=== PATIENT | male | born 1990 | race American Indian/Alaskan Native ===

== ENCOUNTER 2016-09-28 10:47 | Inpatient (IN) | payer OTHER ==
[2016-09-28] MEDS ORDERED: VANCOMYCIN/NS 1 GM/250 ML 250 ML IV ONE (12:02)
[2016-09-28] MEDS ORDERED: ROCEPHIN/NS 2 GM/100 ML 100 ML IV ONE (12:02)
--- NOTE | 2016-09-28 12:10 | Cat Scan Report ---
CT scan of head without contrast: History: Headache. Findings: Ventricles are normal in size and midline in location. No evidence of acute ischemia, hemorrhage or mass. No extra-axial fluid collection. Normal brainstem and cerebellum. Mucosal thickening of the maxillary sinuses. Impression: No acute intracranial abnormality. Sinus disease.
--- NOTE | 2016-09-28 12:12 | Cat Scan Report ---
CT scan of cervical spine: History: Fall, neck pain. Findings: The odontoid process and the lateral mass and anterior and posterior arch of atlas appears unremarkable. Normal height of vertebral bodies and intervertebral disc. Normal articular surfaces. No fracture. Normal prevertebral soft tissue. Impression: Essentially negative cervical spine.
[2016-09-28] MEDS ORDERED: ROCEPHIN/NS 1 GM/50 ML 50 ML IV ONE ×2 (12:14→13:06)
[2016-09-28] MEDS ORDERED: NACL 0.9% 1000 ML 1,000 ML ONE (12:14)
[2016-09-28 12:32] LABS: Basophils % (Auto) 1.6 % (0.0-1.8); Eosinophils % (Auto) 0.3 % (0.0-4.3); Hematocrit 37.5 % (35.5-45.6); Hemoglobin 12.6 gm/dl (11.8-15.2); Mean Corpuscular HGB Conc 34 % (32-34); Mean Corpuscular Hemoglobin 28 pg (28-32); Mean Corpuscular Volume 82 fl (84-94); Platelet Count 105 K/mm3 (140-440); Red Blood Count 4.58 M/mm3 (3.65-5.03); Red Cell Distribution Width 15.2 % (13.2-15.2); White Blood Count 4.8 K/mm3 (4.5-11.0)
[2016-09-28 12:37] LABS: Urine Drugs of Abuse Note Disclamer
[2016-09-28] MEDS ORDERED: NACL 0.9% 1000 ML 1,000 ML IV ONE (12:39)
[2016-09-28 12:51] LABS: Bilirubin,Urine NEG (Negative); Blood,Urine MOD (Negative); Ketones,Urine NEG (Negative); Leukocyte Esterase,Urine NEG (Negative); Mucus,Urine FEW /HPF; Nitrite,Urine NEG (Negative); Urobilinogen,Urine < 2.0 mg/dL (<2.0); WBC,Urine < 1.0 /HPF (0.0-6.0)
[2016-09-28 12:54] LABS: Protein,Urine >500 mg/dL (Negative)
[2016-09-28] MEDS ORDERED: DECADRON IV ONE (12:54)
--- NOTE | 2016-09-28 13:13 | Emergency Department Report ---
HPI - General Chief Complaint: Altered Mental Status Time Seen by Provider: 09/28/16 11:29 - HPI HPI: Chief complaint: Altered mental status HPI: Patient is a 24-year-old -Citizen Of [place] male brought in by his family for altered mental status. Patient was seen at [facility] on the and diagnosed with a sinus infection. Patient was given a prescription for an antibiotic but never had it filled. Patient has been having altered mental status and fall and numerous times in the last 24 hours. Patient is unable to contribute much to the history but states he is not HIV positive that he knows of. Family states he is homosexual. Patient states he has lost weight recently. Patient complains of a headache. Family states he did throw up at least once. Mode of arrival: [private car] Source: [Patient] and and [family member] Began: Patient began generalized malaise and weight loss about a month ago but became altered and the last one to 2 days. Duration: See above Context: See above Quality: Unable to assess Severity: 8 out of 10 Improved with: Unable to assess Worsened with: Unable to assess Associated signs and symptoms: See above ED Review of Systems ROS: Stated complaint: HEADACHE Other details as noted in HPI Comment: Unobtainable due to pts medical conditions (altered mental status) Physical Exam - Physical Exam Vital Signs: Vital Signs 09/28/16 09/28/16 09/28/16 11:11 12:34 12:39 Temperature 99.0 F 99.4 F Temperature [ Pre-Procedure] Pulse Rate 63 84 84 Respiratory 18 18 Rate Respiratory Rate [Pre- Procedure] Blood Pressure 161/95 Blood Pressure [Pre-Procedure] Blood Pressure 97/52 97/52 [Right] O2 Sat by Pulse 100 99 100 Oximetry O2 Sat by Pulse Oximetry [Pre- Procedure] 09/28/16 09/28/16 09/28/16 12:45 12:49 12:50 Temperature 99.4 F Temperature [ 99.4 F Pre-Procedure] Pulse Rate 77 77 Respiratory 16 18 Rate Respiratory 16 Rate [Pre- Procedure] Blood Pressure Blood Pressure 133/84 [Pre-Procedure] Blood Pressure 114/80 114/75 [Right] O2 Sat by Pulse 100 99 Oximetry O2 Sat by Pulse 100 Oximetry [Pre- Procedure] Physical Exam: GENERAL: The patient is thin -Citizen Of [place] male who is somewhat lethargic but arousable. HEENT: Normocephalic. Atraumatic. Extraocular motions are intact. Patient has moist mucous membranes. NECK: Neck with significant meningeal rigidity. CHEST/LUNGS: Clear to auscultation. There is no respiratory distress noted. HEART/CARDIOVASCULAR: Regular. There is tachycardia. There is no gallop rub or murmur. ABDOMEN: Abdomen is soft, nontender. Patient has normal bowel sounds. There is no abdominal distention. SKIN: There is no rash. There is no edema. There is no diaphoresis. NEURO: The patient is lethargic and oriented to situation. The patient is cooperative. The patient moves all extremities area and the patient has slow but appropriate speech. MUSCULOSKELETAL: There is no tenderness or deformity. There is no evidence of acute injury. ED Course Vital Signs 09/28/16 09/28/16 09/28/16 11:11 12:34 12:39 Temperature 99.0 F 99.4 F Temperature [ Pre-Procedure] Pulse Rate 63 84 84 Respiratory 18 18 Rate Respiratory Rate [Pre- Procedure] Blood Pressure 161/95 Blood Pressure [Pre-Procedure] Blood Pressure 97/52 97/52 [Right] O2 Sat by Pulse 100 99 100 Oximetry O2 Sat by Pulse Oximetry [Pre- Procedure] 09/28/16 09/28/16 09/28/16 12:45 12:49 12:50 Temperature 99.4 F Temperature [ 99.4 F Pre-Procedure] Pulse Rate 77 77 Respiratory 16 18 Rate Respiratory 16 Rate [Pre- Procedure] Blood Pressure Blood Pressure 133/84 [Pre-Procedure] Blood Pressure 114/80 114/75 [Right] O2 Sat by Pulse 100 99 Oximetry O2 Sat by Pulse 100 Oximetry [Pre- Procedure] - Reevaluation(s) Reevaluation #1: 09/28/16 14:58 Dr. Donnelly here in the emergency department to see the patient. Reevaluation #2: 09/28/16 Prior to compare: Treatment with Decadron, Rocephin and vancomycin discussed with infectious disease. Patient spinal tap and blood cultures were drawn before antibiotics were given. - Lumbar Puncture Consent Obtained: verbal consent, written consent Time Out Performed: Yes Indication for Procedure: headache, change in mental status Patient Position: right lateral decubitus Skin Prep: Povidone-Iodine 1% Local Anesthetic Used: Lidocaine 1% Amount of anesthesia used (mls): 5 Spinal Needle Gauge: 22G Interspace Used: L3-L4 Fluid Initially Obtained: clear Complications: none Patient Tolerated Procedure: no complications ED Medical Decision Making - Lab Data Result diagrams: 09/28/16 12:06 09/28/16 12:06 Laboratory Tests 09/28/16 09/28/16 09/28/16 11:20 12:06 12:06 POC Glucose 98 Lactic Acid 1.9 Calcium 8.7 Troponin T Triglycerides Cholesterol LDL Cholesterol Direct HDL Cholesterol Cholesterol/HDL Ratio Urine pH Ur Specific Morganza Urine Protein Urine Blood Urine Urobilinogen Urine WBC (Auto) Urine RBC (Auto) U Epithel Cells (Auto) CSF Appearance CSF Color CSF WBC CSF RBC CSF Seg Neutrophils CSF Lymphocytes % CSF Reactive Lymphs CSF Monocytes % CSF Eosinophils % CSF Basophils CSF Pathologist Review CSF Glucose CSF Total Protein Salicylates Acetaminophen U Marijuana (THC) Screen Plasma/Serum Alcohol 09/28/16 09/28/16 09/28/16 12:06 12:06 12:06 POC Glucose Lactic Acid Calcium Troponin T 0.427 H* Triglycerides 102 Cholesterol 151 LDL Cholesterol Direct 86 HDL Cholesterol 45 Cholesterol/HDL Ratio 3.35 Urine pH Ur Specific Morganza Urine Protein Urine Blood Urine Urobilinogen Urine WBC (Auto) Urine RBC (Auto) U Epithel Cells (Auto) CSF Appearance CSF Color CSF WBC CSF RBC CSF Seg Neutrophils CSF Lymphocytes % CSF Reactive Lymphs CSF Monocytes % CSF Eosinophils % CSF Basophils CSF Pathologist Review CSF Glucose CSF Total Protein Salicylates < 0.3 L Acetaminophen < 15.0 U Marijuana (THC) Screen Plasma/Serum Alcohol 09/28/16 09/28/16 09/28/16 12:06 12:20 12:27 POC Glucose Lactic Acid Calcium Troponin T Triglycerides Cholesterol LDL Cholesterol Direct HDL Cholesterol Cholesterol/HDL Ratio Urine pH 5.0 Ur Specific Morgan[place] 1.017 Urine Protein >500 Urine Blood Mod Urine Urobilinogen < 2.0 Urine WBC (Auto) < 1.0 Urine RBC (Auto) 1.0 U Epithel Cells (Auto) < 1.0 CSF Appearance CSF Color CSF WBC CSF RBC CSF Seg Neutrophils CSF Lymphocytes % CSF Reactive Lymphs CSF Monocytes % CSF Eosinophils % CSF Basophils CSF Pathologist Review CSF Glucose CSF Total Protein Salicylates Acetaminophen U Marijuana (THC) Screen Presumptive positive Plasma/Serum Alcohol < 0.01 09/28/16 12:45 POC Glucose Lactic Acid Calcium Troponin T Triglycerides Cholesterol LDL Cholesterol Direct HDL Cholesterol Cholesterol/HDL Ratio Urine pH Ur Specific Morganza Urine Protein Urine Blood Urine Urobilinogen Urine WBC (Auto) Urine RBC (Auto) U Epithel Cells (Auto) CSF Appearance Clear CSF Color Colorless CSF WBC 600 CSF RBC 165 CSF Seg Neutrophils 55.5 CSF Lymphocytes % 38.0 CSF Reactive Lymphs 0.5 CSF Monocytes % 6.0 CSF Eosinophils % 0 CSF Basophils 0 CSF Pathologist Review C CSF Glucose 3 CSF Total Protein 117 Salicylates Acetaminophen U Marijuana (THC) Screen Plasma/Serum Alcohol - EKG Data -: EKG Interpreted by Me EKG shows normal: sinus rhythm Rate: normal (75) - EKG Data When compared to previous EKG there are: previous EKG unavailable Interpretation: normal EKG - Radiology Data Radiology results: report reviewed (questionable right lower lobe infiltrate. CT head showed no acute process.) Critical care attestation.: If time is entered above; I have spent that time in minutes in the direct care of this critically ill patient, excluding procedure time. ED Disposition Clinical Impression: Cryptococcal meningitis Disposition: OP ADMITTED IP TO THIS HOSP Is pt being admited?: Yes Does the pt Need Aspirin: Yes Condition: Serious Referrals: PRIMARY CARE, [Primary Care Provider] - 3-5 Days Time of Disposition: 13:20 (admit to the hospitalist)
[2016-09-28 13:19] LABS: Anion Gap 20 mmol/L; Blood Urea Nitrogen 21 mg/dL (9-20); Calcium 8.7 mg/dL (8.4-10.2); Carbon Dioxide 19 mmol/L (22-30); Chloride 87.5 mmol/L (98-107); Glucose 98 mg/dL (75-100); Potassium 4.4 mmol/L (3.6-5.0); Sodium 122 mmol/L (137-145)
[2016-09-28 13:32] LABS: Glucose,CSF 3 mg/dL
[2016-09-28 13:35] LABS: Appearance,CSF Clear
[2016-09-28 13:36] LABS: White Blood Cell,CSF 600 /mm3 (1-10)
--- NOTE | 2016-09-28 14:28 | XRay Report ---
Single view chest: History: Shortness of breath. Findings: Cardiomegaly. Trachea is midline. Faint interstitial infiltrates are noted right lower lobe with prominence of pulmonary vascularity. Normal CP angles. Impression: Probable right lower lobe pneumonia. Less likely early unilateral pulmonary edema.
[2016-09-28 14:34] LABS: Basophils CSF 0 %; CSF Diff Status Complete
--- NOTE | 2016-09-28 15:36 | Consultation ---
History of Present Illness - Reason for Consult Consult date: 09/28/16 meningitis - History of Present Illness Mr Rich is a 25y/o AA male presents through the ED with a one-month history of malaise, worsening generalized headache, decreased appetite, and weight loss. He was brought to the hospital by his sister who stated that had been falling. The patient had marked neck rigidity with non-contrast head CT showing no acute changes. Spinal fluid revealed 600 WBCs with 50% segs and 38% lymphs; 165 RBCs, glucose 3, protein 117 and cryptococcal antigen 1:512 The patient is found altered now making retrieval of his history somewhat difficult. He apparently was seen earlier this month at [facility] whereby he was thought to have a sinus infection. He was prescribed medication but never had that prescription filled. Currently, Mr. Rich describes cough with white sputum. He denies fever or chills. He denies photophobia, nausea or vomiting. He has had occasional diarrhea. The patient lives a diaz lifestyle but states that he has not been sexually active in over a year's time. He is unaware of exposure to HIV otherwise. He is unaware of previous HIV testing. He notes a history of syphilis in the past but denies other STD. He denies a history of hepatitis or TB. Other present lab findings include a CBC with 4800 white cells, hemoglobin of 12.6 and hematocrit of 37.5. Platelet count is 105,000. Electrolytes include a sodium 122 and chloride of 87.5. Lactate levels 1.9. Urinalysis is benign. Urine drug screen was positive for THC. Chest x-ray shows a questionable right lower lobe infiltrate. CT of the head showed some chronic maxillary sinus changes with mucosal thickening. The patient had been started empirically in the ED with Decadron 10 mg 1, ceftriaxone 2 g IV and vancomycin 1 g IV. He is now seen for further ID recommendations Medications and Allergies Allergies Allergy/AdvReac Type Severity Reaction Status Date / Time No Known Allergies Allergy Unverified 09/28/16 11:11 Active Meds: Active Medications Acetaminophen (Tylenol) 650 mg PO Q24H JAVIER Dextrose (D5w (50 Ml)) 5 ml IV Q24H JAVIER Diphenhydramine HCl (Benadryl) 25 mg IV Q24H JAVIER Flucytosine (Ancobon) 2,000 mg PO Q6HR JAVIER Amphotericin B 560 mg/ IV (Miscellaneous Supplies) 0 mls @ 0 mls/hr IV Q24H JAVIER PRN Reason: Protocol Ceftriaxone Sodium (Rocephin/Ns 2 Gm/100 Ml) 100 mls @ 200 mls/hr IV Q24HR JAVIER PRN Reason: Protocol Azithromycin 500 mg/ Sodium (Chloride) 250 mls @ 250 mls/hr IV Q24HR JAVIER Review of Systems Constitutional: weight loss, malaise, poor appetite (see discussion above) Physical Examination - Physical Exam Narrative exam: Chronically ill appearing. No acute distress. HEENT: Right facial puffiness. Pupils are equal reactive to light and accommodation. Funduscopy could not be performed. Conjunctiva clear. Thrush noted over tongue surface NECK: Supple. No enlargement of the thyroid gland. No significant cervical lymphadenopathy. No jugular venous distention at 30. LUNGS: Clear with no adventitious sounds. HEART: Tachycardic. No murmur or gallop. ABDOMEN: Soft and nontender. Liver and spleen are not palpably enlarged or tender. No palpable masses. Bowel sounds are normoactive. : Small perirectal ulcers noted. EXTREMITIES: Shotty cervical, axillary and inguinal lymph node enlargement. SKIN: No other rash, ulcers or wounds. NEUROLOGIC: Patient is well oriented. Verbal responses are slow. No gross motor or sensory deficits. Patient was not ambulated. - Constitutional Vitals: Vital Signs Temp Pulse Resp BP Pulse Ox 99.4 F 77 16 133/84 100 09/28/16 12:50 09/28/16 12:49 09/28/16 12:50 09/28/16 12:50 09/28/16 12:50 Temperature -Last 24 Hours Temperature [Pre-Procedure] 99.4 F Temperature 99.4 F Temperature 99.4 F Temperature 99.0 F Results - Labs CBC & Chem 7: 09/28/16 12:06 09/28/16 12:06 Labs: Abnormal lab results 09/28/16 09/28/16 09/28/16 Range/Units 12:06 12:06 12:06 MCV 82 L (84-94) fl Plt Count 105 L (140-440) K/mm3 Lymph % (Auto) 6.5 L (13.4-35.0) % Lymph # 0.3 L (1.2-5.4) K/mm3 Seg Neutrophils % 84.5 H (40.0-70.0) % Sodium 122 L (137-145) mmol/L Chloride 87.5 L (98-107) mmol/L Carbon Dioxide 19 L (22-30) mmol/L BUN 21 H (9-20) mg/dL Troponin T 0.427 H* (0.00-0.029) ng/mL Salicylates (2.8-20.0) mg/dL 09/28/16 Range/Units 12:06 MCV (84-94) fl Plt Count (140-440) K/mm3 Lymph % (Auto) (13.4-35.0) % Lymph # (1.2-5.4) K/mm3 Seg Neutrophils % (40.0-70.0) % Sodium (137-145) mmol/L Chloride (98-107) mmol/L Carbon Dioxide (22-30) mmol/L BUN (9-20) mg/dL Troponin T (0.00-0.029) ng/mL Salicylates < 0.3 L (2.8-20.0) mg/dL Assessment and Plan Assessment: Mr Rich is a 25y/o AA male presents through the ED with a one-month history of malaise, worsening generalized headache, decreased appetite, and weight loss. He was brought to the hospital by his sister who stated that had been falling. The patient had marked neck rigidity with non-contrast head CT showing no acute changes. 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 R/O HIV/AIDS - Weight loss - Thrush - Diffuse adenopathy 3. RLL infiltrate - R/O CAP vs OI 4. ? Diarrhea 5. Marked hyponatremia - R/O SIADH 6. Thrombocytopenia - probably secondary to HIV 7. Chronic sinusitis 8. Perirectal ulcers - R/O herpes Recommendations: - Patient to start on IV amphotericin B 0.7 mg/kg daily along with flucytosine 25 mg/kg by mouth every 6 hours - Routine blood cultures are pending - Blood culture for TB ordered as well - Repeat chest x-ray - Treatment now for CAP with ceftriaxone and azithromycin. We'll need to workup further for pneumonia pending above - HIV studies now to include formal HIV antibody, T cell count, HIV viral load, HIV genotype, RPR, serum cryptococcal antigen, , TB QuantiFERON assay, andhepatitis A, B, and C serology, and urine for chlamydia and GC screen - Check Liveer profile and LDH - Send herpes viral culture of perirectal ulcer - Start fluconazole 200 mg po daily - If diarrhea persists will send for routine C&S, O&P and C. difficile. - Supportive care and further fluid/electrolyte management as per hospitalist
[2016-09-28] MEDS: D5W (50 ML) IV SCH (16:00)
[2016-09-28] MEDS ORDERED: [UNRECOGNIZED DRUG - MIXTURE] IV SCH (16:00)
[2016-09-28] MEDS ORDERED: ZITHROMAX 500 MG in NACL 0.9% 250ML 250 ML IV SCH (16:00)
--- NOTE | 2016-09-28 16:02 | Admit Criteria Form ---
Admission Criteria Documentation: MENTAL STATUS CHANGE Clinical Indications for Inpatient Care (Place 'X' for any and all applicable criteria): Ongoing inpatient care may be needed for ANY ONE of the following(1)(2)(3)(5)(6) : [X ]I. Suspected serious etiology (eg, medical disorder, NICKER AND BREAKER event) of mental status change [ ]II. Danger to self or others not manageable at lower level of care [ ]III. Grave disability (eg, inability to perform self care necessary at lower level of care) [ ]IV. Agitation or inappropriate behavior interfering with care for primary condition (eg, attempting to discontinue lines or drains prematurely, unable to cooperate with respiratory care) [ ]V. Delirium [A] [D][E] as described by ANY ONE of the following(26): [ ]a) Delirium due to alcohol or sedative [F] withdrawal [ ]b) Delirium of uncertain etiology that has not responded to appropriate empiric treatment [ ]c) Delirium that prevents performance of a life-sustaining function (eg, feeding or hydrating oneself) [ ]. General contraindications and/or Inappropriate clinical situations for Observational Care in patients with Mental Status Change, when ANY ONE of the following is required: [ ]a) Prediction of prolongation of LOS based on ANY ONE of the following may be considered as a contraindication for observational care 2, 3, 4, 5, 6, 7, 8, 9, 10, 11 [ ]i) Age > 65 yrs. [ ]ii) Patient arriving by ambulance [ ]iii) Patient with high acuity [ ]iv) Patient requiring vital sign monitoring [ ]v) Patient on IV medication [ ]b) Systolic blood pressures 180mmHg 3,12 [ ]c) Patient with altered mental status including delirium and other alteration of consciousness, (3) [ ]d) Patient whose discharge disposition will be to a penitentiary home or rehabilitation home should not be managed in Emergency Department Observation Unit. CMS rule requires 3 days hospital stay before such placement.3,13 [ ]e) Patient with failure to thrive due to broad array of etiologies 3,16,17 [ ]f) Inability to ambulate 3,14 Extended stay beyond goal length of stay for the primary condition may be needed until ALL of the following are present(3)(5): [ ]a) Underlying medical etiology of mental status change is absent, or has been established and adequately treated [ ]b) Danger to self or others is absent or manageable at lower level of care. [ ]c) Behavior crisis management, including physical or chemical restraints, is not required or available at lower level of car [ ]d) Substance or alcohol withdrawal is absent or manageable at lower level of care. [ ]e) Behavioral symptoms (eg, agitation, somnolence, inappropriate behavior) are absent, or are manageable at lower level of care. The original [facility] content created by [facility] [employer] has been revised. The portions of the content which have been revised are identified through the use of italic text or in bold, and [facility] has neither reviewed nor approved the modified material. All other unmodified content is copyright [facility]. Please see references footnoted in the original [facility] edition 2016 Admission Criteria Met: Yes
[2016-09-28] MEDS: BENADRYL IV SCH (16:55)
[2016-09-28] MEDS: TYLENOL PO SCH (17:08)
[2016-09-28 17:33] LABS: Alanine Aminotransferase 17 units/L (7-56); Albumin 2.7 g/dL (3.9-5); Albumin/Globulin Ratio 0.4 %; Alkaline Phosphatase 43 units/L (35-129); Bilirubin,Total 0.5 mg/dL (0.1-1.2); Total Protein 9.7 g/dL (6.3-8.2)
[2016-09-28 17:54] LABS: Bilirubin,Direct < 0.2 mg/dL (0-0.2); Bilirubin,Indirect 0.3 mg/dL
[2016-09-28] MEDS: DIFLUCAN PO SCH (18:19)
[2016-09-28] MEDS: ZITHROMAX 500 MG in NACL 0.9% 250ML 250 ML IV SCH (18:20)
[2016-09-28] MEDS: [UNRECOGNIZED DRUG - OTHER] PO SCH (18:32)
[2016-09-28] MEDS: [UNRECOGNIZED DRUG - OTHER] IV SCH (18:33)
[2016-09-28] MEDS: D5W IV SCH (18:33)
[2016-09-28] MEDS ORDERED: MILK OF MAGNESIA PO PRN (18:59)
[2016-09-28] MEDS ORDERED: DULCOLAX PR PRN (18:59)
[2016-09-28] MEDS ORDERED: D5/0.45NS 1,000 ML IV SCH (19:00)
[2016-09-28] MEDS ORDERED: XYLOCAINE 1% MPF 5 mL INFILTRATI ONE (19:03)
[2016-09-28] MEDS ORDERED: ROCEPHIN 2,000 MG in NACL 0.9% 50 ML IV SCH (20:00)
[2016-09-29 05:41] LABS: Basophils % (Auto) 0.3 % (0.0-1.8); Hematocrit 32.1 % (35.5-45.6); Hemoglobin 10.6 gm/dl (11.8-15.2); Mean Corpuscular HGB Conc 33 % (32-34); Mean Corpuscular Hemoglobin 27 pg (28-32); Mean Corpuscular Volume 82 fl (84-94); Platelet Count 159 K/mm3 (140-440); Red Blood Count 3.93 M/mm3 (3.65-5.03); Red Cell Distribution Width 15.1 % (13.2-15.2); White Blood Count 4.1 K/mm3 (4.5-11.0)
[2016-09-29 06:02] LABS: Alanine Aminotransferase 13 units/L (7-56); Albumin 2.4 g/dL (3.9-5); Albumin/Globulin Ratio 0.4 %; Alkaline Phosphatase 34 units/L (35-129); Anion Gap 18 mmol/L; BUN/Creatinine Ratio 19.23; Bilirubin,Total 0.3 mg/dL (0.1-1.2); Blood Urea Nitrogen 25 mg/dL (9-20); Carbon Dioxide 19 mmol/L (22-30); Chloride 91.3 mmol/L (98-107); Glucose 95 mg/dL (75-100); Potassium 4.2 mmol/L (3.6-5.0); Sodium 124 mmol/L (137-145); Total Protein 7.9 g/dL (6.3-8.2)
[2016-09-29] MEDS: [UNRECOGNIZED DRUG - OTHER] PO SCH ×4 (06:08→18:00)
[2016-09-29 08:32] LABS: HIV-1 Antigen p24 Non React (Non React)
[2016-09-29 08:34] LABS: HIVR-1/2 Ab Reactive (Non React)
--- NOTE | 2016-09-29 08:39 | Progress Note ---
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 No nursing issues overnight. Patient was sleepy but abusable and answer questions. Complained headache. Hospitalist Physical - Physical exam Narrative exam: Not in cardiopulmonary distress. The patient appeared chronically sick looking and cachectic. Shotty cervical and axillary lymphadenopathy. Vital signs as documented. Head exam is unremarkable. No scleral icterus . Neck is without jugular venous distension, thyromegaly, or carotid bruits. Lungs are clear to auscultation. Cardiac exam reveals regular rate and Rhythm. First and second heart sounds normal. No murmurs, rubs or gallops. Abdominal exam reveals normal bowel sounds, no masses, no organomegaly and no aortic enlargement. Extremities are nonedematous and both femoral and pedal pulses are normal. 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 No focal weakness. - Constitutional Vitals: Temp Pulse Resp BP Pulse Ox 98.5 F 69 18 122/75 99 09/29/16 08:00 09/29/16 08:00 09/29/16 08:00 09/29/16 08:00 09/29/16 08:00 Results - Labs CBC & Chem 7: 09/29/16 05:16 09/29/16 05:16 Labs: Laboratory Last Values WBC 4.1 K/mm3 (4.5-11.0) L 09/29/16 05:16 RBC 3.93 M/mm3 (3.65-5.03) 09/29/16 05:16 Hgb 10.6 gm/dl (11.8-15.2) L 09/29/16 05:16 Hct 32.1 % (35.5-45.6) L 09/29/16 05:16 MCV 82 fl (84-94) L 09/29/16 05:16 MCH 27 pg (28-32) L 09/29/16 05:16 MCHC 33 % (32-34) 09/29/16 05:16 RDW 15.1 % (13.2-15.2) 09/29/16 05:16 Plt Count 159 K/mm3 (140-440) 09/29/16 05:16 Lymph % (Auto) 18.0 % (13.4-35.0) 09/29/16 05:16 [place] % (Auto) 10.0 % (0.0-7.3) H 09/29/16 05:16 Eos % (Auto) 0.0 % (0.0-4.3) 09/29/16 05:16 Baso % (Auto) 0.3 % (0.0-1.8) 09/29/16 05:16 Lymph # 0.7 K/mm3 (1.2-5.4) L 09/29/16 05:16 [place] # 0.4 K/mm3 (0.0-0.8) 09/29/16 05:16 Eos # 0.0 K/mm3 (0.0-0.4) 09/29/16 05:16 Baso # 0.0 K/mm3 (0.0-0.1) 09/29/16 05:16 Seg Neutrophils % 71.7 % (40.0-70.0) H 09/29/16 05:16 Seg Neutrophils # 3.0 K/mm3 (1.8-7.7) 09/29/16 05:16 Sodium 124 mmol/L (137-145) L 09/29/16 05:16 Potassium 4.2 mmol/L (3.6-5.0) 09/29/16 05:16 Chloride 91.3 mmol/L (98-107) L 09/29/16 05:16 Carbon Dioxide 19 mmol/L (22-30) L 09/29/16 05:16 Anion Gap 18 mmol/L 09/29/16 05:16 BUN 25 mg/dL (9-20) H 09/29/16 05:16 Creatinine 1.3 mg/dL (0.8-1.5) 09/29/16 05:16 Estimated GFR > 60 ml/min 09/29/16 05:16 BUN/Creatinine Ratio 19.23 % 09/29/16 05:16 Glucose 95 mg/dL (75-100) 09/29/16 05:16 POC Glucose 98 (70-105) 09/28/16 11:20 Lactic Acid 1.9 mmol/L (0.7-2.0) 09/28/16 12:06 Calcium 8.0 mg/dL (8.4-10.2) L 09/29/16 05:16 Total Bilirubin 0.3 mg/dL (0.1-1.2) 09/29/16 05:16 Direct Bilirubin < 0.2 mg/dL (0-0.2) 09/28/16 12:06 Indirect Bilirubin 0.3 mg/dL 09/28/16 12:06 AST 21 units/L (5-40) 09/29/16 05:16 ALT 13 units/L (7-56) 09/29/16 05:16 Alkaline Phosphatase 34 units/L (35-129) L 09/29/16 05:16 Lactate Dehydrogenase 467 units/L (91-180) H 09/28/16 12:06 Troponin T 0.427 ng/mL (0.00-0.029) H* 09/28/16 12:06 Total Protein 7.9 g/dL (6.3-8.2) 09/29/16 05:16 Albumin 2.4 g/dL (3.9-5) L 09/29/16 05:16 Albumin/Globulin Ratio 0.4 % 09/29/16 05:16 Triglycerides 102 mg/dL (2-149) 09/28/16 12:06 Cholesterol 151 mg/dL (50-199) 09/28/16 12:06 LDL Cholesterol Direct 86 mg/dL (50-130) 09/28/16 12:06 HDL Cholesterol 45 mg/dL (40-59) 09/28/16 12:06 Cholesterol/HDL Ratio 3.35 % 09/28/16 12:06 Urine Color Yellow (Yellow) 09/28/16 12:27 Urine Turbidity Clear (Clear) 09/28/16 12:27 Urine pH 5.0 (5.0-7.0) 09/28/16 12:27 Ur Specific [place] 1.017 (1.003-1.030) 09/28/16 12:27 Urine Protein >500 mg/dL (Negative) 09/28/16 12:27 Urine Glucose (UA) Neg mg/dL (Negative) 09/28/16 12:27 Urine Ketones Neg mg/dL (Negative) 09/28/16 12:27 Urine Blood Mod (Negative) 09/28/16 12:27 Urine Nitrite Neg (Negative) 09/28/16 12:27 Urine Bilirubin Neg (Negative) 09/28/16 12:27 Urine Urobilinogen < 2.0 mg/dL (<2.0) 09/28/16 12:27 Ur Leukocyte Esterase Neg (Negative) 09/28/16 12:27 Urine WBC (Auto) < 1.0 /HPF (0.0-6.0) 09/28/16 12:27 Urine RBC (Auto) 1.0 /HPF (0.0-6.0) 09/28/16 12:27 U Epithel Cells (Auto) < 1.0 /HPF (0-13.0) 09/28/16 12:27 Urine Mucus Few /HPF 09/28/16 12:27 CSF Appearance Clear 09/28/16 12:45 CSF Color Colorless 09/28/16 12:45 CSF WBC 600 /mm3 (1-10) 09/28/16 12:45 CSF RBC 165 /mm3 (0-0) 09/28/16 12:45 CSF Seg Neutrophils 55.5 % (0-6) 09/28/16 12:45 CSF Lymphocytes % 38.0 % (40-80) 09/28/16 12:45 CSF Reactive Lymphs 0.5 % 09/28/16 12:45 CSF Monocytes % 6.0 % (15-45) 09/28/16 12:45 CSF Eosinophils % 0 % 09/28/16 12:45 CSF Basophils 0 % 09/28/16 12:45 CSF Pathologist Review C 09/28/16 12:45 CSF Glucose 3 mg/dL 09/28/16 12:45 CSF Total Protein 117 mg/dL 09/28/16 12:45 Salicylates < 0.3 mg/dL (2.8-20.0) L 09/28/16 12:06 Urine Opiates Screen Presumptive negative 09/28/16 12:20 Urine Methadone Screen Presumptive negative 09/28/16 12:20 Acetaminophen < 15.0 ug/mL (10.0-30.0) 09/28/16 12:06 Ur Barbiturates Screen Presumptive negative 09/28/16 12:20 Ur Phencyclidine Scrn Presumptive negative 09/28/16 12:20 Ur Amphetamines Screen Presumptive negative 09/28/16 12:20 U Benzodiazepines Scrn Presumptive negative 09/28/16 12:20 Urine Cocaine Screen Presumptive negative 09/28/16 12:20 U Marijuana (THC) Screen Presumptive positive 09/28/16 12:20 Drugs of Abuse Note Disclamer 09/28/16 12:20 Plasma/Serum Alcohol < 0.01 gm% (0-0.07) 09/28/16 12:06 Hep Bs Antigen Non-reactive (Negative) 09/28/16 15:43 Hep B Core IgM Ab Non-reactive (NonReactive) 09/28/16 15:43 Hepatitis C Antibody Non-reactive (NonReactive) 09/28/16 15:43 Positive for cryptococcal antigen
--- NOTE | 2016-09-29 08:49 | Event Note ---
Date: 09/28/16 See H/p in reports Meningitis-Cryptococcal HIV status
--- NOTE | 2016-09-29 09:32 | Progress Note ---
Assessment and Plan Assessment: Mr Rich is a 25y/o AA male presents through the ED with a one-month history of malaise, worsening generalized headache, decreased appetite, and weight loss. He was brought to the hospital by his sister who stated that had been falling. The patient had marked neck rigidity with non-contrast head CT showing no acute changes. 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 R/O HIV/AIDS - Weight loss - Thrush - Diffuse adenopathy 3. RLL infiltrate - R/O CAP vs OI 4. ? Diarrhea 5. Marked hyponatremia - R/O SIADH 6. Thrombocytopenia - probably secondary to HIV 7. Chronic sinusitis 8. Perirectal ulcers - R/O herpes Recommendations: - Patient to continue on IV amphotericin B 0.7 mg/kg daily along with flucytosine 25 mg/kg by mouth every 6 hours - Routine blood cultures are pending - Blood culture for TB pending as well - Repeat chest x-ray - Treatment now for CAP with ceftriaxone and azithromycin. We'll need to workup further for pneumonia pending above - HIV studies now to include formal HIV antibody, T cell count, HIV viral load, HIV genotype, RPR, serum cryptococcal antigen, , TB QuantiFERON assay, and urine for chlamydia and GC screen - Check Liver profile and LDH - will check urine and serum osmolality, and spot urine Na+. - Send herpes viral culture of perirectal ulcer - Start fluconazole 200 mg po daily ( although patient on Ampho. B ) - Will send stool for routine C&S, O&P and C. difficile. - Supportive care and further fluid/electrolyte management as per hospitalist Subjective Date of service: 09/29/16 Interval history: Describes persistent headache. Diarrheal stools 2 last night. Discussed HIV issues with rapid HIV testing positive. Objective - Exam Narrative Exam: Chronically ill appearing. No acute distress. HEENT: Right facial puffiness. Pupils are equal reactive to light and accommodation. Funduscopy could not be performed. Conjunctiva clear. Thrush noted over tongue surface NECK: Marked stiffness. No enlargement of the thyroid gland. Shotty cervical lymphadenopathy. No jugular venous distention at 30. LUNGS: Clear with no adventitious sounds. HEART: Tachycardic. No murmur or gallop. ABDOMEN: Soft and nontender. Liver and spleen are not palpably enlarged or tender. No palpable masses. Bowel sounds are normoactive. : Small perirectal ulcers noted. EXTREMITIES: Shotty cervical, axillary and inguinal lymph node enlargement. SKIN: No other rash, ulcers or wounds. NEUROLOGIC: Patient is well oriented. Verbal responses are slow. Marked nuchal rigidity. No gross motor or sensory deficits. Patient was not ambulated. - Constitutional Vitals: Vital Signs Temp Pulse Resp BP Pulse Ox 98.5 F 69 18 122/75 99 09/29/16 08:00 09/29/16 08:00 09/29/16 08:00 09/29/16 08:00 09/29/16 08:00 Temperature -Last 24 Hours Temperature 98.5 F Temperature 97.3 F Temperature 97.9 F - Labs CBC & Chem 7: 09/29/16 05:16 09/29/16 05:16 Labs: Abnormal lab results 09/29/16 09/29/16 Range/Units 05:16 05:16 WBC 4.1 L (4.5-11.0) K/mm3 Hgb 10.6 L (11.8-15.2) gm/dl Hct 32.1 L (35.5-45.6) % MCV 82 L (84-94) fl MCH 27 L (28-32) pg [place] % (Auto) 10.0 H (0.0-7.3) % Lymph # 0.7 L (1.2-5.4) K/mm3 Seg Neutrophils % 71.7 H (40.0-70.0) % Sodium 124 L (137-145) mmol/L Chloride 91.3 L (98-107) mmol/L Carbon Dioxide 19 L (22-30) mmol/L BUN 25 H (9-20) mg/dL Calcium 8.0 L (8.4-10.2) mg/dL Alkaline Phosphatase 34 L (35-129) units/L Albumin 2.4 L (3.9-5) g/dL
[2016-09-29] MEDS: ROCEPHIN/NS 2 GM/100 ML 100 ML IV SCH (09:43)
[2016-09-29] MEDS: DIFLUCAN PO SCH (09:44)
[2016-09-29] MEDS: LOVENOX SUB-Q SCH (09:44)
--- NOTE | 2016-09-29 09:59 | History and Physical Report ---
CHIEF COMPLAINT: Altered mental status. HISTORY OF PRESENT ILLNESS: A 25-year-old male, brought in by family for altered mental status. The patient was seen at [facility] on 09/23/2016, diagnosis of sinus infection. The patient was given a prescription for antibiotics, but never had it filled. The patient has been having altered mental status and fall and in the last 24 hours, has been confused. No clear sensorium. The patient is unable to contribute much of the history, but states he is not HIV positive that he knows of. Family states he is homosexual and has lost weight recently. He complains of headache, also vomited x1. No fever, no chills. PAST MEDICAL HISTORY: Significant for no HIV, no known hypertension, diabetes, etc. PAST SURGICAL HISTORY: None. SOCIAL HISTORY: He smokes marijuana and alcohol occasionally. FAMILY HISTORY: Significant for hypertension. REVIEW OF SYSTEMS: Significant for altered sensorium and falls and vomiting x1, and headaches. Not on any antibiotics, and also weight loss. Also, cough with white sputum. no diarrhea, no old abdominal pain. Otherwise, review of systems is essentially negative. PHYSICAL EXAMINATION: GENERAL: Young male, lying in bed, slight affect with altered sensorium. VITAL SIGNS: Blood pressure is 133/84, respirations 16, pulse is 77, temperature is 99.4. HEENT: Dry mucous membranes. Right facial puffiness present. Thrush noted over the tongue surface. NECK: Supple, no lymphadenopathy, no thyromegaly, no guarding, no rigidity. Hernial orifice are normal. NECK: Supple. No enlargement of the thyroid gland. No cervical and lymphadenopathy. No jugular venous distention. LUNGS: Clear to auscultation and percussion. Good air entry. CARDIOVASCULAR: S1, S2 heard. No gallop, no murmur, no rub. Apical impulse in the left fifth intercostal space and midclavicular line. ABDOMEN: Soft and benign. No hepatosplenomegaly. No guarding, no rigidity. No palpable masses. Bowel sounds are normal. GENITOURINARY: Small perirectal ulcers noted. EXTREMITIES: Shotty cervical, axillary, and inguinal lymph node enlargement present. SKIN: No rashes, no ulcers. CENTRAL NERVOUS SYSTEM: The patient is slow to respond. Altered sensorium. No focal deficits. The patient able to walk. LABORATORY DATA: Significant for white count of 4800, H and H is 12.6 and 37.5, platelet count is 105,000. Sodium is 122 low, chloride is 87.5, bicarbonate is 19, BUN and creatinine is 21 and 1.4, glucose is 98, sodium is 122, chloride is 87.5, bicarbonate is 19, BUN is 21. Troponin is 0.427. Urine was negative. CSF shows total protein 117, RBCs 165, white blood cells 600 and lymphocytes 38%. Drug screen was positive for marijuana. Rapid HIV [address] of the head is normal. C-spine CT was normal. No acute changes. ASSESSMENT: Cryptococcal antigen positive. PLAN: 1. Cryptococcal meningitis. Infectious disease consulted. The patient was started on IV amphotericin. No isolation. 2. HIV, newly diagnosed. HIV workup to rule out AIDS. HIV genotyping and RNA quantification ordered. Also, chlamydia and gonorrhea ordered. QuantiFERON TB also order an RPR ordered. The patient also started on IV Zithromax and Rocephin because of the good brain barrier for penetration. 3. Deep venous thrombosis prophylaxis, Lovenox 40 mg subcutaneous daily. JOB# [id number] MARIA FERNANDA/AJIT
[2016-09-29] MEDS: PERCOCET 5/325 PO PRN (10:46)
[2016-09-29 13:15] LABS: Rapid Plasma Reagin Reactive (Nonreactive)
--- NOTE | 2016-09-29 13:41 | XRay Report ---
Chest 2 views: Compared to 09/28/16. History: Pneumonia/shortness of breath. Findings: Normal cardiomediastinal silhouette. Trachea is midline. No consolidation, pneumothorax or pleural effusion. Impression: No acute cardiopulmonary findings.
[2016-09-29] MEDS: TYLENOL PO SCH (16:35)
[2016-09-29] MEDS: ZITHROMAX 500 MG in NACL 0.9% 250ML 250 ML IV SCH (18:00)
[2016-09-29] MEDS: D5W IV SCH ×2 (18:58→21:56)
[2016-09-29] MEDS: [UNRECOGNIZED DRUG - OTHER] IV SCH ×2 (18:58→21:56)
[2016-09-29] MEDS: BENADRYL IV SCH (18:59)
[2016-09-29] MEDS: D5W (50 ML) IV SCH (19:00)
[2016-09-30] MEDS: [UNRECOGNIZED DRUG - OTHER] PO SCH ×4 (01:39→17:19)
[2016-09-30 06:12] LABS: Basophils % (Auto) 0.2 % (0.0-1.8); Eosinophils % (Auto) 0.2 % (0.0-4.3); Hematocrit 38.2 % (35.5-45.6); Hemoglobin 12.4 gm/dl (11.8-15.2); Mean Corpuscular HGB Conc 33 % (32-34); Mean Corpuscular Hemoglobin 27 pg (28-32); Mean Corpuscular Volume 83 fl (84-94); Platelet Count 159 K/mm3 (140-440); Red Blood Count 4.62 M/mm3 (3.65-5.03); Red Cell Distribution Width 15.6 % (13.2-15.2); White Blood Count 3.9 K/mm3 (4.5-11.0)
[2016-09-30 06:27] LABS: Blood Urea Nitrogen 21 mg/dL (9-20); Calcium 8.4 mg/dL (8.4-10.2); Carbon Dioxide 20 mmol/L (22-30); Chloride 89.2 mmol/L (98-107); Glucose 94 mg/dL (75-100); Potassium 3.9 mmol/L (3.6-5.0); Sodium 124 mmol/L (137-145)
[2016-09-30 06:29] LABS: Anion Gap 19 mmol/L
--- NOTE | 2016-09-30 08:22 | Progress Note ---
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 Patient was sleepy but abusable and answer questions. Complained severe headache. Hospitalist Physical - Physical exam Narrative exam: Not in cardiopulmonary distress. Shotty cervical and axillary lymphadenopathy. Vital signs as documented. Head exam is unremarkable. No scleral icterus . Neck is without jugular venous distension, thyromegaly, or carotid bruits. Has neck rigidity. Lungs are clear to auscultation. Cardiac exam reveals regular rate and Rhythm. First and second heart sounds normal. No murmurs, rubs or gallops. Abdominal exam reveals normal bowel sounds, no masses, no organomegaly and no aortic enlargement. Extremities are nonedematous and both femoral and pedal pulses are normal. 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 - Constitutional Vitals: Temp Pulse Resp BP Pulse Ox 98.2 F 77 18 140/89 99 09/29/16 23:00 09/29/16 23:00 09/29/16 23:00 09/29/16 23:00 09/29/16 23:00 Results - Labs CBC & Chem 7: 09/30/16 05:25 09/30/16 05:25 Labs: Laboratory Last Values WBC 3.9 K/mm3 (4.5-11.0) L 09/30/16 05:25 RBC 4.62 M/mm3 (3.65-5.03) 09/30/16 05:25 Hgb 12.4 gm/dl (11.8-15.2) 09/30/16 05:25 Hct 38.2 % (35.5-45.6) D 09/30/16 05:25 MCV 83 fl (84-94) L 09/30/16 05:25 MCH 27 pg (28-32) L 09/30/16 05:25 MCHC 33 % (32-34) 09/30/16 05:25 RDW 15.6 % (13.2-15.2) H 09/30/16 05:25 Plt Count 159 K/mm3 (140-440) 09/30/16 05:25 Lymph % (Auto) 17.4 % (13.4-35.0) 09/30/16 05:25 [place] % (Auto) 14.1 % (0.0-7.3) H 09/30/16 05:25 Eos % (Auto) 0.2 % (0.0-4.3) 09/30/16 05:25 Baso % (Auto) 0.2 % (0.0-1.8) 09/30/16 05:25 Lymph # 0.7 K/mm3 (1.2-5.4) L 09/30/16 05:25 [place] # 0.5 K/mm3 (0.0-0.8) 09/30/16 05:25 Eos # 0.0 K/mm3 (0.0-0.4) 09/30/16 05:25 Baso # 0.0 K/mm3 (0.0-0.1) 09/30/16 05:25 Seg Neutrophils % 68.1 % (40.0-70.0) 09/30/16 05:25 Seg Neutrophils # 2.6 K/mm3 (1.8-7.7) 09/30/16 05:25 Sodium 124 mmol/L (137-145) L 09/30/16 05:25 Potassium 3.9 mmol/L (3.6-5.0) 09/30/16 05:25 Chloride 89.2 mmol/L (98-107) L 09/30/16 05:25 Carbon Dioxide 20 mmol/L (22-30) L 09/30/16 05:25 Anion Gap 19 mmol/L 09/30/16 05:25 BUN 21 mg/dL (9-20) H 09/30/16 05:25 Creatinine 1.4 mg/dL (0.8-1.5) 09/30/16 05:25 Estimated GFR > 60 ml/min 09/30/16 05:25 BUN/Creatinine Ratio 15.00 % 09/30/16 05:25 Glucose 94 mg/dL (75-100) 09/30/16 05:25 POC Glucose 81 (70-105) 09/29/16 21:06 Osmolality 272 Mosm/kg 09/29/16 10:01 Lactic Acid 1.9 mmol/L (0.7-2.0) 09/28/16 12:06 Calcium 8.4 mg/dL (8.4-10.2) 09/30/16 05:25 Total Bilirubin 0.3 mg/dL (0.1-1.2) 09/29/16 05:16 Direct Bilirubin < 0.2 mg/dL (0-0.2) 09/28/16 12:06 Indirect Bilirubin 0.3 mg/dL 09/28/16 12:06 AST 21 units/L (5-40) 09/29/16 05:16 ALT 13 units/L (7-56) 09/29/16 05:16 Alkaline Phosphatase 34 units/L (35-129) L 09/29/16 05:16 Lactate Dehydrogenase 467 units/L (91-180) H 09/28/16 12:06 Troponin T 0.427 ng/mL (0.00-0.029) H* 09/28/16 12:06 Total Protein 7.9 g/dL (6.3-8.2) 09/29/16 05:16 Albumin 2.4 g/dL (3.9-5) L 09/29/16 05:16 Albumin/Globulin Ratio 0.4 % 09/29/16 05:16 Triglycerides 102 mg/dL (2-149) 09/28/16 12:06 Cholesterol 151 mg/dL (50-199) 09/28/16 12:06 LDL Cholesterol Direct 86 mg/dL (50-130) 09/28/16 12:06 HDL Cholesterol 45 mg/dL (40-59) 09/28/16 12:06 Cholesterol/HDL Ratio 3.35 % 09/28/16 12:06 Urine Color Yellow (Yellow) 09/28/16 12:27 Urine Turbidity Clear (Clear) 09/28/16 12:27 Urine pH 5.0 (5.0-7.0) 09/28/16 12:27 Ur Specific [place] 1.017 (1.003-1.030) 09/28/16 12:27 Urine Protein >500 mg/dL (Negative) 09/28/16 12:27 Urine Glucose (UA) Neg mg/dL (Negative) 09/28/16 12:27 Urine Ketones Neg mg/dL (Negative) 09/28/16 12:27 Urine Blood Mod (Negative) 09/28/16 12:27 Urine Nitrite Neg (Negative) 09/28/16 12:27 Urine Bilirubin Neg (Negative) 09/28/16 12:27 Urine Urobilinogen < 2.0 mg/dL (<2.0) 09/28/16 12:27 Ur Leukocyte Esterase Neg (Negative) 09/28/16 12:27 Urine WBC (Auto) < 1.0 /HPF (0.0-6.0) 09/28/16 12:27 Urine RBC (Auto) 1.0 /HPF (0.0-6.0) 09/28/16 12:27 U Epithel Cells (Auto) < 1.0 /HPF (0-13.0) 09/28/16 12:27 Urine Mucus Few /HPF 09/28/16 12:27 CSF Appearance Clear 09/28/16 12:45 CSF Color Colorless 09/28/16 12:45 CSF WBC 600 /mm3 (1-10) 09/28/16 12:45 CSF RBC 165 /mm3 (0-0) 09/28/16 12:45 CSF Seg Neutrophils 55.5 % (0-6) 09/28/16 12:45 CSF Lymphocytes % 38.0 % (40-80) 09/28/16 12:45 CSF Reactive Lymphs 0.5 % 09/28/16 12:45 CSF Monocytes % 6.0 % (15-45) 09/28/16 12:45 CSF Eosinophils % 0 % 09/28/16 12:45 CSF Basophils 0 % 09/28/16 12:45 CSF Pathologist Review C 09/28/16 12:45 CSF Glucose 3 mg/dL 09/28/16 12:45 CSF Total Protein 117 mg/dL 09/28/16 12:45 Salicylates < 0.3 mg/dL (2.8-20.0) L 09/28/16 12:06 Urine Opiates Screen Presumptive negative 09/28/16 12:20 Urine Methadone Screen Presumptive negative 09/28/16 12:20 Acetaminophen < 15.0 ug/mL (10.0-30.0) 09/28/16 12:06 Ur Barbiturates Screen Presumptive negative 09/28/16 12:20 Ur Phencyclidine Scrn Presumptive negative 09/28/16 12:20 Ur Amphetamines Screen Presumptive negative 09/28/16 12:20 U Benzodiazepines Scrn Presumptive negative 09/28/16 12:20 Urine Cocaine Screen Presumptive negative 09/28/16 12:20 U Marijuana (THC) Screen Presumptive positive 09/28/16 12:20 Drugs of Abuse Note Disclamer 09/28/16 12:20 Plasma/Serum Alcohol < 0.01 gm% (0-0.07) 09/28/16 12:06 RPR Titer 1:1024 09/28/16 15:43 RPR Reactive (Nonreactive) 09/28/16 15:43 Hep Bs Antigen Non-reactive (Negative) 09/28/16 15:43 Hep B Core IgM Ab Non-reactive (NonReactive) 09/28/16 15:43 Hepatitis C Antibody Non-reactive (NonReactive) 09/28/16 15:43 HIV 1&2 Antibody Rapid Reactive (Non React) 09/28/16 15:43 HIV P24 Antigen Non react (Non React) 09/28/16 15:43 - Imaging and Cardiology EKG: report reviewed, image reviewed (No acute cardiopulmonary process identified.) Imaging and Cardiology: HIV-1 and 2 reactive. RPR reactive.
[2016-09-30] MEDS: ROCEPHIN/NS 2 GM/100 ML 100 ML IV SCH (10:31)
[2016-09-30] MEDS: LOVENOX SUB-Q SCH (10:32)
[2016-09-30] MEDS: DIFLUCAN PO SCH (10:32)
--- NOTE | 2016-09-30 15:41 | Progress Note ---
Assessment and Plan Antibiotics: Rocephin 2 g IV daily ( 09/28 -> Azithromycin 500 mg IV daily ( 09/28 - > Amphotericin B 0.7 mg/kilogram IV daily ( 09/28 -> Flucytosine 25 mg/kilogram by mouth every 6 hours ( 09/28 - > Previous Antibiotics: s/p vancomycin IV 1 g ( 09/28 ) Mr Rich is a 25y/o AA male presents through the ED with a one-month history of malaise, worsening generalized headache, decreased appetite, and weight loss. He was brought to the hospital by his sister who stated that had been falling. The patient had marked neck rigidity with non-contrast head CT showing no acute changes. 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 He is severely ill with significant altered mental status, he answers minimal questions. 2. Suspect HIV/AIDS with rapid HIV test being positive. In addition patient has an AIDS defining illness - Weight loss - Thrush - Diffuse adenopathy 3. RLL infiltrate, Repeat chest xray without infiltrate, doubt pneumonia 4. Syphilis, RPR positive with titer of 1:1024, Patient without diffuse rash. With the presumption of HIV, I am concerned that patient might also have neurosyphilis in addition to cryptococcal meningitis 5. Marked hyponatremia - R/O SIADH 6. Thrombocytopenia - This has resolved, most likely was from acute illness 7. Perirectal ulcers - R/O herpes, will obtain scraping for tzanck prep and culture Recommendations: - Continue on IV amphotericin and flucytosine for cryptococcal meningitis - continue Ceftriaxone for Syphilis and possible neurosyphilis - obtain VDRL of on CSF - viral culture of salvatore-rectal ulcers - discontinue azithromycin - HIV studies now to include formal HIV antibody, T cell count, HIV viral load, HIV genotype, RPR, serum cryptococcal antigen, , TB QuantiFERON assay, and urine for chlamydia and GC screen -discontinue fluconazole -stool studies for cryptosporidium/giardia if diarrhea -follow up HIV work up including viral load, CD4 count Subjective Date of service: 09/30/16 Principal diagnosis: cryptococcal meningitis, HIV, neurosyphilis Interval history: Patient seen in bed, he does respond to his name, he responded appropriately with flat affect that he is at [facility] Objective - Constitutional Vitals: Selected Entries 09/29/16 09/30/16 09/30/16 23:00 06:55 08:21 Temperature 98.2 F 100.7 F H Pulse Rate [ 91 H Radial] Respiratory 18 Rate O2 Sat by Pulse 97 Oximetry Blood Pressure 160/91 [Left Arm] Blood Pressure 114 Mean [Left Arm] General appearance: Present: no acute distress, well-nourished - EENT Eyes: PERRL, no scleral icterus, no conjunctival injection ENT: hearing intact, other (oral thrush) Ears: bilateral: normal - Neck Neck: rigidity (pain on movement of neck), no enlarged thyroid, no masses or JVD - Respiratory Respiratory effort: normal Respiratory: bilateral: CTA - Breasts Breasts: deferred - Cardiovascular Rhythm: regular Heart Sounds: Present: S1 & S2 Extremities: no ischemia, pulses intact, No edema, normal temperature - Gastrointestinal General gastrointestinal: Present: soft, normal bowel sounds Rectal Exam: deferred - Genitourinary Male genitourinary: deferred - Labs CBC & Chem 7: 09/30/16 05:25 09/30/16 05:25 Labs: Microbiology 09/28/16 15:23 Serum Cryptococcal Antigen - Final 09/28/16 12:45 Cerebral Spinal Fluid Cryptococcal Antigen - Final 09/28/16 12:45 Cerebral Spinal Fluid CSF Culture - Preliminary 09/28/16 12:34 Peripheral/Venous Blood Culture - Preliminary NO GROWTH AFTER 48 HOURS 09/28/16 12:06 Peripheral/Venous Blood Culture - Preliminary NO GROWTH AFTER 48 HOURS Laboratory Tests 09/28/16 09/28/16 09/30/16 15:43 15:43 05:25 WBC 3.9 L Plt Count 159 Sodium Creatinine RPR Titer 1:1024 RPR Reactive HIV 1&2 Antibody Rapid Reactive HIV P24 Antigen Non react 09/30/16 05:25 WBC Plt Count Sodium 124 L Creatinine 1.4 RPR Titer RPR HIV 1&2 Antibody Rapid HIV P24 Antigen
[2016-09-30] MEDS: [UNRECOGNIZED DRUG - OTHER] IV SCH (17:18)
[2016-09-30] MEDS: D5W IV SCH (17:18)
[2016-09-30] MEDS: BENADRYL IV SCH (17:18)
[2016-09-30] MEDS: D5W (50 ML) IV SCH (17:19)
[2016-09-30] MEDS: TYLENOL PO SCH (17:19)
[2016-09-30] MEDS: PERCOCET 5/325 PO PRN (20:33)
[2016-10-01] MEDS: [UNRECOGNIZED DRUG - OTHER] PO SCH ×5 (01:00→23:12)
[2016-10-01] MEDS ORDERED: WATER FOR INJ (PF) 10 ML ONE ×2 (02:34→21:16)
[2016-10-01 10:35] LABS: Basophils % (Auto) 0.5 % (0.0-1.8); Eosinophils % (Auto) 0.6 % (0.0-4.3); Hemoglobin 11.3 gm/dl (11.8-15.2); Mean Corpuscular HGB Conc 33 % (32-34); Mean Corpuscular Hemoglobin 27 pg (28-32); Mean Corpuscular Volume 82 fl (84-94); Platelet Count 129 K/mm3 (140-440); Red Blood Count 4.17 M/mm3 (3.65-5.03); White Blood Count 3.2 K/mm3 (4.5-11.0)
[2016-10-01 10:50] LABS: Anion Gap 17 mmol/L; Blood Urea Nitrogen 24 mg/dL (9-20); Carbon Dioxide 21 mmol/L (22-30); Chloride 90.2 mmol/L (98-107); Glucose 98 mg/dL (75-100); Potassium 3.8 mmol/L (3.6-5.0); Sodium 124 mmol/L (137-145)
[2016-10-01] MEDS: LOVENOX SUB-Q SCH (12:10)
[2016-10-01] MEDS: ROCEPHIN/NS 2 GM/100 ML 100 ML IV SCH (12:10)
[2016-10-01] MEDS: PERCOCET 5/325 PO PRN (12:20)
[2016-10-01] MEDS ORDERED: NACL 0.9% 1000 ML IV SCH (13:00)
--- NOTE | 2016-10-01 13:01 | Progress Note ---
Subjective Date of service: 10/01/16 Principal diagnosis: cryptococcal meningitis, HIV, neurosyphilis Interval history: Assessment and plan: Cryptococcal meningitis - Patient is on IV amphotericin and flucytosine - Cryptococcal antigen positive 1:152 - CSF Positive for WBC Left lower lobe pneumonia - Status post IV vancomycin - On Rocephin 2 g IV every 24 hours - Azithromycin 500 mg IV every 24 hours HIV-AIDS - HIV test is positive - ID is on board - Oral thrush - Weight loss Perioral ulcer - Rule out herpes Thrombocytopenia - Likely from HIV/AIDS Hypernatremia: Possibly secondary to his medications Will change IV fluids to normal saline and monitor electrolytes Malnutrition: Severe Request a nutrition consult Possible depression: We will request a psych evaluation Prophylaxis - mechanical - No chemical prophylaxis because of thrombocytopenia Disposition - Continue inpatient care Discussed with patient's mother who is in the room Patient apparently is not eating at all Is lethargic Malnourished Needs a temporary Dobbhoff tube placement for feeding purposes History Interval history: Patient seen and examined this morning. Patient is lethargic but opens eyes to verbal stimulus. He is not answering any questions . Objective - Constitutional Vitals: Vital Signs - 12hr 10/01/16 07:45 Temperature 98.6 F Pulse Rate [ 82 Right] Respiratory 20 Rate Blood Pressure 150/94 [Right Arm] O2 Sat by Pulse 100 Oximetry General appearance: Present: no acute distress, other (very lethargic) - EENT Eyes: PERRL, EOM intact ENT: hearing intact - Neck Neck: supple, normal ROM, no masses or JVD - Respiratory Respiratory effort: normal Respiratory: bilateral: CTA, diminished - Cardiovascular Rhythm: regular Heart Sounds: Present: S1 & S2 Extremities: No edema - Gastrointestinal General gastrointestinal: Present: soft, non-tender. Absent: hepatomegaly, splenomegaly - Musculoskeletal Musculoskeletal: generalized weakness - Psychiatric Psychiatric: depressed - Labs CBC & Chem 7: 10/01/16 09:45 10/01/16 09:45 Labs: Abnormal lab results 10/01/16 10/01/16 Range/Units 09:45 09:45 WBC 3.2 L (4.5-11.0) K/mm3 Hgb 11.3 L (11.8-15.2) gm/dl Hct 34.0 L (35.5-45.6) % MCV 82 L (84-94) fl MCH 27 L (28-32) pg Plt Count 129 L (140-440) K/mm3 Parke % (Auto) 15.8 H (0.0-7.3) % Lymph # 0.7 L (1.2-5.4) K/mm3 Sodium 124 L (137-145) mmol/L Chloride 90.2 L (98-107) mmol/L Carbon Dioxide 21 L (22-30) mmol/L BUN 24 H (9-20) mg/dL Calcium 8.0 L (8.4-10.2) mg/dL
[2016-10-01] MEDS: NACL 0.9% 1000 ML 1,000 ML IV SCH (15:09)
[2016-10-01] MEDS: BENADRYL IV SCH ×3 (16:59→19:32)
[2016-10-01] MEDS: TYLENOL PO SCH (16:59)
[2016-10-01] MEDS: D5W (50 ML) IV SCH (16:59)
--- NOTE | 2016-10-01 18:53 | Progress Note ---
Assessment and Plan Antibiotics: Rocephin 2 g IV daily ( 09/28 -> Amphotericin B 0.7 mg/kilogram IV daily ( 09/28 -> Flucytosine 25 mg/kilogram by mouth every 6 hours ( 09/28 - > Previous Antibiotics: s/p vancomycin IV 1 g ( 09/28 ) Azithromycin 500 mg IV daily ( 09/28 - >09/30/16 Mr Rich is a 25y/o AA male presents through the ED with a one-month history of malaise, worsening generalized headache, decreased appetite, and weight loss. He was brought to the hospital by his sister who stated that had been falling. The patient had marked neck rigidity with non-contrast head CT showing no acute changes. 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 He is critically ill with significant altered mental status, he answers minimal questions. 2. Suspect HIV/AIDS with rapid HIV test being positive. In addition patient has an AIDS defining illness 3. RLL infiltrate, Repeat chest xray without infiltrate, doubt pneumonia 4. Syphilis, RPR positive with titer of 1:1024, Patient without diffuse rash. With the presumption of HIV, I am concerned that patient might also have neurosyphilis in addition to cryptococcal meningitis 5. Marked hyponatremia - R/O SIADH, this might be related to the meningitis, continue normal saline 6. Thrombocytopenia - currently at 120s 7. Perirectal ulcers -examined rectal area today, no ulceration in the rectal area or the penile area Recommendations: - Continue on IV amphotericin and flucytosine for cryptococcal meningitis - continue Ceftriaxone for Syphilis and possible neurosyphilis - VDRL of on CSF, pending - follow lymphocyte subset, HIV viral load, HIV genotype, , TB QuantiFERON assay , and urine for chlamydia and GC screen -stool studies for cryptosporidium/giardia if diarrhea -follow electrolytes while on amphotericin Subjective Date of service: 10/01/16 Principal diagnosis: cryptococcal meningitis, HIV, neurosyphilis Interval history: Patient remains confused, he does not to some questions Objective - Constitutional Vitals: Microbiology 09/28/16 15:23 Serum Cryptococcal Antigen - Final Selected Entries 10/01/16 14:10 Temperature 98.5 F Pulse Rate [ 87 Right] Respiratory 15 Rate O2 Sat by Pulse 98 Oximetry Blood Pressure 130/83 [Right Arm] Blood Pressure 98 Mean [Right Arm ] General appearance: Present: mild distress (headache), cachectic - EENT Eyes: no scleral icterus, no conjunctival injection ENT: hearing intact, thrush, no poor dentition Ears: bilateral: normal - Neck Neck: rigidity, no enlarged thyroid, no masses or JVD - Respiratory Respiratory effort: normal Respiratory: bilateral: CTA - Breasts Breasts: deferred - Cardiovascular Rhythm: regular Heart Sounds: Present: S1 & S2 Extremities: no ischemia, No edema - Gastrointestinal General gastrointestinal: Present: soft, non-tender, normal bowel sounds. Absent: distended Rectal Exam: other (no rectal ulcerations, he has 2 areas that appear to be fistula) - Genitourinary Male genitourinary: normal - Integumentary Integumentary: clear, warm, dry, no jaundice, no rash - Musculoskeletal Musculoskeletal: generalized weakness - Psychiatric Psychiatric: agitated - Labs CBC & Chem 7: 10/01/16 09:45 10/01/16 09:45 Labs: Microbiology 09/28/16 12:45 Cerebral Spinal Fluid CSF Culture - Final 09/28/16 12:45 Cerebral Spinal Fluid Cryptococcal Antigen - Final Laboratory Tests 09/28/16 09/28/16 09/28/16 12:06 12:45 15:43 WBC Hgb Plt Count Sodium Creatinine Estimated GFR Calcium Lactate Dehydrogenase 467 H CSF WBC 600 RPR Titer RPR Hep Bs Antigen Hep B Core IgM Ab Hepatitis C Antibody HIV 1&2 Antibody Rapid Reactive HIV P24 Antigen Non react 09/28/16 09/28/16 09/28/16 15:43 15:43 15:43 WBC Hgb Plt Count Sodium Creatinine Estimated GFR Calcium Lactate Dehydrogenase CSF WBC RPR Titer 1:1024 RPR Reactive Hep Bs Antigen Non-reactive Hep B Core IgM Ab Non-reactive Hepatitis C Antibody Non-reactive HIV 1&2 Antibody Rapid HIV P24 Antigen 10/01/16 10/01/16 09:45 09:45 WBC 3.2 L Hgb 11.3 L Plt Count 129 L Sodium 124 L Creatinine 1.5 Estimated GFR > 60 Calcium 8.0 L Lactate Dehydrogenase CSF WBC RPR Titer RPR Hep Bs Antigen Hep B Core IgM Ab Hepatitis C Antibody HIV 1&2 Antibody Rapid HIV P24 Antigen
[2016-10-01 20:57] LABS: HIV-1 RNA QN PCR 5.99 Log cps/mL (<1.30)
[2016-10-01 21:12] LABS: Alanine Aminotransferase 8 units/L (7-56); Albumin 2.2 g/dL (3.9-5); Albumin/Globulin Ratio 0.4 %; Alkaline Phosphatase 35 units/L (35-129); Anion Gap 21 mmol/L; BUN/Creatinine Ratio 16.66; Bilirubin,Total 0.3 mg/dL (0.1-1.2); Blood Urea Nitrogen 25 mg/dL (9-20); Carbon Dioxide 18 mmol/L (22-30); Chloride 90.1 mmol/L (98-107); Glucose 92 mg/dL (75-100); Potassium 3.9 mmol/L (3.6-5.0); Sodium 125 mmol/L (137-145); Total Protein 7.7 g/dL (6.3-8.2)
[2016-10-01] MEDS: D5W IV SCH (21:26)
[2016-10-01] MEDS: [UNRECOGNIZED DRUG - OTHER] IV SCH (21:26)
[2016-10-02 06:20] LABS: Hemoglobin 12.8 gm/dl (11.8-15.2); Mean Corpuscular HGB Conc 34 % (32-34); Mean Corpuscular Hemoglobin 27 pg (28-32); Mean Corpuscular Volume 81 fl (84-94); Platelet Count 139 K/mm3 (140-440)
[2016-10-02] MEDS ORDERED: WATER FOR INJ (PF) 10 ML ONE (06:38)
[2016-10-02] MEDS: [UNRECOGNIZED DRUG - OTHER] PO SCH ×3 (06:48→17:48)
[2016-10-02 07:11] LABS: BUN/Creatinine Ratio 16.66; Blood Urea Nitrogen 25 mg/dL (9-20); Calcium 8.4 mg/dL (8.4-10.2); Carbon Dioxide 21 mmol/L (22-30); Chloride 91.8 mmol/L (98-107); Glucose 98 mg/dL (75-100); Potassium 3.9 mmol/L (3.6-5.0); Sodium 125 mmol/L (137-145)
[2016-10-02 07:14] LABS: Anion Gap 16 mmol/L
[2016-10-02 08:04] LABS: Basophils % (Manual) 0 % (0.0-1.8); Blastocytes % (Manual) 0 %
[2016-10-02 08:07] LABS: Anisocytosis Few; Microcytosis Rare
[2016-10-02 08:08] LABS: Diff Status Complete; Platelet Estimate Consistent w Auto
--- NOTE | 2016-10-02 08:33 | Progress Note ---
Assessment and Plan Assessment and plan: Cryptococcal meningitis - Patient is on IV amphotericin and flucytosine - Cryptococcal antigen positive 1:152 - CSF WBC Syphilis/ Neurosyphilis - On Rocephin 2 g IV every 24 hours HIV-AIDS - Rapid HIV test is positive - ID is on board - Oral thrush - Weight loss Perioral ulcer - Rule out herpes Thrombocytopenia/ leukopenia - Likely from HIV/AIDS Prophylaxis - mechanical - No chemical prophylaxis because of thrombocytopenia Disposition - Continue inpatient care History Interval history: Patient seen and examined this morning. Complained severe headache. Hospitalist Physical - Physical exam Narrative exam: Not in cardiopulmonary distress. Shotty cervical and axillary lymphadenopathy. Vital signs as documented. Head exam is unremarkable. No scleral icterus . Neck is without jugular venous distension, thyromegaly, or carotid bruits. Has neck rigidity. Lungs are clear to auscultation. Cardiac exam reveals regular rate and Rhythm. First and second heart sounds normal. No murmurs, rubs or gallops. Abdominal exam reveals normal bowel sounds, no masses, no organomegaly and no aortic enlargement. Extremities are nonedematous and both femoral and pedal pulses are normal. CONTROL SYSTEMS ENGINEER: Alert and oriented 3. - Constitutional Vitals: Temp Pulse Resp BP Pulse Ox 98.4 F 74 20 135/94 100 10/02/16 00:10 10/02/16 00:10 10/02/16 00:10 10/02/16 00:10 10/02/16 00:10 General appearance: Present: mild distress (headache), cachectic Results - Labs CBC & Chem 7: 10/02/16 05:46 10/02/16 05:46 Labs: Laboratory Last Values WBC 3.0 K/mm3 (4.5-11.0) L 10/02/16 05:46 RBC 4.70 M/mm3 (3.65-5.03) 10/02/16 05:46 Hgb 12.8 gm/dl (11.8-15.2) 10/02/16 05:46 Hct 38.0 % (35.5-45.6) 10/02/16 05:46 MCV 81 fl (84-94) L 10/02/16 05:46 MCH 27 pg (28-32) L 10/02/16 05:46 MCHC 34 % (32-34) 10/02/16 05:46 RDW 15.0 % (13.2-15.2) 10/02/16 05:46 Plt Count 139 K/mm3 (140-440) L 10/02/16 05:46 Lymph % (Auto) 22.9 % (13.4-35.0) 10/01/16 09:45 Cecil % (Auto) Veterinary Anatomist 10/02/16 05:46 Eos % (Auto) 0.6 % (0.0-4.3) 10/01/16 09:45 Baso % (Auto) 0.5 % (0.0-1.8) 10/01/16 09:45 Lymph # 0.7 K/mm3 (1.2-5.4) L 10/01/16 09:45 Cecil # 0.5 K/mm3 (0.0-0.8) 10/01/16 09:45 Eos # 0.0 K/mm3 (0.0-0.4) 10/01/16 09:45 Baso # 0.0 K/mm3 (0.0-0.1) 10/01/16 09:45 Add Manual Diff Complete 10/02/16 05:46 Total Counted 100 10/02/16 05:46 Seg Neutrophils % 60.2 % (40.0-70.0) 10/01/16 09:45 Seg Neuts % (Manual) 68.0 % (40.0-70.0) 10/02/16 05:46 Band Neutrophils % 0 % 10/02/16 05:46 Lymphocytes % (Manual) 18.0 % (13.4-35.0) 10/02/16 05:46 Reactive Lymphs % (Man) 0 % 10/02/16 05:46 Monocytes % (Manual) 13.0 % (0.0-7.3) H 10/02/16 05:46 Eosinophils % (Manual) 1.0 % (0.0-4.3) 10/02/16 05:46 Basophils % (Manual) 0 % (0.0-1.8) 10/02/16 05:46 Metamyelocytes % 0 % 10/02/16 05:46 Myelocytes % 0 % 10/02/16 05:46 Promyelocytes % 0 % 10/02/16 05:46 Blast Cells % 0 % 10/02/16 05:46 Nucleated RBC % 1.0 % (0.0-0.9) H 10/02/16 05:46 Seg Neutrophils # 1.9 K/mm3 (1.8-7.7) 10/01/16 09:45 Seg Neutrophils # Man 2.0 K/mm3 (1.8-7.7) 10/02/16 05:46 Band Neutrophils # 0.0 K/mm3 10/02/16 05:46 Lymphocytes # (Manual) 0.5 K/mm3 (1.2-5.4) L 10/02/16 05:46 Abs React Lymphs (Man) 0.0 K/mm3 10/02/16 05:46 Monocytes # (Manual) 0.4 K/mm3 (0.0-0.8) 10/02/16 05:46 Eosinophils # (Manual) 0.0 K/mm3 (0.0-0.4) 10/02/16 05:46 Basophils # (Manual) 0.0 K/mm3 (0.0-0.1) 10/02/16 05:46 Metamyelocytes # 0.0 K/mm3 10/02/16 05:46 Myelocytes # 0.0 K/mm3 10/02/16 05:46 Promyelocytes # 0.0 K/mm3 10/02/16 05:46 Blast Cells # 0.0 K/mm3 10/02/16 05:46 WBC Morphology Not Reportable 10/02/16 05:46 Hypersegmented Neuts Not Reportable 10/02/16 05:46 Hyposegmented Neuts Not Reportable 10/02/16 05:46 Hypogranular Neuts Not Reportable 10/02/16 05:46 Smudge Cells Not Reportable 10/02/16 05:46 Toxic Granulation Not Reportable 10/02/16 05:46 Toxic Vacuolation Not Reportable 10/02/16 05:46 Dohle Bodies Not Reportable 10/02/16 05:46 Pelger-Huet Anomaly Not Reportable 10/02/16 05:46 Ada Rods Not Reportable 10/02/16 05:46 Platelet Estimate Consistent w auto 10/02/16 05:46 Clumped Platelets Not Reportable 10/02/16 05:46 Plt Clumps, EDTA Not Reportable 10/02/16 05:46 Large Platelets Not Reportable 10/02/16 05:46 Giant Platelets Not Reportable 10/02/16 05:46 Platelet Satelliting Not Reportable 10/02/16 05:46 Plt Morphology Comment Not Reportable 10/02/16 05:46 RBC Morphology Not Reportable 10/02/16 05:46 Dimorphic RBCs Not Reportable 10/02/16 05:46 Polychromasia Not Reportable 10/02/16 05:46 Hypochromasia Not Reportable 10/02/16 05:46 Poikilocytosis Not Reportable 10/02/16 05:46 Anisocytosis Few 10/02/16 05:46 Microcytosis Rare 10/02/16 05:46 Macrocytosis Not Reportable 10/02/16 05:46 Spherocytes Not Reportable 10/02/16 05:46 Pappenheimer Bodies Not Reportable 10/02/16 05:46 Sickle Cells Not Reportable 10/02/16 05:46 Target Cells Not Reportable 10/02/16 05:46 Tear Drop Cells Not Reportable 10/02/16 05:46 Ovalocytes Not Reportable 10/02/16 05:46 Helmet Cells Not Reportable 10/02/16 05:46 [place] Bodies Not Reportable 10/02/16 05:46 [place] Rings Not Reportable 10/02/16 05:46 Guthrie Cells Not Reportable 10/02/16 05:46 Bite Cells Not Reportable 10/02/16 05:46 Crenated Cell Not Reportable 10/02/16 05:46 Elliptocytes Not Reportable 10/02/16 05:46 Acanthocytes (Spur) Not Reportable 10/02/16 05:46 Rouleaux Not Reportable 10/02/16 05:46 Hemoglobin C Crystals Not Reportable 10/02/16 05:46 Schistocytes Not Reportable 10/02/16 05:46 Malaria parasites Not Reportable 10/02/16 05:46 Warner Bodies Not Reportable 10/02/16 05:46 Hem Pathologist Commnt No 10/02/16 05:46 Sodium 125 mmol/L (137-145) L 10/02/16 05:46 Potassium 3.9 mmol/L (3.6-5.0) 10/02/16 05:46 Chloride 91.8 mmol/L (98-107) L 10/02/16 05:46 Carbon Dioxide 21 mmol/L (22-30) L 10/02/16 05:46 Anion Gap 16 mmol/L 10/02/16 05:46 BUN 25 mg/dL (9-20) H 10/02/16 05:46 Creatinine 1.5 mg/dL (0.8-1.5) 10/02/16 05:46 Estimated GFR > 60 ml/min 10/02/16 05:46 BUN/Creatinine Ratio 16.66 % 10/02/16 05:46 Glucose 98 mg/dL (75-100) 10/02/16 05:46 POC Glucose 81 (70-105) 09/29/16 21:06 Osmolality 272 Mosm/kg 09/29/16 10:01 Lactic Acid 1.9 mmol/L (0.7-2.0) 09/28/16 12:06 Calcium 8.4 mg/dL (8.4-10.2) 10/02/16 05:46 Total Bilirubin 0.3 mg/dL (0.1-1.2) 10/01/16 09:45 Direct Bilirubin < 0.2 mg/dL (0-0.2) 09/28/16 12:06 Indirect Bilirubin 0.3 mg/dL 09/28/16 12:06 AST 13 units/L (5-40) 10/01/16 09:45 ALT 8 units/L (7-56) 10/01/16 09:45 Alkaline Phosphatase 35 units/L (35-129) 10/01/16 09:45 Lactate Dehydrogenase 467 units/L (91-180) H 09/28/16 12:06 Troponin T 0.427 ng/mL (0.00-0.029) H* 09/28/16 12:06 Total Protein 7.7 g/dL (6.3-8.2) 10/01/16 09:45 Albumin 2.2 g/dL (3.9-5) L 10/01/16 09:45 Albumin/Globulin Ratio 0.4 % 10/01/16 09:45 Triglycerides 102 mg/dL (2-149) 09/28/16 12:06 Cholesterol 151 mg/dL (50-199) 09/28/16 12:06 LDL Cholesterol Direct 86 mg/dL (50-130) 09/28/16 12:06 HDL Cholesterol 45 mg/dL (40-59) 09/28/16 12:06 Cholesterol/HDL Ratio 3.35 % 09/28/16 12:06 Urine Color Yellow (Yellow) 09/28/16 12:27 Urine Turbidity Clear (Clear) 09/28/16 12:27 Urine pH 5.0 (5.0-7.0) 09/28/16 12:27 Ur Specific [place] 1.017 (1.003-1.030) 09/28/16 12:27 Urine Protein >500 mg/dL (Negative) 09/28/16 12:27 Urine Glucose (UA) Neg mg/dL (Negative) 09/28/16 12:27 Urine Ketones Neg mg/dL (Negative) 09/28/16 12:27 Urine Blood Mod (Negative) 09/28/16 12:27 Urine Nitrite Neg (Negative) 09/28/16 12:27 Urine Bilirubin Neg (Negative) 09/28/16 12:27 Urine Urobilinogen < 2.0 mg/dL (<2.0) 09/28/16 12:27 Ur Leukocyte Esterase Neg (Negative) 09/28/16 12:27 Urine WBC (Auto) < 1.0 /HPF (0.0-6.0) 09/28/16 12:27 Urine RBC (Auto) 1.0 /HPF (0.0-6.0) 09/28/16 12:27 U Epithel Cells (Auto) < 1.0 /HPF (0-13.0) 09/28/16 12:27 Urine Mucus Few /HPF 09/28/16 12:27 CSF Appearance Clear 09/28/16 12:45 CSF Color Colorless 09/28/16 12:45 CSF WBC 600 /mm3 (1-10) 09/28/16 12:45 CSF RBC 165 /mm3 (0-0) 09/28/16 12:45 CSF Seg Neutrophils 55.5 % (0-6) 09/28/16 12:45 CSF Lymphocytes % 38.0 % (40-80) 09/28/16 12:45 CSF Reactive Lymphs 0.5 % 09/28/16 12:45 CSF Monocytes % 6.0 % (15-45) 09/28/16 12:45 CSF Eosinophils % 0 % 09/28/16 12:45 CSF Basophils 0 % 09/28/16 12:45 CSF Pathologist Review C 09/28/16 12:45 CSF Glucose 3 mg/dL 09/28/16 12:45 CSF Total Protein 117 mg/dL 09/28/16 12:45 Salicylates < 0.3 mg/dL (2.8-20.0) L 09/28/16 12:06 Urine Opiates Screen Presumptive negative 09/28/16 12:20 Urine Methadone Screen Presumptive negative 09/28/16 12:20 Acetaminophen < 15.0 ug/mL (10.0-30.0) 09/28/16 12:06 Ur Barbiturates Screen Presumptive negative 09/28/16 12:20 Ur Phencyclidine Scrn Presumptive negative 09/28/16 12:20 Ur Amphetamines Screen Presumptive negative 09/28/16 12:20 U Benzodiazepines Scrn Presumptive negative 09/28/16 12:20 Urine Cocaine Screen Presumptive negative 09/28/16 12:20 U Marijuana (THC) Screen Presumptive positive 09/28/16 12:20 Drugs of Abuse Note Disclamer 09/28/16 12:20 Plasma/Serum Alcohol < 0.01 gm% (0-0.07) 09/28/16 12:06 RPR Titer 1:1024 09/28/16 15:43 RPR Reactive (Nonreactive) 09/28/16 15:43 Hep Bs Antigen Non-reactive (Negative) 09/28/16 15:43 Hep B Core IgM Ab Non-reactive (NonReactive) 09/28/16 15:43 Hepatitis C Antibody Non-reactive (NonReactive) 09/28/16 15:43 HIV-1 RNA PCR copies/ml [id number] copies/mL (<20) H 09/28/16 15:43 HIV-1 RNA (PCR) log 5.99 Log cps/mL (<1.30) H 09/28/16 15:43 HIV 1&2 Antibody Rapid Reactive (Non React) 09/28/16 15:43 HIV P24 Antigen Non react (Non React) 09/28/16 15:43
[2016-10-02] MEDS: ROCEPHIN/NS 2 GM/100 ML 100 ML IV SCH (10:42)
[2016-10-02] MEDS: LOVENOX SUB-Q SCH (10:43)
--- NOTE | 2016-10-02 11:14 | Progress Note ---
Assessment and Plan Current antibiotics: Rocephin 2 g IV daily ( 09/28 -> Amphotericin B 0.7 mg/kilogram IV daily ( 09/28 -> Flucytosine 25 mg/kilogram by mouth every 6 hours ( 09/28 - > Previous Antibiotics: Vancomycin IV 1 g X 1 09/28 Azithromycin 500 mg IV daily 09/28-09/30/16 ASSESSMENT: Clair Rich is a 25y/o AA male presents through the ED with a one-month history of malaise, worsening generalized headache, decreased appetite, and weight loss. He was brought to the hospital by his sister who stated that had been falling. The patient had marked neck rigidity with non- contrast head CT showing no acute changes. 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 -No opening pressure done on initial LP 2. HIV/AIDS -VL [id number] -CD4 14, 7% 3. RLL infiltrate -Repeat chest xray without infiltrate, doubt pneumonia 4. Syphilis -RPR positive with titer of 1:1024 -Patient without diffuse rash. -Rule out neurosyphilis in addition to cryptococcal meningitis 5. Marked hyponatremia -R/O SIADH, this might be related to the meningitis 6. Thrombocytopenia -Improved Recommendations: 1. Continue on IV amphotericin and 5-flucytosine for Cryptococcal meningitis 2. continue Ceftriaxone for Syphilis and possible neurosyphilis 3. Await CSF VDRL 4. If mental status continues to be altered may need to repeat CT scan of the head and possible lumbar puncture for opening pressure 5. Continued close observation and supportive measures. Glynn Warren MD [facility] Office: [phone] Subjective Date of service: 10/02/16 Principal diagnosis: Cryptococcal meningitis, HIV, neurosyphilis Interval history: Johnny poorly responsive. Mother in room. Objective - Exam Narrative Exam: GENERAL: Well-developed, chronically ill appearing male who is extremely lethargic and difficult to arouse but in no acute distress. HEENT: Right facial puffiness. Pupils are equal reactive to light and accommodation. Funduscopy could not be performed. Conjunctiva clear. Thrush noted over tongue surface NECK: Marked stiffness to forward flexion. No enlargement of the thyroid gland. Shotty cervical lymphadenopathy. No jugular venous distention at 30. LUNGS: Clear with no adventitious sounds. HEART: Tachycardic. No murmur or gallop. ABDOMEN: Soft and nontender. Liver and spleen are not palpably enlarged or tender. No palpable masses. Bowel sounds are normoactive. : No external male RECTAL: Small perirectal ulcers noted. EXTREMITIES: Shotty cervical, axillary and inguinal lymph node enlargement. SKIN: No other rash, ulcers or wounds. NEUROLOGIC: Very lethargic today. No focal findings. - Constitutional Vitals: Vital Signs Temp Pulse Resp BP Pulse Ox 97.8 F 89 16 144/93 99 10/02/16 08:00 10/02/16 08:00 10/02/16 08:00 10/02/16 08:00 10/02/16 08:00 Temperature -Last 24 Hours Temperature 97.8 F Temperature 98.4 F Temperature 98.5 F - Labs CBC & Chem 7: 10/02/16 05:46 10/02/16 05:46 Labs: Abnormal lab results Microbiology 09/28/16 12:45 Cerebral Spinal Fluid CSF Culture - No growth 09/28/16 12:45 Cerebral Spinal Fluid Cryptococcal Antigen - 1:512 09/28/16 12:34 Peripheral/Venous Blood Culture - Preliminary NO GROWTH AFTER 72 HOURS 09/28/16 12:06 Peripheral/Venous Blood Culture - Preliminary NO GROWTH AFTER 72 HOURS 09/28/16 15:23 Serum Cryptococcal Antigen - 1:512 Laboratory Tests 09/28/16 09/28/16 09/28/16 12:45 15:43 15:43 CSF Appearance Clear CSF WBC 600 CSF RBC 165 CSF Seg Neutrophils 55.5 CSF Lymphocytes % 38.0 CSF Glucose 3 CSF Total Protein 117 RPR Titer 1:1024 Hep Bs Antigen Hep B Core IgM Ab Hepatitis C Antibody HIV-1 RNA PCR copies/ml 110591 H 09/28/16 09/28/16 15:43 15:43 CSF Appearance CSF WBC CSF RBC CSF Seg Neutrophils CSF Lymphocytes % CSF Glucose CSF Total Protein RPR Titer Hep Bs Antigen Non-reactive Hep B Core IgM Ab Non-reactive Hepatitis C Antibody Non-reactive HIV-1 RNA PCR copies/ml
--- NOTE | 2016-10-02 13:20 | XRay Report ---
Portable chest: A right PICC line is in place with the tip in the mid SVC. The lungs are clear the mediastinal contour is unremarkable.
[2016-10-02] MEDS: TYLENOL PO SCH (17:47)
[2016-10-02] MEDS: D5W (50 ML) IV SCH (17:53)
[2016-10-02] MEDS: NACL 0.9% 1000 ML 1,000 ML IV SCH (17:53)
[2016-10-02] MEDS ORDERED: D50W (25GM) IV ONE (18:00)
[2016-10-02] MEDS ORDERED: D5W (50 ML) IV SCH (18:00)
[2016-10-02] MEDS: BENADRYL IV SCH (18:02)
[2016-10-02] MEDS: D5W IV SCH (18:30)
[2016-10-02] MEDS: [UNRECOGNIZED DRUG - OTHER] IV SCH (18:30)
[2016-10-03] MEDS: [UNRECOGNIZED DRUG - OTHER] PO SCH ×4 (00:32→17:54)
[2016-10-03 07:25] LABS: Basophils % (Auto) 0.6 % (0.0-1.8); Eosinophils % (Auto) 2.2 % (0.0-4.3); Hematocrit 30.5 % (35.5-45.6); Hemoglobin 10.2 gm/dl (11.8-15.2); Mean Corpuscular HGB Conc 33 % (32-34); Mean Corpuscular Hemoglobin 27 pg (28-32); Mean Corpuscular Volume 81 fl (84-94); Platelet Count 153 K/mm3 (140-440); Red Blood Count 3.78 M/mm3 (3.65-5.03); Red Cell Distribution Width 14.6 % (13.2-15.2); White Blood Count 3.2 K/mm3 (4.5-11.0)
[2016-10-03 07:35] LABS: Blood Urea Nitrogen 24 mg/dL (9-20); Calcium 7.4 mg/dL (8.4-10.2); Carbon Dioxide 19 mmol/L (22-30); Glucose 80 mg/dL (75-100); Potassium 3.6 mmol/L (3.6-5.0); Sodium 132 mmol/L (137-145)
[2016-10-03 07:38] LABS: Anion Gap 15 mmol/L
--- NOTE | 2016-10-03 09:14 | Progress Note ---
Assessment and Plan Current antibiotics: Rocephin 2 g IV daily ( 09/28 -> Amphotericin B 0.7 mg/kilogram IV daily ( 09/28 -> Flucytosine 25 mg/kilogram by mouth every 6 hours ( 09/28 - > Previous Antibiotics: Vancomycin IV 1 g X 1 09/28 Azithromycin 500 mg IV daily 09/28-09/30/16 ASSESSMENT: Clair Rich is a 25y/o AA male presents through the ED with a one-month history of malaise, worsening generalized headache, decreased appetite, and weight loss. He was brought to the hospital by his sister who stated that had been falling. The patient had marked neck rigidity with non- contrast head CT showing no acute changes. 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 2. HIV/AIDS -VL [id number] -CD4 14, 7% 3. RLL infiltrate -Repeat chest xray without infiltrate, doubt pneumonia 4. Syphilis -RPR positive with titer of 1:1024 -Patient without diffuse rash. -Rule out neurosyphilis in addition to cryptococcal meningitis -CSF VDRL is pending, will be back on 10/04/16 --in view of HIV/AIDS and very high RPR titer, patient is on treatment with ceftriaxone. will switch to penicillin G 4 million units Q4H 5. Marked hyponatremia -R/O SIADH, this might be related to the meningitis 6. Thrombocytopenia -Improved Recommendations: 1. Continue on IV amphotericin and 5-flucytosine for Cryptococcal meningitis 2. discontinue Ceftriaxone and start penicillin G 4 million units iv [id number] x 14 days for Syphilis and possible neurosyphilis 3. Await CSF VDRL, result should be back 10/04/16 4. obtain toxoplasma antibodies 5. will add YESICA virus pcr to csf 6. Repeat CT scan and lumbar puncture if condition is not improving Subjective Date of service: 10/03/16 Principal diagnosis: Cryptococcal meningitis, HIV, neurosyphilis Interval history: Patient is much more alert this morning, we discussed his diagnoses. He demonstrated he understood and repeated his known diagnosis. He does not want his mother to be told his diagnosis, he said he will tell her Objective - Constitutional Vitals: Selected Entries 10/03/16 08:02 Temperature 97.5 F L Pulse Rate [ 78 Right] Respiratory 14 Rate O2 Sat by Pulse 98 Oximetry Blood Pressure 127/83 [Right Arm] Blood Pressure 97 Mean [Right Arm ] General appearance: Present: no acute distress, well-nourished - EENT Eyes: no scleral icterus, no conjunctival injection ENT: hearing intact, thrush Ears: bilateral: normal - Neck Neck: rigidity, no enlarged thyroid, no masses or JVD - Respiratory Respiratory effort: normal Respiratory: bilateral: CTA - Breasts Breasts: deferred - Cardiovascular Rhythm: regular Heart Sounds: Present: S1 & S2 Extremities: no ischemia, pulses intact - Gastrointestinal General gastrointestinal: Present: soft, non-tender, normal bowel sounds - Genitourinary Male genitourinary: normal - Integumentary Integumentary: clear, warm, dry, no jaundice, no rash - Musculoskeletal Musculoskeletal: generalized weakness - Psychiatric Psychiatric: depressed - Labs CBC & Chem 7: 10/03/16 07:00 10/03/16 07:00 Labs: Microbiology 09/28/16 15:23 Serum Cryptococcal Antigen - Final 09/28/16 12:45 Cerebral Spinal Fluid CSF Culture - Final 09/28/16 12:45 Cerebral Spinal Fluid Cryptococcal Antigen - Final Laboratory Tests 09/28/16 09/28/16 09/28/16 12:45 15:43 15:43 WBC Plt Count Creatinine CSF WBC 600 CSF RBC 165 CSF Seg Neutrophils 55.5 % CD4 Cells Absolute CD4 Count RPR Titer RPR HIV-1 RNA PCR copies/ml [id number] H HIV-1 RNA (PCR) log 5.99 H HIV 1&2 Antibody Rapid Reactive 09/28/16 09/28/16 10/03/16 15:43 15:43 07:00 WBC 3.2 L Plt Count 153 Creatinine CSF WBC CSF RBC CSF Seg Neutrophils % CD4 Cells 7 L Absolute CD4 Count 14 L RPR Titer 1:1024 RPR Reactive HIV-1 RNA PCR copies/ml HIV-1 RNA (PCR) log HIV 1&2 Antibody Rapid 10/03/16 07:00 WBC Plt Count Creatinine 1.2 CSF WBC CSF RBC CSF Seg Neutrophils % CD4 Cells Absolute CD4 Count RPR Titer RPR HIV-1 RNA PCR copies/ml HIV-1 RNA (PCR) log HIV 1&2 Antibody Rapid
[2016-10-03] MEDS: LOVENOX SUB-Q SCH (09:35)
[2016-10-03] MEDS: ROCEPHIN/NS 2 GM/100 ML 100 ML IV SCH (09:35)
[2016-10-03] MEDS ORDERED: PFIZERPEN IV SCH (10:00)
[2016-10-03] MEDS: TYLENOL PO SCH (10:55)
[2016-10-03] MEDS: BENADRYL IV SCH (10:56)
[2016-10-03] MEDS: D5W (50 ML) IV SCH (10:57)
[2016-10-03] MEDS: [UNRECOGNIZED DRUG - OTHER] IV SCH (11:39)
[2016-10-03] MEDS: D5W IV SCH (11:39)
[2016-10-03] MEDS: PFIZERPEN IV SCH ×3 (17:53→22:26)
[2016-10-03] MEDS: NACL IV SCH ×3 (17:53→22:26)
[2016-10-04] MEDS: [UNRECOGNIZED DRUG - OTHER] PO SCH ×6 (00:28→23:48)
[2016-10-04] MEDS: NACL 0.9% 1000 ML 1,000 ML IV SCH (00:30)
--- NOTE | 2016-10-04 01:44 | Progress Note ---
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 (2) AIDS Current Visit: Yes Status: Acute Plan to address problem: ID consulted, continue current therapy. (3) Syphilis Current Visit: Yes Status: Acute Plan to address problem: ID consulted, continue current abx, (4) Debility Current Visit: Yes Status: Acute Plan to address problem: PT consulted, (5) DVT prophylaxis Current Visit: Yes Status: Acute History Interval history: Pt lying in bed, Pt denies pain, Pt states that he does not want family informed of his medical condition. Pt mother at bedside. No reported nursing events. Hospitalist Physical - Constitutional Vitals: Temp Pulse Resp BP Pulse Ox 98 F 78 18 129/90 99 10/03/16 22:59 10/03/16 22:59 10/03/16 22:59 10/03/16 22:59 10/03/16 22:59 General appearance: Present: no acute distress, well-nourished - EENT Eyes: Present: PERRL, EOM intact ENT: hearing intact - Neck Neck: Present: supple - Respiratory Respiratory: bilateral: CTA - Cardiovascular Rhythm: regular Heart Sounds: Present: S1 & S2 - Extremities Extremities: no ischemia Peripheral Pulses: within normal limits - Abdominal General gastrointestinal: soft, non-tender, non-distended, no hepatomegaly, no splenomegaly - Integumentary Integumentary: Present: clear, dry - Psychiatric Psychiatric: appropriate mood/affect, intact judgment & insight, memory intact, cooperative, other (mild cognitive slowing. ) - Neurologic Neurologic: CNII-XII intact, no gait normal Results - Labs CBC & Chem 7: 10/03/16 07:00 10/03/16 07:00 Labs: Laboratory Last Values WBC 3.2 K/mm3 (4.5-11.0) L 10/03/16 07:00 RBC 3.78 M/mm3 (3.65-5.03) 10/03/16 07:00 Hgb 10.2 gm/dl (11.8-15.2) L 10/03/16 07:00 Hct 30.5 % (35.5-45.6) L D 10/03/16 07:00 MCV 81 fl (84-94) L 10/03/16 07:00 MCH 27 pg (28-32) L 10/03/16 07:00 MCHC 33 % (32-34) 10/03/16 07:00 RDW 14.6 % (13.2-15.2) 10/03/16 07:00 Plt Count 153 K/mm3 (140-440) 10/03/16 07:00 Lymph % (Auto) 23.8 % (13.4-35.0) 10/03/16 07:00 Blair % (Auto) 13.7 % (0.0-7.3) H 10/03/16 07:00 Eos % (Auto) 2.2 % (0.0-4.3) 10/03/16 07:00 Baso % (Auto) 0.6 % (0.0-1.8) 10/03/16 07:00 Lymph # 0.8 K/mm3 (1.2-5.4) L 10/03/16 07:00 Blair # 0.4 K/mm3 (0.0-0.8) 10/03/16 07:00 Eos # 0.1 K/mm3 (0.0-0.4) 10/03/16 07:00 Baso # 0.0 K/mm3 (0.0-0.1) 10/03/16 07:00 Add Manual Diff Complete 10/02/16 05:46 Total Counted 100 10/02/16 05:46 Seg Neutrophils % 59.7 % (40.0-70.0) 10/03/16 07:00 Seg Neuts % (Manual) 68.0 % (40.0-70.0) 10/02/16 05:46 Band Neutrophils % 0 % 10/02/16 05:46 Lymphocytes % (Manual) 18.0 % (13.4-35.0) 10/02/16 05:46 Reactive Lymphs % (Man) 0 % 10/02/16 05:46 Monocytes % (Manual) 13.0 % (0.0-7.3) H 10/02/16 05:46 Eosinophils % (Manual) 1.0 % (0.0-4.3) 10/02/16 05:46 Basophils % (Manual) 0 % (0.0-1.8) 10/02/16 05:46 Metamyelocytes % 0 % 10/02/16 05:46 Myelocytes % 0 % 10/02/16 05:46 Promyelocytes % 0 % 10/02/16 05:46 Blast Cells % 0 % 10/02/16 05:46 Nucleated RBC % 1.0 % (0.0-0.9) H 10/02/16 05:46 Seg Neutrophils # 1.9 K/mm3 (1.8-7.7) 10/03/16 07:00 Seg Neutrophils # Man 2.0 K/mm3 (1.8-7.7) 10/02/16 05:46 Band Neutrophils # 0.0 K/mm3 10/02/16 05:46 Abs Lymphs (Manual) 215 cells/uL (850-3900) L 09/28/16 15:43 Lymphocytes # (Manual) 0.5 K/mm3 (1.2-5.4) L 10/02/16 05:46 Abs React Lymphs (Man) 0.0 K/mm3 10/02/16 05:46 Monocytes # (Manual) 0.4 K/mm3 (0.0-0.8) 10/02/16 05:46 Eosinophils # (Manual) 0.0 K/mm3 (0.0-0.4) 10/02/16 05:46 Basophils # (Manual) 0.0 K/mm3 (0.0-0.1) 10/02/16 05:46 Metamyelocytes # 0.0 K/mm3 10/02/16 05:46 Myelocytes # 0.0 K/mm3 10/02/16 05:46 Promyelocytes # 0.0 K/mm3 10/02/16 05:46 Blast Cells # 0.0 K/mm3 10/02/16 05:46 WBC Morphology Not Reportable 10/02/16 05:46 Hypersegmented Neuts Not Reportable 10/02/16 05:46 Hyposegmented Neuts Not Reportable 10/02/16 05:46 Hypogranular Neuts Not Reportable 10/02/16 05:46 Smudge Cells Not Reportable 10/02/16 05:46 Toxic Granulation Not Reportable 10/02/16 05:46 Toxic Vacuolation Not Reportable 10/02/16 05:46 Dohle Bodies Not Reportable 10/02/16 05:46 Pelger-Huet Anomaly Not Reportable 10/02/16 05:46 Ada Rods Not Reportable 10/02/16 05:46 Platelet Estimate Consistent w auto 10/02/16 05:46 Clumped Platelets Not Reportable 10/02/16 05:46 Plt Clumps, EDTA Not Reportable 10/02/16 05:46 Large Platelets Not Reportable 10/02/16 05:46 Giant Platelets Not Reportable 10/02/16 05:46 Platelet Satelliting Not Reportable 10/02/16 05:46 Plt Morphology Comment Not Reportable 10/02/16 05:46 RBC Morphology Not Reportable 10/02/16 05:46 Dimorphic RBCs Not Reportable 10/02/16 05:46 Polychromasia Not Reportable 10/02/16 05:46 Hypochromasia Not Reportable 10/02/16 05:46 Poikilocytosis Not Reportable 10/02/16 05:46 Anisocytosis Few 10/02/16 05:46 Microcytosis Rare 10/02/16 05:46 Macrocytosis Not Reportable 10/02/16 05:46 Spherocytes Not Reportable 10/02/16 05:46 Pappenheimer Bodies Not Reportable 10/02/16 05:46 Sickle Cells Not Reportable 10/02/16 05:46 Target Cells Not Reportable 10/02/16 05:46 Tear Drop Cells Not Reportable 10/02/16 05:46 Ovalocytes Not Reportable 10/02/16 05:46 Helmet Cells Not Reportable 10/02/16 05:46 Varma-Foscoe Bodies Not Reportable 10/02/16 05:46 [place] Rings Not Reportable 10/02/16 05:46 Innis Cells Not Reportable 10/02/16 05:46 Bite Cells Not Reportable 10/02/16 05:46 Crenated Cell Not Reportable 10/02/16 05:46 Elliptocytes Not Reportable 10/02/16 05:46 Acanthocytes (Spur) Not Reportable 10/02/16 05:46 Rouleaux Not Reportable 10/02/16 05:46 Hemoglobin C Crystals Not Reportable 10/02/16 05:46 Schistocytes Not Reportable 10/02/16 05:46 Malaria parasites Not Reportable 10/02/16 05:46 Warner Bodies Not Reportable 10/02/16 05:46 Hem Pathologist Commnt No 10/02/16 05:46 Sodium 132 mmol/L (137-145) L D 10/03/16 07:00 Potassium 3.6 mmol/L (3.6-5.0) 10/03/16 07:00 Chloride 102.0 mmol/L (98-107) 10/03/16 07:00 Carbon Dioxide 19 mmol/L (22-30) L 10/03/16 07:00 Anion Gap 15 mmol/L 10/03/16 07:00 BUN 24 mg/dL (9-20) H 10/03/16 07:00 Creatinine 1.2 mg/dL (0.8-1.5) 10/03/16 07:00 Estimated GFR > 60 ml/min 10/03/16 07:00 BUN/Creatinine Ratio 20.00 % 10/03/16 07:00 Glucose 80 mg/dL (75-100) 10/03/16 07:00 POC Glucose 81 (70-105) 09/29/16 21:06 Osmolality 272 Mosm/kg 09/29/16 10:01 Lactic Acid 1.9 mmol/L (0.7-2.0) 09/28/16 12:06 Calcium 7.4 mg/dL (8.4-10.2) L 10/03/16 07:00 Total Bilirubin 0.3 mg/dL (0.1-1.2) 10/01/16 09:45 Direct Bilirubin < 0.2 mg/dL (0-0.2) 09/28/16 12:06 Indirect Bilirubin 0.3 mg/dL 09/28/16 12:06 AST 13 units/L (5-40) 10/01/16 09:45 ALT 8 units/L (7-56) 10/01/16 09:45 Alkaline Phosphatase 35 units/L (35-129) 10/01/16 09:45 Lactate Dehydrogenase 467 units/L (91-180) H 09/28/16 12:06 Troponin T 0.427 ng/mL (0.00-0.029) H* 09/28/16 12:06 Total Protein 7.7 g/dL (6.3-8.2) 10/01/16 09:45 Albumin 2.2 g/dL (3.9-5) L 10/01/16 09:45 Albumin/Globulin Ratio 0.4 % 10/01/16 09:45 Triglycerides 102 mg/dL (2-149) 09/28/16 12:06 Cholesterol 151 mg/dL (50-199) 09/28/16 12:06 LDL Cholesterol Direct 86 mg/dL (50-130) 09/28/16 12:06 HDL Cholesterol 45 mg/dL (40-59) 09/28/16 12:06 Cholesterol/HDL Ratio 3.35 % 09/28/16 12:06 Urine Color Yellow (Yellow) 09/28/16 12:27 Urine Turbidity Clear (Clear) 09/28/16 12:27 Urine pH 5.0 (5.0-7.0) 09/28/16 12:27 Ur Specific [place] 1.017 (1.003-1.030) 09/28/16 12:27 Urine Protein >500 mg/dL (Negative) 09/28/16 12:27 Urine Glucose (UA) Neg mg/dL (Negative) 09/28/16 12:27 Urine Ketones Neg mg/dL (Negative) 09/28/16 12:27 Urine Blood Mod (Negative) 09/28/16 12:27 Urine Nitrite Neg (Negative) 09/28/16 12:27 Urine Bilirubin Neg (Negative) 09/28/16 12:27 Urine Urobilinogen < 2.0 mg/dL (<2.0) 09/28/16 12:27 Ur Leukocyte Esterase Neg (Negative) 09/28/16 12:27 Urine WBC (Auto) < 1.0 /HPF (0.0-6.0) 09/28/16 12:27 Urine RBC (Auto) 1.0 /HPF (0.0-6.0) 09/28/16 12:27 U Epithel Cells (Auto) < 1.0 /HPF (0-13.0) 09/28/16 12:27 Urine Mucus Few /HPF 09/28/16 12:27 CSF Appearance Clear 09/28/16 12:45 CSF Color Colorless 09/28/16 12:45 CSF WBC 600 /mm3 (1-10) 09/28/16 12:45 CSF RBC 165 /mm3 (0-0) 09/28/16 12:45 CSF Seg Neutrophils 55.5 % (0-6) 09/28/16 12:45 CSF Lymphocytes % 38.0 % (40-80) 09/28/16 12:45 CSF Reactive Lymphs 0.5 % 09/28/16 12:45 CSF Monocytes % 6.0 % (15-45) 09/28/16 12:45 CSF Eosinophils % 0 % 09/28/16 12:45 CSF Basophils 0 % 09/28/16 12:45 CSF Pathologist Review C 09/28/16 12:45 CSF Glucose 3 mg/dL 09/28/16 12:45 CSF Total Protein 117 mg/dL 09/28/16 12:45 CSF VDRL Reactive 1:16 (Nonreactive) H 09/28/16 12:45 Salicylates < 0.3 mg/dL (2.8-20.0) L 09/28/16 12:06 Urine Opiates Screen Presumptive negative 09/28/16 12:20 Urine Methadone Screen Presumptive negative 09/28/16 12:20 Acetaminophen < 15.0 ug/mL (10.0-30.0) 09/28/16 12:06 Ur Barbiturates Screen Presumptive negative 09/28/16 12:20 Ur Phencyclidine Scrn Presumptive negative 09/28/16 12:20 Ur Amphetamines Screen Presumptive negative 09/28/16 12:20 U Benzodiazepines Scrn Presumptive negative 09/28/16 12:20 Urine Cocaine Screen Presumptive negative 09/28/16 12:20 U Marijuana (THC) Screen Presumptive positive 09/28/16 12:20 Drugs of Abuse Note Disclamer 09/28/16 12:20 Plasma/Serum Alcohol < 0.01 gm% (0-0.07) 09/28/16 12:06 Lymph Enumerat CD4/CD8 0.10 (0.86-5.00) L 09/28/16 15:43 % CD3 Cells 77 % (57-85) 09/28/16 15:43 Absolute CD3 Count 166 cells/uL (840-3060) L 09/28/16 15:43 % CD4 Cells 7 % (30-61) L 09/28/16 15:43 Absolute CD4 Count 14 cells/uL (490-1740) L 09/28/16 15:43 % CD8 Cells 69 % (12-42) H 09/28/16 15:43 Absolute CD8 Count 148 cells/uL (180-1170) L 09/28/16 15:43 % CD19 Cells 0 % (6-29) L 09/28/16 15:43 Absolute CD19 Count 1 cells/uL (110-660) L 09/28/16 15:43 RPR Titer 1:1024 09/28/16 15:43 RPR Reactive (Nonreactive) 09/28/16 15:43 Hep Bs Antigen Non-reactive (Negative) 09/28/16 15:43 Hep B Core IgM Ab Non-reactive (NonReactive) 09/28/16 15:43 Hepatitis C Antibody Non-reactive (NonReactive) 09/28/16 15:43 HIV-1 RNA PCR copies/ml 367491 copies/mL (<20) H 09/28/16 15:43 HIV-1 RNA (PCR) log 5.99 Log cps/mL (<1.30) H 09/28/16 15:43 HIV 1&2 Antibody Rapid Reactive (Non React) 09/28/16 15:43 HIV P24 Antigen Non react (Non React) 09/28/16 15:43
[2016-10-04] MEDS: PFIZERPEN IV SCH ×6 (02:31→22:45)
[2016-10-04] MEDS: NACL IV SCH ×6 (02:31→22:45)
[2016-10-04] MEDS: TYLENOL PO SCH (10:19)
[2016-10-04] MEDS: BENADRYL IV SCH (10:20)
--- NOTE | 2016-10-04 10:44 | Progress Note ---
Assessment and Plan Current antibiotics: Aqueous penicillin 4 million units IV q4h daily 10/03 --> Amphotericin B 0.7 mg/kilogram IV daily 09/28 --> Flucytosine 25 mg/kilogram po q6h 09/28 --> Previous Antibiotics: Ceftriaxone 2 g IV daily 09/28-10/03 Vancomycin IV 1 g X 1 09/28 Azithromycin 500 mg IV daily 09/28-09/30/16 ASSESSMENT: Clair Rich is a 25y/o AA male presents through the ED with a one-month history of malaise, worsening generalized headache, decreased appetite, and weight loss. He was brought to the hospital by his sister who stated that had been falling. The patient had marked neck rigidity with non- contrast head CT showing no acute changes. 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 -No opening pressure done on initial LP 2. HIV/AIDS -VL [id number] -CD4 14, 7% 3. RLL infiltrate -Repeat chest xray without infiltrate, doubt pneumonia 4. Syphilis -RPR positive with titer of 1:1024 -Patient without diffuse rash. -Rule out neurosyphilis in addition to cryptococcal meningitis 5. Marked hyponatremia -R/O SIADH, this might be related to the meningitis 6. Thrombocytopenia -Improved Recommendations: 1. Continue on IV amphotericin and 5-flucytosine for Cryptococcal meningitis 2. continue high dose IV penicillin syphilis and possible neurosyphilis 3. Await CSF VDRL 4. If mental status continues to be altered may need to repeat CT scan of the head and possible lumbar puncture for opening pressure 5. Continued close observation and supportive measures. Glynn Warren MD [facility] Office: [phone] Subjective Date of service: 10/04/16 Principal diagnosis: Cryptococcal meningitis, HIV, neurosyphilis Interval history: More alert and responsive. Complains of some neck pain but no significant headache. Occasional nausea without vomiting. No other complaints at present. Objective - Exam Narrative Exam: GENERAL: Well-developed, chronically ill appearing male who is alert and responsive albeit somewhat slow to respond. HEENT: Pupils are equal reactive to light and accommodation. Conjunctiva clear. Thrush is improved. NECK: Marked stiffness to forward flexion. No enlargement of the thyroid gland. Shotty cervical lymphadenopathy. No jugular venous distention at 30. LUNGS: Clear with no adventitious sounds. HEART: Tachycardic. No murmur or gallop. ABDOMEN: Soft and nontender. Liver and spleen are not palpably enlarged or tender. No palpable masses. Bowel sounds are normoactive. : Normal external male. No Peña catheter RECTAL: Not examined today. EXTREMITIES: Shotty cervical, axillary and inguinal lymph node enlargement. SKIN: No other rash, ulcers or wounds. NEUROLOGIC: More alert and responsive. No focal findings. - Constitutional Vitals: Vital Signs Temp Pulse Resp BP Pulse Ox 98.6 F 78 14 139/84 98 10/04/16 07:47 10/04/16 07:47 10/04/16 07:47 10/04/16 07:47 10/04/16 07:47 Temperature -Last 24 Hours Temperature 98.6 F Temperature 98 F Temperature 98.2 F - Labs CBC & Chem 7: 10/03/16 07:00 10/03/16 07:00 Labs: Micro: 09/28/16 12:45 Cerebral Spinal Fluid CSF Culture - No growth 09/28/16 12:45 Cerebral Spinal Fluid Cryptococcal Antigen - 1:512 09/28/16 12:34 Peripheral/Venous Blood Culture - Preliminary NO GROWTH AFTER 72 HOURS 09/28/16 12:06 Peripheral/Venous Blood Culture - Preliminary NO GROWTH AFTER 72 HOURS 09/28/16 15:23 Serum Cryptococcal Antigen - 1:512
[2016-10-04] MEDS: [UNRECOGNIZED DRUG - OTHER] IV SCH (11:02)
[2016-10-04] MEDS: D5W IV SCH (11:02)
[2016-10-04] MEDS: LOVENOX SUB-Q SCH (11:06)
[2016-10-04] MEDS: D5W (50 ML) IV SCH (11:07)
[2016-10-05] MEDS: NACL IV SCH ×6 (01:32→22:50)
[2016-10-05] MEDS: PFIZERPEN IV SCH ×6 (01:32→22:50)
[2016-10-05] MEDS: NACL 0.9% 1000 ML 1,000 ML IV SCH ×2 (01:35→22:50)
[2016-10-05] MEDS: [UNRECOGNIZED DRUG - OTHER] PO SCH ×3 (05:50→18:55)
--- NOTE | 2016-10-05 07:15 | Progress Note ---
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 (2) AIDS Current Visit: Yes Status: Acute Plan to address problem: ID consulted, continue current therapy. (3) Syphilis Current Visit: Yes Status: Acute Plan to address problem: ID consulted, continue current abx, (4) Debility Current Visit: Yes Status: Acute Plan to address problem: PT consulted, (5) DVT prophylaxis Current Visit: Yes Status: Acute History Interval history: Pt lying in bed, Pt denies pain, Pt states that he does not want family informed of his medical condition. Pt mother at bedside. No reported nursing events. Case management consulted for d/c planning Hospitalist Physical - Constitutional Vitals: Temp Pulse Resp BP Pulse Ox 97.4 F L 83 20 159/99 99 10/04/16 23:00 10/04/16 23:00 10/04/16 23:00 10/04/16 23:00 10/04/16 23:00 General appearance: Present: no acute distress, well-nourished - EENT Eyes: Present: PERRL, EOM intact ENT: hearing intact - Neck Neck: Present: supple - Respiratory Respiratory effort: normal Respiratory: bilateral: CTA - Cardiovascular Rhythm: regular Heart Sounds: Present: S1 & S2 - Extremities Extremities: no ischemia Peripheral Pulses: within normal limits - Abdominal General gastrointestinal: soft, non-tender, non-distended - Integumentary Integumentary: Present: clear, dry - Psychiatric Psychiatric: intact judgment & insight, memory intact, cooperative, other (mild cognitive slowing, ) - Neurologic Neurologic: CNII-XII intact Results - Labs CBC & Chem 7: 10/03/16 07:00 10/03/16 07:00 Labs: Laboratory Last Values WBC 3.2 K/mm3 (4.5-11.0) L 10/03/16 07:00 RBC 3.78 M/mm3 (3.65-5.03) 10/03/16 07:00 Hgb 10.2 gm/dl (11.8-15.2) L 10/03/16 07:00 Hct 30.5 % (35.5-45.6) L D 10/03/16 07:00 MCV 81 fl (84-94) L 10/03/16 07:00 MCH 27 pg (28-32) L 10/03/16 07:00 MCHC 33 % (32-34) 10/03/16 07:00 RDW 14.6 % (13.2-15.2) 10/03/16 07:00 Plt Count 153 K/mm3 (140-440) 10/03/16 07:00 Lymph % (Auto) 23.8 % (13.4-35.0) 10/03/16 07:00 [place] % (Auto) 13.7 % (0.0-7.3) H 10/03/16 07:00 Eos % (Auto) 2.2 % (0.0-4.3) 10/03/16 07:00 Baso % (Auto) 0.6 % (0.0-1.8) 10/03/16 07:00 Lymph # 0.8 K/mm3 (1.2-5.4) L 10/03/16 07:00 [place] # 0.4 K/mm3 (0.0-0.8) 10/03/16 07:00 Eos # 0.1 K/mm3 (0.0-0.4) 10/03/16 07:00 Baso # 0.0 K/mm3 (0.0-0.1) 10/03/16 07:00 Add Manual Diff Complete 10/02/16 05:46 Total Counted 100 10/02/16 05:46 Seg Neutrophils % 59.7 % (40.0-70.0) 10/03/16 07:00 Seg Neuts % (Manual) 68.0 % (40.0-70.0) 10/02/16 05:46 Band Neutrophils % 0 % 10/02/16 05:46 Lymphocytes % (Manual) 18.0 % (13.4-35.0) 10/02/16 05:46 Reactive Lymphs % (Man) 0 % 10/02/16 05:46 Monocytes % (Manual) 13.0 % (0.0-7.3) H 10/02/16 05:46 Eosinophils % (Manual) 1.0 % (0.0-4.3) 10/02/16 05:46 Basophils % (Manual) 0 % (0.0-1.8) 10/02/16 05:46 Metamyelocytes % 0 % 10/02/16 05:46 Myelocytes % 0 % 10/02/16 05:46 Promyelocytes % 0 % 10/02/16 05:46 Blast Cells % 0 % 10/02/16 05:46 Nucleated RBC % 1.0 % (0.0-0.9) H 10/02/16 05:46 Seg Neutrophils # 1.9 K/mm3 (1.8-7.7) 10/03/16 07:00 Seg Neutrophils # Man 2.0 K/mm3 (1.8-7.7) 10/02/16 05:46 Band Neutrophils # 0.0 K/mm3 10/02/16 05:46 Abs Lymphs (Manual) 215 cells/uL (850-3900) L 09/28/16 15:43 Lymphocytes # (Manual) 0.5 K/mm3 (1.2-5.4) L 10/02/16 05:46 Abs React Lymphs (Man) 0.0 K/mm3 10/02/16 05:46 Monocytes # (Manual) 0.4 K/mm3 (0.0-0.8) 10/02/16 05:46 Eosinophils # (Manual) 0.0 K/mm3 (0.0-0.4) 10/02/16 05:46 Basophils # (Manual) 0.0 K/mm3 (0.0-0.1) 10/02/16 05:46 Metamyelocytes # 0.0 K/mm3 10/02/16 05:46 Myelocytes # 0.0 K/mm3 10/02/16 05:46 Promyelocytes # 0.0 K/mm3 10/02/16 05:46 Blast Cells # 0.0 K/mm3 10/02/16 05:46 WBC Morphology Not Reportable 10/02/16 05:46 Hypersegmented Neuts Not Reportable 10/02/16 05:46 Hyposegmented Neuts Not Reportable 10/02/16 05:46 Hypogranular Neuts Not Reportable 10/02/16 05:46 Smudge Cells Not Reportable 10/02/16 05:46 Toxic Granulation Not Reportable 10/02/16 05:46 Toxic Vacuolation Not Reportable 10/02/16 05:46 Dohle Bodies Not Reportable 10/02/16 05:46 Pelger-Huet Anomaly Not Reportable 10/02/16 05:46 Ada Rods Not Reportable 10/02/16 05:46 Platelet Estimate Consistent w auto 10/02/16 05:46 Clumped Platelets Not Reportable 10/02/16 05:46 Plt Clumps, EDTA Not Reportable 10/02/16 05:46 Large Platelets Not Reportable 10/02/16 05:46 Giant Platelets Not Reportable 10/02/16 05:46 Platelet Satelliting Not Reportable 10/02/16 05:46 Plt Morphology Comment Not Reportable 10/02/16 05:46 RBC Morphology Not Reportable 10/02/16 05:46 Dimorphic RBCs Not Reportable 10/02/16 05:46 Polychromasia Not Reportable 10/02/16 05:46 Hypochromasia Not Reportable 10/02/16 05:46 Poikilocytosis Not Reportable 10/02/16 05:46 Anisocytosis Few 10/02/16 05:46 Microcytosis Rare 10/02/16 05:46 Macrocytosis Not Reportable 10/02/16 05:46 Spherocytes Not Reportable 10/02/16 05:46 Pappenheimer Bodies Not Reportable 10/02/16 05:46 Sickle Cells Not Reportable 10/02/16 05:46 Target Cells Not Reportable 10/02/16 05:46 Tear Drop Cells Not Reportable 10/02/16 05:46 Ovalocytes Not Reportable 10/02/16 05:46 Helmet Cells Not Reportable 10/02/16 05:46 Varma-Millstone Bodies Not Reportable 10/02/16 05:46 Avilla Rings Not Reportable 10/02/16 05:46 Alycia Cells Not Reportable 10/02/16 05:46 Bite Cells Not Reportable 10/02/16 05:46 Crenated Cell Not Reportable 10/02/16 05:46 Elliptocytes Not Reportable 10/02/16 05:46 Acanthocytes (Spur) Not Reportable 10/02/16 05:46 Rouleaux Not Reportable 10/02/16 05:46 Hemoglobin C Crystals Not Reportable 10/02/16 05:46 Schistocytes Not Reportable 10/02/16 05:46 Malaria parasites Not Reportable 10/02/16 05:46 Warner Bodies Not Reportable 10/02/16 05:46 Hem Pathologist Commnt No 10/02/16 05:46 Sodium 132 mmol/L (137-145) L D 10/03/16 07:00 Potassium 3.6 mmol/L (3.6-5.0) 10/03/16 07:00 Chloride 102.0 mmol/L (98-107) 10/03/16 07:00 Carbon Dioxide 19 mmol/L (22-30) L 10/03/16 07:00 Anion Gap 15 mmol/L 10/03/16 07:00 BUN 24 mg/dL (9-20) H 10/03/16 07:00 Creatinine 1.2 mg/dL (0.8-1.5) 10/03/16 07:00 Estimated GFR > 60 ml/min 10/03/16 07:00 BUN/Creatinine Ratio 20.00 % 10/03/16 07:00 Glucose 80 mg/dL (75-100) 10/03/16 07:00 POC Glucose 81 (70-105) 09/29/16 21:06 Osmolality 272 Mosm/kg 09/29/16 10:01 Lactic Acid 1.9 mmol/L (0.7-2.0) 09/28/16 12:06 Calcium 7.4 mg/dL (8.4-10.2) L 10/03/16 07:00 Total Bilirubin 0.3 mg/dL (0.1-1.2) 10/01/16 09:45 Direct Bilirubin < 0.2 mg/dL (0-0.2) 09/28/16 12:06 Indirect Bilirubin 0.3 mg/dL 09/28/16 12:06 AST 13 units/L (5-40) 10/01/16 09:45 ALT 8 units/L (7-56) 10/01/16 09:45 Alkaline Phosphatase 35 units/L (35-129) 10/01/16 09:45 Lactate Dehydrogenase 467 units/L (91-180) H 09/28/16 12:06 Troponin T 0.427 ng/mL (0.00-0.029) H* 09/28/16 12:06 Total Protein 7.7 g/dL (6.3-8.2) 10/01/16 09:45 Albumin 2.2 g/dL (3.9-5) L 10/01/16 09:45 Albumin/Globulin Ratio 0.4 % 10/01/16 09:45 Triglycerides 102 mg/dL (2-149) 09/28/16 12:06 Cholesterol 151 mg/dL (50-199) 09/28/16 12:06 LDL Cholesterol Direct 86 mg/dL (50-130) 09/28/16 12:06 HDL Cholesterol 45 mg/dL (40-59) 09/28/16 12:06 Cholesterol/HDL Ratio 3.35 % 09/28/16 12:06 Urine Color Yellow (Yellow) 09/28/16 12:27 Urine Turbidity Clear (Clear) 09/28/16 12:27 Urine pH 5.0 (5.0-7.0) 09/28/16 12:27 Ur Specific [place] 1.017 (1.003-1.030) 09/28/16 12:27 Urine Protein >500 mg/dL (Negative) 09/28/16 12:27 Urine Glucose (UA) Neg mg/dL (Negative) 09/28/16 12:27 Urine Ketones Neg mg/dL (Negative) 09/28/16 12:27 Urine Blood Mod (Negative) 09/28/16 12:27 Urine Nitrite Neg (Negative) 09/28/16 12:27 Urine Bilirubin Neg (Negative) 09/28/16 12:27 Urine Urobilinogen < 2.0 mg/dL (<2.0) 09/28/16 12:27 Ur Leukocyte Esterase Neg (Negative) 09/28/16 12:27 Urine WBC (Auto) < 1.0 /HPF (0.0-6.0) 09/28/16 12:27 Urine RBC (Auto) 1.0 /HPF (0.0-6.0) 09/28/16 12:27 U Epithel Cells (Auto) < 1.0 /HPF (0-13.0) 09/28/16 12:27 Urine Mucus Few /HPF 09/28/16 12:27 CSF Appearance Clear 09/28/16 12:45 CSF Color Colorless 09/28/16 12:45 CSF WBC 600 /mm3 (1-10) 09/28/16 12:45 CSF RBC 165 /mm3 (0-0) 09/28/16 12:45 CSF Seg Neutrophils 55.5 % (0-6) 09/28/16 12:45 CSF Lymphocytes % 38.0 % (40-80) 09/28/16 12:45 CSF Reactive Lymphs 0.5 % 09/28/16 12:45 CSF Monocytes % 6.0 % (15-45) 09/28/16 12:45 CSF Eosinophils % 0 % 09/28/16 12:45 CSF Basophils 0 % 09/28/16 12:45 CSF Pathologist Review C 09/28/16 12:45 CSF Glucose 3 mg/dL 09/28/16 12:45 CSF Total Protein 117 mg/dL 09/28/16 12:45 CSF VDRL Reactive 1:16 (Nonreactive) H 09/28/16 12:45 Salicylates < 0.3 mg/dL (2.8-20.0) L 09/28/16 12:06 Urine Opiates Screen Presumptive negative 09/28/16 12:20 Urine Methadone Screen Presumptive negative 09/28/16 12:20 Acetaminophen < 15.0 ug/mL (10.0-30.0) 09/28/16 12:06 Ur Barbiturates Screen Presumptive negative 09/28/16 12:20 Ur Phencyclidine Scrn Presumptive negative 09/28/16 12:20 Ur Amphetamines Screen Presumptive negative 09/28/16 12:20 U Benzodiazepines Scrn Presumptive negative 09/28/16 12:20 Urine Cocaine Screen Presumptive negative 09/28/16 12:20 U Marijuana (THC) Screen Presumptive positive 09/28/16 12:20 Drugs of Abuse Note Disclamer 09/28/16 12:20 Plasma/Serum Alcohol < 0.01 gm% (0-0.07) 09/28/16 12:06 Lymph Enumerat CD4/CD8 0.10 (0.86-5.00) L 09/28/16 15:43 % CD3 Cells 77 % (57-85) 09/28/16 15:43 Absolute CD3 Count 166 cells/uL (840-3060) L 09/28/16 15:43 % CD4 Cells 7 % (30-61) L 09/28/16 15:43 Absolute CD4 Count 14 cells/uL (490-1740) L 09/28/16 15:43 % CD8 Cells 69 % (12-42) H 09/28/16 15:43 Absolute CD8 Count 148 cells/uL (180-1170) L 09/28/16 15:43 % CD19 Cells 0 % (6-29) L 09/28/16 15:43 Absolute CD19 Count 1 cells/uL (110-660) L 09/28/16 15:43 RPR Titer 1:1024 09/28/16 15:43 RPR Reactive (Nonreactive) 09/28/16 15:43 Hep Bs Antigen Non-reactive (Negative) 09/28/16 15:43 Hep B Core IgM Ab Non-reactive (NonReactive) 09/28/16 15:43 Hepatitis C Antibody Non-reactive (NonReactive) 09/28/16 15:43 HIV-1 RNA PCR copies/ml 382754 copies/mL (<20) H 09/28/16 15:43 HIV-1 RNA (PCR) log 5.99 Log cps/mL (<1.30) H 09/28/16 15:43 HIV 1&2 Antibody Rapid Reactive (Non React) 09/28/16 15:43 HIV P24 Antigen Non react (Non React) 09/28/16 15:43 TB (QFT) Gold In Tube Negative (Negative) 09/29/16 07:30 TB Test (QFT) Nil 0.09 IU/mL (()) 09/29/16 07:30 TB Test Mitogen - Nil 7.24 IU/mL (()) 09/29/16 07:30 TB Test Antigen - Nil 0.05 IU/mL (()) 09/29/16 07:30
[2016-10-05] MEDS: TYLENOL PO SCH (09:56)
[2016-10-05] MEDS: BENADRYL IV SCH (09:57)
[2016-10-05] MEDS: LOVENOX SUB-Q SCH (09:57)
--- NOTE | 2016-10-05 10:38 | Progress Note ---
Assessment and Plan Current antibiotics: Aqueous penicillin 4 million units IV q4h daily 10/03 --> Amphotericin B 0.7 mg/kilogram IV daily 09/28 --> Flucytosine 25 mg/kilogram po q6h 09/28 --> Previous Antibiotics: Ceftriaxone 2 g IV daily 09/28-10/03 Vancomycin IV 1 g X 1 09/28 Azithromycin 500 mg IV daily 09/28-09/30/16 ASSESSMENT: Clair Rich is a 25y/o AA male presents through the ED with a one-month history of malaise, worsening generalized headache, decreased appetite, and weight loss. He was brought to the hospital by his sister who stated that had been falling. The patient had marked neck rigidity with non- contrast head CT showing no acute changes. 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 -No opening pressure done on initial LP -Associated cryptococcemia with AFB blood culture growing yeast 2. HIV/AIDS -VL [id number] -CD4 14, 7% 3. RLL infiltrate -Repeat chest xray without infiltrate, doubt pneumonia 4. Neurosyphilis -RPR positive with titer of 1:1024 -Patient without diffuse rash. -CSF VDRL 1:16 5. Marked hyponatremia -R/O SIADH, this might be related to the meningitis 6. Thrombocytopenia -Improved Recommendations: 1. Continue on IV amphotericin and 5-flucytosine for Cryptococcal meningitis 2. continue high dose IV penicillin versus neurosyphilis 4. If mental status continues to be altered may need to repeat CT scan of the head and possible lumbar puncture for opening pressure 5. Continued close observation and supportive measures. Discussed with patient's mother who asked "did he have a stroke." Glynn Warren MD [facility] Office: [phone] Subjective Date of service: 10/05/16 Principal diagnosis: Cryptococcal meningitis, HIV, neurosyphilis Interval history: Alert and responsive but remains somewhat lethargic. Still complains of some neck pain but no significant headache. Occasional nausea without vomiting. No other complaints at present. Objective - Exam Narrative Exam: GENERAL: Well-developed, chronically ill appearing male who is alert and responsive albeit somewhat slow to respond. HEENT: Pupils are equal reactive to light and accommodation. Conjunctiva clear. Thrush is improved. NECK: Marked stiffness to forward flexion. No enlargement of the thyroid gland. Shotty cervical lymphadenopathy. No jugular venous distention at 30. LUNGS: Clear with no adventitious sounds. HEART: Tachycardic. No murmur or gallop. ABDOMEN: Soft and nontender. Liver and spleen are not palpably enlarged or tender. No palpable masses. Bowel sounds are normoactive. : Normal external male. No Peña catheter RECTAL: Not examined today. EXTREMITIES: Shotty cervical, axillary and inguinal lymph node enlargement. SKIN: No other rash, ulcers or wounds. NEUROLOGIC: More alert and responsive. No focal findings. - Constitutional Vitals: Vital Signs Temp Pulse Resp BP Pulse Ox 97.6 F 91 H 18 139/96 100 10/05/16 07:15 10/05/16 07:15 10/05/16 07:15 10/05/16 07:15 10/05/16 07:15 Temperature -Last 24 Hours Temperature 97.6 F Temperature 97.4 F Temperature 97.8 F - Labs CBC & Chem 7: 10/03/16 07:00 10/03/16 07:00 Labs: Micro: 09/28/16 12:45 Cerebral Spinal Fluid CSF Culture - No growth 09/28/16 12:45 Cerebral Spinal Fluid Cryptococcal Antigen - 1:512 09/28/16 12:34 Peripheral/Venous Blood Culture - Preliminary NO GROWTH AFTER 72 HOURS 09/28/16 12:06 Peripheral/Venous Blood Culture - Preliminary NO GROWTH AFTER 72 HOURS 09/28/16 15:23 Serum Cryptococcal Antigen - 1:512 09/28 AFB blood culture is growing yeast Laboratory Tests 09/28/16 12:45 CSF VDRL Reactive 1:16 H
[2016-10-05] MEDS: D5W (50 ML) IV SCH (11:02)
[2016-10-05] MEDS: [UNRECOGNIZED DRUG - OTHER] IV SCH (11:03)
[2016-10-05] MEDS: D5W IV SCH (11:03)
[2016-10-06] MEDS: [UNRECOGNIZED DRUG - OTHER] PO SCH ×2 (01:14→12:11)
[2016-10-06] MEDS: PFIZERPEN IV SCH ×6 (03:20→22:02)
[2016-10-06] MEDS: NACL IV SCH ×6 (03:20→22:02)
[2016-10-06] MEDS: ZOFRAN IV PRN (04:52)
--- NOTE | 2016-10-06 07:46 | Progress Note ---
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 REpeat CT head in AM. possible repeat LP pending CT results. (2) AIDS Current Visit: Yes Status: Acute Plan to address problem: ID consulted, continue current therapy. (3) Syphilis Current Visit: Yes Status: Acute Plan to address problem: ID consulted, continue current abx, (4) Debility Current Visit: Yes Status: Acute Plan to address problem: PT consulted, (5) DVT prophylaxis Current Visit: Yes Status: Acute History Interval history: Pt lying in bed, Pt denies pain, Pt states that he does not want family informed of his medical condition. Pt mother at bedside. No reported nursing events. Case management consulted for d/c planning. Will repeat CT head in AM. Hospitalist Physical - Constitutional Vitals: Temp Pulse Resp BP Pulse Ox 97.7 F 98 H 18 143/93 100 10/06/16 00:00 10/06/16 00:00 10/06/16 00:00 10/06/16 00:00 10/06/16 00:00 General appearance: Present: no acute distress, well-nourished - EENT Eyes: Present: PERRL ENT: hearing intact - Neck Neck: Present: supple - Respiratory Respiratory: bilateral: CTA - Cardiovascular Rhythm: regular - Extremities Extremities: no ischemia Peripheral Pulses: within normal limits - Abdominal General gastrointestinal: soft, non-tender, non-distended - Integumentary Integumentary: Present: clear, dry - Psychiatric Psychiatric: cooperative, other (cognitive slowing, ) - Neurologic Neurologic: CNII-XII intact Results - Labs CBC & Chem 7: 10/03/16 07:00 10/03/16 07:00 Labs: Laboratory Last Values WBC 3.2 K/mm3 (4.5-11.0) L 10/03/16 07:00 RBC 3.78 M/mm3 (3.65-5.03) 10/03/16 07:00 Hgb 10.2 gm/dl (11.8-15.2) L 10/03/16 07:00 Hct 30.5 % (35.5-45.6) L D 10/03/16 07:00 MCV 81 fl (84-94) L 10/03/16 07:00 MCH 27 pg (28-32) L 10/03/16 07:00 MCHC 33 % (32-34) 10/03/16 07:00 RDW 14.6 % (13.2-15.2) 10/03/16 07:00 Plt Count 153 K/mm3 (140-440) 10/03/16 07:00 Lymph % (Auto) 23.8 % (13.4-35.0) 10/03/16 07:00 [place] % (Auto) 13.7 % (0.0-7.3) H 10/03/16 07:00 Eos % (Auto) 2.2 % (0.0-4.3) 10/03/16 07:00 Baso % (Auto) 0.6 % (0.0-1.8) 10/03/16 07:00 Lymph # 0.8 K/mm3 (1.2-5.4) L 10/03/16 07:00 [place] # 0.4 K/mm3 (0.0-0.8) 10/03/16 07:00 Eos # 0.1 K/mm3 (0.0-0.4) 10/03/16 07:00 Baso # 0.0 K/mm3 (0.0-0.1) 10/03/16 07:00 Add Manual Diff Complete 10/02/16 05:46 Total Counted 100 10/02/16 05:46 Seg Neutrophils % 59.7 % (40.0-70.0) 10/03/16 07:00 Seg Neuts % (Manual) 68.0 % (40.0-70.0) 10/02/16 05:46 Band Neutrophils % 0 % 10/02/16 05:46 Lymphocytes % (Manual) 18.0 % (13.4-35.0) 10/02/16 05:46 Reactive Lymphs % (Man) 0 % 10/02/16 05:46 Monocytes % (Manual) 13.0 % (0.0-7.3) H 10/02/16 05:46 Eosinophils % (Manual) 1.0 % (0.0-4.3) 10/02/16 05:46 Basophils % (Manual) 0 % (0.0-1.8) 10/02/16 05:46 Metamyelocytes % 0 % 10/02/16 05:46 Myelocytes % 0 % 10/02/16 05:46 Promyelocytes % 0 % 10/02/16 05:46 Blast Cells % 0 % 10/02/16 05:46 Nucleated RBC % 1.0 % (0.0-0.9) H 10/02/16 05:46 Seg Neutrophils # 1.9 K/mm3 (1.8-7.7) 10/03/16 07:00 Seg Neutrophils # Man 2.0 K/mm3 (1.8-7.7) 10/02/16 05:46 Band Neutrophils # 0.0 K/mm3 10/02/16 05:46 Abs Lymphs (Manual) 215 cells/uL (850-3900) L 09/28/16 15:43 Lymphocytes # (Manual) 0.5 K/mm3 (1.2-5.4) L 10/02/16 05:46 Abs React Lymphs (Man) 0.0 K/mm3 10/02/16 05:46 Monocytes # (Manual) 0.4 K/mm3 (0.0-0.8) 10/02/16 05:46 Eosinophils # (Manual) 0.0 K/mm3 (0.0-0.4) 10/02/16 05:46 Basophils # (Manual) 0.0 K/mm3 (0.0-0.1) 10/02/16 05:46 Metamyelocytes # 0.0 K/mm3 10/02/16 05:46 Myelocytes # 0.0 K/mm3 10/02/16 05:46 Promyelocytes # 0.0 K/mm3 10/02/16 05:46 Blast Cells # 0.0 K/mm3 10/02/16 05:46 WBC Morphology Not Reportable 10/02/16 05:46 Hypersegmented Neuts Not Reportable 10/02/16 05:46 Hyposegmented Neuts Not Reportable 10/02/16 05:46 Hypogranular Neuts Not Reportable 10/02/16 05:46 Smudge Cells Not Reportable 10/02/16 05:46 Toxic Granulation Not Reportable 10/02/16 05:46 Toxic Vacuolation Not Reportable 10/02/16 05:46 Dohle Bodies Not Reportable 10/02/16 05:46 Pelger-Huet Anomaly Not Reportable 10/02/16 05:46 Ada Rods Not Reportable 10/02/16 05:46 Platelet Estimate Consistent w auto 10/02/16 05:46 Clumped Platelets Not Reportable 10/02/16 05:46 Plt Clumps, EDTA Not Reportable 10/02/16 05:46 Large Platelets Not Reportable 10/02/16 05:46 Giant Platelets Not Reportable 10/02/16 05:46 Platelet Satelliting Not Reportable 10/02/16 05:46 Plt Morphology Comment Not Reportable 10/02/16 05:46 RBC Morphology Not Reportable 10/02/16 05:46 Dimorphic RBCs Not Reportable 10/02/16 05:46 Polychromasia Not Reportable 10/02/16 05:46 Hypochromasia Not Reportable 10/02/16 05:46 Poikilocytosis Not Reportable 10/02/16 05:46 Anisocytosis Few 10/02/16 05:46 Microcytosis Rare 10/02/16 05:46 Macrocytosis Not Reportable 10/02/16 05:46 Spherocytes Not Reportable 10/02/16 05:46 Pappenheimer Bodies Not Reportable 10/02/16 05:46 Sickle Cells Not Reportable 10/02/16 05:46 Target Cells Not Reportable 10/02/16 05:46 Tear Drop Cells Not Reportable 10/02/16 05:46 Ovalocytes Not Reportable 10/02/16 05:46 Helmet Cells Not Reportable 10/02/16 05:46 Varma-[place] Bodies Not Reportable 10/02/16 05:46 [place] Rings Not Reportable 10/02/16 05:46 [place] Cells Not Reportable 10/02/16 05:46 Bite Cells Not Reportable 10/02/16 05:46 Crenated Cell Not Reportable 10/02/16 05:46 Elliptocytes Not Reportable 10/02/16 05:46 Acanthocytes (Spur) Not Reportable 10/02/16 05:46 Rouleaux Not Reportable 10/02/16 05:46 Hemoglobin C Crystals Not Reportable 10/02/16 05:46 Schistocytes Not Reportable 10/02/16 05:46 Malaria parasites Not Reportable 10/02/16 05:46 Warner Bodies Not Reportable 10/02/16 05:46 Hem Pathologist Commnt No 10/02/16 05:46 Sodium 132 mmol/L (137-145) L D 10/03/16 07:00 Potassium 3.6 mmol/L (3.6-5.0) 10/03/16 07:00 Chloride 102.0 mmol/L (98-107) 10/03/16 07:00 Carbon Dioxide 19 mmol/L (22-30) L 10/03/16 07:00 Anion Gap 15 mmol/L 10/03/16 07:00 BUN 24 mg/dL (9-20) H 10/03/16 07:00 Creatinine 1.2 mg/dL (0.8-1.5) 10/03/16 07:00 Estimated GFR > 60 ml/min 10/03/16 07:00 BUN/Creatinine Ratio 20.00 % 10/03/16 07:00 Glucose 80 mg/dL (75-100) 10/03/16 07:00 POC Glucose 81 (70-105) 09/29/16 21:06 Osmolality 272 Mosm/kg 09/29/16 10:01 Lactic Acid 1.9 mmol/L (0.7-2.0) 09/28/16 12:06 Calcium 7.4 mg/dL (8.4-10.2) L 10/03/16 07:00 Total Bilirubin 0.3 mg/dL (0.1-1.2) 10/01/16 09:45 Direct Bilirubin < 0.2 mg/dL (0-0.2) 09/28/16 12:06 Indirect Bilirubin 0.3 mg/dL 09/28/16 12:06 AST 13 units/L (5-40) 10/01/16 09:45 ALT 8 units/L (7-56) 10/01/16 09:45 Alkaline Phosphatase 35 units/L (35-129) 10/01/16 09:45 Lactate Dehydrogenase 467 units/L (91-180) H 09/28/16 12:06 Troponin T 0.427 ng/mL (0.00-0.029) H* 09/28/16 12:06 Total Protein 7.7 g/dL (6.3-8.2) 10/01/16 09:45 Albumin 2.2 g/dL (3.9-5) L 10/01/16 09:45 Albumin/Globulin Ratio 0.4 % 10/01/16 09:45 Triglycerides 102 mg/dL (2-149) 09/28/16 12:06 Cholesterol 151 mg/dL (50-199) 09/28/16 12:06 LDL Cholesterol Direct 86 mg/dL (50-130) 09/28/16 12:06 HDL Cholesterol 45 mg/dL (40-59) 09/28/16 12:06 Cholesterol/HDL Ratio 3.35 % 09/28/16 12:06 Urine Color Yellow (Yellow) 09/28/16 12:27 Urine Turbidity Clear (Clear) 09/28/16 12:27 Urine pH 5.0 (5.0-7.0) 09/28/16 12:27 Ur Specific Capac 1.017 (1.003-1.030) 09/28/16 12:27 Urine Protein >500 mg/dL (Negative) 09/28/16 12:27 Urine Glucose (UA) Neg mg/dL (Negative) 09/28/16 12:27 Urine Ketones Neg mg/dL (Negative) 09/28/16 12:27 Urine Blood Mod (Negative) 09/28/16 12:27 Urine Nitrite Neg (Negative) 09/28/16 12:27 Urine Bilirubin Neg (Negative) 09/28/16 12:27 Urine Urobilinogen < 2.0 mg/dL (<2.0) 09/28/16 12:27 Ur Leukocyte Esterase Neg (Negative) 09/28/16 12:27 Urine WBC (Auto) < 1.0 /HPF (0.0-6.0) 09/28/16 12:27 Urine RBC (Auto) 1.0 /HPF (0.0-6.0) 09/28/16 12:27 U Epithel Cells (Auto) < 1.0 /HPF (0-13.0) 09/28/16 12:27 Urine Mucus Few /HPF 09/28/16 12:27 CSF Appearance Clear 09/28/16 12:45 CSF Color Colorless 09/28/16 12:45 CSF WBC 600 /mm3 (1-10) 09/28/16 12:45 CSF RBC 165 /mm3 (0-0) 09/28/16 12:45 CSF Seg Neutrophils 55.5 % (0-6) 09/28/16 12:45 CSF Lymphocytes % 38.0 % (40-80) 09/28/16 12:45 CSF Reactive Lymphs 0.5 % 09/28/16 12:45 CSF Monocytes % 6.0 % (15-45) 09/28/16 12:45 CSF Eosinophils % 0 % 09/28/16 12:45 CSF Basophils 0 % 09/28/16 12:45 CSF Pathologist Review C 09/28/16 12:45 CSF Glucose 3 mg/dL 09/28/16 12:45 CSF Total Protein 117 mg/dL 09/28/16 12:45 CSF VDRL Reactive 1:16 (Nonreactive) H 09/28/16 12:45 Salicylates < 0.3 mg/dL (2.8-20.0) L 09/28/16 12:06 Urine Opiates Screen Presumptive negative 09/28/16 12:20 Urine Methadone Screen Presumptive negative 09/28/16 12:20 Acetaminophen < 15.0 ug/mL (10.0-30.0) 09/28/16 12:06 Ur Barbiturates Screen Presumptive negative 09/28/16 12:20 Ur Phencyclidine Scrn Presumptive negative 09/28/16 12:20 Ur Amphetamines Screen Presumptive negative 09/28/16 12:20 U Benzodiazepines Scrn Presumptive negative 09/28/16 12:20 Urine Cocaine Screen Presumptive negative 09/28/16 12:20 U Marijuana (THC) Screen Presumptive positive 09/28/16 12:20 Drugs of Abuse Note Disclamer 09/28/16 12:20 Plasma/Serum Alcohol < 0.01 gm% (0-0.07) 09/28/16 12:06 Lymph Enumerat CD4/CD8 0.10 (0.86-5.00) L 09/28/16 15:43 % CD3 Cells 77 % (57-85) 09/28/16 15:43 Absolute CD3 Count 166 cells/uL (840-3060) L 09/28/16 15:43 % CD4 Cells 7 % (30-61) L 09/28/16 15:43 Absolute CD4 Count 14 cells/uL (490-1740) L 09/28/16 15:43 % CD8 Cells 69 % (12-42) H 09/28/16 15:43 Absolute CD8 Count 148 cells/uL (180-1170) L 09/28/16 15:43 % CD19 Cells 0 % (6-29) L 09/28/16 15:43 Absolute CD19 Count 1 cells/uL (110-660) L 09/28/16 15:43 RPR Titer 1:1024 09/28/16 15:43 RPR Reactive (Nonreactive) 09/28/16 15:43 Hepatitis A Ab Total See scanned report 09/28/16 15:43 Hep Bs Antigen Non-reactive (Negative) 09/28/16 15:43 Hep B Core IgM Ab Non-reactive (NonReactive) 09/28/16 15:43 Hepatitis C Antibody Non-reactive (NonReactive) 09/28/16 15:43 HIV-1 RNA PCR copies/ml 389446 copies/mL (<20) H 09/28/16 15:43 HIV-1 RNA (PCR) log 5.99 Log cps/mL (<1.30) H 09/28/16 15:43 HIV 1&2 Antibody Rapid Reactive (Non React) 09/28/16 15:43 HIV P24 Antigen Non react (Non React) 09/28/16 15:43 TB (QFT) Gold In Tube Negative (Negative) 09/29/16 07:30 TB Test (QFT) Nil 0.09 IU/mL (()) 09/29/16 07:30 TB Test Mitogen - Nil 7.24 IU/mL (()) 09/29/16 07:30 TB Test Antigen - Nil 0.05 IU/mL (()) 09/29/16 07:30
--- NOTE | 2016-10-06 09:47 | Progress Note ---
Assessment and Plan Current antibiotics: Aqueous penicillin 4 million units IV q4h daily 10/03 --> Amphotericin B 0.7 mg/kilogram IV daily 09/28 --> Flucytosine 25 mg/kilogram po q6h 09/28 --> Previous Antibiotics: Ceftriaxone 2 g IV daily 09/28-10/03 Vancomycin IV 1 g X 1 09/28 Azithromycin 500 mg IV daily 09/28-09/30/16 ASSESSMENT: Clair Rich is a 25y/o AA male presents through the ED with a one-month history of malaise, worsening generalized headache, decreased appetite, and weight loss. He was brought to the hospital by his sister who stated that had been falling. The patient had marked neck rigidity with non- contrast head CT showing no acute changes. 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 -No opening pressure done on initial LP -Associated cryptococcemia with AFB blood culture growing yeast 2. HIV/AIDS -VL 130576 -CD4 14, 7%3. 3. Nausea/vomiting/diarrhea - ? Drug related ?? 5-FC; R/O secondary to ongoing meningitis 4. RLL infiltrate -Repeat chest xray without infiltrate, doubt pneumonia 5. Neurosyphilis -RPR positive with titer of 1:1024 -Patient without diffuse rash. -CSF VDRL 1:16 6. Marked hyponatremia -R/O SIADH, this might be related to the meningitis 7. Thrombocytopenia -Improved Recommendations: 1. Continue on IV amphotericin . Will hold 5-FC for now. 2. continue high dose IV penicillin versus neurosyphilis 3, brain MRI ordered 4. Routine stool studies ordered as well. 5. Recheck chemistries including magnesium Subjective Date of service: 10/06/16 Principal diagnosis: Cryptococcal meningitis, HIV, neurosyphilis Interval history: Patient describes continued headache. Worse when he is standing. Also now describes multiple loose bowel movements. Has had nausea and vomiting this morning as well. Objective - Exam Narrative Exam: Chronically ill appearing. No acute distress. HEENT: Right facial puffiness. Pupils are equal reactive to light and accommodation. Funduscopy could not be performed. Conjunctiva clear. Thrush noted over tongue surface NECK: Marked stiffness. No enlargement of the thyroid gland. Shotty cervical lymphadenopathy. No jugular venous distention at 30. LUNGS: Clear with no adventitious sounds. HEART: Tachycardic. No murmur or gallop. ABDOMEN: Soft and nontender. Liver and spleen are not palpably enlarged or tender. No palpable masses. Bowel sounds are normoactive. : Small perirectal ulcers noted. EXTREMITIES: Shotty cervical, axillary and inguinal lymph node enlargement. SKIN: No other rash, ulcers or wounds. NEUROLOGIC: Alert and oriented. Neck stiffness as described. No other gross focal findings. - Constitutional Vitals: Vital Signs Temp Pulse Resp BP Pulse Ox 97.7 F 98 H 18 143/93 100 10/06/16 00:00 10/06/16 00:00 10/06/16 00:00 10/06/16 00:00 10/06/16 00:00 Temperature -Last 24 Hours Temperature 97.7 F Temperature 97.5 F - Labs CBC & Chem 7: 10/03/16 07:00 10/03/16 07:00
--- NOTE | 2016-10-06 12:31 | Cat Scan Report ---
CT HEAD WITHOUT CONTRAST: INDICATION: Confusion. COMPARISON: 09/28/2016. FINDINGS: Noncontrast head CT demonstrates normal ventricles and sulci. No acute infarct, hemorrhage, mass effect or midline shift. No abnormal extra-axial fluid collections. Normal posterior fossa with preserved basilar cisterns. New moderate right sphenoid sinus mucosal thickening. Mild left sphenoid sinusitis also appears to have progressed some. Mild ethmoid sinusitis, right more than left. Mild bilateral frontal sinusitis also noted. Moderate bilateral maxillary sinusitis also partially imaged, though worse in the interval. Clear bilateral temporal bone and mastoid air cells. Some fluid/debris in the nasopharynx may be correlated for clinically under direct visualization. Normal scalp. However, asymmetric calvarial widening with approximately 3.5 x 1.1 cm lucent lesion not excluded for an aggressive/destructive process with thinning of the outer table as on axial image 51, series 3, possibly situated within the right parietal bone anteriorly. CONCLUSION: 1. CT appearance worrisome for a pathologic right calvarial lesion, as described above. Though exact etiology uncertain at this time, no definite bony breakthrough or a soft tissue component identified at this time. 2. Worsening pansinusitis. Please also correlate clinically and with more remote relevant imaging, if available from an outside institution. Otherwise, MRI and/or nuclear medicine bone scan may be considered for further evaluation, amongst others, as appropriate. Thank you for the opportunity to participate in this patient's care.
[2016-10-06] MEDS: TYLENOL PO SCH (13:56)
[2016-10-06] MEDS: LOVENOX SUB-Q SCH (13:57)
[2016-10-06] MEDS: BENADRYL IV SCH (13:57)
[2016-10-06] MEDS: [UNRECOGNIZED DRUG - OTHER] IV SCH (14:33)
[2016-10-06] MEDS: D5W (50 ML) IV SCH (14:33)
[2016-10-06] MEDS: D5W IV SCH (14:33)
[2016-10-06 16:15] LABS: TOXOPLASMA IGM AB Negative (Negative)
[2016-10-06] MEDS: NACL 0.9% 1000 ML 1,000 ML IV SCH (20:42)
--- NOTE | 2016-10-06 21:37 | Magnetic Resonance Report ---
FINAL REPORT PROCEDURE: MR BRAIN WO/W CON TECHNIQUE: Magnetic resonance imaging of the brain was performed before and after the IV injection of paramagnetic contrast. HISTORY: meningitis/persistent headache COMPARISON: No prior studies are available for comparison. FINDINGS: Cerebellar tonsils are normally positioned. Cerebral ventricles are normal in size. Tiny foci of restricted diffusion are seen in the head of the left caudate nucleus, right thalamus, posterior aspect of the corpus callosum, and in the right supratentorial white matter superiorly. A few questionable cortical foci of increased T2 signal and restricted diffusion are seen in the right parietal region. There is mild diffuse increased T2 signal without restricted diffusion in both putamen. There is an area of increased T2 signal in the right parietal skull. This may be from prior craniotomy but skull lesion is not excluded. This area measures approximately 4.1 cm in greatest dimension. It does not appear to enhance. No areas of abnormal enhancement are seen in the brain parenchyma or meninges. In the right upper neck posteriorly there is a 1 cm enhancing structure that could be a lymph node. Changes of acute and chronic sinusitis are seen. Normal flow voids are seen in the visualized portions of the vessels of the [place] of [place]. 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 No significant mass effect or hemorrhagic transformation is seen. Cause of these infarcts is uncertain but could be from clotting disorder, sickle cell disease, or vasculitis. Symmetric bilateral increased T2 signal in the putamen is seen, also. No suggestion of meningitis is seen. Changes of sinusitis are seen. There is abnormal signal in the right parietal skull without enhancement. Enhancing nodule is suggested in the posterior right upper neck near the skullbase. CTA of the brain may be useful to evaluate for the possibility of vasculitis as well as evaluate the skull abnormality and the possible enhancing nodule in the right side of the neck at the skullbase.
[2016-10-07] MEDS: ZOFRAN IV PRN ×2 (01:42→16:51)
[2016-10-07] MEDS: PFIZERPEN IV SCH ×6 (02:33→22:00)
[2016-10-07] MEDS: NACL IV SCH ×6 (02:33→22:00)
--- NOTE | 2016-10-07 08:01 | Progress Note ---
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 REpeat CT head in AM. possible repeat LP pending CT results. (2) AIDS Current Visit: Yes Status: Acute Plan to address problem: ID consulted, continue current therapy. (3) Syphilis Current Visit: Yes Status: Acute Plan to address problem: ID consulted, continue current abx, (4) Debility Current Visit: Yes Status: Acute Plan to address problem: PT consulted, (5) DVT prophylaxis Current Visit: Yes Status: Acute History Interval history: Pt lying in bed, Pt denies pain. Pt mother at bedside. Pt more alert today.No reported nursing events. Case management consulted for d/c planning. Hospitalist Physical - Constitutional Vitals: Temp Pulse Resp BP Pulse Ox 97.8 F 86 16 134/93 100 10/06/16 23:40 10/06/16 23:40 10/06/16 23:40 10/06/16 23:40 10/06/16 23:40 General appearance: Present: no acute distress, well-nourished - EENT Eyes: Present: PERRL ENT: hearing intact - Neck Neck: Present: supple - Respiratory Respiratory: bilateral: CTA - Cardiovascular Rhythm: regular Heart Sounds: Present: S1 & S2 - Extremities Extremities: no ischemia Peripheral Pulses: within normal limits - Abdominal General gastrointestinal: soft, non-tender, non-distended - Integumentary Integumentary: Present: clear, dry - Psychiatric Psychiatric: cooperative - Neurologic Neurologic: CNII-XII intact, no gait normal Results - Labs CBC & Chem 7: 10/03/16 07:00 10/03/16 07:00 Labs: Laboratory Last Values WBC 3.2 K/mm3 (4.5-11.0) L 10/03/16 07:00 RBC 3.78 M/mm3 (3.65-5.03) 10/03/16 07:00 Hgb 10.2 gm/dl (11.8-15.2) L 10/03/16 07:00 Hct 30.5 % (35.5-45.6) L D 10/03/16 07:00 MCV 81 fl (84-94) L 10/03/16 07:00 MCH 27 pg (28-32) L 10/03/16 07:00 MCHC 33 % (32-34) 10/03/16 07:00 RDW 14.6 % (13.2-15.2) 10/03/16 07:00 Plt Count 153 K/mm3 (140-440) 10/03/16 07:00 Lymph % (Auto) 23.8 % (13.4-35.0) 10/03/16 07:00 [place] % (Auto) 13.7 % (0.0-7.3) H 10/03/16 07:00 Eos % (Auto) 2.2 % (0.0-4.3) 10/03/16 07:00 Baso % (Auto) 0.6 % (0.0-1.8) 10/03/16 07:00 Lymph # 0.8 K/mm3 (1.2-5.4) L 10/03/16 07:00 [place] # 0.4 K/mm3 (0.0-0.8) 10/03/16 07:00 Eos # 0.1 K/mm3 (0.0-0.4) 10/03/16 07:00 Baso # 0.0 K/mm3 (0.0-0.1) 10/03/16 07:00 Add Manual Diff Complete 10/02/16 05:46 Total Counted 100 10/02/16 05:46 Seg Neutrophils % 59.7 % (40.0-70.0) 10/03/16 07:00 Seg Neuts % (Manual) 68.0 % (40.0-70.0) 10/02/16 05:46 Band Neutrophils % 0 % 10/02/16 05:46 Lymphocytes % (Manual) 18.0 % (13.4-35.0) 10/02/16 05:46 Reactive Lymphs % (Man) 0 % 10/02/16 05:46 Monocytes % (Manual) 13.0 % (0.0-7.3) H 10/02/16 05:46 Eosinophils % (Manual) 1.0 % (0.0-4.3) 10/02/16 05:46 Basophils % (Manual) 0 % (0.0-1.8) 10/02/16 05:46 Metamyelocytes % 0 % 10/02/16 05:46 Myelocytes % 0 % 10/02/16 05:46 Promyelocytes % 0 % 10/02/16 05:46 Blast Cells % 0 % 10/02/16 05:46 Nucleated RBC % 1.0 % (0.0-0.9) H 10/02/16 05:46 Seg Neutrophils # 1.9 K/mm3 (1.8-7.7) 10/03/16 07:00 Seg Neutrophils # Man 2.0 K/mm3 (1.8-7.7) 10/02/16 05:46 Band Neutrophils # 0.0 K/mm3 10/02/16 05:46 Abs Lymphs (Manual) 215 cells/uL (850-3900) L 09/28/16 15:43 Lymphocytes # (Manual) 0.5 K/mm3 (1.2-5.4) L 10/02/16 05:46 Abs React Lymphs (Man) 0.0 K/mm3 10/02/16 05:46 Monocytes # (Manual) 0.4 K/mm3 (0.0-0.8) 10/02/16 05:46 Eosinophils # (Manual) 0.0 K/mm3 (0.0-0.4) 10/02/16 05:46 Basophils # (Manual) 0.0 K/mm3 (0.0-0.1) 10/02/16 05:46 Metamyelocytes # 0.0 K/mm3 10/02/16 05:46 Myelocytes # 0.0 K/mm3 10/02/16 05:46 Promyelocytes # 0.0 K/mm3 10/02/16 05:46 Blast Cells # 0.0 K/mm3 10/02/16 05:46 WBC Morphology Not Reportable 10/02/16 05:46 Hypersegmented Neuts Not Reportable 10/02/16 05:46 Hyposegmented Neuts Not Reportable 10/02/16 05:46 Hypogranular Neuts Not Reportable 10/02/16 05:46 Smudge Cells Not Reportable 10/02/16 05:46 Toxic Granulation Not Reportable 10/02/16 05:46 Toxic Vacuolation Not Reportable 10/02/16 05:46 Dohle Bodies Not Reportable 10/02/16 05:46 Pelger-Huet Anomaly Not Reportable 10/02/16 05:46 Ada Rods Not Reportable 10/02/16 05:46 Platelet Estimate Consistent w auto 10/02/16 05:46 Clumped Platelets Not Reportable 10/02/16 05:46 Plt Clumps, EDTA Not Reportable 10/02/16 05:46 Large Platelets Not Reportable 10/02/16 05:46 Giant Platelets Not Reportable 10/02/16 05:46 Platelet Satelliting Not Reportable 10/02/16 05:46 Plt Morphology Comment Not Reportable 10/02/16 05:46 RBC Morphology Not Reportable 10/02/16 05:46 Dimorphic RBCs Not Reportable 10/02/16 05:46 Polychromasia Not Reportable 10/02/16 05:46 Hypochromasia Not Reportable 10/02/16 05:46 Poikilocytosis Not Reportable 10/02/16 05:46 Anisocytosis Few 10/02/16 05:46 Microcytosis Rare 10/02/16 05:46 Macrocytosis Not Reportable 10/02/16 05:46 Spherocytes Not Reportable 10/02/16 05:46 Pappenheimer Bodies Not Reportable 10/02/16 05:46 Sickle Cells Not Reportable 10/02/16 05:46 Target Cells Not Reportable 10/02/16 05:46 Tear Drop Cells Not Reportable 10/02/16 05:46 Ovalocytes Not Reportable 10/02/16 05:46 Helmet Cells Not Reportable 10/02/16 05:46 [place] Bodies Not Reportable 10/02/16 05:46 [place] Rings Not Reportable 10/02/16 05:46 [place] Cells Not Reportable 10/02/16 05:46 Bite Cells Not Reportable 10/02/16 05:46 Crenated Cell Not Reportable 10/02/16 05:46 Elliptocytes Not Reportable 10/02/16 05:46 Acanthocytes (Spur) Not Reportable 10/02/16 05:46 Rouleaux Not Reportable 10/02/16 05:46 Hemoglobin C Crystals Not Reportable 10/02/16 05:46 Schistocytes Not Reportable 10/02/16 05:46 Malaria parasites Not Reportable 10/02/16 05:46 [place] Bodies Not Reportable 10/02/16 05:46 Hem Pathologist Commnt No 10/02/16 05:46 Sodium 132 mmol/L (137-145) L D 10/03/16 07:00 Potassium 3.6 mmol/L (3.6-5.0) 10/03/16 07:00 Chloride 102.0 mmol/L (98-107) 10/03/16 07:00 Carbon Dioxide 19 mmol/L (22-30) L 10/03/16 07:00 Anion Gap 15 mmol/L 10/03/16 07:00 BUN 24 mg/dL (9-20) H 10/03/16 07:00 Creatinine 1.2 mg/dL (0.8-1.5) 10/03/16 07:00 Estimated GFR > 60 ml/min 10/03/16 07:00 BUN/Creatinine Ratio 20.00 % 10/03/16 07:00 Glucose 80 mg/dL (75-100) 10/03/16 07:00 POC Glucose 81 (70-105) 09/29/16 21:06 Osmolality 272 Mosm/kg 09/29/16 10:01 Lactic Acid 1.9 mmol/L (0.7-2.0) 09/28/16 12:06 Calcium 7.4 mg/dL (8.4-10.2) L 10/03/16 07:00 Total Bilirubin 0.3 mg/dL (0.1-1.2) 10/01/16 09:45 Direct Bilirubin < 0.2 mg/dL (0-0.2) 09/28/16 12:06 Indirect Bilirubin 0.3 mg/dL 09/28/16 12:06 AST 13 units/L (5-40) 10/01/16 09:45 ALT 8 units/L (7-56) 10/01/16 09:45 Alkaline Phosphatase 35 units/L (35-129) 10/01/16 09:45 Lactate Dehydrogenase 467 units/L (91-180) H 09/28/16 12:06 Troponin T 0.427 ng/mL (0.00-0.029) H* 09/28/16 12:06 Total Protein 7.7 g/dL (6.3-8.2) 10/01/16 09:45 Albumin 2.2 g/dL (3.9-5) L 10/01/16 09:45 Albumin/Globulin Ratio 0.4 % 10/01/16 09:45 Triglycerides 102 mg/dL (2-149) 09/28/16 12:06 Cholesterol 151 mg/dL (50-199) 09/28/16 12:06 LDL Cholesterol Direct 86 mg/dL (50-130) 09/28/16 12:06 HDL Cholesterol 45 mg/dL (40-59) 09/28/16 12:06 Cholesterol/HDL Ratio 3.35 % 09/28/16 12:06 Urine Color Yellow (Yellow) 09/28/16 12:27 Urine Turbidity Clear (Clear) 09/28/16 12:27 Urine pH 5.0 (5.0-7.0) 09/28/16 12:27 Ur Specific [place] 1.017 (1.003-1.030) 09/28/16 12:27 Urine Protein >500 mg/dL (Negative) 09/28/16 12:27 Urine Glucose (UA) Neg mg/dL (Negative) 09/28/16 12:27 Urine Ketones Neg mg/dL (Negative) 09/28/16 12:27 Urine Blood Mod (Negative) 09/28/16 12:27 Urine Nitrite Neg (Negative) 09/28/16 12:27 Urine Bilirubin Neg (Negative) 09/28/16 12:27 Urine Urobilinogen < 2.0 mg/dL (<2.0) 09/28/16 12:27 Ur Leukocyte Esterase Neg (Negative) 09/28/16 12:27 Urine WBC (Auto) < 1.0 /HPF (0.0-6.0) 09/28/16 12:27 Urine RBC (Auto) 1.0 /HPF (0.0-6.0) 09/28/16 12:27 U Epithel Cells (Auto) < 1.0 /HPF (0-13.0) 09/28/16 12:27 Urine Mucus Few /HPF 09/28/16 12:27 CSF Appearance Clear 09/28/16 12:45 CSF Color Colorless 09/28/16 12:45 CSF WBC 600 /mm3 (1-10) 09/28/16 12:45 CSF RBC 165 /mm3 (0-0) 09/28/16 12:45 CSF Seg Neutrophils 55.5 % (0-6) 09/28/16 12:45 CSF Lymphocytes % 38.0 % (40-80) 09/28/16 12:45 CSF Reactive Lymphs 0.5 % 09/28/16 12:45 CSF Monocytes % 6.0 % (15-45) 09/28/16 12:45 CSF Eosinophils % 0 % 09/28/16 12:45 CSF Basophils 0 % 09/28/16 12:45 CSF Pathologist Review C 09/28/16 12:45 CSF Glucose 3 mg/dL 09/28/16 12:45 CSF Total Protein 117 mg/dL 09/28/16 12:45 CSF VDRL Reactive 1:16 (Nonreactive) H 09/28/16 12:45 Salicylates < 0.3 mg/dL (2.8-20.0) L 09/28/16 12:06 Urine Opiates Screen Presumptive negative 09/28/16 12:20 Urine Methadone Screen Presumptive negative 09/28/16 12:20 Acetaminophen < 15.0 ug/mL (10.0-30.0) 09/28/16 12:06 Ur Barbiturates Screen Presumptive negative 09/28/16 12:20 Ur Phencyclidine Scrn Presumptive negative 09/28/16 12:20 Ur Amphetamines Screen Presumptive negative 09/28/16 12:20 U Benzodiazepines Scrn Presumptive negative 09/28/16 12:20 Urine Cocaine Screen Presumptive negative 09/28/16 12:20 U Marijuana (THC) Screen Presumptive positive 09/28/16 12:20 Drugs of Abuse Note Disclamer 09/28/16 12:20 Plasma/Serum Alcohol < 0.01 gm% (0-0.07) 09/28/16 12:06 Lymph Enumerat CD4/CD8 0.10 (0.86-5.00) L 09/28/16 15:43 % CD3 Cells 77 % (57-85) 09/28/16 15:43 Absolute CD3 Count 166 cells/uL (840-3060) L 09/28/16 15:43 % CD4 Cells 7 % (30-61) L 09/28/16 15:43 Absolute CD4 Count 14 cells/uL (490-1740) L 09/28/16 15:43 % CD8 Cells 69 % (12-42) H 09/28/16 15:43 Absolute CD8 Count 148 cells/uL (180-1170) L 09/28/16 15:43 % CD19 Cells 0 % (6-29) L 09/28/16 15:43 Absolute CD19 Count 1 cells/uL (110-660) L 09/28/16 15:43 RPR Titer 1:1024 09/28/16 15:43 RPR Reactive (Nonreactive) 09/28/16 15:43 Hepatitis A Ab Total See scanned report 09/28/16 15:43 Hep Bs Antigen Non-reactive (Negative) 09/28/16 15:43 Hep B Core IgM Ab Non-reactive (NonReactive) 09/28/16 15:43 Hepatitis C Antibody Non-reactive (NonReactive) 09/28/16 15:43 HIV-1 RNA PCR copies/ml 254458 copies/mL (<20) H 09/28/16 15:43 HIV-1 RNA (PCR) log 5.99 Log cps/mL (<1.30) H 09/28/16 15:43 HIV 1&2 Antibody Rapid Reactive (Non React) 09/28/16 15:43 HIV P24 Antigen Non react (Non React) 09/28/16 15:43 Toxoplasma IgG Ab <=0.90 (<=0.90) 10/03/16 11:00 Toxoplasma IgM Ab Negative (Negative) 10/03/16 11:00 TB (QFT) Gold In Tube Negative (Negative) 09/29/16 07:30 TB Test (QFT) Nil 0.09 IU/mL (()) 09/29/16 07:30 TB Test Mitogen - Nil 7.24 IU/mL (()) 09/29/16 07:30 TB Test Antigen - Nil 0.05 IU/mL (()) 09/29/16 07:30
[2016-10-07] MEDS: NACL 0.9% 1000 ML 1,000 ML IV SCH (11:15)
[2016-10-07] MEDS: LOVENOX SUB-Q SCH (11:19)
[2016-10-07] MEDS: BENADRYL IV SCH (11:51)
[2016-10-07] MEDS: TYLENOL PO SCH (11:51)
--- NOTE | 2016-10-07 12:13 | Progress Note ---
Assessment and Plan Current antibiotics: Aqueous penicillin 4 million units IV q4h daily 10/03 --> Amphotericin B 0.7 mg/kilogram IV daily 09/28 --> Flucytosine 25 mg/kilogram po q6h 09/28 --> Previous Antibiotics: Ceftriaxone 2 g IV daily 09/28-10/03 Vancomycin IV 1 g X 1 09/28 Azithromycin 500 mg IV daily 09/28-09/30/16 ASSESSMENT: Clair Rich is a 25y/o AA male presents through the ED with a one-month history of malaise, worsening generalized headache, decreased appetite, and weight loss. He was brought to the hospital by his sister who stated that had been falling. The patient had marked neck rigidity with non- contrast head CT showing no acute changes. 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 -No opening pressure done on initial LP -Associated cryptococcemia with AFB blood culture growing yeast 2. HIV/AIDS -VL [id number] -CD4 14, 7% 3. RLL infiltrate -Repeat chest xray without infiltrate, doubt pneumonia 4. Neurosyphilis -RPR positive with titer of 1:1024 -Patient without diffuse rash. -CSF VDRL 1:16 5. Marked hyponatremia -R/O SIADH, this might be related to the meningitis 6. Thrombocytopenia -Improved 7. Nausea/vomiting/diarrhea - ? Drug related ?? 5-FC; R/O secondary to ongoing meningitis Recommendations: 1. Continue on IV amphotericin and 5-flucytosine for Cryptococcal meningitis 2. Continue high dose IV penicillin versus neurosyphilis 3. If mental status continues to be altered may need to repeat CT scan of the head and possible lumbar puncture for opening pressure 4. Continued close observation and supportive measures. 5. Follow labs Glynn Warren MD [facility] Office: [phone] Subjective Date of service: 10/07/16 Principal diagnosis: Cryptococcal meningitis, HIV, neurosyphilis Interval history: Alert and responsive . Still complains of some neck pain and headache. Occasional nausea without vomiting. No other complaints at present. Patient is asking " when can he go home?" Objective - Exam Narrative Exam: GENERAL: Well-developed, well nourished male who is alert and responsive albeit somewhat slow to respond. HEENT: Pupils are equal reactive to light and accommodation. Conjunctiva clear. Thrush is improved. NECK: Marked stiffness to forward flexion. No enlargement of the thyroid gland. [place] cervical lymphadenopathy. No jugular venous distention at 30. LUNGS: Clear with no adventitious sounds. HEART: Tachycardic. No murmur or gallop. ABDOMEN: Soft and nontender. Liver and spleen are not palpably enlarged or tender. No palpable masses. Bowel sounds are normoactive. EXTREMITIES: [place] cervical, axillary and inguinal lymph node enlargement. SKIN: No other rash, ulcers or wounds. NEUROLOGIC: More alert and responsive. No focal findings. - Constitutional Vitals: Vital Signs Temp Pulse Resp BP Pulse Ox 98 F 90 16 136/88 97 10/07/16 08:00 10/07/16 08:00 10/07/16 08:00 10/07/16 08:00 10/07/16 08:00 Temperature -Last 24 Hours Temperature 98 F Temperature 97.8 F Temperature 97.6 F - Labs CBC & Chem 7: 10/03/16 07:00 10/03/16 07:00 Labs: Micro: 09/28/16 12:45 Cerebral Spinal Fluid CSF Culture - No growth 09/28/16 12:45 Cerebral Spinal Fluid Cryptococcal Antigen - 1:512 09/28/16 12:34 Peripheral/Venous Blood Culture - Preliminary NO GROWTH AFTER 72 HOURS 09/28/16 12:06 Peripheral/Venous Blood Culture - Preliminary NO GROWTH AFTER 72 HOURS 09/28/16 15:23 Serum Cryptococcal Antigen - 1:512 09/28 AFB blood culture is growing yeast Imagin/23: MRI of the brain: Likely small recent infarcts with no significant mass effect or hemorrhagic transformation no signs of hydrocephalus. Changes of acute and chronic sinusitis.
[2016-10-07] MEDS: [UNRECOGNIZED DRUG - OTHER] IV SCH (12:28)
[2016-10-07] MEDS: D5W (50 ML) IV SCH (12:28)
[2016-10-07] MEDS: D5W IV SCH (12:28)
[2016-10-07] MEDS: PERCOCET 5/325 PO PRN (21:06)
--- NOTE | 2016-10-07 21:38 | Progress Note ---
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 REpeat CT head in AM. possible repeat LP pending CT results. (2) AIDS Current Visit: Yes Status: Acute Plan to address problem: ID consulted, continue current therapy. (3) Syphilis Current Visit: Yes Status: Acute Plan to address problem: ID consulted, continue current abx, (4) Debility Current Visit: Yes Status: Acute Plan to address problem: PT consulted, (5) DVT prophylaxis Current Visit: Yes Status: Acute History Interval history: Pt lying in bed, Pt denies pain. Pt mother at bedside. Pt more alert today.No reported nursing events. Case management consulted for d/c planning. Hospitalist Physical - Constitutional Vitals: Temp Pulse Resp BP Pulse Ox 97.6 F 88 16 130/84 97 10/07/16 16:36 10/07/16 16:36 10/07/16 16:36 10/07/16 16:36 10/07/16 08:00 General appearance: Present: no acute distress, well-nourished - EENT Eyes: Present: PERRL, EOM intact ENT: hearing intact - Neck Neck: Present: supple - Respiratory Respiratory: bilateral: CTA - Cardiovascular Rhythm: regular Heart Sounds: Present: S1 & S2 - Extremities Extremities: no ischemia - Abdominal General gastrointestinal: soft, non-tender, non-distended - Integumentary Integumentary: Present: clear, dry - Psychiatric Psychiatric: cooperative - Neurologic Neurologic: CNII-XII intact, moves all extremities, no gait normal Results - Labs CBC & Chem 7: 10/03/16 07:00 10/03/16 07:00 Labs: Laboratory Last Values WBC 3.2 K/mm3 (4.5-11.0) L 10/03/16 07:00 RBC 3.78 M/mm3 (3.65-5.03) 10/03/16 07:00 Hgb 10.2 gm/dl (11.8-15.2) L 10/03/16 07:00 Hct 30.5 % (35.5-45.6) L D 10/03/16 07:00 MCV 81 fl (84-94) L 10/03/16 07:00 MCH 27 pg (28-32) L 10/03/16 07:00 MCHC 33 % (32-34) 10/03/16 07:00 RDW 14.6 % (13.2-15.2) 10/03/16 07:00 Plt Count 153 K/mm3 (140-440) 10/03/16 07:00 Lymph % (Auto) 23.8 % (13.4-35.0) 10/03/16 07:00 [place] % (Auto) 13.7 % (0.0-7.3) H 10/03/16 07:00 Eos % (Auto) 2.2 % (0.0-4.3) 10/03/16 07:00 Baso % (Auto) 0.6 % (0.0-1.8) 10/03/16 07:00 Lymph # 0.8 K/mm3 (1.2-5.4) L 10/03/16 07:00 [place] # 0.4 K/mm3 (0.0-0.8) 10/03/16 07:00 Eos # 0.1 K/mm3 (0.0-0.4) 10/03/16 07:00 Baso # 0.0 K/mm3 (0.0-0.1) 10/03/16 07:00 Add Manual Diff Complete 10/02/16 05:46 Total Counted 100 10/02/16 05:46 Seg Neutrophils % 59.7 % (40.0-70.0) 10/03/16 07:00 Seg Neuts % (Manual) 68.0 % (40.0-70.0) 10/02/16 05:46 Band Neutrophils % 0 % 10/02/16 05:46 Lymphocytes % (Manual) 18.0 % (13.4-35.0) 10/02/16 05:46 Reactive Lymphs % (Man) 0 % 10/02/16 05:46 Monocytes % (Manual) 13.0 % (0.0-7.3) H 10/02/16 05:46 Eosinophils % (Manual) 1.0 % (0.0-4.3) 10/02/16 05:46 Basophils % (Manual) 0 % (0.0-1.8) 10/02/16 05:46 Metamyelocytes % 0 % 10/02/16 05:46 Myelocytes % 0 % 10/02/16 05:46 Promyelocytes % 0 % 10/02/16 05:46 Blast Cells % 0 % 10/02/16 05:46 Nucleated RBC % 1.0 % (0.0-0.9) H 10/02/16 05:46 Seg Neutrophils # 1.9 K/mm3 (1.8-7.7) 10/03/16 07:00 Seg Neutrophils # Man 2.0 K/mm3 (1.8-7.7) 10/02/16 05:46 Band Neutrophils # 0.0 K/mm3 10/02/16 05:46 Abs Lymphs (Manual) 215 cells/uL (850-3900) L 09/28/16 15:43 Lymphocytes # (Manual) 0.5 K/mm3 (1.2-5.4) L 10/02/16 05:46 Abs React Lymphs (Man) 0.0 K/mm3 10/02/16 05:46 Monocytes # (Manual) 0.4 K/mm3 (0.0-0.8) 10/02/16 05:46 Eosinophils # (Manual) 0.0 K/mm3 (0.0-0.4) 10/02/16 05:46 Basophils # (Manual) 0.0 K/mm3 (0.0-0.1) 10/02/16 05:46 Metamyelocytes # 0.0 K/mm3 10/02/16 05:46 Myelocytes # 0.0 K/mm3 10/02/16 05:46 Promyelocytes # 0.0 K/mm3 10/02/16 05:46 Blast Cells # 0.0 K/mm3 10/02/16 05:46 WBC Morphology Not Reportable 10/02/16 05:46 Hypersegmented Neuts Not Reportable 10/02/16 05:46 Hyposegmented Neuts Not Reportable 10/02/16 05:46 Hypogranular Neuts Not Reportable 10/02/16 05:46 Smudge Cells Not Reportable 10/02/16 05:46 Toxic Granulation Not Reportable 10/02/16 05:46 Toxic Vacuolation Not Reportable 10/02/16 05:46 Dohle Bodies Not Reportable 10/02/16 05:46 Pelger-Huet Anomaly Not Reportable 10/02/16 05:46 Ada Rods Not Reportable 10/02/16 05:46 Platelet Estimate Consistent w auto 10/02/16 05:46 Clumped Platelets Not Reportable 10/02/16 05:46 Plt Clumps, EDTA Not Reportable 10/02/16 05:46 Large Platelets Not Reportable 10/02/16 05:46 Giant Platelets Not Reportable 10/02/16 05:46 Platelet Satelliting Not Reportable 10/02/16 05:46 Plt Morphology Comment Not Reportable 10/02/16 05:46 RBC Morphology Not Reportable 10/02/16 05:46 Dimorphic RBCs Not Reportable 10/02/16 05:46 Polychromasia Not Reportable 10/02/16 05:46 Hypochromasia Not Reportable 10/02/16 05:46 Poikilocytosis Not Reportable 10/02/16 05:46 Anisocytosis Few 10/02/16 05:46 Microcytosis Rare 10/02/16 05:46 Macrocytosis Not Reportable 10/02/16 05:46 Spherocytes Not Reportable 10/02/16 05:46 Pappenheimer Bodies Not Reportable 10/02/16 05:46 Sickle Cells Not Reportable 10/02/16 05:46 Target Cells Not Reportable 10/02/16 05:46 Tear Drop Cells Not Reportable 10/02/16 05:46 Ovalocytes Not Reportable 10/02/16 05:46 Helmet Cells Not Reportable 10/02/16 05:46 Varma-[place] Bodies Not Reportable 10/02/16 05:46 [place] Rings Not Reportable 10/02/16 05:46 [place] Cells Not Reportable 10/02/16 05:46 Bite Cells Not Reportable 10/02/16 05:46 Crenated Cell Not Reportable 10/02/16 05:46 Elliptocytes Not Reportable 10/02/16 05:46 Acanthocytes (Spur) Not Reportable 10/02/16 05:46 Rouleaux Not Reportable 10/02/16 05:46 Hemoglobin C Crystals Not Reportable 10/02/16 05:46 Schistocytes Not Reportable 10/02/16 05:46 Malaria parasites Not Reportable 10/02/16 05:46 [place] Bodies Not Reportable 10/02/16 05:46 Hem Pathologist Commnt No 10/02/16 05:46 Sodium 132 mmol/L (137-145) L D 10/03/16 07:00 Potassium 3.6 mmol/L (3.6-5.0) 10/03/16 07:00 Chloride 102.0 mmol/L (98-107) 10/03/16 07:00 Carbon Dioxide 19 mmol/L (22-30) L 10/03/16 07:00 Anion Gap 15 mmol/L 10/03/16 07:00 BUN 24 mg/dL (9-20) H 10/03/16 07:00 Creatinine 1.2 mg/dL (0.8-1.5) 10/03/16 07:00 Estimated GFR > 60 ml/min 10/03/16 07:00 BUN/Creatinine Ratio 20.00 % 10/03/16 07:00 Glucose 80 mg/dL (75-100) 10/03/16 07:00 POC Glucose 81 (70-105) 09/29/16 21:06 Osmolality 272 Mosm/kg 09/29/16 10:01 Lactic Acid 1.9 mmol/L (0.7-2.0) 09/28/16 12:06 Calcium 7.4 mg/dL (8.4-10.2) L 10/03/16 07:00 Total Bilirubin 0.3 mg/dL (0.1-1.2) 10/01/16 09:45 Direct Bilirubin < 0.2 mg/dL (0-0.2) 09/28/16 12:06 Indirect Bilirubin 0.3 mg/dL 09/28/16 12:06 AST 13 units/L (5-40) 10/01/16 09:45 ALT 8 units/L (7-56) 10/01/16 09:45 Alkaline Phosphatase 35 units/L (35-129) 10/01/16 09:45 Lactate Dehydrogenase 467 units/L (91-180) H 09/28/16 12:06 Troponin T 0.427 ng/mL (0.00-0.029) H* 09/28/16 12:06 Total Protein 7.7 g/dL (6.3-8.2) 10/01/16 09:45 Albumin 2.2 g/dL (3.9-5) L 10/01/16 09:45 Albumin/Globulin Ratio 0.4 % 10/01/16 09:45 Triglycerides 102 mg/dL (2-149) 09/28/16 12:06 Cholesterol 151 mg/dL (50-199) 09/28/16 12:06 LDL Cholesterol Direct 86 mg/dL (50-130) 09/28/16 12:06 HDL Cholesterol 45 mg/dL (40-59) 09/28/16 12:06 Cholesterol/HDL Ratio 3.35 % 09/28/16 12:06 Urine Color Yellow (Yellow) 09/28/16 12:27 Urine Turbidity Clear (Clear) 09/28/16 12:27 Urine pH 5.0 (5.0-7.0) 09/28/16 12:27 Ur Specific [place] 1.017 (1.003-1.030) 09/28/16 12:27 Urine Protein >500 mg/dL (Negative) 09/28/16 12:27 Urine Glucose (UA) Neg mg/dL (Negative) 09/28/16 12:27 Urine Ketones Neg mg/dL (Negative) 09/28/16 12:27 Urine Blood Mod (Negative) 09/28/16 12:27 Urine Nitrite Neg (Negative) 09/28/16 12:27 Urine Bilirubin Neg (Negative) 09/28/16 12:27 Urine Urobilinogen < 2.0 mg/dL (<2.0) 09/28/16 12:27 Ur Leukocyte Esterase Neg (Negative) 09/28/16 12:27 Urine WBC (Auto) < 1.0 /HPF (0.0-6.0) 09/28/16 12:27 Urine RBC (Auto) 1.0 /HPF (0.0-6.0) 09/28/16 12:27 U Epithel Cells (Auto) < 1.0 /HPF (0-13.0) 09/28/16 12:27 Urine Mucus Few /HPF 09/28/16 12:27 CSF Appearance Clear 09/28/16 12:45 CSF Color Colorless 09/28/16 12:45 CSF WBC 600 /mm3 (1-10) 09/28/16 12:45 CSF RBC 165 /mm3 (0-0) 09/28/16 12:45 CSF Seg Neutrophils 55.5 % (0-6) 09/28/16 12:45 CSF Lymphocytes % 38.0 % (40-80) 09/28/16 12:45 CSF Reactive Lymphs 0.5 % 09/28/16 12:45 CSF Monocytes % 6.0 % (15-45) 09/28/16 12:45 CSF Eosinophils % 0 % 09/28/16 12:45 CSF Basophils 0 % 09/28/16 12:45 CSF Pathologist Review C 09/28/16 12:45 CSF Glucose 3 mg/dL 09/28/16 12:45 CSF Total Protein 117 mg/dL 09/28/16 12:45 CSF VDRL Reactive 1:16 (Nonreactive) H 09/28/16 12:45 Salicylates < 0.3 mg/dL (2.8-20.0) L 09/28/16 12:06 Urine Opiates Screen Presumptive negative 09/28/16 12:20 Urine Methadone Screen Presumptive negative 09/28/16 12:20 Acetaminophen < 15.0 ug/mL (10.0-30.0) 09/28/16 12:06 Ur Barbiturates Screen Presumptive negative 09/28/16 12:20 Ur Phencyclidine Scrn Presumptive negative 09/28/16 12:20 Ur Amphetamines Screen Presumptive negative 09/28/16 12:20 U Benzodiazepines Scrn Presumptive negative 09/28/16 12:20 Urine Cocaine Screen Presumptive negative 09/28/16 12:20 U Marijuana (THC) Screen Presumptive positive 09/28/16 12:20 Drugs of Abuse Note Disclamer 09/28/16 12:20 Plasma/Serum Alcohol < 0.01 gm% (0-0.07) 09/28/16 12:06 Lymph Enumerat CD4/CD8 0.10 (0.86-5.00) L 09/28/16 15:43 % CD3 Cells 77 % (57-85) 09/28/16 15:43 Absolute CD3 Count 166 cells/uL (840-3060) L 09/28/16 15:43 % CD4 Cells 7 % (30-61) L 09/28/16 15:43 Absolute CD4 Count 14 cells/uL (490-1740) L 09/28/16 15:43 % CD8 Cells 69 % (12-42) H 09/28/16 15:43 Absolute CD8 Count 148 cells/uL (180-1170) L 09/28/16 15:43 % CD19 Cells 0 % (6-29) L 09/28/16 15:43 Absolute CD19 Count 1 cells/uL (110-660) L 09/28/16 15:43 RPR Titer 1:1024 09/28/16 15:43 RPR Reactive (Nonreactive) 09/28/16 15:43 Hepatitis A Ab Total See scanned report 09/28/16 15:43 Hep Bs Antigen Non-reactive (Negative) 09/28/16 15:43 Hep B Core IgM Ab Non-reactive (NonReactive) 09/28/16 15:43 Hepatitis C Antibody Non-reactive (NonReactive) 09/28/16 15:43 HIV-1 RNA PCR copies/ml 577055 copies/mL (<20) H 09/28/16 15:43 HIV-1 RNA (PCR) log 5.99 Log cps/mL (<1.30) H 09/28/16 15:43 HIV-1 Genotyping see below (()) 09/28/16 15:43 HIV 1&2 Antibody Rapid Reactive (Non React) 09/28/16 15:43 HIV P24 Antigen Non react (Non React) 09/28/16 15:43 Toxoplasma IgG Ab <=0.90 (<=0.90) 10/03/16 11:00 Toxoplasma IgM Ab Negative (Negative) 10/03/16 11:00 TB (QFT) Gold In Tube Negative (Negative) 09/29/16 07:30 TB Test (QFT) Nil 0.09 IU/mL (()) 09/29/16 07:30 TB Test Mitogen - Nil 7.24 IU/mL (()) 09/29/16 07:30 TB Test Antigen - Nil 0.05 IU/mL (()) 09/29/16 07:30
[2016-10-08] MEDS: PFIZERPEN IV SCH ×6 (02:00→22:29)
[2016-10-08] MEDS: NACL IV SCH ×6 (02:00→22:29)
[2016-10-08] MEDS: NACL 0.9% 1000 ML 1,000 ML IV SCH (07:35)
[2016-10-08] MEDS: BENADRYL IV SCH (09:45)
[2016-10-08] MEDS: LOVENOX SUB-Q SCH (09:45)
[2016-10-08] MEDS: D5W (50 ML) IV SCH (09:45)
[2016-10-08] MEDS: TYLENOL PO SCH (09:45)
[2016-10-08] MEDS: [UNRECOGNIZED DRUG - OTHER] IV SCH (10:30)
[2016-10-08] MEDS: D5W IV SCH (10:30)
--- NOTE | 2016-10-08 11:40 | Progress Note ---
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 (3) Syphilis Current Visit: Yes Status: Acute Plan to address problem: ID consulted, continue current abx, (4) Debility Current Visit: Yes Status: Acute Plan to address problem: PT consulted, (5) DVT prophylaxis Current Visit: Yes Status: Acute History Interval history: Pt lying in bed, Pt denies pain. Pt family at bedside. Pt more alert today. No reported nursing events. Case management consulted for d/c planning. Hospitalist Physical - Constitutional Vitals: Temp Pulse Resp BP Pulse Ox 97.6 F 92 H 16 124/78 98 10/08/16 08:00 10/08/16 08:00 10/08/16 08:00 10/08/16 08:00 10/08/16 08:00 General appearance: Present: no acute distress, well-nourished - EENT Eyes: Present: PERRL, EOM intact ENT: hearing intact - Neck Neck: Present: supple - Respiratory Respiratory: bilateral: CTA - Cardiovascular Rhythm: regular Heart Sounds: Present: S1 & S2 - Extremities Extremities: no ischemia Peripheral Pulses: within normal limits - Abdominal General gastrointestinal: soft, non-tender, non-distended - Integumentary Integumentary: Present: clear, dry - Psychiatric Psychiatric: no intact judgment & insight, no memory intact - Neurologic Neurologic: no gait normal Results - Labs CBC & Chem 7: 10/03/16 07:00 10/03/16 07:00 Labs: Laboratory Last Values WBC 3.2 K/mm3 (4.5-11.0) L 10/03/16 07:00 RBC 3.78 M/mm3 (3.65-5.03) 10/03/16 07:00 Hgb 10.2 gm/dl (11.8-15.2) L 10/03/16 07:00 Hct 30.5 % (35.5-45.6) L D 10/03/16 07:00 MCV 81 fl (84-94) L 10/03/16 07:00 MCH 27 pg (28-32) L 10/03/16 07:00 MCHC 33 % (32-34) 10/03/16 07:00 RDW 14.6 % (13.2-15.2) 10/03/16 07:00 Plt Count 153 K/mm3 (140-440) 10/03/16 07:00 Lymph % (Auto) 23.8 % (13.4-35.0) 10/03/16 07:00 [place] % (Auto) 13.7 % (0.0-7.3) H 10/03/16 07:00 Eos % (Auto) 2.2 % (0.0-4.3) 10/03/16 07:00 Baso % (Auto) 0.6 % (0.0-1.8) 10/03/16 07:00 Lymph # 0.8 K/mm3 (1.2-5.4) L 10/03/16 07:00 [place] # 0.4 K/mm3 (0.0-0.8) 10/03/16 07:00 Eos # 0.1 K/mm3 (0.0-0.4) 10/03/16 07:00 Baso # 0.0 K/mm3 (0.0-0.1) 10/03/16 07:00 Add Manual Diff Complete 10/02/16 05:46 Total Counted 100 10/02/16 05:46 Seg Neutrophils % 59.7 % (40.0-70.0) 10/03/16 07:00 Seg Neuts % (Manual) 68.0 % (40.0-70.0) 10/02/16 05:46 Band Neutrophils % 0 % 10/02/16 05:46 Lymphocytes % (Manual) 18.0 % (13.4-35.0) 10/02/16 05:46 Reactive Lymphs % (Man) 0 % 10/02/16 05:46 Monocytes % (Manual) 13.0 % (0.0-7.3) H 10/02/16 05:46 Eosinophils % (Manual) 1.0 % (0.0-4.3) 10/02/16 05:46 Basophils % (Manual) 0 % (0.0-1.8) 10/02/16 05:46 Metamyelocytes % 0 % 10/02/16 05:46 Myelocytes % 0 % 10/02/16 05:46 Promyelocytes % 0 % 10/02/16 05:46 Blast Cells % 0 % 10/02/16 05:46 Nucleated RBC % 1.0 % (0.0-0.9) H 10/02/16 05:46 Seg Neutrophils # 1.9 K/mm3 (1.8-7.7) 10/03/16 07:00 Seg Neutrophils # Man 2.0 K/mm3 (1.8-7.7) 10/02/16 05:46 Band Neutrophils # 0.0 K/mm3 10/02/16 05:46 Abs Lymphs (Manual) 215 cells/uL (850-3900) L 09/28/16 15:43 Lymphocytes # (Manual) 0.5 K/mm3 (1.2-5.4) L 10/02/16 05:46 Abs React Lymphs (Man) 0.0 K/mm3 10/02/16 05:46 Monocytes # (Manual) 0.4 K/mm3 (0.0-0.8) 10/02/16 05:46 Eosinophils # (Manual) 0.0 K/mm3 (0.0-0.4) 10/02/16 05:46 Basophils # (Manual) 0.0 K/mm3 (0.0-0.1) 10/02/16 05:46 Metamyelocytes # 0.0 K/mm3 10/02/16 05:46 Myelocytes # 0.0 K/mm3 10/02/16 05:46 Promyelocytes # 0.0 K/mm3 10/02/16 05:46 Blast Cells # 0.0 K/mm3 10/02/16 05:46 WBC Morphology Not Reportable 10/02/16 05:46 Hypersegmented Neuts Not Reportable 10/02/16 05:46 Hyposegmented Neuts Not Reportable 10/02/16 05:46 Hypogranular Neuts Not Reportable 10/02/16 05:46 Smudge Cells Not Reportable 10/02/16 05:46 Toxic Granulation Not Reportable 10/02/16 05:46 Toxic Vacuolation Not Reportable 10/02/16 05:46 Dohle Bodies Not Reportable 10/02/16 05:46 Pelger-Huet Anomaly Not Reportable 10/02/16 05:46 Ada Rods Not Reportable 10/02/16 05:46 Platelet Estimate Consistent w auto 10/02/16 05:46 Clumped Platelets Not Reportable 10/02/16 05:46 Plt Clumps, EDTA Not Reportable 10/02/16 05:46 Large Platelets Not Reportable 10/02/16 05:46 Giant Platelets Not Reportable 10/02/16 05:46 Platelet Satelliting Not Reportable 10/02/16 05:46 Plt Morphology Comment Not Reportable 10/02/16 05:46 RBC Morphology Not Reportable 10/02/16 05:46 Dimorphic RBCs Not Reportable 10/02/16 05:46 Polychromasia Not Reportable 10/02/16 05:46 Hypochromasia Not Reportable 10/02/16 05:46 Poikilocytosis Not Reportable 10/02/16 05:46 Anisocytosis Few 10/02/16 05:46 Microcytosis Rare 10/02/16 05:46 Macrocytosis Not Reportable 10/02/16 05:46 Spherocytes Not Reportable 10/02/16 05:46 Pappenheimer Bodies Not Reportable 10/02/16 05:46 Sickle Cells Not Reportable 10/02/16 05:46 Target Cells Not Reportable 10/02/16 05:46 Tear Drop Cells Not Reportable 10/02/16 05:46 Ovalocytes Not Reportable 10/02/16 05:46 Helmet Cells Not Reportable 10/02/16 05:46 Varma-[place] Bodies Not Reportable 10/02/16 05:46 [place] Rings Not Reportable 10/02/16 05:46 [place] Cells Not Reportable 10/02/16 05:46 Bite Cells Not Reportable 10/02/16 05:46 Crenated Cell Not Reportable 10/02/16 05:46 Elliptocytes Not Reportable 10/02/16 05:46 Acanthocytes (Spur) Not Reportable 10/02/16 05:46 Rouleaux Not Reportable 10/02/16 05:46 Hemoglobin C Crystals Not Reportable 10/02/16 05:46 Schistocytes Not Reportable 10/02/16 05:46 Malaria parasites Not Reportable 10/02/16 05:46 [place] Bodies Not Reportable 10/02/16 05:46 Hem Pathologist Commnt No 10/02/16 05:46 Sodium 132 mmol/L (137-145) L D 10/03/16 07:00 Potassium 3.6 mmol/L (3.6-5.0) 10/03/16 07:00 Chloride 102.0 mmol/L (98-107) 10/03/16 07:00 Carbon Dioxide 19 mmol/L (22-30) L 10/03/16 07:00 Anion Gap 15 mmol/L 10/03/16 07:00 BUN 24 mg/dL (9-20) H 10/03/16 07:00 Creatinine 1.2 mg/dL (0.8-1.5) 10/03/16 07:00 Estimated GFR > 60 ml/min 10/03/16 07:00 BUN/Creatinine Ratio 20.00 % 10/03/16 07:00 Glucose 80 mg/dL (75-100) 10/03/16 07:00 POC Glucose 81 (70-105) 09/29/16 21:06 Osmolality 272 Mosm/kg 09/29/16 10:01 Lactic Acid 1.9 mmol/L (0.7-2.0) 09/28/16 12:06 Calcium 7.4 mg/dL (8.4-10.2) L 10/03/16 07:00 Total Bilirubin 0.3 mg/dL (0.1-1.2) 10/01/16 09:45 Direct Bilirubin < 0.2 mg/dL (0-0.2) 09/28/16 12:06 Indirect Bilirubin 0.3 mg/dL 09/28/16 12:06 AST 13 units/L (5-40) 10/01/16 09:45 ALT 8 units/L (7-56) 10/01/16 09:45 Alkaline Phosphatase 35 units/L (35-129) 10/01/16 09:45 Lactate Dehydrogenase 467 units/L (91-180) H 09/28/16 12:06 Troponin T 0.427 ng/mL (0.00-0.029) H* 09/28/16 12:06 Total Protein 7.7 g/dL (6.3-8.2) 10/01/16 09:45 Albumin 2.2 g/dL (3.9-5) L 10/01/16 09:45 Albumin/Globulin Ratio 0.4 % 10/01/16 09:45 Triglycerides 102 mg/dL (2-149) 09/28/16 12:06 Cholesterol 151 mg/dL (50-199) 09/28/16 12:06 LDL Cholesterol Direct 86 mg/dL (50-130) 09/28/16 12:06 HDL Cholesterol 45 mg/dL (40-59) 09/28/16 12:06 Cholesterol/HDL Ratio 3.35 % 09/28/16 12:06 Urine Color Yellow (Yellow) 09/28/16 12:27 Urine Turbidity Clear (Clear) 09/28/16 12:27 Urine pH 5.0 (5.0-7.0) 09/28/16 12:27 Ur Specific [place] 1.017 (1.003-1.030) 09/28/16 12:27 Urine Protein >500 mg/dL (Negative) 09/28/16 12:27 Urine Glucose (UA) Neg mg/dL (Negative) 09/28/16 12:27 Urine Ketones Neg mg/dL (Negative) 09/28/16 12:27 Urine Blood Mod (Negative) 09/28/16 12:27 Urine Nitrite Neg (Negative) 09/28/16 12:27 Urine Bilirubin Neg (Negative) 09/28/16 12:27 Urine Urobilinogen < 2.0 mg/dL (<2.0) 09/28/16 12:27 Ur Leukocyte Esterase Neg (Negative) 09/28/16 12:27 Urine WBC (Auto) < 1.0 /HPF (0.0-6.0) 09/28/16 12:27 Urine RBC (Auto) 1.0 /HPF (0.0-6.0) 09/28/16 12:27 U Epithel Cells (Auto) < 1.0 /HPF (0-13.0) 09/28/16 12:27 Urine Mucus Few /HPF 09/28/16 12:27 CSF Appearance Clear 09/28/16 12:45 CSF Color Colorless 09/28/16 12:45 CSF WBC 600 /mm3 (1-10) 09/28/16 12:45 CSF RBC 165 /mm3 (0-0) 09/28/16 12:45 CSF Seg Neutrophils 55.5 % (0-6) 09/28/16 12:45 CSF Lymphocytes % 38.0 % (40-80) 09/28/16 12:45 CSF Reactive Lymphs 0.5 % 09/28/16 12:45 CSF Monocytes % 6.0 % (15-45) 09/28/16 12:45 CSF Eosinophils % 0 % 09/28/16 12:45 CSF Basophils 0 % 09/28/16 12:45 CSF Pathologist Review C 09/28/16 12:45 CSF Glucose 3 mg/dL 09/28/16 12:45 CSF Total Protein 117 mg/dL 09/28/16 12:45 CSF VDRL Reactive 1:16 (Nonreactive) H 09/28/16 12:45 Salicylates < 0.3 mg/dL (2.8-20.0) L 09/28/16 12:06 Urine Opiates Screen Presumptive negative 09/28/16 12:20 Urine Methadone Screen Presumptive negative 09/28/16 12:20 Acetaminophen < 15.0 ug/mL (10.0-30.0) 09/28/16 12:06 Ur Barbiturates Screen Presumptive negative 09/28/16 12:20 Ur Phencyclidine Scrn Presumptive negative 09/28/16 12:20 Ur Amphetamines Screen Presumptive negative 09/28/16 12:20 U Benzodiazepines Scrn Presumptive negative 09/28/16 12:20 Urine Cocaine Screen Presumptive negative 09/28/16 12:20 U Marijuana (THC) Screen Presumptive positive 09/28/16 12:20 Drugs of Abuse Note Disclamer 09/28/16 12:20 Plasma/Serum Alcohol < 0.01 gm% (0-0.07) 09/28/16 12:06 Lymph Enumerat CD4/CD8 0.10 (0.86-5.00) L 09/28/16 15:43 % CD3 Cells 77 % (57-85) 09/28/16 15:43 Absolute CD3 Count 166 cells/uL (840-3060) L 09/28/16 15:43 % CD4 Cells 7 % (30-61) L 09/28/16 15:43 Absolute CD4 Count 14 cells/uL (490-1740) L 09/28/16 15:43 % CD8 Cells 69 % (12-42) H 09/28/16 15:43 Absolute CD8 Count 148 cells/uL (180-1170) L 09/28/16 15:43 % CD19 Cells 0 % (6-29) L 09/28/16 15:43 Absolute CD19 Count 1 cells/uL (110-660) L 09/28/16 15:43 RPR Titer 1:1024 09/28/16 15:43 RPR Reactive (Nonreactive) 09/28/16 15:43 Hepatitis A Ab Total See scanned report 09/28/16 15:43 Hep Bs Antigen Non-reactive (Negative) 09/28/16 15:43 Hep B Core IgM Ab Non-reactive (NonReactive) 09/28/16 15:43 Hepatitis C Antibody Non-reactive (NonReactive) 09/28/16 15:43 HIV-1 RNA PCR copies/ml 729376 copies/mL (<20) H 09/28/16 15:43 HIV-1 RNA (PCR) log 5.99 Log cps/mL (<1.30) H 09/28/16 15:43 HIV-1 Genotyping see below (()) 09/28/16 15:43 HIV 1&2 Antibody Rapid Reactive (Non React) 09/28/16 15:43 HIV P24 Antigen Non react (Non React) 09/28/16 15:43 Toxoplasma IgG Ab <=0.90 (<=0.90) 10/03/16 11:00 Toxoplasma IgM Ab Negative (Negative) 10/03/16 11:00 TB (QFT) Gold In Tube Negative (Negative) 09/29/16 07:30 TB Test (QFT) Nil 0.09 IU/mL (()) 09/29/16 07:30 TB Test Mitogen - Nil 7.24 IU/mL (()) 09/29/16 07:30 TB Test Antigen - Nil 0.05 IU/mL (()) 09/29/16 07:30
--- NOTE | 2016-10-08 15:34 | Progress Note ---
Assessment and Plan Current antibiotics: Aqueous penicillin 4 million units IV q4h daily 10/03 --> Amphotericin B 0.7 mg/kilogram IV daily 09/28 --> Previous Antibiotics: Flucytosine 25 mg/kilogram po q6h 09/28-10/06 Ceftriaxone 2 g IV daily 09/28-10/03 Vancomycin IV 1 g X 1 09/28 Azithromycin 500 mg IV daily 09/28-09/30/16 ASSESSMENT: Clair Rich is a 25y/o AA male presents through the ED with a one-month history of malaise, worsening generalized headache, decreased appetite, and weight loss. He was brought to the hospital by his sister who stated that had been falling. The patient had marked neck rigidity with non- contrast head CT showing no acute changes. 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 -No opening pressure done on initial LP -Associated cryptococcemia with AFB blood culture growing yeast 2. HIV/AIDS -VL [id number] -CD4 14, 7% 3. RLL infiltrate -Repeat chest xray without infiltrate, doubt pneumonia 4. Neurosyphilis -RPR positive with titer of 1:1024 -Patient without diffuse rash. -CSF VDRL 1:16 5. Marked hyponatremia -R/O SIADH, this might be related to the meningitis 6. Thrombocytopenia -Improved 7. Nausea/vomiting/diarrhea -Seems to have resolved with 5-FC being discontinued Recommendations: 1. Continue IV amphotericin induction therapy 2. Continue high dose IV penicillin versus neurosyphilis 3. Continued close observation and supportive measures. 4. Follow labs. Will recheck 10/09 Glynn Warren MD [facility] Office: [phone] Subjective Date of service: 10/08/16 Principal diagnosis: Cryptococcal meningitis, HIV, neurosyphilis Interval history: Much more alert and responsive. Asking to "go to his grandmother's and get a plate of food and then come back." Still with some neck pain but otherwise feels better. Objective - Exam Narrative Exam: GENERAL: Well-developed, well nourished male who is alert and very responsive and in NAD. HEENT: Pupils are equal reactive to light and accommodation. Conjunctiva clear. Thrush is improved. NECK: Less stiffness to forward flexion. No enlargement of the thyroid gland. Shotty cervical lymphadenopathy. No jugular venous distention at 30. LUNGS: Clear with no adventitious sounds. HEART: Tachycardic. No murmur or gallop. ABDOMEN: Soft and nontender. Liver and spleen are not palpably enlarged or tender. No palpable masses. Bowel sounds are normoactive. EXTREMITIES: Shotty cervical, axillary and inguinal lymph node enlargement. SKIN: No other rash, ulcers or wounds. NEUROLOGIC: More alert and responsive. No focal findings. - Constitutional Vitals: Vital Signs Temp Pulse Resp BP Pulse Ox 97.6 F 92 H 16 124/78 98 10/08/16 08:00 10/08/16 08:00 10/08/16 08:00 10/08/16 08:00 10/08/16 08:00 Temperature -Last 24 Hours Temperature 97.6 F Temperature 98.1 F Temperature 97.6 F - Labs CBC & Chem 7: 10/03/16 07:00 10/03/16 07:00 Labs: Micro: 09/28/16 12:45 Cerebral Spinal Fluid CSF Culture - No growth 09/28/16 12:45 Cerebral Spinal Fluid Cryptococcal Antigen - 1:512 09/28/16 12:34 Peripheral/Venous Blood Culture - Preliminary NO GROWTH AFTER 72 HOURS 09/28/16 12:06 Peripheral/Venous Blood Culture - Preliminary NO GROWTH AFTER 72 HOURS 09/28/16 15:23 Serum Cryptococcal Antigen - 1:512 09/28 AFB blood culture is growing yeast Imagin/23: MRI of the brain: Likely small recent infarcts with no significant mass effect or hemorrhagic transformation no signs of hydrocephalus. Changes of acute and chronic sinusitis.
[2016-10-08] MEDS: ZOFRAN IV PRN (17:45)
[2016-10-09] MEDS: PFIZERPEN IV SCH ×6 (02:17→22:01)
[2016-10-09] MEDS: NACL IV SCH ×6 (02:17→22:01)
[2016-10-09] MEDS: NACL 0.9% 1000 ML 1,000 ML IV SCH ×2 (02:18→18:00)
[2016-10-09 06:03] LABS: Hematocrit 26.9 % (35.5-45.6); Hemoglobin 9.3 gm/dl (11.8-15.2); Mean Corpuscular HGB Conc 34 % (32-34); Mean Corpuscular Hemoglobin 28 pg (28-32); Mean Corpuscular Volume 83 fl (84-94); Platelet Count 253 K/mm3 (140-440); Red Blood Count 3.26 M/mm3 (3.65-5.03); Red Cell Distribution Width 19.7 % (13.2-15.2); White Blood Count 3.8 K/mm3 (4.5-11.0)
[2016-10-09 06:22] LABS: Albumin 2.1 g/dL (3.9-5); Albumin/Globulin Ratio 0.5 %; BUN/Creatinine Ratio 14.73; Bilirubin,Total 0.4 mg/dL (0.1-1.2); Calcium 8.3 mg/dL (8.4-10.2); Chloride 103.4 mmol/L (98-107); Total Protein 6.5 g/dL (6.3-8.2)
[2016-10-09 07:09] LABS: Anisocytosis 3+; Basophils % (Manual) 0 % (0.0-1.8); Blastocytes % (Manual) 0 %; Diff Status Complete; Hypochromasia 1+; Smudge Cells 1+
[2016-10-09] MEDS: D5W (50 ML) IV SCH (09:36)
[2016-10-09] MEDS: LOVENOX SUB-Q SCH (09:36)
[2016-10-09] MEDS: BENADRYL IV SCH (09:37)
[2016-10-09] MEDS: TYLENOL PO SCH (09:37)
--- NOTE | 2016-10-09 10:27 | Progress Note ---
Assessment and Plan Current antibiotics: Aqueous penicillin 4 million units IV q4h daily 10/03 --> Amphotericin B 0.7 mg/kilogram IV daily 09/28 --> Previous Antibiotics: Flucytosine 25 mg/kilogram po q6h 09/28-10/06 Ceftriaxone 2 g IV daily 09/28-10/03 Vancomycin IV 1 g X 1 09/28 Azithromycin 500 mg IV daily 09/28-09/30/16 ASSESSMENT: Clair Rich is a 25y/o AA male presents through the ED with a one-month history of malaise, worsening generalized headache, decreased appetite, and weight loss. He was brought to the hospital by his sister who stated that had been falling. The patient had marked neck rigidity with non- contrast head CT showing no acute changes. Spinal fluid revealed 600 WBCs with 50% segs and 38% lymphs; 165 RBCs, glucose 3, protein 117 and cryptococcal antigen 1:512 Conclusions: 1. 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 Patient was started on amphotericin with flucytocine. Flucytocine was stopped secondary to nausea, vomiting and diarrhea. Induction therapy for cryptococcal meningitis requires treatment with both amphotericin and flucytocine. Alternative would be amphotericin for 4 weeks induction followed by fluconazole, or can add fluconazole to amphotericin to complete an induction of 2 weeks then fluconazole 800mg po Daily for continuation therapy. -CSF cryptococcal antigen titer 1:512 -No opening pressure done on initial LP -mental status markedly better 2. HIV/AIDS, patient will need to be initiated on HIV therapy once he has established care at the [facility] or the [facility] -VL [id number] -CD4 14, 7% 3. RLL infiltrate -Repeat chest xray without infiltrate, doubt pneumonia 4. Neurosyphilis, mental status is better. Patient will need to receive penicillin G for 2 weeks. -RPR positive with titer of 1:1024 -Patient without diffuse rash. -CSF VDRL 1:16 5. Marked hyponatremia -R/O SIADH, this might be related to the meningitis 6. Thrombocytopenia -Improved 7. Nausea/vomiting/diarrhea -resolved with 5-FC being discontinued 8. renal insufficiency, most likely related to the amphotericin. Recommendations: 1. Continue IV amphotericin induction therapy, end date 10/13/16 2. will add fluconazole 800mg po daily, this will make the induction therapy 2 weeks rather than 4 weeks if amphotericin is used alone 3. Continue high dose IV penicillin for neurosyphilis, end date October 17, 2016 4. Continued close observation and supportive measures. 5. obtain magnesium and phosphorus 6. monitor creatinine, if it goes above 2.5 will have to discontinue amphotericin, will increase iv fluids Subjective Date of service: 10/09/16 Principal diagnosis: Cryptococcal meningitis, HIV, neurosyphilis Interval history: Patient's mental status is much better, he understands the severity of his illness. I discussed the importance of continued HIV care once he leaves the hospital Objective - Constitutional Vitals: Selected Entries 10/09/16 10/09/16 00:00 07:59 Temperature 97.8 F Pulse Rate [ 75 Apical] Pulse Rate [ 81 Left] Respiratory 20 Rate O2 Sat by Pulse 100 Oximetry Blood Pressure 129/84 [Right Arm] Blood Pressure 99 Mean [Right Arm ] General appearance: Present: no acute distress, well-nourished - EENT Eyes: PERRL, EOM intact, no scleral icterus, no conjunctival injection ENT: hearing intact, clear oral mucosa, no oropharyngeal erythema, no poor dentition Ears: bilateral: normal - Neck Neck: rigidity - Respiratory Respiratory effort: normal Respiratory: bilateral: CTA - Breasts Breasts: deferred - Cardiovascular Rhythm: regular Heart Sounds: Present: S1 & S2 Extremities: no ischemia, No edema, normal temperature - Gastrointestinal General gastrointestinal: Present: soft, non-tender, normal bowel sounds Rectal Exam: deferred - Genitourinary Male genitourinary: deferred - Integumentary Integumentary: clear, warm, dry, no jaundice, no rash - Musculoskeletal Musculoskeletal: generalized weakness - Labs CBC & Chem 7: 10/09/16 05:45 10/09/16 05:45 Labs: Microbiology 10/06/16 Unknown Stool Stool for WBCs - Final NEGATIVE 10/06/16 Unknown Stool Cryptosporidium Exam - Final 10/06/16 Unknown Stool Giardia Antigen (ARIE) - Final NEGATIVE NEGATIVE Laboratory Tests 09/28/16 09/28/16 10/09/16 12:45 15:43 05:45 WBC 3.8 L Plt Count 253 Creatinine CSF VDRL Reactive 1:16 H Absolute CD4 Count 14 L 10/09/16 05:45 WBC Plt Count Creatinine 1.9 H CSF VDRL Absolute CD4 Count
[2016-10-09] MEDS: D5W IV SCH (11:00)
[2016-10-09] MEDS: [UNRECOGNIZED DRUG - OTHER] IV SCH (11:00)
[2016-10-09] MEDS: DIFLUCAN PO SCH (12:30)
[2016-10-10] MEDS: NACL IV SCH ×6 (01:56→22:24)
[2016-10-10] MEDS: NACL 0.9% 1000 ML 1,000 ML IV SCH ×2 (01:56→22:24)
[2016-10-10] MEDS: PFIZERPEN IV SCH ×6 (01:56→22:24)
--- NOTE | 2016-10-10 04:18 | Progress Note ---
Assessment and Plan - Patient Problems (1) Cryptococcal meningitis Current Visit: Yes Status: Acute Plan to address problem: continue current therapy, ID consulted, continue IV ampho B until 10/13 as per ID. (2) AIDS Current Visit: Yes Status: Acute Plan to address problem: ID consulted, continue current therapy. (3) Syphilis Current Visit: Yes Status: Acute Plan to address problem: ID consulted, continue current abx, (4) Debility Current Visit: Yes Status: Acute Plan to address problem: PT consulted, (5) DVT prophylaxis Current Visit: Yes Status: Acute History Interval history: Pt lying in bed, Pt denies pain. Pt family at bedside. Pt more alert today. No reported nursing events. Case management consulted for d/c planning. Hospitalist Physical - Constitutional Vitals: Temp Pulse Resp BP Pulse Ox 97.4 F L 75 20 145/97 100 10/10/16 00:00 10/10/16 00:00 10/10/16 00:00 10/10/16 00:00 10/10/16 00:00 General appearance: Present: no acute distress, well-nourished - EENT Eyes: Present: PERRL ENT: hearing intact - Neck Neck: Present: supple - Respiratory Respiratory: bilateral: CTA - Cardiovascular Rhythm: regular Heart Sounds: Present: S1 & S2 - Extremities Extremities: no ischemia Peripheral Pulses: within normal limits - Abdominal General gastrointestinal: soft, non-tender, non-distended - Integumentary Integumentary: Present: clear, dry - Psychiatric Psychiatric: no intact judgment & insight, no memory intact, cooperative, other (mild cognitive slowing) - Neurologic Neurologic: CNII-XII intact, no gait normal Results - Labs CBC & Chem 7: 10/09/16 05:45 10/09/16 05:45 Labs: Laboratory Last Values WBC 3.8 K/mm3 (4.5-11.0) L 10/09/16 05:45 RBC 3.26 M/mm3 (3.65-5.03) L 10/09/16 05:45 Hgb 9.3 gm/dl (11.8-15.2) L 10/09/16 05:45 Hct 26.9 % (35.5-45.6) L 10/09/16 05:45 MCV 83 fl (84-94) L 10/09/16 05:45 MCH 28 pg (28-32) 10/09/16 05:45 MCHC 34 % (32-34) 10/09/16 05:45 RDW 19.7 % (13.2-15.2) H 10/09/16 05:45 Plt Count 253 K/mm3 (140-440) 10/09/16 05:45 Lymph % (Auto) 23.8 % (13.4-35.0) 10/03/16 07:00 [place] % (Auto) 13.7 % (0.0-7.3) H 10/03/16 07:00 Eos % (Auto) 2.2 % (0.0-4.3) 10/03/16 07:00 Baso % (Auto) 0.6 % (0.0-1.8) 10/03/16 07:00 Lymph # 0.8 K/mm3 (1.2-5.4) L 10/03/16 07:00 [place] # 0.4 K/mm3 (0.0-0.8) 10/03/16 07:00 Eos # 0.1 K/mm3 (0.0-0.4) 10/03/16 07:00 Baso # 0.0 K/mm3 (0.0-0.1) 10/03/16 07:00 Add Manual Diff Complete 10/09/16 05:45 Total Counted 100 10/09/16 05:45 Seg Neutrophils % 59.7 % (40.0-70.0) 10/03/16 07:00 Seg Neuts % (Manual) 68.0 % (40.0-70.0) 10/09/16 05:45 Band Neutrophils % 0 % 10/09/16 05:45 Lymphocytes % (Manual) 19.0 % (13.4-35.0) 10/09/16 05:45 Reactive Lymphs % (Man) 0 % 10/09/16 05:45 Monocytes % (Manual) 10.0 % (0.0-7.3) H 10/09/16 05:45 Eosinophils % (Manual) 3.0 % (0.0-4.3) 10/09/16 05:45 Basophils % (Manual) 0 % (0.0-1.8) 10/09/16 05:45 Metamyelocytes % 0 % 10/09/16 05:45 Myelocytes % 0 % 10/09/16 05:45 Promyelocytes % 0 % 10/09/16 05:45 Blast Cells % 0 % 10/09/16 05:45 Nucleated RBC % Not Reportable 10/09/16 05:45 Seg Neutrophils # 1.9 K/mm3 (1.8-7.7) 10/03/16 07:00 Seg Neutrophils # Man 2.6 K/mm3 (1.8-7.7) 10/09/16 05:45 Band Neutrophils # 0.0 K/mm3 10/09/16 05:45 Abs Lymphs (Manual) 215 cells/uL (850-3900) L 09/28/16 15:43 Lymphocytes # (Manual) 0.7 K/mm3 (1.2-5.4) L 10/09/16 05:45 Abs React Lymphs (Man) 0.0 K/mm3 10/09/16 05:45 Monocytes # (Manual) 0.4 K/mm3 (0.0-0.8) 10/09/16 05:45 Eosinophils # (Manual) 0.1 K/mm3 (0.0-0.4) 10/09/16 05:45 Basophils # (Manual) 0.0 K/mm3 (0.0-0.1) 10/09/16 05:45 Metamyelocytes # 0.0 K/mm3 10/09/16 05:45 Myelocytes # 0.0 K/mm3 10/09/16 05:45 Promyelocytes # 0.0 K/mm3 10/09/16 05:45 Blast Cells # 0.0 K/mm3 10/09/16 05:45 WBC Morphology Not Reportable 10/09/16 05:45 Hypersegmented Neuts Not Reportable 10/09/16 05:45 Hyposegmented Neuts Not Reportable 10/09/16 05:45 Hypogranular Neuts Not Reportable 10/09/16 05:45 Smudge Cells 1+ 10/09/16 05:45 Toxic Granulation Not Reportable 10/09/16 05:45 Toxic Vacuolation Not Reportable 10/09/16 05:45 Dohle Bodies Not Reportable 10/09/16 05:45 Pelger-Huet Anomaly Not Reportable 10/09/16 05:45 Ada Rods Not Reportable 10/09/16 05:45 Platelet Estimate Appears normal 10/09/16 05:45 Clumped Platelets Not Reportable 10/09/16 05:45 Plt Clumps, EDTA Not Reportable 10/09/16 05:45 Large Platelets Not Reportable 10/09/16 05:45 Giant Platelets Not Reportable 10/09/16 05:45 Platelet Satelliting Not Reportable 10/09/16 05:45 Plt Morphology Comment Not Reportable 10/09/16 05:45 RBC Morphology Not Reportable 10/09/16 05:45 Dimorphic RBCs Not Reportable 10/09/16 05:45 Polychromasia Not Reportable 10/09/16 05:45 Hypochromasia 1+ 10/09/16 05:45 Poikilocytosis Not Reportable 10/09/16 05:45 Anisocytosis 3+ 10/09/16 05:45 Microcytosis Not Reportable 10/09/16 05:45 Macrocytosis Not Reportable 10/09/16 05:45 Spherocytes Not Reportable 10/09/16 05:45 Pappenheimer Bodies Not Reportable 10/09/16 05:45 Sickle Cells Not Reportable 10/09/16 05:45 Target Cells Not Reportable 10/09/16 05:45 Tear Drop Cells Not Reportable 10/09/16 05:45 Ovalocytes Not Reportable 10/09/16 05:45 Helmet Cells Not Reportable 10/09/16 05:45 Varma-Toppers Bodies Not Reportable 10/09/16 05:45 [place] Rings Not Reportable 10/09/16 05:45 [place] Cells Not Reportable 10/09/16 05:45 Bite Cells Not Reportable 10/09/16 05:45 Crenated Cell Not Reportable 10/09/16 05:45 Elliptocytes Not Reportable 10/09/16 05:45 Acanthocytes (Spur) Not Reportable 10/09/16 05:45 Rouleaux Not Reportable 10/09/16 05:45 Hemoglobin C Crystals Not Reportable 10/09/16 05:45 Schistocytes Not Reportable 10/09/16 05:45 Malaria parasites Not Reportable 10/09/16 05:45 Warner Bodies Not Reportable 10/09/16 05:45 Hem Pathologist Commnt No 10/09/16 05:45 Sodium 136 mmol/L (137-145) L 10/09/16 05:45 Potassium 4.0 mmol/L (3.6-5.0) 10/09/16 05:45 Chloride 103.4 mmol/L (98-107) 10/09/16 05:45 Carbon Dioxide 19 mmol/L (22-30) L 10/09/16 05:45 Anion Gap 18 mmol/L 10/09/16 05:45 BUN 28 mg/dL (9-20) H 10/09/16 05:45 Creatinine 1.9 mg/dL (0.8-1.5) H 10/09/16 05:45 Estimated GFR 53 ml/min 10/09/16 05:45 BUN/Creatinine Ratio 14.73 % 10/09/16 05:45 Glucose 84 mg/dL (75-100) 10/09/16 05:45 POC Glucose 81 (70-105) 09/29/16 21:06 Osmolality 272 Mosm/kg 09/29/16 10:01 Lactic Acid 1.9 mmol/L (0.7-2.0) 09/28/16 12:06 Calcium 8.3 mg/dL (8.4-10.2) L 10/09/16 05:45 Total Bilirubin 0.4 mg/dL (0.1-1.2) 10/09/16 05:45 Direct Bilirubin < 0.2 mg/dL (0-0.2) 09/28/16 12:06 Indirect Bilirubin 0.3 mg/dL 09/28/16 12:06 AST 24 units/L (5-40) 10/09/16 05:45 ALT 17 units/L (7-56) 10/09/16 05:45 Alkaline Phosphatase 58 units/L (35-129) 10/09/16 05:45 Lactate Dehydrogenase 467 units/L (91-180) H 09/28/16 12:06 Troponin T 0.427 ng/mL (0.00-0.029) H* 09/28/16 12:06 Total Protein 6.5 g/dL (6.3-8.2) 10/09/16 05:45 Albumin 2.1 g/dL (3.9-5) L 10/09/16 05:45 Albumin/Globulin Ratio 0.5 % 10/09/16 05:45 Triglycerides 102 mg/dL (2-149) 09/28/16 12:06 Cholesterol 151 mg/dL (50-199) 09/28/16 12:06 LDL Cholesterol Direct 86 mg/dL (50-130) 09/28/16 12:06 HDL Cholesterol 45 mg/dL (40-59) 09/28/16 12:06 Cholesterol/HDL Ratio 3.35 % 09/28/16 12:06 Urine Color Yellow (Yellow) 09/28/16 12:27 Urine Turbidity Clear (Clear) 09/28/16 12:27 Urine pH 5.0 (5.0-7.0) 09/28/16 12:27 Ur Specific [place] 1.017 (1.003-1.030) 09/28/16 12:27 Urine Protein >500 mg/dL (Negative) 09/28/16 12:27 Urine Glucose (UA) Neg mg/dL (Negative) 09/28/16 12:27 Urine Ketones Neg mg/dL (Negative) 09/28/16 12:27 Urine Blood Mod (Negative) 09/28/16 12:27 Urine Nitrite Neg (Negative) 09/28/16 12:27 Urine Bilirubin Neg (Negative) 09/28/16 12:27 Urine Urobilinogen < 2.0 mg/dL (<2.0) 09/28/16 12:27 Ur Leukocyte Esterase Neg (Negative) 09/28/16 12:27 Urine WBC (Auto) < 1.0 /HPF (0.0-6.0) 09/28/16 12:27 Urine RBC (Auto) 1.0 /HPF (0.0-6.0) 09/28/16 12:27 U Epithel Cells (Auto) < 1.0 /HPF (0-13.0) 09/28/16 12:27 Urine Mucus Few /HPF 09/28/16 12:27 CSF Appearance Clear 09/28/16 12:45 CSF Color Colorless 09/28/16 12:45 CSF WBC 600 /mm3 (1-10) 09/28/16 12:45 CSF RBC 165 /mm3 (0-0) 09/28/16 12:45 CSF Seg Neutrophils 55.5 % (0-6) 09/28/16 12:45 CSF Lymphocytes % 38.0 % (40-80) 09/28/16 12:45 CSF Reactive Lymphs 0.5 % 09/28/16 12:45 CSF Monocytes % 6.0 % (15-45) 09/28/16 12:45 CSF Eosinophils % 0 % 09/28/16 12:45 CSF Basophils 0 % 09/28/16 12:45 CSF Pathologist Review C 09/28/16 12:45 CSF Glucose 3 mg/dL 09/28/16 12:45 CSF Total Protein 117 mg/dL 09/28/16 12:45 CSF VDRL Reactive 1:16 (Nonreactive) H 09/28/16 12:45 Salicylates < 0.3 mg/dL (2.8-20.0) L 09/28/16 12:06 Urine Opiates Screen Presumptive negative 09/28/16 12:20 Urine Methadone Screen Presumptive negative 09/28/16 12:20 Acetaminophen < 15.0 ug/mL (10.0-30.0) 09/28/16 12:06 Ur Barbiturates Screen Presumptive negative 09/28/16 12:20 Ur Phencyclidine Scrn Presumptive negative 09/28/16 12:20 Ur Amphetamines Screen Presumptive negative 09/28/16 12:20 U Benzodiazepines Scrn Presumptive negative 09/28/16 12:20 Urine Cocaine Screen Presumptive negative 09/28/16 12:20 U Marijuana (THC) Screen Presumptive positive 09/28/16 12:20 Drugs of Abuse Note Disclamer 09/28/16 12:20 Plasma/Serum Alcohol < 0.01 gm% (0-0.07) 09/28/16 12:06 Lymph Enumerat CD4/CD8 0.10 (0.86-5.00) L 09/28/16 15:43 % CD3 Cells 77 % (57-85) 09/28/16 15:43 Absolute CD3 Count 166 cells/uL (840-3060) L 09/28/16 15:43 % CD4 Cells 7 % (30-61) L 09/28/16 15:43 Absolute CD4 Count 14 cells/uL (490-1740) L 09/28/16 15:43 % CD8 Cells 69 % (12-42) H 09/28/16 15:43 Absolute CD8 Count 148 cells/uL (180-1170) L 09/28/16 15:43 % CD19 Cells 0 % (6-29) L 09/28/16 15:43 Absolute CD19 Count 1 cells/uL (110-660) L 09/28/16 15:43 RPR Titer 1:1024 09/28/16 15:43 RPR Reactive (Nonreactive) 09/28/16 15:43 Hepatitis A Ab Total See scanned report 09/28/16 15:43 Hep Bs Antigen Non-reactive (Negative) 09/28/16 15:43 Hep B Core IgM Ab Non-reactive (NonReactive) 09/28/16 15:43 Hepatitis C Antibody Non-reactive (NonReactive) 09/28/16 15:43 HIV-1 RNA PCR copies/ml [id number] copies/mL (<20) H 09/28/16 15:43 HIV-1 RNA (PCR) log 5.99 Log cps/mL (<1.30) H 09/28/16 15:43 HIV-1 Genotyping see below (()) 09/28/16 15:43 HIV 1&2 Antibody Rapid Reactive (Non React) 09/28/16 15:43 HIV P24 Antigen Non react (Non React) 09/28/16 15:43 Toxoplasma IgG Ab <=0.90 (<=0.90) 10/03/16 11:00 Toxoplasma IgM Ab Negative (Negative) 10/03/16 11:00 TB (QFT) Gold In Tube Negative (Negative) 09/29/16 07:30 TB Test (QFT) Nil 0.09 IU/mL (()) 09/29/16 07:30 TB Test Mitogen - Nil 7.24 IU/mL (()) 09/29/16 07:30 TB Test Antigen - Nil 0.05 IU/mL (()) 09/29/16 07:30
--- NOTE | 2016-10-10 09:39 | Progress Note ---
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 Syphilis/ Neurosyphilis HIV-AIDS, CD4 17, viral load [id number] Acute kidney injury likely due to amphotericin Nausea/vomiting/diarrhea, medication induced Thrombocytopenia likely due to HIV Marked hyponatremia, could be due to meningitis Right lower lobe infiltrate, possible pneumonia Plan: Continue IV amphotericin induction therapy till 10/13/2016 Added fluconazole 800 mg by mouth for induction therapy total of 2 weeks His RPR is positive with titer of 1:1024 Continue high dose IV penicillin for neurosyphilis till 10/17/2016 Continue to monitor BMP for renal function Continue IV fluid Continue supportive care and nutritional supplements History Interval history: Patient seen and examined. Medical records and medication list reviewed. No acute event overnight noted by the RN. Patient denies any chest pain or difficulty breathing. Patient is tolerating diet. Still c/o headache, but no photophobia Discussed plan of care at bedside with patient. Hospitalist Physical - Physical exam Narrative exam: GENERAL: well-developed and well-nourished AAM lying on bed appeared to be in no discomfort. HEENT: Normocephalic. Atraumatic. No conjunctival congestion or icterus. Patient has moist mucous membranes. NECK: Supple. Trachea midline. CHEST/LUNGS: Clear to auscultated bilaterally, breathing nonlabored. No wheezes crackles or rhonchi. HEART/CARDIOVASCULAR: Regular in rate and rhythm. S1 and S2 positive. ABDOMEN: Abdomen is soft, nontender. Patient has normal bowel sounds. SKIN: There is no rash. Warm and dry. NEURO: No focal motor deficit. Follows command. MUSCULOSKELETAL: No joint effusion or tenderness. EXTRIMITY: No edema, no cyanosis or clubbing. PSYCH: Cooperative. - Constitutional Vitals: Temp Pulse Resp BP Pulse Ox 97.8 F 80 18 128/81 100 10/10/16 08:15 10/10/16 08:15 10/10/16 08:15 10/10/16 08:15 10/10/16 08:15 General appearance: Present: no acute distress, well-nourished Results - Labs CBC & Chem 7: 10/09/16 05:45 10/09/16 05:45 Labs: Laboratory Last Values WBC 3.8 K/mm3 (4.5-11.0) L 10/09/16 05:45 RBC 3.26 M/mm3 (3.65-5.03) L 10/09/16 05:45 Hgb 9.3 gm/dl (11.8-15.2) L 10/09/16 05:45 Hct 26.9 % (35.5-45.6) L 10/09/16 05:45 MCV 83 fl (84-94) L 10/09/16 05:45 MCH 28 pg (28-32) 10/09/16 05:45 MCHC 34 % (32-34) 10/09/16 05:45 RDW 19.7 % (13.2-15.2) H 10/09/16 05:45 Plt Count 253 K/mm3 (140-440) 10/09/16 05:45 Lymph % (Auto) 23.8 % (13.4-35.0) 10/03/16 07:00 Dewitt % (Auto) 13.7 % (0.0-7.3) H 10/03/16 07:00 Eos % (Auto) 2.2 % (0.0-4.3) 10/03/16 07:00 Baso % (Auto) 0.6 % (0.0-1.8) 10/03/16 07:00 Lymph # 0.8 K/mm3 (1.2-5.4) L 10/03/16 07:00 Dewitt # 0.4 K/mm3 (0.0-0.8) 10/03/16 07:00 Eos # 0.1 K/mm3 (0.0-0.4) 10/03/16 07:00 Baso # 0.0 K/mm3 (0.0-0.1) 10/03/16 07:00 Add Manual Diff Complete 10/09/16 05:45 Total Counted 100 10/09/16 05:45 Seg Neutrophils % 59.7 % (40.0-70.0) 10/03/16 07:00 Seg Neuts % (Manual) 68.0 % (40.0-70.0) 10/09/16 05:45 Band Neutrophils % 0 % 10/09/16 05:45 Lymphocytes % (Manual) 19.0 % (13.4-35.0) 10/09/16 05:45 Reactive Lymphs % (Man) 0 % 10/09/16 05:45 Monocytes % (Manual) 10.0 % (0.0-7.3) H 10/09/16 05:45 Eosinophils % (Manual) 3.0 % (0.0-4.3) 10/09/16 05:45 Basophils % (Manual) 0 % (0.0-1.8) 10/09/16 05:45 Metamyelocytes % 0 % 10/09/16 05:45 Myelocytes % 0 % 10/09/16 05:45 Promyelocytes % 0 % 10/09/16 05:45 Blast Cells % 0 % 10/09/16 05:45 Nucleated RBC % Not Reportable 10/09/16 05:45 Seg Neutrophils # 1.9 K/mm3 (1.8-7.7) 10/03/16 07:00 Seg Neutrophils # Man 2.6 K/mm3 (1.8-7.7) 10/09/16 05:45 Band Neutrophils # 0.0 K/mm3 10/09/16 05:45 Abs Lymphs (Manual) 215 cells/uL (850-3900) L 09/28/16 15:43 Lymphocytes # (Manual) 0.7 K/mm3 (1.2-5.4) L 10/09/16 05:45 Abs React Lymphs (Man) 0.0 K/mm3 10/09/16 05:45 Monocytes # (Manual) 0.4 K/mm3 (0.0-0.8) 10/09/16 05:45 Eosinophils # (Manual) 0.1 K/mm3 (0.0-0.4) 10/09/16 05:45 Basophils # (Manual) 0.0 K/mm3 (0.0-0.1) 10/09/16 05:45 Metamyelocytes # 0.0 K/mm3 10/09/16 05:45 Myelocytes # 0.0 K/mm3 10/09/16 05:45 Promyelocytes # 0.0 K/mm3 10/09/16 05:45 Blast Cells # 0.0 K/mm3 10/09/16 05:45 WBC Morphology Not Reportable 10/09/16 05:45 Hypersegmented Neuts Not Reportable 10/09/16 05:45 Hyposegmented Neuts Not Reportable 10/09/16 05:45 Hypogranular Neuts Not Reportable 10/09/16 05:45 Smudge Cells 1+ 10/09/16 05:45 Toxic Granulation Not Reportable 10/09/16 05:45 Toxic Vacuolation Not Reportable 10/09/16 05:45 Dohle Bodies Not Reportable 10/09/16 05:45 Pelger-Huet Anomaly Not Reportable 10/09/16 05:45 Ada Rods Not Reportable 10/09/16 05:45 Platelet Estimate Appears normal 10/09/16 05:45 Clumped Platelets Not Reportable 10/09/16 05:45 Plt Clumps, EDTA Not Reportable 10/09/16 05:45 Large Platelets Not Reportable 10/09/16 05:45 Giant Platelets Not Reportable 10/09/16 05:45 Platelet Satelliting Not Reportable 10/09/16 05:45 Plt Morphology Comment Not Reportable 10/09/16 05:45 RBC Morphology Not Reportable 10/09/16 05:45 Dimorphic RBCs Not Reportable 10/09/16 05:45 Polychromasia Not Reportable 10/09/16 05:45 Hypochromasia 1+ 10/09/16 05:45 Poikilocytosis Not Reportable 10/09/16 05:45 Anisocytosis 3+ 10/09/16 05:45 Microcytosis Not Reportable 10/09/16 05:45 Macrocytosis Not Reportable 10/09/16 05:45 Spherocytes Not Reportable 10/09/16 05:45 Pappenheimer Bodies Not Reportable 10/09/16 05:45 Sickle Cells Not Reportable 10/09/16 05:45 Target Cells Not Reportable 10/09/16 05:45 Tear Drop Cells Not Reportable 10/09/16 05:45 Ovalocytes Not Reportable 10/09/16 05:45 Helmet Cells Not Reportable 10/09/16 05:45 Varma-Bejou Bodies Not Reportable 10/09/16 05:45 [place] Rings Not Reportable 10/09/16 05:45 Alycia Cells Not Reportable 10/09/16 05:45 Bite Cells Not Reportable 10/09/16 05:45 Crenated Cell Not Reportable 10/09/16 05:45 Elliptocytes Not Reportable 10/09/16 05:45 Acanthocytes (Spur) Not Reportable 10/09/16 05:45 Rouleaux Not Reportable 10/09/16 05:45 Hemoglobin C Crystals Not Reportable 10/09/16 05:45 Schistocytes Not Reportable 10/09/16 05:45 Malaria parasites Not Reportable 10/09/16 05:45 Warner Bodies Not Reportable 10/09/16 05:45 Hem Pathologist Commnt No 10/09/16 05:45 Sodium 136 mmol/L (137-145) L 10/09/16 05:45 Potassium 4.0 mmol/L (3.6-5.0) 10/09/16 05:45 Chloride 103.4 mmol/L (98-107) 10/09/16 05:45 Carbon Dioxide 19 mmol/L (22-30) L 10/09/16 05:45 Anion Gap 18 mmol/L 10/09/16 05:45 BUN 28 mg/dL (9-20) H 10/09/16 05:45 Creatinine 1.9 mg/dL (0.8-1.5) H 10/09/16 05:45 Estimated GFR 53 ml/min 10/09/16 05:45 BUN/Creatinine Ratio 14.73 % 10/09/16 05:45 Glucose 84 mg/dL (75-100) 10/09/16 05:45 POC Glucose 81 (70-105) 09/29/16 21:06 Osmolality 272 Mosm/kg 09/29/16 10:01 Lactic Acid 1.9 mmol/L (0.7-2.0) 09/28/16 12:06 Calcium 8.3 mg/dL (8.4-10.2) L 10/09/16 05:45 Total Bilirubin 0.4 mg/dL (0.1-1.2) 10/09/16 05:45 Direct Bilirubin < 0.2 mg/dL (0-0.2) 09/28/16 12:06 Indirect Bilirubin 0.3 mg/dL 09/28/16 12:06 AST 24 units/L (5-40) 10/09/16 05:45 ALT 17 units/L (7-56) 10/09/16 05:45 Alkaline Phosphatase 58 units/L (35-129) 10/09/16 05:45 Lactate Dehydrogenase 467 units/L (91-180) H 09/28/16 12:06 Troponin T 0.427 ng/mL (0.00-0.029) H* 09/28/16 12:06 Total Protein 6.5 g/dL (6.3-8.2) 10/09/16 05:45 Albumin 2.1 g/dL (3.9-5) L 10/09/16 05:45 Albumin/Globulin Ratio 0.5 % 10/09/16 05:45 Triglycerides 102 mg/dL (2-149) 09/28/16 12:06 Cholesterol 151 mg/dL (50-199) 09/28/16 12:06 LDL Cholesterol Direct 86 mg/dL (50-130) 09/28/16 12:06 HDL Cholesterol 45 mg/dL (40-59) 09/28/16 12:06 Cholesterol/HDL Ratio 3.35 % 09/28/16 12:06 Urine Color Yellow (Yellow) 09/28/16 12:27 Urine Turbidity Clear (Clear) 09/28/16 12:27 Urine pH 5.0 (5.0-7.0) 09/28/16 12:27 Ur Specific [place] 1.017 (1.003-1.030) 09/28/16 12:27 Urine Protein >500 mg/dL (Negative) 09/28/16 12:27 Urine Glucose (UA) Neg mg/dL (Negative) 09/28/16 12:27 Urine Ketones Neg mg/dL (Negative) 09/28/16 12:27 Urine Blood Mod (Negative) 09/28/16 12:27 Urine Nitrite Neg (Negative) 09/28/16 12:27 Urine Bilirubin Neg (Negative) 09/28/16 12:27 Urine Urobilinogen < 2.0 mg/dL (<2.0) 09/28/16 12:27 Ur Leukocyte Esterase Neg (Negative) 09/28/16 12:27 Urine WBC (Auto) < 1.0 /HPF (0.0-6.0) 09/28/16 12:27 Urine RBC (Auto) 1.0 /HPF (0.0-6.0) 09/28/16 12:27 U Epithel Cells (Auto) < 1.0 /HPF (0-13.0) 09/28/16 12:27 Urine Mucus Few /HPF 09/28/16 12:27 CSF Appearance Clear 09/28/16 12:45 CSF Color Colorless 09/28/16 12:45 CSF WBC 600 /mm3 (1-10) 09/28/16 12:45 CSF RBC 165 /mm3 (0-0) 09/28/16 12:45 CSF Seg Neutrophils 55.5 % (0-6) 09/28/16 12:45 CSF Lymphocytes % 38.0 % (40-80) 09/28/16 12:45 CSF Reactive Lymphs 0.5 % 09/28/16 12:45 CSF Monocytes % 6.0 % (15-45) 09/28/16 12:45 CSF Eosinophils % 0 % 09/28/16 12:45 CSF Basophils 0 % 09/28/16 12:45 CSF Pathologist Review C 09/28/16 12:45 CSF Glucose 3 mg/dL 09/28/16 12:45 CSF Total Protein 117 mg/dL 09/28/16 12:45 CSF VDRL Reactive 1:16 (Nonreactive) H 09/28/16 12:45 Salicylates < 0.3 mg/dL (2.8-20.0) L 09/28/16 12:06 Urine Opiates Screen Presumptive negative 09/28/16 12:20 Urine Methadone Screen Presumptive negative 09/28/16 12:20 Acetaminophen < 15.0 ug/mL (10.0-30.0) 09/28/16 12:06 Ur Barbiturates Screen Presumptive negative 09/28/16 12:20 Ur Phencyclidine Scrn Presumptive negative 09/28/16 12:20 Ur Amphetamines Screen Presumptive negative 09/28/16 12:20 U Benzodiazepines Scrn Presumptive negative 09/28/16 12:20 Urine Cocaine Screen Presumptive negative 09/28/16 12:20 U Marijuana (THC) Screen Presumptive positive 09/28/16 12:20 Drugs of Abuse Note Disclamer 09/28/16 12:20 Plasma/Serum Alcohol < 0.01 gm% (0-0.07) 09/28/16 12:06 Lymph Enumerat CD4/CD8 0.10 (0.86-5.00) L 09/28/16 15:43 % CD3 Cells 77 % (57-85) 09/28/16 15:43 Absolute CD3 Count 166 cells/uL (840-3060) L 09/28/16 15:43 % CD4 Cells 7 % (30-61) L 09/28/16 15:43 Absolute CD4 Count 14 cells/uL (490-1740) L 09/28/16 15:43 % CD8 Cells 69 % (12-42) H 09/28/16 15:43 Absolute CD8 Count 148 cells/uL (180-1170) L 09/28/16 15:43 % CD19 Cells 0 % (6-29) L 09/28/16 15:43 Absolute CD19 Count 1 cells/uL (110-660) L 09/28/16 15:43 RPR Titer 1:1024 09/28/16 15:43 RPR Reactive (Nonreactive) 09/28/16 15:43 Hepatitis A Ab Total See scanned report 09/28/16 15:43 Hep Bs Antigen Non-reactive (Negative) 09/28/16 15:43 Hep B Core IgM Ab Non-reactive (NonReactive) 09/28/16 15:43 Hepatitis C Antibody Non-reactive (NonReactive) 09/28/16 15:43 HIV-1 RNA PCR copies/ml 486614 copies/mL (<20) H 09/28/16 15:43 HIV-1 RNA (PCR) log 5.99 Log cps/mL (<1.30) H 09/28/16 15:43 HIV-1 Genotyping see below (()) 09/28/16 15:43 HIV 1&2 Antibody Rapid Reactive (Non React) 09/28/16 15:43 HIV P24 Antigen Non react (Non React) 09/28/16 15:43 Toxoplasma IgG Ab <=0.90 (<=0.90) 10/03/16 11:00 Toxoplasma IgM Ab Negative (Negative) 10/03/16 11:00 TB (QFT) Gold In Tube Negative (Negative) 09/29/16 07:30 TB Test (QFT) Nil 0.09 IU/mL (()) 09/29/16 07:30 TB Test Mitogen - Nil 7.24 IU/mL (()) 09/29/16 07:30 TB Test Antigen - Nil 0.05 IU/mL (()) 09/29/16 07:30
[2016-10-10] MEDS: LOVENOX SUB-Q SCH (10:25)
[2016-10-10] MEDS: DIFLUCAN PO SCH (10:26)
[2016-10-10] MEDS: BENADRYL IV SCH (10:44)
[2016-10-10] MEDS: TYLENOL PO SCH (10:45)
[2016-10-10] MEDS: D5W (50 ML) IV SCH (10:46)
--- NOTE | 2016-10-10 11:07 | Progress Note ---
Assessment and Plan Current antibiotics: penicillin G 4 million units IV q4h daily 10/03 --> Amphotericin B 0.7 mg/kilogram IV daily 09/28 --> Fluconazole 800mg po Q24H (10/09 Previous Antibiotics: Flucytosine 25 mg/kilogram po q6h 09/28-10/06 Ceftriaxone 2 g IV daily 09/28-10/03 Vancomycin IV 1 g X 1 09/28 Azithromycin 500 mg IV daily 09/28-09/30/16 ASSESSMENT: Clair Rich is a 25y/o AA male presents through the ED with a one-month history of malaise, worsening generalized headache, decreased appetite, and weight loss. He was brought to the hospital by his sister who stated that had been falling. The patient had marked neck rigidity with non- contrast head CT showing no acute changes. Spinal fluid revealed 600 WBCs with 50% segs and 38% lymphs; 165 RBCs, glucose 3, protein 117 and cryptococcal antigen 1:512 Conclusions: 1. 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 Patient was started on amphotericin with flucytocine. Flucytocine was stopped secondary to nausea, vomiting and diarrhea. Induction therapy for cryptococcal meningitis requires treatment with both amphotericin and flucytocine. Alternative would be amphotericin for 4 weeks induction followed by fluconazole, or can add fluconazole to amphotericin to complete an induction of 2 weeks then fluconazole 800mg po Daily for continuation therapy. -CSF cryptococcal antigen titer 1:512 -No opening pressure done on initial LP -mental status markedly better, patient has better range of motion of his neck. no photophobia 2. HIV/AIDS, patient will need to be initiated on HIV therapy once he has established care at the [facility] or the [facility] -[place] [id number] -CD4 14, 7% -will provide 3. RLL infiltrate -Repeat chest xray without infiltrate, doubt pneumonia 4. Neurosyphilis, mental status is better. Patient will need to receive penicillin G for 2 weeks. -RPR positive with titer of 1:1024 -Patient without diffuse rash. -CSF VDRL 1:16 5. Marked hyponatremia -R/O SIADH, this might be related to the meningitis 6. Thrombocytopenia -Improved 7. Nausea/vomiting/diarrhea -Flucytocine stopped however patient reports that he had two episodes of nausea and vomiting 8. renal insufficiency, most likely related to the amphotericin. will monitor this closely, if creatinine goes above 2.5 will stop amphotericin and continue with Fluconazole alone -nausea and vomiting could be adding to this Recommendations: 1. Continue IV amphotericin induction therapy, end date 10/13/16 2. will add fluconazole 800mg po daily, this will make the induction therapy 2 weeks rather than 4 weeks if amphotericin is used alone 3. Continue high dose IV penicillin for neurosyphilis, end date October 17, 2016 4. Continued close observation and supportive measures. 5. obtain magnesium and phosphorus, CMP today 6. monitor creatinine, if it goes above 2.5 will have to discontinue amphotericin, will increase iv fluids Subjective Date of service: 10/10/16 Principal diagnosis: Cryptococcal meningitis, HIV, neurosyphilis Interval history: Patient is doing much better, mental status is markedly improved. Objective - Constitutional Vitals: Selected Entries 10/10/16 10/10/16 00:00 08:15 Temperature 97.8 F Pulse Rate [ 75 Apical] Pulse Rate [ 80 Left Radial] Respiratory 18 Rate O2 Sat by Pulse 100 Oximetry Blood Pressure 128/81 [Left Arm] Blood Pressure 96 Mean [Left Arm] General appearance: Present: no acute distress, well-nourished - EENT Eyes: PERRL, EOM intact, no scleral icterus, no conjunctival injection ENT: hearing intact, clear oral mucosa, no oropharyngeal erythema Ears: bilateral: normal - Neck Neck: supple, normal ROM, no enlarged thyroid, no masses or JVD - Respiratory Respiratory effort: normal Respiratory: bilateral: CTA - Breasts Breasts: deferred - Cardiovascular Rhythm: regular Heart Sounds: Present: S1 & S2 Extremities: no ischemia, No edema - Gastrointestinal General gastrointestinal: Present: soft, non-tender, normal bowel sounds Rectal Exam: deferred - Genitourinary Male genitourinary: deferred - Integumentary Integumentary: clear, warm, dry, no jaundice, no rash - Musculoskeletal Musculoskeletal: strength equal bilaterally, generalized weakness - Psychiatric Psychiatric: appropriate mood/affect, cooperative - Labs CBC & Chem 7: 10/09/16 05:45 10/09/16 05:45 Labs: Microbiology 10/06/16 Unknown Stool Stool for WBCs - Final NEGATIVE 10/06/16 Unknown Stool Cryptosporidium Exam - Final 10/06/16 Unknown Stool Giardia Antigen (ARIE) - Final NEGATIVE NEGATIVE 10/06/16 Unknown Stool Stool Culture - Preliminary Laboratory Tests 10/09/16 10/09/16 05:45 05:45 WBC 3.8 L Plt Count 253 Creatinine 1.9 H
[2016-10-10] MEDS: [UNRECOGNIZED DRUG - OTHER] IV SCH (11:28)
[2016-10-10] MEDS: D5W IV SCH (11:28)
[2016-10-11] MEDS: NACL IV SCH ×6 (02:06→22:06)
[2016-10-11] MEDS: PFIZERPEN IV SCH ×6 (02:06→22:06)
[2016-10-11] MEDS: D5W (50 ML) IV SCH (09:40)
[2016-10-11] MEDS: DIFLUCAN PO SCH (09:41)
[2016-10-11] MEDS: TYLENOL PO SCH (09:42)
[2016-10-11] MEDS: BENADRYL IV SCH (09:43)
[2016-10-11] MEDS: LOVENOX SUB-Q SCH (09:43)
[2016-10-11] MEDS: D5W IV SCH (10:40)
[2016-10-11] MEDS: [UNRECOGNIZED DRUG - OTHER] IV SCH (10:40)
--- NOTE | 2016-10-11 11:11 | Progress Note ---
Assessment and Plan Current antibiotics: penicillin G 4 million units IV q4h daily 10/03 --> Amphotericin B 0.7 mg/kilogram IV daily 09/28 --> Fluconazole 800mg po Q24H (10/09 Previous Antibiotics: Flucytosine 25 mg/kilogram po q6h 09/28-10/06 Ceftriaxone 2 g IV daily 09/28-10/03 Vancomycin IV 1 g X 1 09/28 Azithromycin 500 mg IV daily 09/28-09/30/16 ASSESSMENT: Clair Rich is a 25y/o AA male presents through the ED with a one-month history of malaise, worsening generalized headache, decreased appetite, and weight loss. He was brought to the hospital by his sister who stated that had been falling. The patient had marked neck rigidity with non- contrast head CT showing no acute changes. Spinal fluid revealed 600 WBCs with 50% segs and 38% lymphs; 165 RBCs, glucose 3, protein 117 and cryptococcal antigen 1:512 Conclusions: 1. 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 Patient was started on amphotericin with flucytocine. Flucytocine was stopped secondary to nausea, vomiting and diarrhea. Induction therapy for cryptococcal meningitis requires treatment with both amphotericin and flucytocine. Alternative would be amphotericin for 4 weeks induction followed by fluconazole, or can add fluconazole to amphotericin to complete an induction of 2 weeks then fluconazole 800mg po Daily for continuation therapy. -CSF cryptococcal antigen titer 1:512 -No opening pressure done on initial LP -mental status markedly better, patient has better range of motion of his neck. no photophobia, neck rigidity has resolved. 2. HIV/AIDS, patient will need to be initiated on HIV therapy once he has established care at the [facility] or the [facility] -VL [id number] -CD4 14, 7% -information regarding follow up care given to patient and mother. Phone number and address of [facility] given. I faxed patient's lab results to the [facility]. The discharge summary will need to be faxed as well: [phone] 3. RLL infiltrate -Repeat chest xray without infiltrate, doubt pneumonia 4. Neurosyphilis, mental status is better. Patient will need to receive penicillin G for 2 weeks. -RPR positive with titer of 1:1024 -Patient without diffuse rash. -CSF VDRL 1:16 5. Marked hyponatremia -R/O SIADH, this might be related to the meningitis 6. Thrombocytopenia -Improved 7. Nausea/vomiting/diarrhea -Flucytocine stopped however patient reports that he had two episodes of nausea and vomiting 8. renal insufficiency, most likely related to the amphotericin. will monitor this closely, if creatinine goes above 2.5 will stop amphotericin and continue with Fluconazole alone -nausea and vomiting could be adding to this, this has improved -blood work ordered to evaluate this and has not been done, will follow up with staff to make sure this is done Recommendations: 1. Continue IV amphotericin induction therapy, end date 10/13/16 2. fluconazole 800mg po daily, this will make the induction therapy 2 weeks rather than 4 weeks if amphotericin is used alone 3. Continue high dose IV penicillin for neurosyphilis, end date October 17, 2016 4. Continued close observation and supportive measures. 5. obtain magnesium and phosphorus, CMP today 6. monitor creatinine, if it goes above 2.5 will have to discontinue amphotericin, will increase iv fluids 7. physical therapy consult Subjective Date of service: 10/11/16 Principal diagnosis: Cryptococcal meningitis, HIV, neurosyphilis Interval history: Patient is doing much better, he is more stable on his feet. He said he does not have headaches and he is able to ambulate to the bathroom Objective - Constitutional Vitals: Selected Entries 10/11/16 08:28 Temperature 97.6 F Pulse Rate [ 78 Left Radial] Respiratory 16 Rate O2 Sat by Pulse 99 Oximetry Blood Pressure 146/92 [Right Arm] Blood Pressure 110 Mean [Right Arm ] General appearance: Present: no acute distress, well-nourished - EENT Eyes: PERRL, EOM intact, no scleral icterus, no conjunctival injection ENT: hearing intact, clear oral mucosa, no oropharyngeal erythema Ears: bilateral: normal - Neck Neck: supple, normal ROM, no enlarged thyroid, no masses or JVD - Respiratory Respiratory effort: normal Respiratory: bilateral: CTA - Breasts Breasts: normal - Cardiovascular Rhythm: regular Heart Sounds: Present: S1 & S2 Extremities: no ischemia, pulses intact, No edema - Gastrointestinal General gastrointestinal: Present: soft, non-tender, normal bowel sounds - Genitourinary Male genitourinary: deferred - Integumentary Integumentary: clear, warm, dry - Musculoskeletal Musculoskeletal: strength equal bilaterally, generalized weakness - Psychiatric Psychiatric: appropriate mood/affect, cooperative - Labs CBC & Chem 7: 10/09/16 05:45 10/09/16 05:45 Labs: Microbiology 10/06/16 Unknown Stool Stool Culture - Final 10/06/16 Unknown Stool Stool for WBCs - Final NEGATIVE 10/06/16 Unknown Stool Cryptosporidium Exam - Final 10/06/16 Unknown Stool Giardia Antigen (ARIE) - Final NEGATIVE NEGATIVE Laboratory Tests 09/28/16 10/09/16 10/09/16 12:45 05:45 05:45 WBC 3.8 L Plt Count 253 Creatinine 1.9 H CSF VDRL Reactive 1:16 H
[2016-10-11] MEDS: NACL 0.9% 1000 ML 1,000 ML IV SCH (13:35)
[2016-10-11 14:46] LABS: BUN/Creatinine Ratio 10.9; Calcium 8.4 mg/dL (8.4-10.2); Chloride 104.2 mmol/L (98-107); Potassium 3.9 mmol/L (3.6-5.0)
[2016-10-11 14:58] LABS: Magnesium 1.4 mg/dL (1.7-2.3); Phosphorous 3.5 mg/dL (2.5-4.5)
[2016-10-11] MEDS ORDERED: MAGNESIUM SULFATE IV ONE (18:04)
--- NOTE | 2016-10-11 18:11 | Progress Note ---
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 Syphilis/ Neurosyphilis new diagnosis of HIV-AIDS, CD4 17, viral load [id number] Acute kidney injury likely due to amphotericin Nausea/vomiting/diarrhea, medication induced, resolved Thrombocytopenia likely due to HIV Marked hyponatremia, could be due to meningitis Right lower lobe infiltrate, possible pneumonia, resolved hypomagnesemia Plan: Continue IV amphotericin induction therapy till 10/13/2016 Added fluconazole 800 mg by mouth for induction therapy total of 2 weeks His RPR is positive with titer of 1:1024 Continue high dose IV penicillin for neurosyphilis till 10/17/2016 Continue to monitor BMP for renal function increase the rate of IV fluid, creatinine 2.2 today consult nephrology, replace electrolytes as needed Continue supportive care and nutritional supplements History Interval history: Patient seen and examined. Medical records and medication list reviewed. No acute event overnight noted by the RN. Patient denies any chest pain or difficulty breathing. Patient is tolerating diet. Still c/o headache, but no photophobia Discussed plan of care at bedside with patient. Hospitalist Physical - Physical exam Narrative exam: GENERAL: well-developed and well-nourished AAM lying on bed appeared to be in no discomfort. HEENT: Normocephalic. Atraumatic. No conjunctival congestion or icterus. Patient has moist mucous membranes. NECK: Supple. Trachea midline. CHEST/LUNGS: Clear to auscultated bilaterally, breathing nonlabored. No wheezes crackles or rhonchi. HEART/CARDIOVASCULAR: Regular in rate and rhythm. S1 and S2 positive. ABDOMEN: Abdomen is soft, nontender. Patient has normal bowel sounds. SKIN: There is no rash. Warm and dry. NEURO: No focal motor deficit. Follows command. MUSCULOSKELETAL: No joint effusion or tenderness. EXTRIMITY: No edema, no cyanosis or clubbing. PSYCH: Cooperative. - Constitutional Vitals: Temp Pulse Resp BP Pulse Ox 98.0 F 72 16 153/95 100 10/11/16 16:15 10/11/16 16:15 10/11/16 16:15 10/11/16 16:15 10/11/16 16:15 General appearance: Present: no acute distress, well-nourished Results - Labs CBC & Chem 7: 10/09/16 05:45 10/11/16 14:00 Labs: Laboratory Last Values WBC 3.8 K/mm3 (4.5-11.0) L 10/09/16 05:45 RBC 3.26 M/mm3 (3.65-5.03) L 10/09/16 05:45 Hgb 9.3 gm/dl (11.8-15.2) L 10/09/16 05:45 Hct 26.9 % (35.5-45.6) L 10/09/16 05:45 MCV 83 fl (84-94) L 10/09/16 05:45 MCH 28 pg (28-32) 10/09/16 05:45 MCHC 34 % (32-34) 10/09/16 05:45 RDW 19.7 % (13.2-15.2) H 10/09/16 05:45 Plt Count 253 K/mm3 (140-440) 10/09/16 05:45 Lymph % (Auto) 23.8 % (13.4-35.0) 10/03/16 07:00 [place] % (Auto) 13.7 % (0.0-7.3) H 10/03/16 07:00 Eos % (Auto) 2.2 % (0.0-4.3) 10/03/16 07:00 Baso % (Auto) 0.6 % (0.0-1.8) 10/03/16 07:00 Lymph # 0.8 K/mm3 (1.2-5.4) L 10/03/16 07:00 [place] # 0.4 K/mm3 (0.0-0.8) 10/03/16 07:00 Eos # 0.1 K/mm3 (0.0-0.4) 10/03/16 07:00 Baso # 0.0 K/mm3 (0.0-0.1) 10/03/16 07:00 Add Manual Diff Complete 10/09/16 05:45 Total Counted 100 10/09/16 05:45 Seg Neutrophils % 59.7 % (40.0-70.0) 10/03/16 07:00 Seg Neuts % (Manual) 68.0 % (40.0-70.0) 10/09/16 05:45 Band Neutrophils % 0 % 10/09/16 05:45 Lymphocytes % (Manual) 19.0 % (13.4-35.0) 10/09/16 05:45 Reactive Lymphs % (Man) 0 % 10/09/16 05:45 Monocytes % (Manual) 10.0 % (0.0-7.3) H 10/09/16 05:45 Eosinophils % (Manual) 3.0 % (0.0-4.3) 10/09/16 05:45 Basophils % (Manual) 0 % (0.0-1.8) 10/09/16 05:45 Metamyelocytes % 0 % 10/09/16 05:45 Myelocytes % 0 % 10/09/16 05:45 Promyelocytes % 0 % 10/09/16 05:45 Blast Cells % 0 % 10/09/16 05:45 Nucleated RBC % Not Reportable 10/09/16 05:45 Seg Neutrophils # 1.9 K/mm3 (1.8-7.7) 10/03/16 07:00 Seg Neutrophils # Man 2.6 K/mm3 (1.8-7.7) 10/09/16 05:45 Band Neutrophils # 0.0 K/mm3 10/09/16 05:45 Abs Lymphs (Manual) 215 cells/uL (850-3900) L 09/28/16 15:43 Lymphocytes # (Manual) 0.7 K/mm3 (1.2-5.4) L 10/09/16 05:45 Abs React Lymphs (Man) 0.0 K/mm3 10/09/16 05:45 Monocytes # (Manual) 0.4 K/mm3 (0.0-0.8) 10/09/16 05:45 Eosinophils # (Manual) 0.1 K/mm3 (0.0-0.4) 10/09/16 05:45 Basophils # (Manual) 0.0 K/mm3 (0.0-0.1) 10/09/16 05:45 Metamyelocytes # 0.0 K/mm3 10/09/16 05:45 Myelocytes # 0.0 K/mm3 10/09/16 05:45 Promyelocytes # 0.0 K/mm3 10/09/16 05:45 Blast Cells # 0.0 K/mm3 10/09/16 05:45 WBC Morphology Not Reportable 10/09/16 05:45 Hypersegmented Neuts Not Reportable 10/09/16 05:45 Hyposegmented Neuts Not Reportable 10/09/16 05:45 Hypogranular Neuts Not Reportable 10/09/16 05:45 Smudge Cells 1+ 10/09/16 05:45 Toxic Granulation Not Reportable 10/09/16 05:45 Toxic Vacuolation Not Reportable 10/09/16 05:45 Dohle Bodies Not Reportable 10/09/16 05:45 Pelger-Huet Anomaly Not Reportable 10/09/16 05:45 Ada Rods Not Reportable 10/09/16 05:45 Platelet Estimate Appears normal 10/09/16 05:45 Clumped Platelets Not Reportable 10/09/16 05:45 Plt Clumps, EDTA Not Reportable 10/09/16 05:45 Large Platelets Not Reportable 10/09/16 05:45 Giant Platelets Not Reportable 10/09/16 05:45 Platelet Satelliting Not Reportable 10/09/16 05:45 Plt Morphology Comment Not Reportable 10/09/16 05:45 RBC Morphology Not Reportable 10/09/16 05:45 Dimorphic RBCs Not Reportable 10/09/16 05:45 Polychromasia Not Reportable 10/09/16 05:45 Hypochromasia 1+ 10/09/16 05:45 Poikilocytosis Not Reportable 10/09/16 05:45 Anisocytosis 3+ 10/09/16 05:45 Microcytosis Not Reportable 10/09/16 05:45 Macrocytosis Not Reportable 10/09/16 05:45 Spherocytes Not Reportable 10/09/16 05:45 Pappenheimer Bodies Not Reportable 10/09/16 05:45 Sickle Cells Not Reportable 10/09/16 05:45 Target Cells Not Reportable 10/09/16 05:45 Tear Drop Cells Not Reportable 10/09/16 05:45 Ovalocytes Not Reportable 10/09/16 05:45 Helmet Cells Not Reportable 10/09/16 05:45 Varma-Haysi Bodies Not Reportable 10/09/16 05:45 [place] Rings Not Reportable 10/09/16 05:45 [place] Cells Not Reportable 10/09/16 05:45 Bite Cells Not Reportable 10/09/16 05:45 Crenated Cell Not Reportable 10/09/16 05:45 Elliptocytes Not Reportable 10/09/16 05:45 Acanthocytes (Spur) Not Reportable 10/09/16 05:45 Rouleaux Not Reportable 10/09/16 05:45 Hemoglobin C Crystals Not Reportable 10/09/16 05:45 Schistocytes Not Reportable 10/09/16 05:45 Malaria parasites Not Reportable 10/09/16 05:45 [place] Bodies Not Reportable 10/09/16 05:45 Hem Pathologist Commnt No 10/09/16 05:45 Sodium 139 mmol/L (137-145) 10/11/16 14:00 Potassium 3.9 mmol/L (3.6-5.0) 10/11/16 14:00 Chloride 104.2 mmol/L (98-107) 10/11/16 14:00 Carbon Dioxide 20 mmol/L (22-30) L 10/11/16 14:00 Anion Gap 19 mmol/L 10/11/16 14:00 BUN 24 mg/dL (9-20) H 10/11/16 14:00 Creatinine 2.2 mg/dL (0.8-1.5) H 10/11/16 14:00 Estimated GFR 45 ml/min 10/11/16 14:00 BUN/Creatinine Ratio 10.90 % 10/11/16 14:00 Glucose 75 mg/dL (75-100) 10/11/16 14:00 POC Glucose 81 (70-105) 09/29/16 21:06 Osmolality 272 Mosm/kg 09/29/16 10:01 Lactic Acid 1.9 mmol/L (0.7-2.0) 09/28/16 12:06 Calcium 8.4 mg/dL (8.4-10.2) 10/11/16 14:00 Phosphorus 3.5 mg/dL (2.5-4.5) 10/11/16 14:00 Magnesium 1.4 mg/dL (1.7-2.3) L 10/11/16 14:00 Total Bilirubin 0.4 mg/dL (0.1-1.2) 10/09/16 05:45 Direct Bilirubin < 0.2 mg/dL (0-0.2) 09/28/16 12:06 Indirect Bilirubin 0.3 mg/dL 09/28/16 12:06 AST 24 units/L (5-40) 10/09/16 05:45 ALT 17 units/L (7-56) 10/09/16 05:45 Alkaline Phosphatase 58 units/L (35-129) 10/09/16 05:45 Lactate Dehydrogenase 467 units/L (91-180) H 09/28/16 12:06 Troponin T 0.427 ng/mL (0.00-0.029) H* 09/28/16 12:06 Total Protein 6.5 g/dL (6.3-8.2) 10/09/16 05:45 Albumin 2.1 g/dL (3.9-5) L 10/09/16 05:45 Albumin/Globulin Ratio 0.5 % 10/09/16 05:45 Triglycerides 102 mg/dL (2-149) 09/28/16 12:06 Cholesterol 151 mg/dL (50-199) 09/28/16 12:06 LDL Cholesterol Direct 86 mg/dL (50-130) 09/28/16 12:06 HDL Cholesterol 45 mg/dL (40-59) 09/28/16 12:06 Cholesterol/HDL Ratio 3.35 % 09/28/16 12:06 Urine Color Yellow (Yellow) 09/28/16 12:27 Urine Turbidity Clear (Clear) 09/28/16 12:27 Urine pH 5.0 (5.0-7.0) 09/28/16 12:27 Ur Specific [place] 1.017 (1.003-1.030) 09/28/16 12:27 Urine Protein >500 mg/dL (Negative) 09/28/16 12:27 Urine Glucose (UA) Neg mg/dL (Negative) 09/28/16 12:27 Urine Ketones Neg mg/dL (Negative) 09/28/16 12:27 Urine Blood Mod (Negative) 09/28/16 12:27 Urine Nitrite Neg (Negative) 09/28/16 12:27 Urine Bilirubin Neg (Negative) 09/28/16 12:27 Urine Urobilinogen < 2.0 mg/dL (<2.0) 09/28/16 12:27 Ur Leukocyte Esterase Neg (Negative) 09/28/16 12:27 Urine WBC (Auto) < 1.0 /HPF (0.0-6.0) 09/28/16 12:27 Urine RBC (Auto) 1.0 /HPF (0.0-6.0) 09/28/16 12:27 U Epithel Cells (Auto) < 1.0 /HPF (0-13.0) 09/28/16 12:27 Urine Mucus Few /HPF 09/28/16 12:27 CSF Appearance Clear 09/28/16 12:45 CSF Color Colorless 09/28/16 12:45 CSF WBC 600 /mm3 (1-10) 09/28/16 12:45 CSF RBC 165 /mm3 (0-0) 09/28/16 12:45 CSF Seg Neutrophils 55.5 % (0-6) 09/28/16 12:45 CSF Lymphocytes % 38.0 % (40-80) 09/28/16 12:45 CSF Reactive Lymphs 0.5 % 09/28/16 12:45 CSF Monocytes % 6.0 % (15-45) 09/28/16 12:45 CSF Eosinophils % 0 % 09/28/16 12:45 CSF Basophils 0 % 09/28/16 12:45 CSF Pathologist Review C 09/28/16 12:45 CSF Glucose 3 mg/dL 09/28/16 12:45 CSF Total Protein 117 mg/dL 09/28/16 12:45 CSF VDRL Reactive 1:16 (Nonreactive) H 09/28/16 12:45 Salicylates < 0.3 mg/dL (2.8-20.0) L 09/28/16 12:06 Urine Opiates Screen Presumptive negative 09/28/16 12:20 Urine Methadone Screen Presumptive negative 09/28/16 12:20 Acetaminophen < 15.0 ug/mL (10.0-30.0) 09/28/16 12:06 Ur Barbiturates Screen Presumptive negative 09/28/16 12:20 Ur Phencyclidine Scrn Presumptive negative 09/28/16 12:20 Ur Amphetamines Screen Presumptive negative 09/28/16 12:20 U Benzodiazepines Scrn Presumptive negative 09/28/16 12:20 Urine Cocaine Screen Presumptive negative 09/28/16 12:20 U Marijuana (THC) Screen Presumptive positive 09/28/16 12:20 Drugs of Abuse Note Disclamer 09/28/16 12:20 Plasma/Serum Alcohol < 0.01 gm% (0-0.07) 09/28/16 12:06 Lymph Enumerat CD4/CD8 0.10 (0.86-5.00) L 09/28/16 15:43 % CD3 Cells 77 % (57-85) 09/28/16 15:43 Absolute CD3 Count 166 cells/uL (840-3060) L 09/28/16 15:43 % CD4 Cells 7 % (30-61) L 09/28/16 15:43 Absolute CD4 Count 14 cells/uL (490-1740) L 09/28/16 15:43 % CD8 Cells 69 % (12-42) H 09/28/16 15:43 Absolute CD8 Count 148 cells/uL (180-1170) L 09/28/16 15:43 % CD19 Cells 0 % (6-29) L 09/28/16 15:43 Absolute CD19 Count 1 cells/uL (110-660) L 09/28/16 15:43 RPR Titer 1:1024 09/28/16 15:43 RPR Reactive (Nonreactive) 09/28/16 15:43 Hepatitis A Ab Total See scanned report 09/28/16 15:43 Hep Bs Antigen Non-reactive (Negative) 09/28/16 15:43 Hep B Core IgM Ab Non-reactive (NonReactive) 09/28/16 15:43 Hepatitis C Antibody Non-reactive (NonReactive) 09/28/16 15:43 HIV-1 RNA PCR copies/ml 600851 copies/mL (<20) H 09/28/16 15:43 HIV-1 RNA (PCR) log 5.99 Log cps/mL (<1.30) H 09/28/16 15:43 HIV-1 Genotyping see below (()) 09/28/16 15:43 HIV 1&2 Antibody Rapid Reactive (Non React) 09/28/16 15:43 HIV P24 Antigen Non react (Non React) 09/28/16 15:43 Toxoplasma IgG Ab <=0.90 (<=0.90) 10/03/16 11:00 Toxoplasma IgM Ab Negative (Negative) 10/03/16 11:00 TB (QFT) Gold In Tube Negative (Negative) 09/29/16 07:30 TB Test (QFT) Nil 0.09 IU/mL (()) 09/29/16 07:30 TB Test Mitogen - Nil 7.24 IU/mL (()) 09/29/16 07:30 TB Test Antigen - Nil 0.05 IU/mL (()) 09/29/16 07:30
[2016-10-11] MEDS ORDERED: MAGNESIUM SULFATE 1 GM in NACL 0.9% 50 ML IV ONE (19:00)
[2016-10-12] MEDS: NACL IV SCH ×6 (02:10→22:27)
[2016-10-12] MEDS: PFIZERPEN IV SCH ×6 (02:10→22:27)
[2016-10-12] MEDS: ZOFRAN IV PRN (02:31)
[2016-10-12] MEDS: NACL 0.9% 1000 ML 1,000 ML IV SCH (06:18)
[2016-10-12] MEDS: DIFLUCAN PO SCH (09:54)
[2016-10-12] MEDS: LOVENOX SUB-Q SCH (09:55)
[2016-10-12] MEDS: PERCOCET 5/325 PO PRN (10:02)
[2016-10-12] MEDS: TYLENOL PO SCH (11:54)
[2016-10-12] MEDS: BENADRYL IV SCH (11:55)
--- NOTE | 2016-10-12 12:26 | Progress Note ---
Assessment and Plan Current antibiotics: penicillin G 4 million units IV q4h daily 10/03 --> Amphotericin B 0.7 mg/kilogram IV daily 09/28 --> Fluconazole 800mg po Q24H (10/09 Previous Antibiotics: Flucytosine 25 mg/kilogram po q6h 09/28-10/06 Ceftriaxone 2 g IV daily 09/28-10/03 Vancomycin IV 1 g X 1 09/28 Azithromycin 500 mg IV daily 09/28-09/30/16 ASSESSMENT: Clair Rich is a 25y/o AA male presents through the ED with a one-month history of malaise, worsening generalized headache, decreased appetite, and weight loss. He was brought to the hospital by his sister who stated that had been falling. The patient had marked neck rigidity with non- contrast head CT showing no acute changes. Spinal fluid revealed 600 WBCs with 50% segs and 38% lymphs; 165 RBCs, glucose 3, protein 117 and cryptococcal antigen 1:512 Conclusions: 1. 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 Patient was started on amphotericin with flucytocine. Flucytocine was stopped secondary to nausea, vomiting and diarrhea. Induction therapy for cryptococcal meningitis requires treatment with both amphotericin and flucytocine. Alternative would be amphotericin for 4 weeks induction followed by fluconazole, or can add fluconazole to amphotericin to complete an induction of 2 weeks then fluconazole 800mg po Daily for continuation therapy. -CSF cryptococcal antigen titer 1:512 -No opening pressure done on initial LP -mental status markedly better, patient has better range of motion of his neck. no photophobia, neck rigidity has resolved. --2 weeks induction of amphotericin ends on 10/13, however, in view of worsening creatinine will discontinue amphotericin and continue with fluonazole alone 2. HIV/AIDS, patient will need to be initiated on HIV therapy once he has established care at the [facility] or the [facility] [place] -[place] [id number] -CD4 14, 7% -information regarding follow up care given to patient and mother. Phone number and address of [facility] given. I faxed patient's lab results to the [facility]. The discharge summary will need to be faxed as well: [phone] 3. RLL infiltrate -Repeat chest xray without infiltrate, doubt pneumonia 4. Neurosyphilis, mental status is better. Patient will need to receive penicillin G for 2 weeks. -RPR positive with titer of 1:1024 -Patient without diffuse rash. -CSF VDRL 1:16 5. Marked hyponatremia -R/O SIADH, this might be related to the meningitis 6. Thrombocytopenia -Improved 7. Nausea/vomiting/diarrhea -Flucytocine stopped however patient reports that he had two episodes of nausea and vomiting 8. renal insufficiency, most likely related to the amphotericin. will monitor this closely, if creatinine goes above 2.5 will stop amphotericin and continue with Fluconazole alone -nausea and vomiting could be adding to this, this has improved --creatinine is now 2.2, will discontinue amphotericin Recommendations: 1. discontinue IV amphotericin induction therapy 2. continue fluconazole 800mg po daily, continuation phase 3. Continue IV penicillin for neurosyphilis, end date October 17, 2016 4. Continued close observation and supportive measures. 5. follow up magnesium and phosphorus, CMP today 6. monitor creatinine, continue iv fluids 7. physical therapy Subjective Date of service: 10/12/16 Principal diagnosis: Cryptococcal meningitis, HIV, neurosyphilis Interval history: Patient seen in bed comfortable, no new complaints Objective - Constitutional Vitals: Selected Entries 10/12/16 08:01 Temperature 97.8 F Pulse Rate [ 88 Left Radial] Respiratory 20 Rate O2 Sat by Pulse 100 Oximetry Blood Pressure 141/87 [Left Arm] Blood Pressure 105 Mean [Left Arm] General appearance: Present: no acute distress, mild distress, well-nourished - EENT Eyes: PERRL, EOM intact, no scleral icterus, no conjunctival injection ENT: hearing intact, clear oral mucosa, no oropharyngeal erythema, no poor dentition - Neck Neck: supple, normal ROM, no enlarged thyroid, no masses or JVD - Respiratory Respiratory effort: normal, labored Respiratory: bilateral: CTA - Breasts Breasts: deferred - Cardiovascular Rhythm: regular Heart Sounds: Present: S1 & S2 Extremities: no ischemia, pulses intact, No edema - Labs CBC & Chem 7: 10/09/16 05:45 10/11/16 14:00 Labs: Microbiology 10/06/16 Unknown Stool Stool Culture - Final 10/06/16 Unknown Stool Stool for WBCs - Final NEGATIVE 10/06/16 Unknown Stool Cryptosporidium Exam - Final 10/06/16 Unknown Stool Giardia Antigen (ARIE) - Final NEGATIVE NEGATIVE 09/28/16 15:23 Serum Cryptococcal Antigen - Final 09/28/16 12:45 Cerebral Spinal Fluid CSF Culture - Final 09/28/16 12:45 Cerebral Spinal Fluid Cryptococcal Antigen - Final Laboratory Tests 09/28/16 09/28/16 09/28/16 12:06 12:45 15:43 WBC Plt Count Creatinine CSF VDRL Reactive 1:16 H Salicylates < 0.3 L % CD4 Cells 7 L Absolute CD4 Count 14 L 10/09/16 10/11/16 05:45 14:00 WBC 3.8 L Plt Count 253 Creatinine 2.2 H CSF VDRL Salicylates % CD4 Cells Absolute CD4 Count
--- NOTE | 2016-10-12 13:25 | Consultation ---
History of Present Illness - Reason for Consult acute renal failure - History of Present Illness Mr. Rich is a 25y/o AA gentleman who presented to the ED with hx of falls at home and a one-month history of malaise, worsening generalized headache, decreased appetite, and weight loss. Per records, in the ED, patient had marked neck rigidity. Lumbar puncture was performed and CSF revealed 600 WBCs with 50% segs and 38% lymphs; 165 RBCs, glucose 3, protein 117 and cryptococcal antigen 1:512. He has received amphotericin B for treatment of cryptococcal menigitis. At admission, his SCr was 1.4mg/dL which peaked at 2.2mg/dL . Mr. Rich denies a prior history of kidney disease. At present, he has no complaints. Past History Past Medical History: No medical history Past Surgical History: No surgical history Social history: no significant social history Family history: no significant family history Medications and Allergies Allergies Allergy/AdvReac Type Severity Reaction Status Date / Time No Known Allergies Allergy Unverified 09/28/16 11:11 Home Medications Medication Instructions Recorded Confirmed Last Taken Type No Known Home Medications [No 10/02/16 10/02/16 Unknown History Reported Home Medications] Active Meds: Active Medications Acetaminophen (Tylenol) 650 mg PO Q4H PRN PRN Reason: Pain MILD(1-3)/Fever >100.5/DUVAL Acetaminophen (Tylenol) 650 mg PO Q24H [facility] Last Admin: 10/12/16 11:54 Dose: 650 mg Bisacodyl (Dulcolax) 10 mg OR QDAY PRN PRN Reason: Constipation unrelieved by MOM Enoxaparin Sodium (Lovenox) 40 mg SUB-Q QDAY [facility] Last Admin: 10/12/16 09:55 Dose: 40 mg Fluconazole (Diflucan) 800 mg PO QDAY [facility] Last Admin: 10/12/16 09:54 Dose: 800 mg Sodium Chloride (Nacl 0.9% 1000 Ml) 1,000 mls @ 125 mls/hr IV DIRECT [facility] Last Admin: 10/12/16 06:18 Dose: 125 mls/hr Penicillin G Potassium 4 mil. (units/ Sodium Chloride) 100 mls @ 100 mls/hr IV Q4HR [facility] Last Admin: 10/12/16 12:04 Dose: 100 mls/hr Magnesium Hydroxide (Milk Of Magnesia) 30 ml PO Q4H PRN PRN Reason: Constipation Ondansetron HCl (Zofran) 4 mg IV Q8H PRN PRN Reason: N/V unrelieved by Reglan Last Admin: 10/12/16 02:31 Dose: 4 mg Oxycodone/Acetaminophen (Percocet 5/325) 1 tab PO Q6H PRN PRN Reason: Pain, Moderate (4-6) Last Admin: 10/12/16 10:02 Dose: 1 tab Review of Systems Constitutional: weight loss Cardiovascular: no chest pain, no orthopnea, no shortness of breath Respiratory: cough Gastrointestinal: no abdominal pain, no nausea, no vomiting, no diarrhea Genitourinary Male: no dysuria, no hematuria Musculoskeletal: muscle weakness Neurological: no headaches Exam - Vital Signs Vital signs: Vital Signs Temp Pulse BP Pulse Ox 99.0 F 63 161/95 100 09/28/16 11:11 09/28/16 11:11 09/28/16 11:11 09/28/16 11:11 - General Appearance General appearance: well-developed, well-nourished EENT: ATNC Respiratory: Clear to Ascultation Heart: regular, S1S2 Gastrointestinal: Present: normal Integumentary: no rash Neurologic: no focal deficit Musculoskeletal: Present: other (no edema) Psychiatric: mood/affect appropriate, cooperative Results - Lab Results 10/09/16 05:45 10/12/16 04:00 Most recent lab results Calcium 8.4 mg/dL (8.4-10.2) 10/11/16 14:00 Phosphorus 3.5 mg/dL (2.5-4.5) 10/11/16 14:00 Magnesium 1.4 mg/dL (1.7-2.3) L 10/11/16 14:00 Assessment and Plan Impression: * Nonoliguric acute kidney injury most likely secondary to Amphotericin B * Cryptococcal meningitis * HIV/AIDS * Neurosyphilis * Hyponatremia - resolved * Anemia Plan: * Ampho B has been discontinued by ID team * Will obtain urine studies and renal u/s * IVF for hydration * ID recommendations noted * Dose medications for renal function * Avoid potential nephrotoxins
--- NOTE | 2016-10-12 13:48 | Progress Note ---
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 Syphilis/ Neurosyphilis new diagnosis of HIV-AIDS, CD4 17, viral load [id number] Acute kidney injury likely due to amphotericin Nausea/vomiting/diarrhea, medication induced, resolved Thrombocytopenia likely due to HIV Marked hyponatremia, could be due to meningitis Right lower lobe infiltrate, possible pneumonia, resolved hypomagnesemia Plan: IV amphotericin induction therapy on hold for elevated creatinine cont fluconazole 800 mg by mouth His RPR is positive with titer of 1:1024 Continue high dose IV penicillin for neurosyphilis till 10/17/2016 Continue to monitor BMP for renal function continue IV fluid, creatinine 2.1 today consult nephrology, replace electrolytes as needed Continue supportive care and nutritional supplements History Interval history: Patient seen and examined. Medical records and medication list reviewed. No acute event overnight noted by the RN. Patient denies any chest pain or difficulty breathing. Patient is tolerating diet. Still c/o headache, but no photophobia Discussed plan of care at bedside with patient. Hospitalist Physical - Physical exam Narrative exam: GENERAL: well-developed and well-nourished AAM lying on bed appeared to be in no discomfort. HEENT: Normocephalic. Atraumatic. No conjunctival congestion or icterus. Patient has moist mucous membranes. NECK: Supple. Trachea midline. CHEST/LUNGS: Clear to auscultated bilaterally, breathing nonlabored. No wheezes crackles or rhonchi. HEART/CARDIOVASCULAR: Regular in rate and rhythm. S1 and S2 positive. ABDOMEN: Abdomen is soft, nontender. Patient has normal bowel sounds. SKIN: There is no rash. Warm and dry. NEURO: No focal motor deficit. Follows command. MUSCULOSKELETAL: No joint effusion or tenderness. EXTRIMITY: No edema, no cyanosis or clubbing. PSYCH: Cooperative. - Constitutional Vitals: Temp Pulse Resp BP Pulse Ox 97.8 F 88 20 141/87 100 10/12/16 08:01 10/12/16 08:01 10/12/16 08:01 10/12/16 08:01 10/12/16 08:01 General appearance: Present: no acute distress, mild distress, well-nourished Results - Labs CBC & Chem 7: 10/09/16 05:45 10/12/16 04:00 Labs: Laboratory Last Values WBC 3.8 K/mm3 (4.5-11.0) L 10/09/16 05:45 RBC 3.26 M/mm3 (3.65-5.03) L 10/09/16 05:45 Hgb 9.3 gm/dl (11.8-15.2) L 10/09/16 05:45 Hct 26.9 % (35.5-45.6) L 10/09/16 05:45 MCV 83 fl (84-94) L 10/09/16 05:45 MCH 28 pg (28-32) 10/09/16 05:45 MCHC 34 % (32-34) 10/09/16 05:45 RDW 19.7 % (13.2-15.2) H 10/09/16 05:45 Plt Count 253 K/mm3 (140-440) 10/09/16 05:45 Lymph % (Auto) 23.8 % (13.4-35.0) 10/03/16 07:00 Campbell % (Auto) 13.7 % (0.0-7.3) H 10/03/16 07:00 Eos % (Auto) 2.2 % (0.0-4.3) 10/03/16 07:00 Baso % (Auto) 0.6 % (0.0-1.8) 10/03/16 07:00 Lymph # 0.8 K/mm3 (1.2-5.4) L 10/03/16 07:00 Campbell # 0.4 K/mm3 (0.0-0.8) 10/03/16 07:00 Eos # 0.1 K/mm3 (0.0-0.4) 10/03/16 07:00 Baso # 0.0 K/mm3 (0.0-0.1) 10/03/16 07:00 Add Manual Diff Complete 10/09/16 05:45 Total Counted 100 10/09/16 05:45 Seg Neutrophils % 59.7 % (40.0-70.0) 10/03/16 07:00 Seg Neuts % (Manual) 68.0 % (40.0-70.0) 10/09/16 05:45 Band Neutrophils % 0 % 10/09/16 05:45 Lymphocytes % (Manual) 19.0 % (13.4-35.0) 10/09/16 05:45 Reactive Lymphs % (Man) 0 % 10/09/16 05:45 Monocytes % (Manual) 10.0 % (0.0-7.3) H 10/09/16 05:45 Eosinophils % (Manual) 3.0 % (0.0-4.3) 10/09/16 05:45 Basophils % (Manual) 0 % (0.0-1.8) 10/09/16 05:45 Metamyelocytes % 0 % 10/09/16 05:45 Myelocytes % 0 % 10/09/16 05:45 Promyelocytes % 0 % 10/09/16 05:45 Blast Cells % 0 % 10/09/16 05:45 Nucleated RBC % Not Reportable 10/09/16 05:45 Seg Neutrophils # 1.9 K/mm3 (1.8-7.7) 10/03/16 07:00 Seg Neutrophils # Man 2.6 K/mm3 (1.8-7.7) 10/09/16 05:45 Band Neutrophils # 0.0 K/mm3 10/09/16 05:45 Abs Lymphs (Manual) 215 cells/uL (850-3900) L 09/28/16 15:43 Lymphocytes # (Manual) 0.7 K/mm3 (1.2-5.4) L 10/09/16 05:45 Abs React Lymphs (Man) 0.0 K/mm3 10/09/16 05:45 Monocytes # (Manual) 0.4 K/mm3 (0.0-0.8) 10/09/16 05:45 Eosinophils # (Manual) 0.1 K/mm3 (0.0-0.4) 10/09/16 05:45 Basophils # (Manual) 0.0 K/mm3 (0.0-0.1) 10/09/16 05:45 Metamyelocytes # 0.0 K/mm3 10/09/16 05:45 Myelocytes # 0.0 K/mm3 10/09/16 05:45 Promyelocytes # 0.0 K/mm3 10/09/16 05:45 Blast Cells # 0.0 K/mm3 10/09/16 05:45 WBC Morphology Not Reportable 10/09/16 05:45 Hypersegmented Neuts Not Reportable 10/09/16 05:45 Hyposegmented Neuts Not Reportable 10/09/16 05:45 Hypogranular Neuts Not Reportable 10/09/16 05:45 Smudge Cells 1+ 10/09/16 05:45 Toxic Granulation Not Reportable 10/09/16 05:45 Toxic Vacuolation Not Reportable 10/09/16 05:45 Dohle Bodies Not Reportable 10/09/16 05:45 Pelger-Huet Anomaly Not Reportable 10/09/16 05:45 Ada Rods Not Reportable 10/09/16 05:45 Platelet Estimate Appears normal 10/09/16 05:45 Clumped Platelets Not Reportable 10/09/16 05:45 Plt Clumps, EDTA Not Reportable 10/09/16 05:45 Large Platelets Not Reportable 10/09/16 05:45 Giant Platelets Not Reportable 10/09/16 05:45 Platelet Satelliting Not Reportable 10/09/16 05:45 Plt Morphology Comment Not Reportable 10/09/16 05:45 RBC Morphology Not Reportable 10/09/16 05:45 Dimorphic RBCs Not Reportable 10/09/16 05:45 Polychromasia Not Reportable 10/09/16 05:45 Hypochromasia 1+ 10/09/16 05:45 Poikilocytosis Not Reportable 10/09/16 05:45 Anisocytosis 3+ 10/09/16 05:45 Microcytosis Not Reportable 10/09/16 05:45 Macrocytosis Not Reportable 10/09/16 05:45 Spherocytes Not Reportable 10/09/16 05:45 Pappenheimer Bodies Not Reportable 10/09/16 05:45 Sickle Cells Not Reportable 10/09/16 05:45 Target Cells Not Reportable 10/09/16 05:45 Tear Drop Cells Not Reportable 10/09/16 05:45 Ovalocytes Not Reportable 10/09/16 05:45 Helmet Cells Not Reportable 10/09/16 05:45 Varma-Gratis Bodies Not Reportable 10/09/16 05:45 Pratt Rings Not Reportable 10/09/16 05:45 [place] Cells Not Reportable 10/09/16 05:45 Bite Cells Not Reportable 10/09/16 05:45 Crenated Cell Not Reportable 10/09/16 05:45 Elliptocytes Not Reportable 10/09/16 05:45 Acanthocytes (Spur) Not Reportable 10/09/16 05:45 Rouleaux Not Reportable 10/09/16 05:45 Hemoglobin C Crystals Not Reportable 10/09/16 05:45 Schistocytes Not Reportable 10/09/16 05:45 Malaria parasites Not Reportable 10/09/16 05:45 Warner Bodies Not Reportable 10/09/16 05:45 Hem Pathologist Commnt No 10/09/16 05:45 Sodium 139 mmol/L (137-145) 10/11/16 14:00 Potassium 3.9 mmol/L (3.6-5.0) 10/11/16 14:00 Chloride 104.2 mmol/L (98-107) 10/11/16 14:00 Carbon Dioxide 20 mmol/L (22-30) L 10/11/16 14:00 Anion Gap 19 mmol/L 10/11/16 14:00 BUN 24 mg/dL (9-20) H 10/11/16 14:00 Creatinine 2.2 mg/dL (0.8-1.5) H 10/11/16 14:00 Estimated GFR 45 ml/min 10/11/16 14:00 BUN/Creatinine Ratio 10.90 % 10/11/16 14:00 Glucose 75 mg/dL (75-100) 10/11/16 14:00 POC Glucose 81 (70-105) 09/29/16 21:06 Osmolality 272 Mosm/kg 09/29/16 10:01 Lactic Acid 1.9 mmol/L (0.7-2.0) 09/28/16 12:06 Calcium 8.4 mg/dL (8.4-10.2) 10/11/16 14:00 Phosphorus 3.5 mg/dL (2.5-4.5) 10/11/16 14:00 Magnesium 1.4 mg/dL (1.7-2.3) L 10/11/16 14:00 Total Bilirubin 0.4 mg/dL (0.1-1.2) 10/09/16 05:45 Direct Bilirubin < 0.2 mg/dL (0-0.2) 09/28/16 12:06 Indirect Bilirubin 0.3 mg/dL 09/28/16 12:06 AST 24 units/L (5-40) 10/09/16 05:45 ALT 17 units/L (7-56) 10/09/16 05:45 Alkaline Phosphatase 58 units/L (35-129) 10/09/16 05:45 Lactate Dehydrogenase 467 units/L (91-180) H 09/28/16 12:06 Troponin T 0.427 ng/mL (0.00-0.029) H* 09/28/16 12:06 Total Protein 6.5 g/dL (6.3-8.2) 10/09/16 05:45 Albumin 2.1 g/dL (3.9-5) L 10/09/16 05:45 Albumin/Globulin Ratio 0.5 % 10/09/16 05:45 Triglycerides 102 mg/dL (2-149) 09/28/16 12:06 Cholesterol 151 mg/dL (50-199) 09/28/16 12:06 LDL Cholesterol Direct 86 mg/dL (50-130) 09/28/16 12:06 HDL Cholesterol 45 mg/dL (40-59) 09/28/16 12:06 Cholesterol/HDL Ratio 3.35 % 09/28/16 12:06 Urine Color Yellow (Yellow) 09/28/16 12:27 Urine Turbidity Clear (Clear) 09/28/16 12:27 Urine pH 5.0 (5.0-7.0) 09/28/16 12:27 Ur Specific Parsons 1.017 (1.003-1.030) 09/28/16 12:27 Urine Protein >500 mg/dL (Negative) 09/28/16 12:27 Urine Glucose (UA) Neg mg/dL (Negative) 09/28/16 12:27 Urine Ketones Neg mg/dL (Negative) 09/28/16 12:27 Urine Blood Mod (Negative) 09/28/16 12:27 Urine Nitrite Neg (Negative) 09/28/16 12:27 Urine Bilirubin Neg (Negative) 09/28/16 12:27 Urine Urobilinogen < 2.0 mg/dL (<2.0) 09/28/16 12:27 Ur Leukocyte Esterase Neg (Negative) 09/28/16 12:27 Urine WBC (Auto) < 1.0 /HPF (0.0-6.0) 09/28/16 12:27 Urine RBC (Auto) 1.0 /HPF (0.0-6.0) 09/28/16 12:27 U Epithel Cells (Auto) < 1.0 /HPF (0-13.0) 09/28/16 12:27 Urine Mucus Few /HPF 09/28/16 12:27 CSF Appearance Clear 09/28/16 12:45 CSF Color Colorless 09/28/16 12:45 CSF WBC 600 /mm3 (1-10) 09/28/16 12:45 CSF RBC 165 /mm3 (0-0) 09/28/16 12:45 CSF Seg Neutrophils 55.5 % (0-6) 09/28/16 12:45 CSF Lymphocytes % 38.0 % (40-80) 09/28/16 12:45 CSF Reactive Lymphs 0.5 % 09/28/16 12:45 CSF Monocytes % 6.0 % (15-45) 09/28/16 12:45 CSF Eosinophils % 0 % 09/28/16 12:45 CSF Basophils 0 % 09/28/16 12:45 CSF Pathologist Review C 09/28/16 12:45 CSF Glucose 3 mg/dL 09/28/16 12:45 CSF Total Protein 117 mg/dL 09/28/16 12:45 CSF VDRL Reactive 1:16 (Nonreactive) H 09/28/16 12:45 Salicylates < 0.3 mg/dL (2.8-20.0) L 09/28/16 12:06 Urine Opiates Screen Presumptive negative 09/28/16 12:20 Urine Methadone Screen Presumptive negative 09/28/16 12:20 Acetaminophen < 15.0 ug/mL (10.0-30.0) 09/28/16 12:06 Ur Barbiturates Screen Presumptive negative 09/28/16 12:20 Ur Phencyclidine Scrn Presumptive negative 09/28/16 12:20 Ur Amphetamines Screen Presumptive negative 09/28/16 12:20 U Benzodiazepines Scrn Presumptive negative 09/28/16 12:20 Urine Cocaine Screen Presumptive negative 09/28/16 12:20 U Marijuana (THC) Screen Presumptive positive 09/28/16 12:20 Drugs of Abuse Note Disclamer 09/28/16 12:20 Plasma/Serum Alcohol < 0.01 gm% (0-0.07) 09/28/16 12:06 Lymph Enumerat CD4/CD8 0.10 (0.86-5.00) L 09/28/16 15:43 % CD3 Cells 77 % (57-85) 09/28/16 15:43 Absolute CD3 Count 166 cells/uL (840-3060) L 09/28/16 15:43 % CD4 Cells 7 % (30-61) L 09/28/16 15:43 Absolute CD4 Count 14 cells/uL (490-1740) L 09/28/16 15:43 % CD8 Cells 69 % (12-42) H 09/28/16 15:43 Absolute CD8 Count 148 cells/uL (180-1170) L 09/28/16 15:43 % CD19 Cells 0 % (6-29) L 09/28/16 15:43 Absolute CD19 Count 1 cells/uL (110-660) L 09/28/16 15:43 RPR Titer 1:1024 09/28/16 15:43 RPR Reactive (Nonreactive) 09/28/16 15:43 Hepatitis A Ab Total See scanned report 09/28/16 15:43 Hep Bs Antigen Non-reactive (Negative) 09/28/16 15:43 Hep B Core IgM Ab Non-reactive (NonReactive) 09/28/16 15:43 Hepatitis C Antibody Non-reactive (NonReactive) 09/28/16 15:43 HIV-1 RNA PCR copies/ml 059563 copies/mL (<20) H 09/28/16 15:43 HIV-1 RNA (PCR) log 5.99 Log cps/mL (<1.30) H 09/28/16 15:43 HIV-1 Genotyping see below (()) 09/28/16 15:43 HIV 1&2 Antibody Rapid Reactive (Non React) 09/28/16 15:43 HIV P24 Antigen Non react (Non React) 09/28/16 15:43 Toxoplasma IgG Ab <=0.90 (<=0.90) 10/03/16 11:00 Toxoplasma IgM Ab Negative (Negative) 10/03/16 11:00 TB (QFT) Gold In Tube Negative (Negative) 09/29/16 07:30 TB Test (QFT) Nil 0.09 IU/mL (()) 09/29/16 07:30 TB Test Mitogen - Nil 7.24 IU/mL (()) 09/29/16 07:30 TB Test Antigen - Nil 0.05 IU/mL (()) 09/29/16 07:30
[2016-10-12] MEDS: [UNRECOGNIZED DRUG - OTHER] IV SCH (14:22)
[2016-10-12] MEDS: D5W (50 ML) IV SCH (14:22)
[2016-10-12] MEDS: D5W IV SCH (14:22)
[2016-10-12 14:27] LABS: Calcium 8.3 mg/dL (8.4-10.2); Chloride 103.6 mmol/L (98-107); Potassium 3.6 mmol/L (3.6-5.0)
[2016-10-13] MEDS: PFIZERPEN IV SCH ×6 (02:18→21:37)
[2016-10-13] MEDS: NACL IV SCH ×6 (02:18→21:37)
[2016-10-13 06:42] LABS: Basophils % (Auto) 0.7 % (0.0-1.8); Hematocrit 22.9 % (35.5-45.6); Hemoglobin 7.7 gm/dl (11.8-15.2); Mean Corpuscular HGB Conc 34 % (32-34); Mean Corpuscular Hemoglobin 28 pg (28-32); Mean Corpuscular Volume 83 fl (84-94); Platelet Count 212 K/mm3 (140-440); Red Blood Count 2.75 M/mm3 (3.65-5.03); White Blood Count 3.7 K/mm3 (4.5-11.0)
[2016-10-13 06:49] LABS: Bacteria,Urine 1+ /HPF (Negative); Bilirubin,Urine NEG (Negative); Blood,Urine SM (Negative); Ketones,Urine NEG (Negative); Leukocyte Esterase,Urine NEG (Negative); Mucus,Urine FEW /HPF; Nitrite,Urine NEG (Negative); Urobilinogen,Urine < 2.0 mg/dL (<2.0)
[2016-10-13 06:57] LABS: BUN/Creatinine Ratio 11.11; Calcium 8.1 mg/dL (8.4-10.2)
[2016-10-13] MEDS: NACL 0.9% 1000 ML 1,000 ML IV SCH (07:48)
--- NOTE | 2016-10-13 08:13 | Progress Note ---
Assessment and Plan Impression: * Nonoliguric acute kidney injury most likely secondary to Amphotericin B * Cryptococcal meningitis * HIV/AIDS * Neurosyphilis * Hyponatremia - resolved * Anemia Plan: * cr improved today, was 1.4 initially * Ampho B has been discontinued by ID team * Will obtain urine studies and renal u/s * IVF for hydration * ID recommendations noted * Dose medications for renal function * Avoid potential nephrotoxins Subjective Date of service: 10/13/16 Principal diagnosis: Cryptococcal meningitis, HIV, neurosyphilis Interval history: resting well bed today Objective - Exam Narrative Exam: General appearance: well-developed, well-nourished EENT: ATNC Respiratory: Clear to Ascultation Heart: regular, S1S2 Gastrointestinal: Present: normal Integumentary: no rash Neurologic: no focal deficit Musculoskeletal: Present: other (no edema) Psychiatric: mood/affect appropriate, cooperative - Vital Signs Vital signs: Vital Signs - 12hr 10/12/16 10/13/16 22:49 08:00 Temperature 97.6 F 98.5 F Pulse Rate [ 75 120 H Left Radial] Respiratory 20 20 Rate Blood Pressure 127/85 116/56 [Left Arm] O2 Sat by Pulse 100 100 Oximetry - Lab 10/13/16 04:00 10/13/16 04:00 Most recent lab results Calcium 8.1 mg/dL (8.4-10.2) L 10/13/16 04:00 Phosphorus 3.5 mg/dL (2.5-4.5) 10/11/16 14:00 Magnesium 1.6 mg/dL (1.7-2.3) L 10/13/16 00:11 Urine Creatinine 44.7 mg/dL (0.1-20.0) H 10/13/16 06:15 Urine Sodium 135 mEq/L 10/13/16 06:15
[2016-10-13] MEDS: DIFLUCAN PO SCH (09:25)
[2016-10-13] MEDS: LOVENOX SUB-Q SCH (09:26)
[2016-10-13] MEDS ORDERED: MAGNESIUM SULFATE 2GM/50ML 50 ML IV ONE (10:00)
--- NOTE | 2016-10-13 11:35 | Progress Note ---
Assessment and Plan Current antibiotics: Aqueous penicillin 4 million units IV q4h daily 10/03 --> Fluconazole 800 mg po q day 10/09 --> Previous Antibiotics: Amphotericin B 0.7 mg/kilogram IV daily 09/28-10/12 Flucytosine 25 mg/kilogram po q6h 09/28-10/06 Ceftriaxone 2 g IV daily 09/28-10/03 Vancomycin IV 1 g X 1 09/28 Azithromycin 500 mg IV daily 09/28-09/30/16 ASSESSMENT: Clair Rich is a 25y/o AA male presents through the ED with a one-month history of malaise, worsening generalized headache, decreased appetite, and weight loss. He was brought to the hospital by his sister who stated that had been falling. The patient had marked neck rigidity with non- contrast head CT showing no acute changes. 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 -No opening pressure done on initial LP -Associated cryptococcemia with AFB blood culture growing yeast -Completed amphotericin induction therapy and is now on high-dose fluconazole 2. HIV/AIDS -VL [id number] -CD4 14, 7% 3. RLL infiltrate -Repeat chest xray without infiltrate, doubt pneumonia 4. Neurosyphilis -RPR positive with titer of 1:1024 -Patient without diffuse rash. -CSF VDRL 1:16 5. Marked hyponatremia -R/O SIADH, this might be related to the meningitis -Resolved 6. Thrombocytopenia -Resolved 7. Nausea/vomiting/diarrhea -Seems to have resolved with 5-FC being discontinued 8. RANJIT -Likely secondary to previous amphotericin therapy -Trending down with amphotericin stopped 9. Hypomagnesemia -Secondary to amphotericin PLAN: 1. Continue fluconazole 800mg po daily 2. Continue IV penicillin for neurosyphilis, end date October 17, 2016 3. Continued close observation and supportive measures. 5. Replete magnesium and phosphorus as per renal 6. Follow creatinine, continue iv fluids 7. physical therapy Glynn Warren MD [facility] Office: [phone] Subjective Date of service: 10/13/16 Principal diagnosis: Cryptococcal meningitis, HIV, neurosyphilis Interval history: No complaints except states that "nurse was rude to him." So continues to have intermittent nausea and vomiting. No significant headaches or blurred vision. Objective - Exam Narrative Exam: GENERAL: Well-developed, well nourished male who is alert and very responsive and in NAD. Much better than when I last saw him. HEENT: Pupils are equal reactive to light and accommodation. Conjunctiva clear. Thrush is improved. NECK: Less stiffness to forward flexion. No enlargement of the thyroid gland. Shotty cervical lymphadenopathy. No jugular venous distention at 30. LUNGS: Clear with no adventitious sounds. HEART: Tachycardic. No murmur or gallop. ABDOMEN: Soft and nontender. Liver and spleen are not palpably enlarged or tender. No palpable masses. Bowel sounds are normoactive. EXTREMITIES: Shotty cervical, axillary and inguinal lymph node enlargement. SKIN: No other rash, ulcers or wounds. NEUROLOGIC: No focal findings. Walking in the room. - Constitutional Vitals: Vital Signs Temp Pulse Resp BP Pulse Ox 98.5 F 120 H 20 116/56 100 10/13/16 08:00 10/13/16 08:00 10/13/16 08:00 10/13/16 08:00 10/13/16 08:00 Temperature -Last 24 Hours Temperature 98.5 F Temperature 97.6 F Temperature 97.5 F - Labs CBC & Chem 7: 10/13/16 04:00 10/13/16 04:00 Labs: Abnormal lab results Laboratory Tests 10/13/16 00:11 Magnesium 1.6 L Micro: 09/28/16 12:45 Cerebral Spinal Fluid CSF Culture - No growth 09/28/16 12:45 Cerebral Spinal Fluid Cryptococcal Antigen - 1:512 09/28/16 12:34 Peripheral/Venous Blood Culture - Preliminary NO GROWTH AFTER 72 HOURS 09/28/16 12:06 Peripheral/Venous Blood Culture - Preliminary NO GROWTH AFTER 72 HOURS 09/28/16 15:23 Serum Cryptococcal Antigen - 1:512 09/28 AFB blood culture is growing yeast Imagin/23: MRI of the brain: Likely small recent infarcts with no significant mass effect or hemorrhagic transformation no signs of hydrocephalus. Changes of acute and chronic sinusitis.
--- NOTE | 2016-10-13 12:33 | Ultrasound Report ---
ULTRASOUND RENAL BILATERAL: HISTORY: Acute renal insufficiency. TECHNIQUE: Transabdominal ultrasound imaging. FINDINGS: The right kidney measures 11.4 cm. The left kidney measures 13.2 cm. Both kidneys are normal size and position but there is marked increased cortical echotexture bilaterally. There is poor differentiation of the corticomedullary junction. No evidence for shadowing renal stone, cystic disease, mass, hydronephrosis or perinephric fluid. Images through the bladder are unremarkable. IMPRESSION: Normal size but echogenic kidneys consistent with medical renal disease or acute renal failure. No focal renal lesion or obstructive uropathy.
[2016-10-13] MEDS: TYLENOL PO PRN (16:10)
[2016-10-13] MEDS: ZOFRAN IV PRN (19:37)
[2016-10-14] MEDS: NACL 0.9% 1000 ML 1,000 ML IV SCH (00:55)
[2016-10-14] MEDS: NACL IV SCH ×6 (02:30→22:59)
[2016-10-14] MEDS: PFIZERPEN IV SCH ×6 (02:30→22:59)
[2016-10-14 06:53] LABS: Basophils % (Auto) 1.5 % (0.0-1.8); Eosinophils % (Auto) 3.5 % (0.0-4.3); Hematocrit 23.9 % (35.5-45.6); Hemoglobin 8.3 gm/dl (11.8-15.2); Mean Corpuscular HGB Conc 35 % (32-34); Mean Corpuscular Hemoglobin 29 pg (28-32); Mean Corpuscular Volume 83 fl (84-94); Platelet Count 209 K/mm3 (140-440); Red Blood Count 2.89 M/mm3 (3.65-5.03); White Blood Count 3.6 K/mm3 (4.5-11.0)
[2016-10-14 07:01] LABS: BUN/Creatinine Ratio 8.94; Calcium 8.7 mg/dL (8.4-10.2); Chloride 107.6 mmol/L (98-107); Magnesium 1.7 mg/dL (1.7-2.3); Potassium 3.7 mmol/L (3.6-5.0)
[2016-10-14 07:24] LABS: Red Cell Distribution Width 23.8 % (13.2-15.2)
--- NOTE | 2016-10-14 07:42 | Progress Note ---
Assessment and Plan Impression: * Nonoliguric acute kidney injury most likely secondary to Amphotericin B * Cryptococcal meningitis * HIV/AIDS * Neurosyphilis * Hyponatremia - resolved * Anemia Plan: * cr stable today * add po sodium bicarb * Ampho B has been discontinued by ID team, no diflucan * IVF for hydration * ID recommendations noted * Dose medications for renal function * Avoid potential nephrotoxins Subjective Date of service: 10/14/16 Principal diagnosis: Cryptococcal meningitis, HIV, neurosyphilis Interval history: resting well bed today Objective - Exam Narrative Exam: General appearance: well-developed, well-nourished EENT: ATNC Respiratory: Clear to Ascultation Heart: regular, S1S2 Gastrointestinal: Present: normal Integumentary: no rash Neurologic: no focal deficit Musculoskeletal: Present: other (no edema) Psychiatric: mood/affect appropriate, cooperative - Vital Signs Vital signs: Vital Signs - 12hr 10/13/16 22:28 Temperature 97.8 F Pulse Rate [ 82 Left Radial] Respiratory 18 Rate Blood Pressure 134/80 [Right Arm] O2 Sat by Pulse 100 Oximetry - Lab 10/14/16 06:10 10/14/16 06:10 Most recent lab results Calcium 8.7 mg/dL (8.4-10.2) 10/14/16 06:10 Phosphorus 3.5 mg/dL (2.5-4.5) 10/11/16 14:00 Magnesium 1.7 mg/dL (1.7-2.3) 10/14/16 06:10 Urine Creatinine 44.7 mg/dL (0.1-20.0) H 10/13/16 06:15 Urine Sodium 135 mEq/L 10/13/16 06:15
[2016-10-14] MEDS: NACL 0.45% 1000 ML 1,000 ML IV SCH ×2 (09:29→22:58)
[2016-10-14] MEDS: DIFLUCAN PO SCH (09:30)
[2016-10-14] MEDS: SODIUM BICARBONATE PO SCH ×3 (09:30→20:13)
[2016-10-14] MEDS: LOVENOX SUB-Q SCH (09:31)
[2016-10-14] MEDS: TYLENOL PO PRN (09:31)
--- NOTE | 2016-10-14 09:52 | Progress Note ---
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 Syphilis/ Neurosyphilis new diagnosis of HIV-AIDS, CD4 17, viral load [id number] Acute kidney injury likely due to amphotericin Nausea/vomiting/diarrhea, medication induced, resolved Thrombocytopenia likely due to HIV Marked hyponatremia, could be due to meningitis Right lower lobe infiltrate, possible pneumonia, resolved hypomagnesemia Plan: IV amphotericin induction therapy on hold for elevated creatinine cont fluconazole 800 mg by mouth His RPR is positive with titer of 1:1024 Continue high dose IV penicillin for neurosyphilis till 10/17/2016 Continue to monitor BMP for renal function continue IV fluid, creatinine 1.8 today consult nephrology, replace electrolytes as needed Continue supportive care and nutritional supplements History Interval history: Patient seen and examined. Medical records and medication list reviewed. No acute event overnight noted by the RN. Patient still appeared to be more sleepy today Still c/o headache, but no photophobia Discussed plan of care at bedside with patient. Hospitalist Physical - Physical exam Narrative exam: GENERAL: well-developed and well-nourished AAM lying on bed appeared to be in no discomfort. HEENT: Normocephalic. Atraumatic. No conjunctival congestion or icterus. Patient has moist mucous membranes. NECK: Supple. Trachea midline. CHEST/LUNGS: Clear to auscultated bilaterally, breathing nonlabored. No wheezes crackles or rhonchi. HEART/CARDIOVASCULAR: Regular in rate and rhythm. S1 and S2 positive. ABDOMEN: Abdomen is soft, nontender. Patient has normal bowel sounds. SKIN: There is no rash. Warm and dry. NEURO: No focal motor deficit. Appears sleepy. MUSCULOSKELETAL: No joint effusion or tenderness. EXTRIMITY: No edema, no cyanosis or clubbing. PSYCH: Cooperative. - Constitutional Vitals: Temp Pulse Resp BP Pulse Ox 97.8 F 82 18 134/80 100 10/13/16 22:28 10/13/16 22:28 10/13/16 22:28 10/13/16 22:28 10/13/16 22:28 General appearance: Present: no acute distress, mild distress, well-nourished Results - Labs CBC & Chem 7: 10/14/16 06:10 10/14/16 06:10 Labs: Laboratory Last Values WBC 3.6 K/mm3 (4.5-11.0) L 10/14/16 06:10 RBC 2.89 M/mm3 (3.65-5.03) L 10/14/16 06:10 Hgb 8.3 gm/dl (11.8-15.2) L 10/14/16 06:10 Hct 23.9 % (35.5-45.6) L 10/14/16 06:10 MCV 83 fl (84-94) L 10/14/16 06:10 MCH 29 pg (28-32) 10/14/16 06:10 MCHC 35 % (32-34) H 10/14/16 06:10 RDW 23.8 % (13.2-15.2) H 10/14/16 06:10 Plt Count 209 K/mm3 (140-440) 10/14/16 06:10 Lymph % (Auto) 30.5 % (13.4-35.0) 10/14/16 06:10 Humphreys % (Auto) 9.1 % (0.0-7.3) H 10/14/16 06:10 Eos % (Auto) 3.5 % (0.0-4.3) 10/14/16 06:10 Baso % (Auto) 1.5 % (0.0-1.8) 10/14/16 06:10 Lymph # 1.1 K/mm3 (1.2-5.4) L 10/14/16 06:10 Humphreys # 0.3 K/mm3 (0.0-0.8) 10/14/16 06:10 Eos # 0.1 K/mm3 (0.0-0.4) 10/14/16 06:10 Baso # 0.1 K/mm3 (0.0-0.1) 10/14/16 06:10 Add Manual Diff Complete 10/09/16 05:45 Total Counted 100 10/09/16 05:45 Seg Neutrophils % 55.4 % (40.0-70.0) 10/14/16 06:10 Seg Neuts % (Manual) 68.0 % (40.0-70.0) 10/09/16 05:45 Band Neutrophils % 0 % 10/09/16 05:45 Lymphocytes % (Manual) 19.0 % (13.4-35.0) 10/09/16 05:45 Reactive Lymphs % (Man) 0 % 10/09/16 05:45 Monocytes % (Manual) 10.0 % (0.0-7.3) H 10/09/16 05:45 Eosinophils % (Manual) 3.0 % (0.0-4.3) 10/09/16 05:45 Basophils % (Manual) 0 % (0.0-1.8) 10/09/16 05:45 Metamyelocytes % 0 % 10/09/16 05:45 Myelocytes % 0 % 10/09/16 05:45 Promyelocytes % 0 % 10/09/16 05:45 Blast Cells % 0 % 10/09/16 05:45 Nucleated RBC % Not Reportable 10/09/16 05:45 Seg Neutrophils # 2.0 K/mm3 (1.8-7.7) 10/14/16 06:10 Seg Neutrophils # Man 2.6 K/mm3 (1.8-7.7) 10/09/16 05:45 Band Neutrophils # 0.0 K/mm3 10/09/16 05:45 Abs Lymphs (Manual) 215 cells/uL (850-3900) L 09/28/16 15:43 Lymphocytes # (Manual) 0.7 K/mm3 (1.2-5.4) L 10/09/16 05:45 Abs React Lymphs (Man) 0.0 K/mm3 10/09/16 05:45 Monocytes # (Manual) 0.4 K/mm3 (0.0-0.8) 10/09/16 05:45 Eosinophils # (Manual) 0.1 K/mm3 (0.0-0.4) 10/09/16 05:45 Basophils # (Manual) 0.0 K/mm3 (0.0-0.1) 10/09/16 05:45 Metamyelocytes # 0.0 K/mm3 10/09/16 05:45 Myelocytes # 0.0 K/mm3 10/09/16 05:45 Promyelocytes # 0.0 K/mm3 10/09/16 05:45 Blast Cells # 0.0 K/mm3 10/09/16 05:45 WBC Morphology Not Reportable 10/09/16 05:45 Hypersegmented Neuts Not Reportable 10/09/16 05:45 Hyposegmented Neuts Not Reportable 10/09/16 05:45 Hypogranular Neuts Not Reportable 10/09/16 05:45 Smudge Cells 1+ 10/09/16 05:45 Toxic Granulation Not Reportable 10/09/16 05:45 Toxic Vacuolation Not Reportable 10/09/16 05:45 Dohle Bodies Not Reportable 10/09/16 05:45 Pelger-Huet Anomaly Not Reportable 10/09/16 05:45 Ada Rods Not Reportable 10/09/16 05:45 Platelet Estimate Appears normal 10/09/16 05:45 Clumped Platelets Not Reportable 10/09/16 05:45 Plt Clumps, EDTA Not Reportable 10/09/16 05:45 Large Platelets Not Reportable 10/09/16 05:45 Giant Platelets Not Reportable 10/09/16 05:45 Platelet Satelliting Not Reportable 10/09/16 05:45 Plt Morphology Comment Not Reportable 10/09/16 05:45 RBC Morphology Not Reportable 10/09/16 05:45 Dimorphic RBCs Not Reportable 10/09/16 05:45 Polychromasia Not Reportable 10/09/16 05:45 Hypochromasia 1+ 10/09/16 05:45 Poikilocytosis Not Reportable 10/09/16 05:45 Anisocytosis 3+ 10/09/16 05:45 Microcytosis Not Reportable 10/09/16 05:45 Macrocytosis Not Reportable 10/09/16 05:45 Spherocytes Not Reportable 10/09/16 05:45 Pappenheimer Bodies Not Reportable 10/09/16 05:45 Sickle Cells Not Reportable 10/09/16 05:45 Target Cells Not Reportable 10/09/16 05:45 Tear Drop Cells Not Reportable 10/09/16 05:45 Ovalocytes Not Reportable 10/09/16 05:45 Helmet Cells Not Reportable 10/09/16 05:45 Varma-Brawley Bodies Not Reportable 10/09/16 05:45 Mission Rings Not Reportable 10/09/16 05:45 Alycia Cells Not Reportable 10/09/16 05:45 Bite Cells Not Reportable 10/09/16 05:45 Crenated Cell Not Reportable 10/09/16 05:45 Elliptocytes Not Reportable 10/09/16 05:45 Acanthocytes (Spur) Not Reportable 10/09/16 05:45 Rouleaux Not Reportable 10/09/16 05:45 Hemoglobin C Crystals Not Reportable 10/09/16 05:45 Schistocytes Not Reportable 10/09/16 05:45 Malaria parasites Not Reportable 10/09/16 05:45 Warner Bodies Not Reportable 10/09/16 05:45 Hem Pathologist Commnt No 10/09/16 05:45 Sodium 141 mmol/L (137-145) 10/14/16 06:10 Potassium 3.7 mmol/L (3.6-5.0) 10/14/16 06:10 Chloride 107.6 mmol/L (98-107) H 10/14/16 06:10 Carbon Dioxide 19 mmol/L (22-30) L 10/14/16 06:10 Anion Gap 18 mmol/L 10/14/16 06:10 BUN 17 mg/dL (9-20) 10/14/16 06:10 Creatinine 1.9 mg/dL (0.8-1.5) H 10/14/16 06:10 Estimated GFR 53 ml/min 10/14/16 06:10 BUN/Creatinine Ratio 8.94 % 10/14/16 06:10 Glucose 77 mg/dL (75-100) 10/14/16 06:10 POC Glucose 81 (70-105) 09/29/16 21:06 Osmolality 272 Mosm/kg 09/29/16 10:01 Lactic Acid 1.9 mmol/L (0.7-2.0) 09/28/16 12:06 Calcium 8.7 mg/dL (8.4-10.2) 10/14/16 06:10 Phosphorus 3.5 mg/dL (2.5-4.5) 10/11/16 14:00 Magnesium 1.7 mg/dL (1.7-2.3) 10/14/16 06:10 Total Bilirubin 0.4 mg/dL (0.1-1.2) 10/09/16 05:45 Direct Bilirubin < 0.2 mg/dL (0-0.2) 09/28/16 12:06 Indirect Bilirubin 0.3 mg/dL 09/28/16 12:06 AST 24 units/L (5-40) 10/09/16 05:45 ALT 17 units/L (7-56) 10/09/16 05:45 Alkaline Phosphatase 58 units/L (35-129) 10/09/16 05:45 Lactate Dehydrogenase 467 units/L (91-180) H 09/28/16 12:06 Troponin T 0.427 ng/mL (0.00-0.029) H* 09/28/16 12:06 Total Protein 6.5 g/dL (6.3-8.2) 10/09/16 05:45 Albumin 2.1 g/dL (3.9-5) L 10/09/16 05:45 Albumin/Globulin Ratio 0.5 % 10/09/16 05:45 Triglycerides 102 mg/dL (2-149) 09/28/16 12:06 Cholesterol 151 mg/dL (50-199) 09/28/16 12:06 LDL Cholesterol Direct 86 mg/dL (50-130) 09/28/16 12:06 HDL Cholesterol 45 mg/dL (40-59) 09/28/16 12:06 Cholesterol/HDL Ratio 3.35 % 09/28/16 12:06 Urine Color Straw (Yellow) 10/13/16 06:15 Urine Turbidity Clear (Clear) 10/13/16 06:15 Urine pH 5.0 (5.0-7.0) 10/13/16 06:15 Ur Specific [place] 1.011 (1.003-1.030) 10/13/16 06:15 Urine Protein 30 mg/dl mg/dL (Negative) 10/13/16 06:15 Urine Glucose (UA) Neg mg/dL (Negative) 10/13/16 06:15 Urine Ketones Neg mg/dL (Negative) 10/13/16 06:15 Urine Blood Sm (Negative) 10/13/16 06:15 Urine Nitrite Neg (Negative) 10/13/16 06:15 Urine Bilirubin Neg (Negative) 10/13/16 06:15 Urine Urobilinogen < 2.0 mg/dL (<2.0) 10/13/16 06:15 Ur Leukocyte Esterase Neg (Negative) 10/13/16 06:15 Urine WBC (Auto) 1.0 /HPF (0.0-6.0) 10/13/16 06:15 Urine RBC (Auto) 1.0 /HPF (0.0-6.0) 10/13/16 06:15 U Epithel Cells (Auto) < 1.0 /HPF (0-13.0) 10/13/16 06:15 Urine Bacteria (Auto) 1+ /HPF (Negative) 10/13/16 06:15 Urine Mucus Few /HPF 10/13/16 06:15 Urine Eosinophils None seen (None Seen) 10/13/16 06:15 Urine Creatinine 44.7 mg/dL (0.1-20.0) H 10/13/16 06:15 Urine Sodium 135 mEq/L 10/13/16 06:15 CSF Appearance Clear 09/28/16 12:45 CSF Color Colorless 09/28/16 12:45 CSF WBC 600 /mm3 (1-10) 09/28/16 12:45 CSF RBC 165 /mm3 (0-0) 09/28/16 12:45 CSF Seg Neutrophils 55.5 % (0-6) 09/28/16 12:45 CSF Lymphocytes % 38.0 % (40-80) 09/28/16 12:45 CSF Reactive Lymphs 0.5 % 09/28/16 12:45 CSF Monocytes % 6.0 % (15-45) 09/28/16 12:45 CSF Eosinophils % 0 % 09/28/16 12:45 CSF Basophils 0 % 09/28/16 12:45 CSF Pathologist Review C 09/28/16 12:45 CSF Glucose 3 mg/dL 09/28/16 12:45 CSF Total Protein 117 mg/dL 09/28/16 12:45 CSF VDRL Reactive 1:16 (Nonreactive) H 09/28/16 12:45 Salicylates < 0.3 mg/dL (2.8-20.0) L 09/28/16 12:06 Urine Opiates Screen Presumptive negative 09/28/16 12:20 Urine Methadone Screen Presumptive negative 09/28/16 12:20 Acetaminophen < 15.0 ug/mL (10.0-30.0) 09/28/16 12:06 Ur Barbiturates Screen Presumptive negative 09/28/16 12:20 Ur Phencyclidine Scrn Presumptive negative 09/28/16 12:20 Ur Amphetamines Screen Presumptive negative 09/28/16 12:20 U Benzodiazepines Scrn Presumptive negative 09/28/16 12:20 Urine Cocaine Screen Presumptive negative 09/28/16 12:20 U Marijuana (THC) Screen Presumptive positive 09/28/16 12:20 Drugs of Abuse Note Disclamer 09/28/16 12:20 Plasma/Serum Alcohol < 0.01 gm% (0-0.07) 09/28/16 12:06 Lymph Enumerat CD4/CD8 0.10 (0.86-5.00) L 09/28/16 15:43 % CD3 Cells 77 % (57-85) 09/28/16 15:43 Absolute CD3 Count 166 cells/uL (840-3060) L 09/28/16 15:43 % CD4 Cells 7 % (30-61) L 09/28/16 15:43 Absolute CD4 Count 14 cells/uL (490-1740) L 09/28/16 15:43 % CD8 Cells 69 % (12-42) H 09/28/16 15:43 Absolute CD8 Count 148 cells/uL (180-1170) L 09/28/16 15:43 % CD19 Cells 0 % (6-29) L 09/28/16 15:43 Absolute CD19 Count 1 cells/uL (110-660) L 09/28/16 15:43 RPR Titer 1:1024 09/28/16 15:43 RPR Reactive (Nonreactive) 09/28/16 15:43 Hepatitis A Ab Total See scanned report 09/28/16 15:43 Hep Bs Antigen Non-reactive (Negative) 09/28/16 15:43 Hep B Core IgM Ab Non-reactive (NonReactive) 09/28/16 15:43 Hepatitis C Antibody Non-reactive (NonReactive) 09/28/16 15:43 HIV-1 RNA PCR copies/ml 663331 copies/mL (<20) H 09/28/16 15:43 HIV-1 RNA (PCR) log 5.99 Log cps/mL (<1.30) H 09/28/16 15:43 HIV-1 Genotyping see below (()) 09/28/16 15:43 HIV 1&2 Antibody Rapid Reactive (Non React) 09/28/16 15:43 HIV P24 Antigen Non react (Non React) 09/28/16 15:43 Toxoplasma IgG Ab <=0.90 (<=0.90) 10/03/16 11:00 Toxoplasma IgM Ab Negative (Negative) 10/03/16 11:00 TB (QFT) Gold In Tube Negative (Negative) 09/29/16 07:30 TB Test (QFT) Nil 0.09 IU/mL (()) 09/29/16 07:30 TB Test Mitogen - Nil 7.24 IU/mL (()) 09/29/16 07:30 TB Test Antigen - Nil 0.05 IU/mL (()) 09/29/16 07:30
--- NOTE | 2016-10-14 13:20 | Progress Note ---
Assessment and Plan Current antibiotics: Aqueous penicillin 4 million units IV q4h daily 10/03 --> Fluconazole 800 mg po q day 10/09 --> Previous Antibiotics: Amphotericin B 0.7 mg/kilogram IV daily 09/28-10/12 Flucytosine 25 mg/kilogram po q6h 09/28-10/06 Ceftriaxone 2 g IV daily 09/28-10/03 Vancomycin IV 1 g X 1 09/28 Azithromycin 500 mg IV daily 09/28-09/30/16 ASSESSMENT: Clair Rich is a 25y/o AA male presents through the ED with a one-month history of malaise, worsening generalized headache, decreased appetite, and weight loss. He was brought to the hospital by his sister who stated that had been falling. The patient had marked neck rigidity with non- contrast head CT showing no acute changes. 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 -No opening pressure done on initial LP -Associated cryptococcemia with AFB blood culture growing yeast -Completed amphotericin induction therapy and is now on high-dose fluconazole 2. HIV/[place] -[place] [id number] -CD4 14, 7% 3. RLL infiltrate -Repeat chest xray without infiltrate, doubt pneumonia 4. Neurosyphilis -RPR positive with titer of 1:1024 -Patient without diffuse rash. -CSF VDRL 1:16 5. Marked hyponatremia -R/O SIADH, this might be related to the meningitis -Resolved 6. Thrombocytopenia -Resolved 7. Nausea/vomiting/diarrhea -Seems to have resolved with 5-FC being discontinued 8. RANJIT -Likely secondary to previous amphotericin therapy -Trending down with amphotericin stopped 9. Hypomagnesemia -Secondary to amphotericin PLAN: 1. Continue fluconazole 800mg po daily 2. Continue IV penicillin for neurosyphilis, end date October 17, 2016 3. Continued close observation and supportive measures. 5. Replete magnesium and phosphorus as per renal 6. Follow creatinine, continue iv fluids 7. physical therapy Subjective Date of service: 10/14/16 Principal diagnosis: Cryptococcal meningitis, HIV, neurosyphilis Interval history: Patient is awake and complains of mild headache. Patient also states he has mild diarrhea.. Patient overall states she's feeling better. Patient is eating lunch with family and is in no distress. Review of systems: Patient denies chest pain or chest pressure. Patient denies cough shortness of breath or sputum production. Again patient has a positive complaint of headache and diarrhea Objective - Exam Narrative Exam: GENERAL: Well-developed, well nourished male who is alert and very responsive and in NAD. Continuing to improve HEENT: Pupils are equal reactive to light and accommodation. Conjunctiva clear. Thrush is improved. NECK: Less stiffness to forward flexion. No enlargement of the thyroid gland. Shotty cervical lymphadenopathy. No jugular venous distention at 60. LUNGS: Clear with no adventitious sounds. HEART: Tachycardic. No murmur or gallop. ABDOMEN: Soft and nontender. Liver and spleen are not palpably enlarged or tender. No palpable masses. Bowel sounds are normoactive. EXTREMITIES: Shotty cervical, axillary and inguinal lymph node enlargement. SKIN: No other rash, ulcers or wounds. NEUROLOGIC: No focal findings. Eating lunch with family. - Constitutional Vitals: Vital Signs Temp Pulse Resp BP Pulse Ox 98.3 F 85 15 151/88 100 10/14/16 08:55 10/14/16 08:55 10/14/16 08:55 10/14/16 08:55 10/14/16 08:55 Temperature -Last 24 Hours Temperature 98.3 F Temperature 97.8 F Temperature 97.6 F - Labs CBC & Chem 7: 10/14/16 06:10 10/14/16 06:10 Labs: Abnormal lab results 10/14/16 10/14/16 Range/Units 06:10 06:10 WBC 3.6 L (4.5-11.0) K/mm3 RBC 2.89 L (3.65-5.03) M/mm3 Hgb 8.3 L (11.8-15.2) gm/dl Hct 23.9 L (35.5-45.6) % MCV 83 L (84-94) fl MCHC 35 H (32-34) % RDW 23.8 H (13.2-15.2) % Desha % (Auto) 9.1 H (0.0-7.3) % Lymph # 1.1 L (1.2-5.4) K/mm3 Chloride 107.6 H (98-107) mmol/L Carbon Dioxide 19 L (22-30) mmol/L Creatinine 1.9 H (0.8-1.5) mg/dL
--- NOTE | 2016-10-14 14:47 | Progress Note ---
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 Syphilis/ Neurosyphilis new diagnosis of HIV-AIDS, CD4 17, viral load 444958 Acute kidney injury likely due to amphotericin Nausea/vomiting/diarrhea, medication induced, resolved Thrombocytopenia likely due to HIV Marked hyponatremia, could be due to meningitis Right lower lobe infiltrate, possible pneumonia, resolved hypomagnesemia Plan: IV amphotericin induction therapy on hold for elevated creatinine cont fluconazole 800 mg by mouth His RPR is positive with titer of 1:1024 Continue high dose IV penicillin for neurosyphilis till 10/17/2016 Continue to monitor BMP for renal function continue IV fluid, creatinine 1.9 today nephrology following, replace electrolytes as needed Continue supportive care and nutritional supplements History Interval history: Patient seen and examined. Medical records and medication list reviewed. No acute event overnight noted by the RN. Patient appeared more alert and awake today Still c/o headache, but no photophobia Discussed plan of care at bedside with patient. Hospitalist Physical - Physical exam Narrative exam: GENERAL: well-developed and well-nourished AAM lying on bed appeared to be in no discomfort. HEENT: Normocephalic. Atraumatic. No conjunctival congestion or icterus. Patient has moist mucous membranes. NECK: Supple. Trachea midline. CHEST/LUNGS: Clear to auscultated bilaterally, breathing nonlabored. No wheezes crackles or rhonchi. HEART/CARDIOVASCULAR: Regular in rate and rhythm. S1 and S2 positive. ABDOMEN: Abdomen is soft, nontender. Patient has normal bowel sounds. SKIN: There is no rash. Warm and dry. NEURO: No focal motor deficit. MUSCULOSKELETAL: No joint effusion or tenderness. EXTRIMITY: No edema, no cyanosis or clubbing. PSYCH: Cooperative. - Constitutional Vitals: Temp Pulse Resp BP Pulse Ox 98.3 F 85 15 151/88 100 10/14/16 08:55 10/14/16 08:55 10/14/16 08:55 10/14/16 08:55 10/14/16 08:55 General appearance: Present: no acute distress, mild distress, well-nourished Results - Labs CBC & Chem 7: 10/14/16 06:10 10/14/16 06:10 Labs: Laboratory Last Values WBC 3.6 K/mm3 (4.5-11.0) L 10/14/16 06:10 RBC 2.89 M/mm3 (3.65-5.03) L 10/14/16 06:10 Hgb 8.3 gm/dl (11.8-15.2) L 10/14/16 06:10 Hct 23.9 % (35.5-45.6) L 10/14/16 06:10 MCV 83 fl (84-94) L 10/14/16 06:10 MCH 29 pg (28-32) 10/14/16 06:10 MCHC 35 % (32-34) H 10/14/16 06:10 RDW 23.8 % (13.2-15.2) H 10/14/16 06:10 Plt Count 209 K/mm3 (140-440) 10/14/16 06:10 Lymph % (Auto) 30.5 % (13.4-35.0) 10/14/16 06:10 [place] % (Auto) 9.1 % (0.0-7.3) H 10/14/16 06:10 Eos % (Auto) 3.5 % (0.0-4.3) 10/14/16 06:10 Baso % (Auto) 1.5 % (0.0-1.8) 10/14/16 06:10 Lymph # 1.1 K/mm3 (1.2-5.4) L 10/14/16 06:10 [place] # 0.3 K/mm3 (0.0-0.8) 10/14/16 06:10 Eos # 0.1 K/mm3 (0.0-0.4) 10/14/16 06:10 Baso # 0.1 K/mm3 (0.0-0.1) 10/14/16 06:10 Add Manual Diff Complete 10/09/16 05:45 Total Counted 100 10/09/16 05:45 Seg Neutrophils % 55.4 % (40.0-70.0) 10/14/16 06:10 Seg Neuts % (Manual) 68.0 % (40.0-70.0) 10/09/16 05:45 Band Neutrophils % 0 % 10/09/16 05:45 Lymphocytes % (Manual) 19.0 % (13.4-35.0) 10/09/16 05:45 Reactive Lymphs % (Man) 0 % 10/09/16 05:45 Monocytes % (Manual) 10.0 % (0.0-7.3) H 10/09/16 05:45 Eosinophils % (Manual) 3.0 % (0.0-4.3) 10/09/16 05:45 Basophils % (Manual) 0 % (0.0-1.8) 10/09/16 05:45 Metamyelocytes % 0 % 10/09/16 05:45 Myelocytes % 0 % 10/09/16 05:45 Promyelocytes % 0 % 10/09/16 05:45 Blast Cells % 0 % 10/09/16 05:45 Nucleated RBC % Not Reportable 10/09/16 05:45 Seg Neutrophils # 2.0 K/mm3 (1.8-7.7) 10/14/16 06:10 Seg Neutrophils # Man 2.6 K/mm3 (1.8-7.7) 10/09/16 05:45 Band Neutrophils # 0.0 K/mm3 10/09/16 05:45 Abs Lymphs (Manual) 215 cells/uL (850-3900) L 09/28/16 15:43 Lymphocytes # (Manual) 0.7 K/mm3 (1.2-5.4) L 10/09/16 05:45 Abs React Lymphs (Man) 0.0 K/mm3 10/09/16 05:45 Monocytes # (Manual) 0.4 K/mm3 (0.0-0.8) 10/09/16 05:45 Eosinophils # (Manual) 0.1 K/mm3 (0.0-0.4) 10/09/16 05:45 Basophils # (Manual) 0.0 K/mm3 (0.0-0.1) 10/09/16 05:45 Metamyelocytes # 0.0 K/mm3 10/09/16 05:45 Myelocytes # 0.0 K/mm3 10/09/16 05:45 Promyelocytes # 0.0 K/mm3 10/09/16 05:45 Blast Cells # 0.0 K/mm3 10/09/16 05:45 WBC Morphology Not Reportable 10/09/16 05:45 Hypersegmented Neuts Not Reportable 10/09/16 05:45 Hyposegmented Neuts Not Reportable 10/09/16 05:45 Hypogranular Neuts Not Reportable 10/09/16 05:45 Smudge Cells 1+ 10/09/16 05:45 Toxic Granulation Not Reportable 10/09/16 05:45 Toxic Vacuolation Not Reportable 10/09/16 05:45 Dohle Bodies Not Reportable 10/09/16 05:45 Pelger-Huet Anomaly Not Reportable 10/09/16 05:45 Ada Rods Not Reportable 10/09/16 05:45 Platelet Estimate Appears normal 10/09/16 05:45 Clumped Platelets Not Reportable 10/09/16 05:45 Plt Clumps, EDTA Not Reportable 10/09/16 05:45 Large Platelets Not Reportable 10/09/16 05:45 Giant Platelets Not Reportable 10/09/16 05:45 Platelet Satelliting Not Reportable 10/09/16 05:45 Plt Morphology Comment Not Reportable 10/09/16 05:45 RBC Morphology Not Reportable 10/09/16 05:45 Dimorphic RBCs Not Reportable 10/09/16 05:45 Polychromasia Not Reportable 10/09/16 05:45 Hypochromasia 1+ 10/09/16 05:45 Poikilocytosis Not Reportable 10/09/16 05:45 Anisocytosis 3+ 10/09/16 05:45 Microcytosis Not Reportable 10/09/16 05:45 Macrocytosis Not Reportable 10/09/16 05:45 Spherocytes Not Reportable 10/09/16 05:45 Pappenheimer Bodies Not Reportable 10/09/16 05:45 Sickle Cells Not Reportable 10/09/16 05:45 Target Cells Not Reportable 10/09/16 05:45 Tear Drop Cells Not Reportable 10/09/16 05:45 Ovalocytes Not Reportable 10/09/16 05:45 Helmet Cells Not Reportable 10/09/16 05:45 [place] Bodies Not Reportable 10/09/16 05:45 [place] Rings Not Reportable 10/09/16 05:45 [place] Cells Not Reportable 10/09/16 05:45 Bite Cells Not Reportable 10/09/16 05:45 Crenated Cell Not Reportable 10/09/16 05:45 Elliptocytes Not Reportable 10/09/16 05:45 Acanthocytes (Spur) Not Reportable 10/09/16 05:45 Rouleaux Not Reportable 10/09/16 05:45 Hemoglobin C Crystals Not Reportable 10/09/16 05:45 Schistocytes Not Reportable 10/09/16 05:45 Malaria parasites Not Reportable 10/09/16 05:45 [place] Bodies Not Reportable 10/09/16 05:45 Hem Pathologist Commnt No 10/09/16 05:45 Sodium 141 mmol/L (137-145) 10/14/16 06:10 Potassium 3.7 mmol/L (3.6-5.0) 10/14/16 06:10 Chloride 107.6 mmol/L (98-107) H 10/14/16 06:10 Carbon Dioxide 19 mmol/L (22-30) L 10/14/16 06:10 Anion Gap 18 mmol/L 10/14/16 06:10 BUN 17 mg/dL (9-20) 10/14/16 06:10 Creatinine 1.9 mg/dL (0.8-1.5) H 10/14/16 06:10 Estimated GFR 53 ml/min 10/14/16 06:10 BUN/Creatinine Ratio 8.94 % 10/14/16 06:10 Glucose 77 mg/dL (75-100) 10/14/16 06:10 POC Glucose 81 (70-105) 09/29/16 21:06 Osmolality 272 Mosm/kg 09/29/16 10:01 Lactic Acid 1.9 mmol/L (0.7-2.0) 09/28/16 12:06 Calcium 8.7 mg/dL (8.4-10.2) 10/14/16 06:10 Phosphorus 3.5 mg/dL (2.5-4.5) 10/11/16 14:00 Magnesium 1.7 mg/dL (1.7-2.3) 10/14/16 06:10 Total Bilirubin 0.4 mg/dL (0.1-1.2) 10/09/16 05:45 Direct Bilirubin < 0.2 mg/dL (0-0.2) 09/28/16 12:06 Indirect Bilirubin 0.3 mg/dL 09/28/16 12:06 AST 24 units/L (5-40) 10/09/16 05:45 ALT 17 units/L (7-56) 10/09/16 05:45 Alkaline Phosphatase 58 units/L (35-129) 10/09/16 05:45 Lactate Dehydrogenase 467 units/L (91-180) H 09/28/16 12:06 Troponin T 0.427 ng/mL (0.00-0.029) H* 09/28/16 12:06 Total Protein 6.5 g/dL (6.3-8.2) 10/09/16 05:45 Albumin 2.1 g/dL (3.9-5) L 10/09/16 05:45 Albumin/Globulin Ratio 0.5 % 10/09/16 05:45 Triglycerides 102 mg/dL (2-149) 09/28/16 12:06 Cholesterol 151 mg/dL (50-199) 09/28/16 12:06 LDL Cholesterol Direct 86 mg/dL (50-130) 09/28/16 12:06 HDL Cholesterol 45 mg/dL (40-59) 09/28/16 12:06 Cholesterol/HDL Ratio 3.35 % 09/28/16 12:06 Urine Color Straw (Yellow) 10/13/16 06:15 Urine Turbidity Clear (Clear) 10/13/16 06:15 Urine pH 5.0 (5.0-7.0) 10/13/16 06:15 Ur Specific [place] 1.011 (1.003-1.030) 10/13/16 06:15 Urine Protein 30 mg/dl mg/dL (Negative) 10/13/16 06:15 Urine Glucose (UA) Neg mg/dL (Negative) 10/13/16 06:15 Urine Ketones Neg mg/dL (Negative) 10/13/16 06:15 Urine Blood Sm (Negative) 10/13/16 06:15 Urine Nitrite Neg (Negative) 10/13/16 06:15 Urine Bilirubin Neg (Negative) 10/13/16 06:15 Urine Urobilinogen < 2.0 mg/dL (<2.0) 10/13/16 06:15 Ur Leukocyte Esterase Neg (Negative) 10/13/16 06:15 Urine WBC (Auto) 1.0 /HPF (0.0-6.0) 10/13/16 06:15 Urine RBC (Auto) 1.0 /HPF (0.0-6.0) 12/30/16 06:15 U Epithel Cells (Auto) < 1.0 /HPF (0-13.0) 10/13/16 06:15 Urine Bacteria (Auto) 1+ /HPF (Negative) 10/13/16 06:15 Urine Mucus Few /HPF 10/13/16 06:15 Urine Eosinophils None seen (None Seen) 10/13/16 06:15 Urine Creatinine 44.7 mg/dL (0.1-20.0) H 10/13/16 06:15 Urine Sodium 135 mEq/L 10/13/16 06:15 CSF Appearance Clear 09/28/16 12:45 CSF Color Colorless 09/28/16 12:45 CSF WBC 600 /mm3 (1-10) 09/28/16 12:45 CSF RBC 165 /mm3 (0-0) 09/28/16 12:45 CSF Seg Neutrophils 55.5 % (0-6) 09/28/16 12:45 CSF Lymphocytes % 38.0 % (40-80) 09/28/16 12:45 CSF Reactive Lymphs 0.5 % 09/28/16 12:45 CSF Monocytes % 6.0 % (15-45) 09/28/16 12:45 CSF Eosinophils % 0 % 09/28/16 12:45 CSF Basophils 0 % 09/28/16 12:45 CSF Pathologist Review C 09/28/16 12:45 CSF Glucose 3 mg/dL 09/28/16 12:45 CSF Total Protein 117 mg/dL 09/28/16 12:45 CSF VDRL Reactive 1:16 (Nonreactive) H 09/28/16 12:45 Salicylates < 0.3 mg/dL (2.8-20.0) L 09/28/16 12:06 Urine Opiates Screen Presumptive negative 09/28/16 12:20 Urine Methadone Screen Presumptive negative 09/28/16 12:20 Acetaminophen < 15.0 ug/mL (10.0-30.0) 09/28/16 12:06 Ur Barbiturates Screen Presumptive negative 09/28/16 12:20 Ur Phencyclidine Scrn Presumptive negative 09/28/16 12:20 Ur Amphetamines Screen Presumptive negative 09/28/16 12:20 U Benzodiazepines Scrn Presumptive negative 09/28/16 12:20 Urine Cocaine Screen Presumptive negative 09/28/16 12:20 U Marijuana (THC) Screen Presumptive positive 09/28/16 12:20 Drugs of Abuse Note Disclamer 09/28/16 12:20 Plasma/Serum Alcohol < 0.01 gm% (0-0.07) 09/28/16 12:06 Lymph Enumerat CD4/CD8 0.10 (0.86-5.00) L 09/28/16 15:43 % CD3 Cells 77 % (57-85) 09/28/16 15:43 Absolute CD3 Count 166 cells/uL (840-3060) L 09/28/16 15:43 % CD4 Cells 7 % (30-61) L 09/28/16 15:43 Absolute CD4 Count 14 cells/uL (490-1740) L 09/28/16 15:43 % CD8 Cells 69 % (12-42) H 09/28/16 15:43 Absolute CD8 Count 148 cells/uL (180-1170) L 09/28/16 15:43 % CD19 Cells 0 % (6-29) L 09/28/16 15:43 Absolute CD19 Count 1 cells/uL (110-660) L 09/28/16 15:43 RPR Titer 1:1024 09/28/16 15:43 RPR Reactive (Nonreactive) 09/28/16 15:43 Hepatitis A Ab Total See scanned report 09/28/16 15:43 Hep Bs Antigen Non-reactive (Negative) 09/28/16 15:43 Hep B Core IgM Ab Non-reactive (NonReactive) 09/28/16 15:43 Hepatitis C Antibody Non-reactive (NonReactive) 09/28/16 15:43 HIV-1 RNA PCR copies/ml 960060 copies/mL (<20) H 09/28/16 15:43 HIV-1 RNA (PCR) log 5.99 Log cps/mL (<1.30) H 09/28/16 15:43 HIV-1 Genotyping see below (()) 09/28/16 15:43 HIV 1&2 Antibody Rapid Reactive (Non React) 09/28/16 15:43 HIV P24 Antigen Non react (Non React) 09/28/16 15:43 Toxoplasma IgG Ab <=0.90 (<=0.90) 10/03/16 11:00 Toxoplasma IgM Ab Negative (Negative) 10/03/16 11:00 TB (QFT) Gold In Tube Negative (Negative) 09/29/16 07:30 TB Test (QFT) Nil 0.09 IU/mL (()) 09/29/16 07:30 TB Test Mitogen - Nil 7.24 IU/mL (()) 09/29/16 07:30 TB Test Antigen - Nil 0.05 IU/mL (()) 09/29/16 07:30
[2016-10-14] MEDS: ZOFRAN IV PRN (17:35)
[2016-10-15] MEDS: NACL IV SCH ×6 (02:19→23:33)
[2016-10-15] MEDS: PFIZERPEN IV SCH ×6 (02:19→23:33)
[2016-10-15 06:03] LABS: Basophils % (Auto) 0.5 % (0.0-1.8); Eosinophils % (Auto) 4.6 % (0.0-4.3); Hematocrit 21.2 % (35.5-45.6); Hemoglobin 7.3 gm/dl (11.8-15.2); Mean Corpuscular HGB Conc 34 % (32-34); Mean Corpuscular Hemoglobin 28 pg (28-32); Platelet Count 190 K/mm3 (140-440); Red Blood Count 2.64 M/mm3 (3.65-5.03); White Blood Count 2.8 K/mm3 (4.5-11.0)
[2016-10-15 06:14] LABS: Red Cell Distribution Width 21.6 % (13.2-15.2)
[2016-10-15 06:15] LABS: Mean Corpuscular Volume 81 fl (84-94)
[2016-10-15 06:20] LABS: BUN/Creatinine Ratio 7.5; Chloride 102.2 mmol/L (98-107); Potassium 3.8 mmol/L (3.6-5.0)
[2016-10-15] MEDS: DIFLUCAN PO SCH (10:53)
[2016-10-15] MEDS: SODIUM BICARBONATE PO SCH ×3 (10:53→20:37)
[2016-10-15] MEDS: LOVENOX SUB-Q SCH (10:53)
--- NOTE | 2016-10-15 13:27 | Progress Note ---
Assessment and Plan Impression: * Nonoliguric acute kidney injury most likely secondary to Amphotericin B * Cryptococcal meningitis * HIV/AIDS * Neurosyphilis * Hyponatremia - resolved * Anemia Plan: * cr stable today * added po sodium bicarb * Ampho B has been discontinued by ID team, on diflucan * IVF for hydration * ID recommendations noted * Dose medications for renal function * Avoid potential nephrotoxins Subjective Date of service: 10/15/16 Principal diagnosis: Cryptococcal meningitis, HIV, neurosyphilis Interval history: resting well bed today Objective - Exam Narrative Exam: General appearance: well-developed, well-nourished EENT: ATNC Respiratory: Clear to Ascultation Heart: regular, S1S2 Gastrointestinal: Present: normal Integumentary: no rash Neurologic: no focal deficit Musculoskeletal: Present: other (no edema) Psychiatric: mood/affect appropriate, cooperative - Lab 10/15/16 05:45 10/15/16 05:45 Most recent lab results Calcium 8.0 mg/dL (8.4-10.2) L 10/15/16 05:45 Phosphorus 3.5 mg/dL (2.5-4.5) 10/11/16 14:00 Magnesium 1.7 mg/dL (1.7-2.3) 10/14/16 06:10 Urine Creatinine 44.7 mg/dL (0.1-20.0) H 10/13/16 06:15 Urine Sodium 135 mEq/L 10/13/16 06:15
--- NOTE | 2016-10-15 14:06 | Progress Note ---
Assessment and Plan Current antibiotics: Aqueous penicillin 4 million units IV q4h daily 10/03 --> Fluconazole 800 mg po q day 10/09 --> Previous Antibiotics: Amphotericin B 0.7 mg/kilogram IV daily 09/28-10/12 Flucytosine 25 mg/kilogram po q6h 09/28-10/06 Ceftriaxone 2 g IV daily 09/28-10/03 Vancomycin IV 1 g X 1 09/28 Azithromycin 500 mg IV daily 09/28-09/30/16 ASSESSMENT: Clair Rich is a 25y/o AA male presents through the ED with a one-month history of malaise, worsening generalized headache, decreased appetite, and weight loss. He was brought to the hospital by his sister who stated that had been falling. The patient had marked neck rigidity with non- contrast head CT showing no acute changes. 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 -No opening pressure done on initial LP -Associated cryptococcemia with AFB blood culture growing yeast -Completed amphotericin induction therapy and is now on high-dose fluconazole 2. HIV/AIDS -VL [id number] -CD4 14, 7% 3. RLL infiltrate -Repeat chest xray without infiltrate, doubt pneumonia 4. Neurosyphilis -RPR positive with titer of 1:1024 -Patient without diffuse rash. -CSF VDRL 1:16 5. Marked hyponatremia -R/O SIADH, this might be related to the meningitis -Resolved 6. Thrombocytopenia -Resolved 7. Nausea/vomiting/diarrhea -Seems to have resolved with 5-FC being discontinued 8. RANJIT -Likely secondary to previous amphotericin therapy -Trending down with amphotericin stopped 9. Hypomagnesemia -Secondary to amphotericin PLAN: 1. Continue fluconazole 800mg po daily 2. Continue IV penicillin for neurosyphilis, end date October 17, 2016 3. Continued close observation and supportive measures. 5. Replete magnesium and phosphorus as per renal 6. Follow creatinine, continue iv fluids 7. physical therapy Subjective Date of service: 10/15/16 Principal diagnosis: Cryptococcal meningitis, HIV, neurosyphilis Interval history: No complaints. Still describes some "unsteadiness" with ambulation. Objective - Exam Narrative Exam: GENERAL: Well-developed, well nourished male who is alert and very responsive and in NAD. Continuing to improve HEENT: Pupils are equal reactive to light and accommodation. Conjunctiva clear. Thrush is improved. NECK: Less stiffness to forward flexion. No enlargement of the thyroid gland. [place] cervical lymphadenopathy. No jugular venous distention at 60. LUNGS: Clear with no adventitious sounds. HEART: Tachycardic. No murmur or gallop. ABDOMEN: Soft and nontender. Liver and spleen are not palpably enlarged or tender. No palpable masses. Bowel sounds are normoactive. EXTREMITIES: [place] cervical, axillary and inguinal lymph node enlargement. SKIN: No other rash, ulcers or wounds. NEUROLOGIC: No focal findings. - Constitutional Vitals: Vital Signs Temp Pulse Resp BP Pulse Ox 98.0 F 83 18 124/77 98 10/15/16 00:05 10/15/16 00:05 10/15/16 00:05 10/15/16 00:05 10/15/16 00:05 Temperature -Last 24 Hours Temperature 98.0 F Temperature 98.3 F - Labs CBC & Chem 7: 10/15/16 05:45 10/15/16 05:45 Labs: Abnormal lab results 10/15/16 10/15/16 Range/Units 05:45 05:45 WBC 2.8 L (4.5-11.0) K/mm3 RBC 2.64 L (3.65-5.03) M/mm3 Hgb 7.3 L (11.8-15.2) gm/dl Hct 21.2 L (35.5-45.6) % MCV 81 L (84-94) fl RDW 21.6 H (13.2-15.2) % [place] % (Auto) 10.8 H (0.0-7.3) % Eos % (Auto) 4.6 H (0.0-4.3) % Lymph # 0.8 L (1.2-5.4) K/mm3 Seg Neutrophils # 1.6 L (1.8-7.7) K/mm3 Sodium 135 L (137-145) mmol/L Carbon Dioxide 20 L (22-30) mmol/L Creatinine 2.0 H (0.8-1.5) mg/dL Glucose 68 L (75-100) mg/dL Calcium 8.0 L (8.4-10.2) mg/dL
--- NOTE | 2016-10-15 14:55 | Progress Note ---
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 * IV amphotericin induction therapy on hold for elevated creatinine * cont fluconazole 800 mg by mouth Syphilis/ Neurosyphilis * His RPR is positive with titer of 1:1024 * Continue high dose IV penicillin for neurosyphilis till 10/17/2016 new diagnosis of HIV-AIDS, * CD4 17, viral load [id number] * Would need outpatient follow-up to start on HIV medications Acute kidney injury/ATN * likely due to amphotericin * Continue IV fluids and monitor renal function * Nephrology following * The acne 2.0 today Nausea/vomiting/diarrhea, * medication(flucytosine) induced, resolved after stopping medications Pancytopenia * likely due to HIV * Continue to monitor CBC * Transfuse if hemoglobin drops below 7 Marked hyponatremia, * could be due to meningitis * Continue IV fluid, improving Right lower lobe infiltrate, * possible pneumonia, resolved hypomagnesemia * Replace and monitor Current antibiotics: Aqueous penicillin 4 million units IV q4h daily 10/03 --> Fluconazole 800 mg po q day 10/09 --> Previous Antibiotics: Amphotericin B 0.7 mg/kilogram IV daily 09/28-10/12 Flucytosine 25 mg/kilogram po q6h 09/28-10/06 Ceftriaxone 2 g IV daily 09/28-10/03 Vancomycin IV 1 g X 1 09/28 Azithromycin 500 mg IV daily 09/28-09/30/16 History Interval history: Patient seen and examined. Medical records and medication list reviewed. No acute event overnight noted by the RN. Patient appeared more alert and awake today Still c/o headache, but no photophobia Discussed plan of care at bedside with patient. Hospitalist Physical - Physical exam Narrative exam: GENERAL: well-developed and well-nourished AAM lying on bed appeared to be in no discomfort. HEENT: Normocephalic. Atraumatic. No conjunctival congestion or icterus. Patient has moist mucous membranes. NECK: Supple. Trachea midline. CHEST/LUNGS: Clear to auscultated bilaterally, breathing nonlabored. No wheezes crackles or rhonchi. HEART/CARDIOVASCULAR: Regular in rate and rhythm. S1 and S2 positive. ABDOMEN: Abdomen is soft, nontender. Patient has normal bowel sounds. SKIN: There is no rash. Warm and dry. NEURO: No focal motor deficit. MUSCULOSKELETAL: No joint effusion or tenderness. EXTRIMITY: No edema, no cyanosis or clubbing. PSYCH: Cooperative. - Constitutional Vitals: Temp Pulse Resp BP Pulse Ox 98.0 F 83 18 124/77 98 10/15/16 00:05 10/15/16 00:05 10/15/16 00:05 10/15/16 00:05 10/15/16 00:05 General appearance: Present: no acute distress, mild distress, well-nourished Results - Labs CBC & Chem 7: 10/15/16 05:45 10/15/16 05:45 Labs: Laboratory Last Values WBC 2.8 K/mm3 (4.5-11.0) L 10/15/16 05:45 RBC 2.64 M/mm3 (3.65-5.03) L 10/15/16 05:45 Hgb 7.3 gm/dl (11.8-15.2) L 10/15/16 05:45 Hct 21.2 % (35.5-45.6) L 10/15/16 05:45 MCV 81 fl (84-94) L 10/15/16 05:45 MCH 28 pg (28-32) 10/15/16 05:45 MCHC 34 % (32-34) 10/15/16 05:45 RDW 21.6 % (13.2-15.2) H 10/15/16 05:45 Plt Count 190 K/mm3 (140-440) 10/15/16 05:45 Lymph % (Auto) 28.0 % (13.4-35.0) 10/15/16 05:45 [place] % (Auto) 10.8 % (0.0-7.3) H 10/15/16 05:45 Eos % (Auto) 4.6 % (0.0-4.3) H 10/15/16 05:45 Baso % (Auto) 0.5 % (0.0-1.8) 10/15/16 05:45 Lymph # 0.8 K/mm3 (1.2-5.4) L 10/15/16 05:45 [place] # 0.3 K/mm3 (0.0-0.8) 10/15/16 05:45 Eos # 0.1 K/mm3 (0.0-0.4) 10/15/16 05:45 Baso # 0.0 K/mm3 (0.0-0.1) 10/15/16 05:45 Add Manual Diff Complete 10/09/16 05:45 Total Counted 100 10/09/16 05:45 Seg Neutrophils % 56.1 % (40.0-70.0) 10/15/16 05:45 Seg Neuts % (Manual) 68.0 % (40.0-70.0) 10/09/16 05:45 Band Neutrophils % 0 % 10/09/16 05:45 Lymphocytes % (Manual) 19.0 % (13.4-35.0) 10/09/16 05:45 Reactive Lymphs % (Man) 0 % 10/09/16 05:45 Monocytes % (Manual) 10.0 % (0.0-7.3) H 10/09/16 05:45 Eosinophils % (Manual) 3.0 % (0.0-4.3) 10/09/16 05:45 Basophils % (Manual) 0 % (0.0-1.8) 10/09/16 05:45 Metamyelocytes % 0 % 10/09/16 05:45 Myelocytes % 0 % 10/09/16 05:45 Promyelocytes % 0 % 10/09/16 05:45 Blast Cells % 0 % 10/09/16 05:45 Nucleated RBC % Not Reportable 10/09/16 05:45 Seg Neutrophils # 1.6 K/mm3 (1.8-7.7) L 10/15/16 05:45 Seg Neutrophils # Man 2.6 K/mm3 (1.8-7.7) 10/09/16 05:45 Band Neutrophils # 0.0 K/mm3 10/09/16 05:45 Abs Lymphs (Manual) 215 cells/uL (850-3900) L 09/28/16 15:43 Lymphocytes # (Manual) 0.7 K/mm3 (1.2-5.4) L 10/09/16 05:45 Abs React Lymphs (Man) 0.0 K/mm3 10/09/16 05:45 Monocytes # (Manual) 0.4 K/mm3 (0.0-0.8) 10/09/16 05:45 Eosinophils # (Manual) 0.1 K/mm3 (0.0-0.4) 10/09/16 05:45 Basophils # (Manual) 0.0 K/mm3 (0.0-0.1) 10/09/16 05:45 Metamyelocytes # 0.0 K/mm3 10/09/16 05:45 Myelocytes # 0.0 K/mm3 10/09/16 05:45 Promyelocytes # 0.0 K/mm3 10/09/16 05:45 Blast Cells # 0.0 K/mm3 10/09/16 05:45 WBC Morphology Not Reportable 10/09/16 05:45 Hypersegmented Neuts Not Reportable 10/09/16 05:45 Hyposegmented Neuts Not Reportable 10/09/16 05:45 Hypogranular Neuts Not Reportable 10/09/16 05:45 Smudge Cells 1+ 10/09/16 05:45 Toxic Granulation Not Reportable 10/09/16 05:45 Toxic Vacuolation Not Reportable 10/09/16 05:45 Dohle Bodies Not Reportable 10/09/16 05:45 Pelger-Huet Anomaly Not Reportable 10/09/16 05:45 Ada Rods Not Reportable 10/09/16 05:45 Platelet Estimate Appears normal 10/09/16 05:45 Clumped Platelets Not Reportable 10/09/16 05:45 Plt Clumps, EDTA Not Reportable 10/09/16 05:45 Large Platelets Not Reportable 10/09/16 05:45 Giant Platelets Not Reportable 10/09/16 05:45 Platelet Satelliting Not Reportable 10/09/16 05:45 Plt Morphology Comment Not Reportable 10/09/16 05:45 RBC Morphology Not Reportable 10/09/16 05:45 Dimorphic RBCs Not Reportable 10/09/16 05:45 Polychromasia Not Reportable 10/09/16 05:45 Hypochromasia 1+ 10/09/16 05:45 Poikilocytosis Not Reportable 10/09/16 05:45 Anisocytosis 3+ 10/09/16 05:45 Microcytosis Not Reportable 10/09/16 05:45 Macrocytosis Not Reportable 10/09/16 05:45 Spherocytes Not Reportable 10/09/16 05:45 Pappenheimer Bodies Not Reportable 10/09/16 05:45 Sickle Cells Not Reportable 10/09/16 05:45 Target Cells Not Reportable 10/09/16 05:45 Tear Drop Cells Not Reportable 10/09/16 05:45 Ovalocytes Not Reportable 10/09/16 05:45 Helmet Cells Not Reportable 10/09/16 05:45 Varma-Hammond Bodies Not Reportable 10/09/16 05:45 Winston Rings Not Reportable 10/09/16 05:45 Alycia Cells Not Reportable 10/09/16 05:45 Bite Cells Not Reportable 10/09/16 05:45 Crenated Cell Not Reportable 10/09/16 05:45 Elliptocytes Not Reportable 10/09/16 05:45 Acanthocytes (Spur) Not Reportable 10/09/16 05:45 Rouleaux Not Reportable 10/09/16 05:45 Hemoglobin C Crystals Not Reportable 10/09/16 05:45 Schistocytes Not Reportable 10/09/16 05:45 Malaria parasites Not Reportable 10/09/16 05:45 Warner Bodies Not Reportable 10/09/16 05:45 Hem Pathologist Commnt No 10/09/16 05:45 Sodium 135 mmol/L (137-145) L 10/15/16 05:45 Potassium 3.8 mmol/L (3.6-5.0) 10/15/16 05:45 Chloride 102.2 mmol/L (98-107) 10/15/16 05:45 Carbon Dioxide 20 mmol/L (22-30) L 10/15/16 05:45 Anion Gap 17 mmol/L 10/15/16 05:45 BUN 15 mg/dL (9-20) 10/15/16 05:45 Creatinine 2.0 mg/dL (0.8-1.5) H 10/15/16 05:45 Estimated GFR 50 ml/min 10/15/16 05:45 BUN/Creatinine Ratio 7.50 % 10/15/16 05:45 Glucose 68 mg/dL (75-100) L 10/15/16 05:45 POC Glucose 81 (70-105) 09/29/16 21:06 Osmolality 272 Mosm/kg 09/29/16 10:01 Lactic Acid 1.9 mmol/L (0.7-2.0) 09/28/16 12:06 Calcium 8.0 mg/dL (8.4-10.2) L 10/15/16 05:45 Phosphorus 3.5 mg/dL (2.5-4.5) 10/11/16 14:00 Magnesium 1.7 mg/dL (1.7-2.3) 10/14/16 06:10 Total Bilirubin 0.4 mg/dL (0.1-1.2) 10/09/16 05:45 Direct Bilirubin < 0.2 mg/dL (0-0.2) 09/28/16 12:06 Indirect Bilirubin 0.3 mg/dL 09/28/16 12:06 AST 24 units/L (5-40) 10/09/16 05:45 ALT 17 units/L (7-56) 10/09/16 05:45 Alkaline Phosphatase 58 units/L (35-129) 10/09/16 05:45 Lactate Dehydrogenase 467 units/L (91-180) H 09/28/16 12:06 Troponin T 0.427 ng/mL (0.00-0.029) H* 09/28/16 12:06 Total Protein 6.5 g/dL (6.3-8.2) 10/09/16 05:45 Albumin 2.1 g/dL (3.9-5) L 10/09/16 05:45 Albumin/Globulin Ratio 0.5 % 10/09/16 05:45 Triglycerides 102 mg/dL (2-149) 09/28/16 12:06 Cholesterol 151 mg/dL (50-199) 09/28/16 12:06 LDL Cholesterol Direct 86 mg/dL (50-130) 09/28/16 12:06 HDL Cholesterol 45 mg/dL (40-59) 09/28/16 12:06 Cholesterol/HDL Ratio 3.35 % 09/28/16 12:06 Urine Color Straw (Yellow) 10/13/16 06:15 Urine Turbidity Clear (Clear) 10/13/16 06:15 Urine pH 5.0 (5.0-7.0) 10/13/16 06:15 Ur Specific [place] 1.011 (1.003-1.030) 10/13/16 06:15 Urine Protein 30 mg/dl mg/dL (Negative) 10/13/16 06:15 Urine Glucose (UA) Neg mg/dL (Negative) 10/13/16 06:15 Urine Ketones Neg mg/dL (Negative) 10/13/16 06:15 Urine Blood Sm (Negative) 10/13/16 06:15 Urine Nitrite Neg (Negative) 10/13/16 06:15 Urine Bilirubin Neg (Negative) 10/13/16 06:15 Urine Urobilinogen < 2.0 mg/dL (<2.0) 10/13/16 06:15 Ur Leukocyte Esterase Neg (Negative) 10/13/16 06:15 Urine WBC (Auto) 1.0 /HPF (0.0-6.0) 10/13/16 06:15 Urine RBC (Auto) 1.0 /HPF (0.0-6.0) 10/13/16 06:15 U Epithel Cells (Auto) < 1.0 /HPF (0-13.0) 10/13/16 06:15 Urine Bacteria (Auto) 1+ /HPF (Negative) 10/13/16 06:15 Urine Mucus Few /HPF 10/13/16 06:15 Urine Eosinophils None seen (None Seen) 10/13/16 06:15 Urine Creatinine 44.7 mg/dL (0.1-20.0) H 10/13/16 06:15 Urine Sodium 135 mEq/L 10/13/16 06:15 CSF Appearance Clear 09/28/16 12:45 CSF Color Colorless 09/28/16 12:45 CSF WBC 600 /mm3 (1-10) 09/28/16 12:45 CSF RBC 165 /mm3 (0-0) 09/28/16 12:45 CSF Seg Neutrophils 55.5 % (0-6) 09/28/16 12:45 CSF Lymphocytes % 38.0 % (40-80) 09/28/16 12:45 CSF Reactive Lymphs 0.5 % 09/28/16 12:45 CSF Monocytes % 6.0 % (15-45) 09/28/16 12:45 CSF Eosinophils % 0 % 09/28/16 12:45 CSF Basophils 0 % 09/28/16 12:45 CSF Pathologist Review C 09/28/16 12:45 CSF Glucose 3 mg/dL 09/28/16 12:45 CSF Total Protein 117 mg/dL 09/28/16 12:45 CSF VDRL Reactive 1:16 (Nonreactive) H 09/28/16 12:45 Salicylates < 0.3 mg/dL (2.8-20.0) L 09/28/16 12:06 Urine Opiates Screen Presumptive negative 09/28/16 12:20 Urine Methadone Screen Presumptive negative 09/28/16 12:20 Acetaminophen < 15.0 ug/mL (10.0-30.0) 09/28/16 12:06 Ur Barbiturates Screen Presumptive negative 09/28/16 12:20 Ur Phencyclidine Scrn Presumptive negative 09/28/16 12:20 Ur Amphetamines Screen Presumptive negative 09/28/16 12:20 U Benzodiazepines Scrn Presumptive negative 09/28/16 12:20 Urine Cocaine Screen Presumptive negative 09/28/16 12:20 U Marijuana (THC) Screen Presumptive positive 09/28/16 12:20 Drugs of Abuse Note Disclamer 09/28/16 12:20 Plasma/Serum Alcohol < 0.01 gm% (0-0.07) 09/28/16 12:06 Lymph Enumerat CD4/CD8 0.10 (0.86-5.00) L 09/28/16 15:43 % CD3 Cells 77 % (57-85) 09/28/16 15:43 Absolute CD3 Count 166 cells/uL (840-3060) L 09/28/16 15:43 % CD4 Cells 7 % (30-61) L 09/28/16 15:43 Absolute CD4 Count 14 cells/uL (490-1740) L 09/28/16 15:43 % CD8 Cells 69 % (12-42) H 09/28/16 15:43 Absolute CD8 Count 148 cells/uL (180-1170) L 09/28/16 15:43 % CD19 Cells 0 % (6-29) L 09/28/16 15:43 Absolute CD19 Count 1 cells/uL (110-660) L 09/28/16 15:43 RPR Titer 1:1024 09/28/16 15:43 RPR Reactive (Nonreactive) 09/28/16 15:43 Hepatitis A Ab Total See scanned report 09/28/16 15:43 Hep Bs Antigen Non-reactive (Negative) 09/28/16 15:43 Hep B Core IgM Ab Non-reactive (NonReactive) 09/28/16 15:43 Hepatitis C Antibody Non-reactive (NonReactive) 09/28/16 15:43 HIV-1 RNA PCR copies/ml 258724 copies/mL (<20) H 09/28/16 15:43 HIV-1 RNA (PCR) log 5.99 Log cps/mL (<1.30) H 09/28/16 15:43 HIV-1 Genotyping see below (()) 09/28/16 15:43 HIV 1&2 Antibody Rapid Reactive (Non React) 09/28/16 15:43 HIV P24 Antigen Non react (Non React) 09/28/16 15:43 Toxoplasma IgG Ab <=0.90 (<=0.90) 10/03/16 11:00 Toxoplasma IgM Ab Negative (Negative) 10/03/16 11:00 TB (QFT) Gold In Tube Negative (Negative) 09/29/16 07:30 TB Test (QFT) Nil 0.09 IU/mL (()) 09/29/16 07:30 TB Test Mitogen - Nil 7.24 IU/mL (()) 09/29/16 07:30 TB Test Antigen - Nil 0.05 IU/mL (()) 09/29/16 07:30
[2016-10-15] MEDS: NACL 0.9% 1000 ML 1,000 ML IV SCH (15:26)
[2016-10-15] MEDS: PERCOCET 5/325 PO PRN (22:00)
[2016-10-16] MEDS: NACL IV SCH ×6 (04:11→22:09)
[2016-10-16] MEDS: PFIZERPEN IV SCH ×6 (04:11→22:09)
[2016-10-16] MEDS: PERCOCET 5/325 PO PRN (06:30)
[2016-10-16 06:53] LABS: Basophils % (Auto) 0.5 % (0.0-1.8); Eosinophils % (Auto) 4.6 % (0.0-4.3); Hemoglobin 7.4 gm/dl (11.8-15.2); Mean Corpuscular HGB Conc 35 % (32-34); Mean Corpuscular Hemoglobin 29 pg (28-32); Mean Corpuscular Volume 82 fl (84-94); Platelet Count 161 K/mm3 (140-440); Red Blood Count 2.57 M/mm3 (3.65-5.03); White Blood Count 2.8 K/mm3 (4.5-11.0)
[2016-10-16 06:57] LABS: Red Cell Distribution Width 21.9 % (13.2-15.2)
[2016-10-16 07:04] LABS: BUN/Creatinine Ratio 9.44; Calcium 8.1 mg/dL (8.4-10.2); Chloride 104.7 mmol/L (98-107); Potassium 3.8 mmol/L (3.6-5.0)
--- NOTE | 2016-10-16 08:54 | Progress Note ---
Assessment and Plan Impression: * Nonoliguric acute kidney injury most likely secondary to Amphotericin B * Cryptococcal meningitis * HIV/AIDS * Neurosyphilis * Hyponatremia - resolved * Anemia Plan: * cr stable today * added po sodium bicarb * Ampho B has been discontinued by ID team, on diflucan * IVF for hydration * ID recommendations noted * Dose medications for renal function * Avoid potential nephrotoxins Subjective Date of service: 10/16/16 Principal diagnosis: Cryptococcal meningitis, HIV, neurosyphilis Interval history: resting well bed today Objective - Exam Narrative Exam: General appearance: well-developed, well-nourished EENT: ATNC Respiratory: Clear to Ascultation Heart: regular, S1S2 Gastrointestinal: Present: normal Integumentary: no rash Neurologic: no focal deficit Musculoskeletal: Present: other (no edema) Psychiatric: mood/affect appropriate, cooperative - Vital Signs Vital signs: Vital Signs - 12hr 10/15/16 10/16/16 10/16/16 23:00 01:00 06:30 Temperature 98.2 F Pulse Rate [ Left Radial] Pulse Rate [ 84 Left] Respiratory 20 18 18 Rate Blood Pressure 128/82 [Left Arm] Blood Pressure [Right Arm] O2 Sat by Pulse 100 Oximetry 10/16/16 08:34 Temperature 98.6 F Pulse Rate [ 90 Left Radial] Pulse Rate [ Left] Respiratory 18 Rate Blood Pressure [Left Arm] Blood Pressure 137/89 [Right Arm] O2 Sat by Pulse 98 Oximetry - Lab 10/16/16 06:00 10/16/16 06:00 Most recent lab results Calcium 8.1 mg/dL (8.4-10.2) L 10/16/16 06:00 Phosphorus 3.5 mg/dL (2.5-4.5) 10/11/16 14:00 Magnesium 1.7 mg/dL (1.7-2.3) 10/14/16 06:10 Urine Creatinine 44.7 mg/dL (0.1-20.0) H 10/13/16 06:15 Urine Sodium 135 mEq/L 10/13/16 06:15
[2016-10-16] MEDS: SODIUM BICARBONATE PO SCH ×3 (09:37→20:36)
[2016-10-16] MEDS: LOVENOX SUB-Q SCH (09:37)
[2016-10-16] MEDS: DIFLUCAN PO SCH (09:38)
--- NOTE | 2016-10-16 09:55 | Progress Note ---
Assessment and Plan Current antibiotics: penicillin G 4 million units IV q4h daily 10/03 --> Amphotericin B 0.7 mg/kilogram IV daily 09/28 --> Fluconazole 800mg po Q24H (10/09 Previous Antibiotics: Flucytosine 25 mg/kilogram po q6h 09/28-10/06 Ceftriaxone 2 g IV daily 09/28-10/03 Vancomycin IV 1 g X 1 09/28 Azithromycin 500 mg IV daily 09/28-09/30/16 ASSESSMENT: Clair Rich is a 25y/o AA male presents through the ED with a one-month history of malaise, worsening generalized headache, decreased appetite, and weight loss. He was brought to the hospital by his sister who stated that had been falling. The patient had marked neck rigidity with non- contrast head CT showing no acute changes. Spinal fluid revealed 600 WBCs with 50% segs and 38% lymphs; 165 RBCs, glucose 3, protein 117 and cryptococcal antigen 1:512 Conclusions: 1. 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 Patient was started on amphotericin with flucytocine. Flucytocine was stopped secondary to nausea, vomiting and diarrhea. -CSF cryptococcal antigen titer 1:512. Patient received induction therapy with amphotericin/flucytocine--->amphotericin/fluconazole and now on fluconazole continuation phase -mental status markedly better, patient has better range of motion of his neck. no photophobia, neck rigidity has resolved. --continue with fluconazole 800mg po Daily 2. HIV/AIDS, patient will need to be initiated on HIV therapy once he has established care at the [facility] or the [facility] -VL [id number] -CD4 14, 7% -information regarding follow up care given to patient and mother. Phone number and address of [facility] given. I faxed patient's lab results to the [facility]. The discharge summary will need to be faxed as well: [phone] --in view of CD4 count being below 200, patient should be receiving prophylaxis for pneumocystis, in addition his CD4 count is below 50 he should be on MAC prophylaxis 3. RLL infiltrate -Repeat chest xray without infiltrate, doubt pneumonia 4. Neurosyphilis, mental status is better. Patient will need to receive penicillin G for 2 weeks(end date 10/17/16) -RPR positive with titer of 1:1024 -Patient without diffuse rash. -CSF VDRL 1:16 5. Marked hyponatremia -R/O SIADH, this might be related to the meningitis -resolved 6. Thrombocytopenia -Improved 7. Nausea/vomiting/diarrhea -resolved 8. renal insufficiency, most likely related to the amphotericin. will monitor this closely, if creatinine goes above 2.5 will stop amphotericin and continue with Fluconazole alone -nausea and vomiting could be adding to this, this has improved --slowly improving Recommendations: 1. continue fluconazole 800mg po daily, continuation phase 2. Continue IV penicillin for neurosyphilis, end date October 17, 2016 3.monitor creatinine 4. start zithromax 1200mg po Qweekly, first dose today 5. will hold off on using bactrim for pneumocystis prophylaxis until creatinine is normal 6. D/C planning, patient will need a supply of 7 days of fluconazole until he gets an appointment with [facility] Subjective Date of service: 10/16/16 Principal diagnosis: Cryptococcal meningitis, HIV, neurosyphilis Interval history: Patient is doing much better, he is ambulating and communicting without problems. Objective - Constitutional Vitals: Selected Entries 10/16/16 08:34 Temperature 98.6 F Pulse Rate [ 90 Left Radial] Respiratory 18 Rate O2 Sat by Pulse 98 Oximetry Blood Pressure 137/89 [Right Arm] Blood Pressure 105 Mean [Right Arm ] General appearance: Present: no acute distress, well-nourished - EENT Eyes: PERRL, EOM intact, no scleral icterus, no conjunctival injection ENT: hearing intact, clear oral mucosa, no oropharyngeal erythema Ears: bilateral: normal - Neck Neck: supple, normal ROM, no enlarged thyroid, no masses or JVD - Respiratory Respiratory effort: normal Respiratory: bilateral: CTA - Breasts Breasts: deferred - Cardiovascular Rhythm: regular Heart Sounds: Present: S1 & S2 Extremities: no ischemia, pulses intact, No edema - Gastrointestinal General gastrointestinal: Present: soft, non-tender, normal bowel sounds Rectal Exam: deferred - Genitourinary Male genitourinary: deferred - Integumentary Integumentary: clear, warm, dry, no jaundice, no rash - Musculoskeletal Musculoskeletal: generalized weakness - Psychiatric Psychiatric: appropriate mood/affect, cooperative - Labs CBC & Chem 7: 10/16/16 06:00 10/16/16 06:00 Labs: Abnormal lab results Laboratory Tests 10/16/16 10/16/16 06:00 06:00 WBC 2.8 L Plt Count 161 Creatinine 1.8 H 10/16/16 10/16/16 Range/Units 06:00 06:00 WBC 2.8 L (4.5-11.0) K/mm3 RBC 2.57 L (3.65-5.03) M/mm3 Hgb 7.4 L (11.8-15.2) gm/dl Hct 21.0 L (35.5-45.6) % MCV 82 L (84-94) fl MCHC 35 H (32-34) % RDW 21.9 H (13.2-15.2) % [place] % (Auto) 10.5 H (0.0-7.3) % Eos % (Auto) 4.6 H (0.0-4.3) % Lymph # 0.8 L (1.2-5.4) K/mm3 Seg Neutrophils # 1.5 L (1.8-7.7) K/mm3 Carbon Dioxide 21 L (22-30) mmol/L Creatinine 1.8 H (0.8-1.5) mg/dL Glucose 73 L (75-100) mg/dL Calcium 8.1 L (8.4-10.2) mg/dL
[2016-10-16] MEDS ORDERED: ZITHROMAX PO SCH (12:00)
--- NOTE | 2016-10-16 12:18 | Progress Note ---
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 * IV amphotericin induction therapy on hold for elevated creatinine * cont fluconazole 800 mg by mouth Syphilis/ Neurosyphilis * His RPR is positive with titer of 1:1024 * Continue high dose IV penicillin for neurosyphilis till tomorrow, 10/17/2016 new diagnosis of HIV-AIDS, * CD4 17, viral load [id number] * Would need outpatient follow-up to start on HIV medications Acute kidney injury/ATN * likely due to amphotericin * Continue IV fluids and monitor renal function * Nephrology following * Creatinine 1.8 today improving Nausea/vomiting/diarrhea, * medication(flucytosine) induced, resolved after stopping medications Pancytopenia * likely due to HIV * Continue to monitor CBC * Transfuse if hemoglobin drops below 7 Marked hyponatremia, * could be due to meningitis * Continue IV fluid, improving Right lower lobe infiltrate, * possible pneumonia, resolved hypomagnesemia * Replace and monitor * Possible d/c home tomorrow to follow at [place]. time checker status. * History Interval history: Feels better, Less headache, fever Hospitalist Physical - Physical exam Narrative exam: Gen: Not in acute distress HEENT: Normocephalic, atraumatic Neck :supple, no JVD Lungs:clear to auscultation bilaterally no crackles or wheeze Heart S1 and S2 regular, no murmurs no gallop Abdomen:soft, nontender, nondistended, normal bowel sounds Ext: No edema, no clubbing , no cyanosis Neuro: Awake alert oriented x 3 - Constitutional Vitals: Temp Pulse Resp BP Pulse Ox 98.6 F 90 18 137/89 98 10/16/16 08:34 10/16/16 08:34 10/16/16 08:34 10/16/16 08:34 10/16/16 08:34 General appearance: Present: well-nourished Results - Labs CBC & Chem 7: 10/16/16 06:00 10/16/16 06:00 Labs: Laboratory Last Values WBC 2.8 K/mm3 (4.5-11.0) L 10/16/16 06:00 RBC 2.57 M/mm3 (3.65-5.03) L 10/16/16 06:00 Hgb 7.4 gm/dl (11.8-15.2) L 10/16/16 06:00 Hct 21.0 % (35.5-45.6) L 10/16/16 06:00 MCV 82 fl (84-94) L 10/16/16 06:00 MCH 29 pg (28-32) 10/16/16 06:00 MCHC 35 % (32-34) H 10/16/16 06:00 RDW 21.9 % (13.2-15.2) H 10/16/16 06:00 Plt Count 161 K/mm3 (140-440) 10/16/16 06:00 Lymph % (Auto) 30.4 % (13.4-35.0) 10/16/16 06:00 [place] % (Auto) 10.5 % (0.0-7.3) H 10/16/16 06:00 Eos % (Auto) 4.6 % (0.0-4.3) H 10/16/16 06:00 Baso % (Auto) 0.5 % (0.0-1.8) 10/16/16 06:00 Lymph # 0.8 K/mm3 (1.2-5.4) L 10/16/16 06:00 [place] # 0.3 K/mm3 (0.0-0.8) 10/16/16 06:00 Eos # 0.1 K/mm3 (0.0-0.4) 10/16/16 06:00 Baso # 0.0 K/mm3 (0.0-0.1) 10/16/16 06:00 Add Manual Diff Complete 10/09/16 05:45 Total Counted 100 10/09/16 05:45 Seg Neutrophils % 54.0 % (40.0-70.0) 10/16/16 06:00 Seg Neuts % (Manual) 68.0 % (40.0-70.0) 10/09/16 05:45 Band Neutrophils % 0 % 10/09/16 05:45 Lymphocytes % (Manual) 19.0 % (13.4-35.0) 10/09/16 05:45 Reactive Lymphs % (Man) 0 % 10/09/16 05:45 Monocytes % (Manual) 10.0 % (0.0-7.3) H 10/09/16 05:45 Eosinophils % (Manual) 3.0 % (0.0-4.3) 10/09/16 05:45 Basophils % (Manual) 0 % (0.0-1.8) 10/09/16 05:45 Metamyelocytes % 0 % 10/09/16 05:45 Myelocytes % 0 % 10/09/16 05:45 Promyelocytes % 0 % 10/09/16 05:45 Blast Cells % 0 % 10/09/16 05:45 Nucleated RBC % Not Reportable 10/09/16 05:45 Seg Neutrophils # 1.5 K/mm3 (1.8-7.7) L 10/16/16 06:00 Seg Neutrophils # Man 2.6 K/mm3 (1.8-7.7) 10/09/16 05:45 Band Neutrophils # 0.0 K/mm3 10/09/16 05:45 Abs Lymphs (Manual) 215 cells/uL (850-3900) L 09/28/16 15:43 Lymphocytes # (Manual) 0.7 K/mm3 (1.2-5.4) L 10/09/16 05:45 Abs React Lymphs (Man) 0.0 K/mm3 10/09/16 05:45 Monocytes # (Manual) 0.4 K/mm3 (0.0-0.8) 10/09/16 05:45 Eosinophils # (Manual) 0.1 K/mm3 (0.0-0.4) 10/09/16 05:45 Basophils # (Manual) 0.0 K/mm3 (0.0-0.1) 10/09/16 05:45 Metamyelocytes # 0.0 K/mm3 10/09/16 05:45 Myelocytes # 0.0 K/mm3 10/09/16 05:45 Promyelocytes # 0.0 K/mm3 10/09/16 05:45 Blast Cells # 0.0 K/mm3 10/09/16 05:45 WBC Morphology Not Reportable 10/09/16 05:45 Hypersegmented Neuts Not Reportable 10/09/16 05:45 Hyposegmented Neuts Not Reportable 10/09/16 05:45 Hypogranular Neuts Not Reportable 10/09/16 05:45 Smudge Cells 1+ 10/09/16 05:45 Toxic Granulation Not Reportable 10/09/16 05:45 Toxic Vacuolation Not Reportable 10/09/16 05:45 Dohle Bodies Not Reportable 10/09/16 05:45 Pelger-Huet Anomaly Not Reportable 10/09/16 05:45 Ada Rods Not Reportable 10/09/16 05:45 Platelet Estimate Appears normal 10/09/16 05:45 Clumped Platelets Not Reportable 10/09/16 05:45 Plt Clumps, EDTA Not Reportable 10/09/16 05:45 Large Platelets Not Reportable 10/09/16 05:45 Giant Platelets Not Reportable 10/09/16 05:45 Platelet Satelliting Not Reportable 10/09/16 05:45 Plt Morphology Comment Not Reportable 10/09/16 05:45 RBC Morphology Not Reportable 10/09/16 05:45 Dimorphic RBCs Not Reportable 10/09/16 05:45 Polychromasia Not Reportable 10/09/16 05:45 Hypochromasia 1+ 10/09/16 05:45 Poikilocytosis Not Reportable 10/09/16 05:45 Anisocytosis 3+ 10/09/16 05:45 Microcytosis Not Reportable 10/09/16 05:45 Macrocytosis Not Reportable 10/09/16 05:45 Spherocytes Not Reportable 10/09/16 05:45 Pappenheimer Bodies Not Reportable 10/09/16 05:45 Sickle Cells Not Reportable 10/09/16 05:45 Target Cells Not Reportable 10/09/16 05:45 Tear Drop Cells Not Reportable 10/09/16 05:45 Ovalocytes Not Reportable 10/09/16 05:45 Helmet Cells Not Reportable 10/09/16 05:45 Varma-Thor Bodies Not Reportable 10/09/16 05:45 Strunk Rings Not Reportable 10/09/16 05:45 Alycia Cells Not Reportable 10/09/16 05:45 Bite Cells Not Reportable 10/09/16 05:45 Crenated Cell Not Reportable 10/09/16 05:45 Elliptocytes Not Reportable 10/09/16 05:45 Acanthocytes (Spur) Not Reportable 10/09/16 05:45 Rouleaux Not Reportable 10/09/16 05:45 Hemoglobin C Crystals Not Reportable 10/09/16 05:45 Schistocytes Not Reportable 10/09/16 05:45 Malaria parasites Not Reportable 10/09/16 05:45 Warner Bodies Not Reportable 10/09/16 05:45 Hem Pathologist Commnt No 10/09/16 05:45 Sodium 138 mmol/L (137-145) 10/16/16 06:00 Potassium 3.8 mmol/L (3.6-5.0) 10/16/16 06:00 Chloride 104.7 mmol/L (98-107) 10/16/16 06:00 Carbon Dioxide 21 mmol/L (22-30) L 10/16/16 06:00 Anion Gap 16 mmol/L 10/16/16 06:00 BUN 17 mg/dL (9-20) 10/16/16 06:00 Creatinine 1.8 mg/dL (0.8-1.5) H 10/16/16 06:00 Estimated GFR 57 ml/min 10/16/16 06:00 BUN/Creatinine Ratio 9.44 % 10/16/16 06:00 Glucose 73 mg/dL (75-100) L 10/16/16 06:00 POC Glucose 81 (70-105) 09/29/16 21:06 Osmolality 272 Mosm/kg 09/29/16 10:01 Lactic Acid 1.9 mmol/L (0.7-2.0) 09/28/16 12:06 Calcium 8.1 mg/dL (8.4-10.2) L 10/16/16 06:00 Phosphorus 3.5 mg/dL (2.5-4.5) 10/11/16 14:00 Magnesium 1.7 mg/dL (1.7-2.3) 10/14/16 06:10 Total Bilirubin 0.4 mg/dL (0.1-1.2) 10/09/16 05:45 Direct Bilirubin < 0.2 mg/dL (0-0.2) 09/28/16 12:06 Indirect Bilirubin 0.3 mg/dL 09/28/16 12:06 AST 24 units/L (5-40) 10/09/16 05:45 ALT 17 units/L (7-56) 10/09/16 05:45 Alkaline Phosphatase 58 units/L (35-129) 10/09/16 05:45 Lactate Dehydrogenase 467 units/L (91-180) H 09/28/16 12:06 Troponin T 0.427 ng/mL (0.00-0.029) H* 09/28/16 12:06 Total Protein 6.5 g/dL (6.3-8.2) 10/09/16 05:45 Albumin 2.1 g/dL (3.9-5) L 10/09/16 05:45 Albumin/Globulin Ratio 0.5 % 10/09/16 05:45 Triglycerides 102 mg/dL (2-149) 09/28/16 12:06 Cholesterol 151 mg/dL (50-199) 09/28/16 12:06 LDL Cholesterol Direct 86 mg/dL (50-130) 09/28/16 12:06 HDL Cholesterol 45 mg/dL (40-59) 09/28/16 12:06 Cholesterol/HDL Ratio 3.35 % 09/28/16 12:06 Urine Color Straw (Yellow) 10/13/16 06:15 Urine Turbidity Clear (Clear) 10/13/16 06:15 Urine pH 5.0 (5.0-7.0) 10/13/16 06:15 Ur Specific [place] 1.011 (1.003-1.030) 10/13/16 06:15 Urine Protein 30 mg/dl mg/dL (Negative) 10/13/16 06:15 Urine Glucose (UA) Neg mg/dL (Negative) 10/13/16 06:15 Urine Ketones Neg mg/dL (Negative) 10/13/16 06:15 Urine Blood Sm (Negative) 10/13/16 06:15 Urine Nitrite Neg (Negative) 10/13/16 06:15 Urine Bilirubin Neg (Negative) 10/13/16 06:15 Urine Urobilinogen < 2.0 mg/dL (<2.0) 10/13/16 06:15 Ur Leukocyte Esterase Neg (Negative) 10/13/16 06:15 Urine WBC (Auto) 1.0 /HPF (0.0-6.0) 10/13/16 06:15 Urine RBC (Auto) 1.0 /HPF (0.0-6.0) 10/13/16 06:15 U Epithel Cells (Auto) < 1.0 /HPF (0-13.0) 10/13/16 06:15 Urine Bacteria (Auto) 1+ /HPF (Negative) 10/13/16 06:15 Urine Mucus Few /HPF 10/13/16 06:15 Urine Eosinophils None seen (None Seen) 10/13/16 06:15 Urine Creatinine 44.7 mg/dL (0.1-20.0) H 10/13/16 06:15 Urine Sodium 135 mEq/L 10/13/16 06:15 CSF Appearance Clear 09/28/16 12:45 CSF Color Colorless 09/28/16 12:45 CSF WBC 600 /mm3 (1-10) 09/28/16 12:45 CSF RBC 165 /mm3 (0-0) 09/28/16 12:45 CSF Seg Neutrophils 55.5 % (0-6) 09/28/16 12:45 CSF Lymphocytes % 38.0 % (40-80) 09/28/16 12:45 CSF Reactive Lymphs 0.5 % 09/28/16 12:45 CSF Monocytes % 6.0 % (15-45) 09/28/16 12:45 CSF Eosinophils % 0 % 09/28/16 12:45 CSF Basophils 0 % 09/28/16 12:45 CSF Pathologist Review C 09/28/16 12:45 CSF Glucose 3 mg/dL 09/28/16 12:45 CSF Total Protein 117 mg/dL 09/28/16 12:45 CSF VDRL Reactive 1:16 (Nonreactive) H 09/28/16 12:45 Salicylates < 0.3 mg/dL (2.8-20.0) L 09/28/16 12:06 Urine Opiates Screen Presumptive negative 09/28/16 12:20 Urine Methadone Screen Presumptive negative 09/28/16 12:20 Acetaminophen < 15.0 ug/mL (10.0-30.0) 09/28/16 12:06 Ur Barbiturates Screen Presumptive negative 09/28/16 12:20 Ur Phencyclidine Scrn Presumptive negative 09/28/16 12:20 Ur Amphetamines Screen Presumptive negative 09/28/16 12:20 U Benzodiazepines Scrn Presumptive negative 09/28/16 12:20 Urine Cocaine Screen Presumptive negative 09/28/16 12:20 U Marijuana (THC) Screen Presumptive positive 09/28/16 12:20 Drugs of Abuse Note Disclamer 09/28/16 12:20 Plasma/Serum Alcohol < 0.01 gm% (0-0.07) 09/28/16 12:06 Lymph Enumerat CD4/CD8 0.10 (0.86-5.00) L 09/28/16 15:43 % CD3 Cells 77 % (57-85) 09/28/16 15:43 Absolute CD3 Count 166 cells/uL (840-3060) L 09/28/16 15:43 % CD4 Cells 7 % (30-61) L 09/28/16 15:43 Absolute CD4 Count 14 cells/uL (490-1740) L 09/28/16 15:43 % CD8 Cells 69 % (12-42) H 09/28/16 15:43 Absolute CD8 Count 148 cells/uL (180-1170) L 09/28/16 15:43 % CD19 Cells 0 % (6-29) L 09/28/16 15:43 Absolute CD19 Count 1 cells/uL (110-660) L 09/28/16 15:43 RPR Titer 1:1024 09/28/16 15:43 RPR Reactive (Nonreactive) 09/28/16 15:43 Hepatitis A Ab Total See scanned report 09/28/16 15:43 Hep Bs Antigen Non-reactive (Negative) 09/28/16 15:43 Hep B Core IgM Ab Non-reactive (NonReactive) 09/28/16 15:43 Hepatitis C Antibody Non-reactive (NonReactive) 09/28/16 15:43 HIV-1 RNA PCR copies/ml 767201 copies/mL (<20) H 09/28/16 15:43 HIV-1 RNA (PCR) log 5.99 Log cps/mL (<1.30) H 09/28/16 15:43 HIV-1 Genotyping see below (()) 09/28/16 15:43 HIV 1&2 Antibody Rapid Reactive (Non React) 09/28/16 15:43 HIV P24 Antigen Non react (Non React) 09/28/16 15:43 Toxoplasma IgG Ab <=0.90 (<=0.90) 10/03/16 11:00 Toxoplasma IgM Ab Negative (Negative) 10/03/16 11:00 TB (QFT) Gold In Tube Negative (Negative) 09/29/16 07:30 TB Test (QFT) Nil 0.09 IU/mL (()) 09/29/16 07:30 TB Test Mitogen - Nil 7.24 IU/mL (()) 09/29/16 07:30 TB Test Antigen - Nil 0.05 IU/mL (()) 09/29/16 07:30
[2016-10-16] MEDS: TYLENOL PO PRN (15:30)
[2016-10-16] MEDS: NACL 0.9% 1000 ML 1,000 ML IV SCH (20:36)
[2016-10-17] MEDS: PFIZERPEN IV SCH ×6 (02:35→22:11)
[2016-10-17] MEDS: NACL IV SCH ×6 (02:35→22:11)
[2016-10-17 07:27] LABS: Basophils % (Auto) 0.5 % (0.0-1.8); Eosinophils % (Auto) 5.4 % (0.0-4.3); Hematocrit 22.3 % (35.5-45.6); Hemoglobin 7.8 gm/dl (11.8-15.2); Mean Corpuscular HGB Conc 35 % (32-34); Mean Corpuscular Hemoglobin 29 pg (28-32); Mean Corpuscular Volume 82 fl (84-94); Platelet Count 153 K/mm3 (140-440); Red Blood Count 2.72 M/mm3 (3.65-5.03); White Blood Count 3.2 K/mm3 (4.5-11.0)
[2016-10-17 07:28] LABS: Red Cell Distribution Width 23.5 % (13.2-15.2)
[2016-10-17 07:35] LABS: Anion Gap 16 mmol/L; BUN/Creatinine Ratio 11.76; Blood Urea Nitrogen 20 mg/dL (9-20); Calcium 7.9 mg/dL (8.4-10.2); Carbon Dioxide 21 mmol/L (22-30); Glucose 78 mg/dL (75-100); Potassium 3.8 mmol/L (3.6-5.0); Sodium 135 mmol/L (137-145)
[2016-10-17] MEDS: SODIUM BICARBONATE PO SCH ×3 (09:26→22:10)
[2016-10-17] MEDS: LOVENOX SUB-Q SCH (09:26)
[2016-10-17] MEDS: DIFLUCAN PO SCH (09:26)
--- NOTE | 2016-10-17 10:11 | Progress Note ---
Assessment and Plan Impression: * Nonoliguric acute kidney injury most likely secondary to Amphotericin B * Cryptococcal meningitis * HIV/AIDS * Neurosyphilis * Hyponatremia - resolved * Anemia Plan: * cr is slowly improving * Continue po sodium bicarb * Ampho B has been discontinued by ID team, on diflucan * IVF for hydration * ID recommendations noted * Dose medications for renal function * Avoid potential nephrotoxins Subjective Date of service: 10/17/16 Principal diagnosis: Cryptococcal meningitis, HIV, neurosyphilis Interval history: Patient is comfortable today. Denies any chest pain or shortness of breath. Objective - Vital Signs Vital signs: Vital Signs - 12hr 10/17/16 10/17/16 00:00 07:54 Temperature 98.6 F 98.8 F Pulse Rate [ 84 77 Left Radial] Respiratory 18 18 Rate Blood Pressure 131/71 158/94 [Right Arm] O2 Sat by Pulse 98 98 Oximetry - General Appearance General appearance: well-developed, well-nourished, appears stated age EENT: PERRL, mucous membranes moist Neck: no JVD, no thyromegaly, no carotid bruit, supple Respiratory: Present: Clear to Ascultation Cardiology: regular, normal heart rate, S1S2, no murmurs Gastrointestinal: normal, normoactive bowel sounds Integumentary: no rash, warm and dry - Lab 10/17/16 06:50 10/17/16 06:50 Most recent lab results Calcium 7.9 mg/dL (8.4-10.2) L 10/17/16 06:50 Phosphorus 3.5 mg/dL (2.5-4.5) 10/11/16 14:00 Magnesium 1.7 mg/dL (1.7-2.3) 10/14/16 06:10 Urine Creatinine 44.7 mg/dL (0.1-20.0) H 10/13/16 06:15 Urine Sodium 135 mEq/L 10/13/16 06:15
--- NOTE | 2016-10-17 10:55 | Discharge Summary ---
Providers - Providers Date of Admission: 09/28/16 18:59 Attending physician: JUVENAL SWEET 10/01/16 12:15 Physical Therapy Evaluation and Treat [CONS] Routine Comment: Reason For Exam: Deconditionag/ frequent falls at home. 10/01/16 12:52 Consult to Dietitian/Nutrition [CONS] Routine Physician Instructions: not eating Reason For Exam: Reason for Consult: Poor oral intake 10/01/16 20:53 PICC Line Insertion [Consult to PICC Line RN] [CONS] Routine Reason For Exam: iv amphtericin Type Line:: PICC 10/11/16 18:05 Consult to Physician [CONS] Routine Consulting Provider: BERONICA WELLER Reason For Exam: franci Place consult to:: nephrology art education professor Notified:: BROOKS Phone number called:: [phone] Was contact made?: Yes If yes, spoke with:: BROOKS Time called:: 19:00 Comment:: OPERATIONS LIAISON Primary care physician: WATER SERVICE SUPERVISOR Hospitalization Condition: Serious Disposition: STILL A PATIENT Exam - Constitutional Vitals: Temp Pulse Resp BP Pulse Ox 98.8 F 77 18 158/94 98 10/17/16 07:54 10/17/16 07:54 10/17/16 07:54 10/17/16 07:54 10/17/16 07:54 Plan Follow up with: MARGA DALAL MD [Primary Care Provider] - 3-5 Days
--- NOTE | 2016-10-17 11:15 | Progress Note ---
Assessment and Plan Current antibiotics: Aqueous penicillin 4 million units IV q4h daily 10/03 --> Fluconazole 800 mg po q day 10/09 --> Previous Antibiotics: Amphotericin B 0.7 mg/kilogram IV daily 09/28-10/12 Flucytosine 25 mg/kilogram po q6h 09/28-10/06 Ceftriaxone 2 g IV daily 09/28-10/03 Vancomycin IV 1 g X 1 09/28 Azithromycin 500 mg IV daily 09/28-09/30/16 ASSESSMENT: Clair Rich is a 25y/o AA male presents through the ED with a one-month history of malaise, worsening generalized headache, decreased appetite, and weight loss. He was brought to the hospital by his sister who stated that had been falling. The patient had marked neck rigidity with non- contrast head CT showing no acute changes. 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 -No opening pressure done on initial LP -Associated cryptococcemia with AFB blood culture growing yeast -Completed amphotericin induction therapy and is now on high-dose fluconazole 2. HIV/AIDS -VL [id number] -CD4 14, 7% 3. RLL infiltrate -Repeat chest xray without infiltrate, doubt pneumonia 4. Neurosyphilis -RPR positive with titer of 1:1024 -Patient without diffuse rash. -CSF VDRL 1:16 5. Marked hyponatremia -R/O SIADH, this might be related to the meningitis -Resolved 6. Thrombocytopenia -Resolved 7. Nausea/vomiting/diarrhea -Seems to have resolved with 5-FC being discontinued 8. RANJIT -Likely secondary to previous amphotericin therapy -Trending down with amphotericin stopped 9. Hypomagnesemia -Secondary to amphotericin PLAN: 1. Continue fluconazole 800mg po daily. Will need to be supplied with this pending [facility] appointment 2. Has finished course of IV penicillin for neurosyphilis 3. Continue weekly azithromycin for MAC prophylaxis and 4. Start Bactrim DS one tablet daily for pneumocystis prophylaxis once creatinine normalizes 5. Okay to discharge ID-[facility] once arrangements for follow-up have been made as well as arrangements for high-dose fluconazole. 6. Discussed with patient and his mother. If there are any issues with getting into [facility] they will let me know. Glynn Warren MD [facility] Office: [phone] Subjective Date of service: 10/17/16 Principal diagnosis: Cryptococcal meningitis, HIV, neurosyphilis Interval history: No complaints except states that "nurse was rude to him." So continues to have intermittent nausea and vomiting. No significant headaches or blurred vision. Objective - Exam Narrative Exam: GENERAL: Well-developed, well nourished male who is alert and very responsive and in NAD. Much better than when I last saw him. HEENT: Pupils are equal reactive to light and accommodation. Conjunctiva clear. Thrush is improved. NECK: Less stiffness to forward flexion. No enlargement of the thyroid gland. [place] cervical lymphadenopathy. No jugular venous distention at 30. LUNGS: Clear with no adventitious sounds. HEART: Tachycardic. No murmur or gallop. ABDOMEN: Soft and nontender. Liver and spleen are not palpably enlarged or tender. No palpable masses. Bowel sounds are normoactive. EXTREMITIES: [place] cervical, axillary and inguinal lymph node enlargement. SKIN: No other rash, ulcers or wounds. NEUROLOGIC: No focal findings. Walking in the room. - Constitutional Vitals: Vital Signs Temp Pulse Resp BP Pulse Ox 98.8 F 77 18 158/94 98 10/17/16 07:54 10/17/16 07:54 10/17/16 07:54 10/17/16 07:54 10/17/16 07:54 Temperature -Last 24 Hours Temperature 98.8 F Temperature 98.6 F Temperature 98.5 F - Labs CBC & Chem 7: 10/17/16 06:50 10/17/16 06:50 Labs: Abnormal lab results Micro: 09/28/16 12:45 Cerebral Spinal Fluid CSF Culture - No growth 09/28/16 12:45 Cerebral Spinal Fluid Cryptococcal Antigen - 1:512 09/28/16 12:34 Peripheral/Venous Blood Culture - Preliminary NO GROWTH AFTER 72 HOURS 09/28/16 12:06 Peripheral/Venous Blood Culture - Preliminary NO GROWTH AFTER 72 HOURS 09/28/16 15:23 Serum Cryptococcal Antigen - 1:512 09/28 AFB blood culture is growing yeast Imagin/23: MRI of the brain: Likely small recent infarcts with no significant mass effect or hemorrhagic transformation no signs of hydrocephalus. Changes of acute and chronic sinusitis.
--- NOTE | 2016-10-17 12:57 | Progress Note ---
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 * Need to be discharged on high-dose fluconazole. Syphilis/ Neurosyphilis * His RPR is positive with titer of 1:1024 * Continue high dose IV penicillin for neurosyphilis till tomorrow, 10/17/2016 new diagnosis of HIV-AIDS, * CD4 17, viral load [id number] * Would need outpatient follow-up to start on HIV medications Acute kidney injury/ATN * likely due to amphotericin * Continue IV fluids and monitor renal function * Nephrology following * Creatinine 1.8 today improving Nausea/vomiting/diarrhea, * medication(flucytosine) induced, resolved after stopping medications Pancytopenia * likely due to HIV * Continue to monitor CBC * Transfuse if hemoglobin drops below 7 Marked hyponatremia, * could be due to meningitis * Continue IV fluid, improving Right lower lobe infiltrate, * possible pneumonia, resolved For d/c home tomorrow to follow at [facility]. Full code status. * History Interval history: Feels better, Less headache, no chest pain Hospitalist Physical - Physical exam Narrative exam: Gen: Not in acute distress HEENT: Normocephalic, atraumatic Neck :supple, no JVD Lungs:clear to auscultation bilaterally no crackles or wheeze Heart S1 and S2 regular, no murmurs no gallop Abdomen:soft, nontender, nondistended, normal bowel sounds Ext: No edema, no clubbing , no cyanosis Neuro: Awake alert oriented x 3 - Constitutional Vitals: Temp Pulse Resp BP Pulse Ox 98.8 F 77 18 158/94 98 10/17/16 07:54 10/17/16 07:54 10/17/16 07:54 10/17/16 07:54 10/17/16 07:54 General appearance: Present: well-nourished Results - Labs CBC & Chem 7: 10/17/16 06:50 10/17/16 06:50 Labs: Laboratory Last Values WBC 3.2 K/mm3 (4.5-11.0) L 10/17/16 06:50 RBC 2.72 M/mm3 (3.65-5.03) L 10/17/16 06:50 Hgb 7.8 gm/dl (11.8-15.2) L 10/17/16 06:50 Hct 22.3 % (35.5-45.6) L 10/17/16 06:50 MCV 82 fl (84-94) L 10/17/16 06:50 MCH 29 pg (28-32) 10/17/16 06:50 MCHC 35 % (32-34) H 10/17/16 06:50 RDW 23.5 % (13.2-15.2) H 10/17/16 06:50 Plt Count 153 K/mm3 (140-440) 10/17/16 06:50 Lymph % (Auto) 27.6 % (13.4-35.0) 10/17/16 06:50 Beckham % (Auto) 9.3 % (0.0-7.3) H 10/17/16 06:50 Eos % (Auto) 5.4 % (0.0-4.3) H 10/17/16 06:50 Baso % (Auto) 0.5 % (0.0-1.8) 10/17/16 06:50 Lymph # 0.9 K/mm3 (1.2-5.4) L 10/17/16 06:50 Beckham # 0.3 K/mm3 (0.0-0.8) 10/17/16 06:50 Eos # 0.2 K/mm3 (0.0-0.4) 10/17/16 06:50 Baso # 0.0 K/mm3 (0.0-0.1) 10/17/16 06:50 Add Manual Diff Complete 10/09/16 05:45 Total Counted 100 10/09/16 05:45 Seg Neutrophils % 57.2 % (40.0-70.0) 10/17/16 06:50 Seg Neuts % (Manual) 68.0 % (40.0-70.0) 10/09/16 05:45 Band Neutrophils % 0 % 10/09/16 05:45 Lymphocytes % (Manual) 19.0 % (13.4-35.0) 10/09/16 05:45 Reactive Lymphs % (Man) 0 % 10/09/16 05:45 Monocytes % (Manual) 10.0 % (0.0-7.3) H 10/09/16 05:45 Eosinophils % (Manual) 3.0 % (0.0-4.3) 10/09/16 05:45 Basophils % (Manual) 0 % (0.0-1.8) 10/09/16 05:45 Metamyelocytes % 0 % 10/09/16 05:45 Myelocytes % 0 % 10/09/16 05:45 Promyelocytes % 0 % 10/09/16 05:45 Blast Cells % 0 % 10/09/16 05:45 Nucleated RBC % Not Reportable 10/09/16 05:45 Seg Neutrophils # 1.9 K/mm3 (1.8-7.7) 10/17/16 06:50 Seg Neutrophils # Man 2.6 K/mm3 (1.8-7.7) 10/09/16 05:45 Band Neutrophils # 0.0 K/mm3 10/09/16 05:45 Abs Lymphs (Manual) 215 cells/uL (850-3900) L 09/28/16 15:43 Lymphocytes # (Manual) 0.7 K/mm3 (1.2-5.4) L 10/09/16 05:45 Abs React Lymphs (Man) 0.0 K/mm3 10/09/16 05:45 Monocytes # (Manual) 0.4 K/mm3 (0.0-0.8) 10/09/16 05:45 Eosinophils # (Manual) 0.1 K/mm3 (0.0-0.4) 10/09/16 05:45 Basophils # (Manual) 0.0 K/mm3 (0.0-0.1) 10/09/16 05:45 Metamyelocytes # 0.0 K/mm3 10/09/16 05:45 Myelocytes # 0.0 K/mm3 10/09/16 05:45 Promyelocytes # 0.0 K/mm3 10/09/16 05:45 Blast Cells # 0.0 K/mm3 10/09/16 05:45 WBC Morphology Not Reportable 10/09/16 05:45 Hypersegmented Neuts Not Reportable 10/09/16 05:45 Hyposegmented Neuts Not Reportable 10/09/16 05:45 Hypogranular Neuts Not Reportable 10/09/16 05:45 Smudge Cells 1+ 10/09/16 05:45 Toxic Granulation Not Reportable 10/09/16 05:45 Toxic Vacuolation Not Reportable 10/09/16 05:45 Dohle Bodies Not Reportable 10/09/16 05:45 Pelger-Huet Anomaly Not Reportable 10/09/16 05:45 Ada Rods Not Reportable 10/09/16 05:45 Platelet Estimate Appears normal 10/09/16 05:45 Clumped Platelets Not Reportable 10/09/16 05:45 Plt Clumps, EDTA Not Reportable 10/09/16 05:45 Large Platelets Not Reportable 10/09/16 05:45 Giant Platelets Not Reportable 10/09/16 05:45 Platelet Satelliting Not Reportable 10/09/16 05:45 Plt Morphology Comment Not Reportable 10/09/16 05:45 RBC Morphology Not Reportable 10/09/16 05:45 Dimorphic RBCs Not Reportable 10/09/16 05:45 Polychromasia Not Reportable 10/09/16 05:45 Hypochromasia 1+ 10/09/16 05:45 Poikilocytosis Not Reportable 10/09/16 05:45 Anisocytosis 3+ 10/09/16 05:45 Microcytosis Not Reportable 10/09/16 05:45 Macrocytosis Not Reportable 10/09/16 05:45 Spherocytes Not Reportable 10/09/16 05:45 Pappenheimer Bodies Not Reportable 10/09/16 05:45 Sickle Cells Not Reportable 10/09/16 05:45 Target Cells Not Reportable 10/09/16 05:45 Tear Drop Cells Not Reportable 10/09/16 05:45 Ovalocytes Not Reportable 10/09/16 05:45 Helmet Cells Not Reportable 10/09/16 05:45 Varma-Trommald Bodies Not Reportable 10/09/16 05:45 [place] Rings Not Reportable 10/09/16 05:45 Alycia Cells Not Reportable 10/09/16 05:45 Bite Cells Not Reportable 10/09/16 05:45 Crenated Cell Not Reportable 10/09/16 05:45 Elliptocytes Not Reportable 10/09/16 05:45 Acanthocytes (Spur) Not Reportable 10/09/16 05:45 Rouleaux Not Reportable 10/09/16 05:45 Hemoglobin C Crystals Not Reportable 10/09/16 05:45 Schistocytes Not Reportable 10/09/16 05:45 Malaria parasites Not Reportable 10/09/16 05:45 Warner Bodies Not Reportable 10/09/16 05:45 Hem Pathologist Commnt No 10/09/16 05:45 Sodium 135 mmol/L (137-145) L 10/17/16 06:50 Potassium 3.8 mmol/L (3.6-5.0) 10/17/16 06:50 Chloride 102.0 mmol/L (98-107) 10/17/16 06:50 Carbon Dioxide 21 mmol/L (22-30) L 10/17/16 06:50 Anion Gap 16 mmol/L 10/17/16 06:50 BUN 20 mg/dL (9-20) 10/17/16 06:50 Creatinine 1.7 mg/dL (0.8-1.5) H 10/17/16 06:50 Estimated GFR > 60 ml/min 10/17/16 06:50 BUN/Creatinine Ratio 11.76 % 10/17/16 06:50 Glucose 78 mg/dL (75-100) 10/17/16 06:50 POC Glucose 81 (70-105) 09/29/16 21:06 Osmolality 272 Mosm/kg 09/29/16 10:01 Lactic Acid 1.9 mmol/L (0.7-2.0) 09/28/16 12:06 Calcium 7.9 mg/dL (8.4-10.2) L 10/17/16 06:50 Phosphorus 3.5 mg/dL (2.5-4.5) 10/11/16 14:00 Magnesium 1.7 mg/dL (1.7-2.3) 10/14/16 06:10 Total Bilirubin 0.4 mg/dL (0.1-1.2) 10/09/16 05:45 Direct Bilirubin < 0.2 mg/dL (0-0.2) 09/28/16 12:06 Indirect Bilirubin 0.3 mg/dL 09/28/16 12:06 AST 24 units/L (5-40) 10/09/16 05:45 ALT 17 units/L (7-56) 10/09/16 05:45 Alkaline Phosphatase 58 units/L (35-129) 10/09/16 05:45 Lactate Dehydrogenase 467 units/L (91-180) H 09/28/16 12:06 Troponin T 0.427 ng/mL (0.00-0.029) H* 09/28/16 12:06 Total Protein 6.5 g/dL (6.3-8.2) 10/09/16 05:45 Albumin 2.1 g/dL (3.9-5) L 10/09/16 05:45 Albumin/Globulin Ratio 0.5 % 10/09/16 05:45 Triglycerides 102 mg/dL (2-149) 09/28/16 12:06 Cholesterol 151 mg/dL (50-199) 09/28/16 12:06 LDL Cholesterol Direct 86 mg/dL (50-130) 09/28/16 12:06 HDL Cholesterol 45 mg/dL (40-59) 09/28/16 12:06 Cholesterol/HDL Ratio 3.35 % 09/28/16 12:06 Urine Color Straw (Yellow) 10/13/16 06:15 Urine Turbidity Clear (Clear) 10/13/16 06:15 Urine pH 5.0 (5.0-7.0) 10/13/16 06:15 Ur Specific [place] 1.011 (1.003-1.030) 10/13/16 06:15 Urine Protein 30 mg/dl mg/dL (Negative) 10/13/16 06:15 Urine Glucose (UA) Neg mg/dL (Negative) 10/13/16 06:15 Urine Ketones Neg mg/dL (Negative) 10/13/16 06:15 Urine Blood Sm (Negative) 10/13/16 06:15 Urine Nitrite Neg (Negative) 10/13/16 06:15 Urine Bilirubin Neg (Negative) 10/13/16 06:15 Urine Urobilinogen < 2.0 mg/dL (<2.0) 10/13/16 06:15 Ur Leukocyte Esterase Neg (Negative) 10/13/16 06:15 Urine WBC (Auto) 1.0 /HPF (0.0-6.0) 10/13/16 06:15 Urine RBC (Auto) 1.0 /HPF (0.0-6.0) 10/13/16 06:15 U Epithel Cells (Auto) < 1.0 /HPF (0-13.0) 10/13/16 06:15 Urine Bacteria (Auto) 1+ /HPF (Negative) 10/13/16 06:15 Urine Mucus Few /HPF 10/13/16 06:15 Urine Eosinophils None seen (None Seen) 10/13/16 06:15 Urine Creatinine 44.7 mg/dL (0.1-20.0) H 10/13/16 06:15 Urine Sodium 135 mEq/L 10/13/16 06:15 CSF Appearance Clear 09/28/16 12:45 CSF Color Colorless 09/28/16 12:45 CSF WBC 600 /mm3 (1-10) 09/28/16 12:45 CSF RBC 165 /mm3 (0-0) 09/28/16 12:45 CSF Seg Neutrophils 55.5 % (0-6) 09/28/16 12:45 CSF Lymphocytes % 38.0 % (40-80) 09/28/16 12:45 CSF Reactive Lymphs 0.5 % 09/28/16 12:45 CSF Monocytes % 6.0 % (15-45) 09/28/16 12:45 CSF Eosinophils % 0 % 09/28/16 12:45 CSF Basophils 0 % 09/28/16 12:45 CSF Pathologist Review C 09/28/16 12:45 CSF Glucose 3 mg/dL 09/28/16 12:45 CSF Total Protein 117 mg/dL 09/28/16 12:45 CSF VDRL Reactive 1:16 (Nonreactive) H 09/28/16 12:45 Salicylates < 0.3 mg/dL (2.8-20.0) L 09/28/16 12:06 Urine Opiates Screen Presumptive negative 09/28/16 12:20 Urine Methadone Screen Presumptive negative 09/28/16 12:20 Acetaminophen < 15.0 ug/mL (10.0-30.0) 09/28/16 12:06 Ur Barbiturates Screen Presumptive negative 09/28/16 12:20 Ur Phencyclidine Scrn Presumptive negative 09/28/16 12:20 Ur Amphetamines Screen Presumptive negative 09/28/16 12:20 U Benzodiazepines Scrn Presumptive negative 09/28/16 12:20 Urine Cocaine Screen Presumptive negative 09/28/16 12:20 U Marijuana (THC) Screen Presumptive positive 09/28/16 12:20 Drugs of Abuse Note Disclamer 09/28/16 12:20 Plasma/Serum Alcohol < 0.01 gm% (0-0.07) 09/28/16 12:06 Lymph Enumerat CD4/CD8 0.10 (0.86-5.00) L 09/28/16 15:43 % CD3 Cells 77 % (57-85) 09/28/16 15:43 Absolute CD3 Count 166 cells/uL (840-3060) L 09/28/16 15:43 % CD4 Cells 7 % (30-61) L 09/28/16 15:43 Absolute CD4 Count 14 cells/uL (490-1740) L 09/28/16 15:43 % CD8 Cells 69 % (12-42) H 09/28/16 15:43 Absolute CD8 Count 148 cells/uL (180-1170) L 09/28/16 15:43 % CD19 Cells 0 % (6-29) L 09/28/16 15:43 Absolute CD19 Count 1 cells/uL (110-660) L 09/28/16 15:43 RPR Titer 1:1024 09/28/16 15:43 RPR Reactive (Nonreactive) 09/28/16 15:43 Hepatitis A Ab Total See scanned report 09/28/16 15:43 Hep Bs Antigen Non-reactive (Negative) 09/28/16 15:43 Hep B Core IgM Ab Non-reactive (NonReactive) 09/28/16 15:43 Hepatitis C Antibody Non-reactive (NonReactive) 09/28/16 15:43 HIV-1 RNA PCR copies/ml 496480 copies/mL (<20) H 09/28/16 15:43 HIV-1 RNA (PCR) log 5.99 Log cps/mL (<1.30) H 09/28/16 15:43 HIV-1 Genotyping see below (()) 09/28/16 15:43 HIV 1&2 Antibody Rapid Reactive (Non React) 09/28/16 15:43 HIV P24 Antigen Non react (Non React) 09/28/16 15:43 Toxoplasma IgG Ab <=0.90 (<=0.90) 10/03/16 11:00 Toxoplasma IgM Ab Negative (Negative) 10/03/16 11:00 TB (QFT) Gold In Tube Negative (Negative) 09/29/16 07:30 TB Test (QFT) Nil 0.09 IU/mL (()) 09/29/16 07:30 TB Test Mitogen - Nil 7.24 IU/mL (()) 09/29/16 07:30 TB Test Antigen - Nil 0.05 IU/mL (()) 09/29/16 07:30
[2016-10-17] MEDS: NACL 0.9% 1000 ML 1,000 ML IV SCH (13:21)
[2016-10-18] MEDS: PFIZERPEN IV SCH ×3 (02:10→11:04)
[2016-10-18] MEDS: NACL IV SCH ×3 (02:10→11:04)
[2016-10-18] MEDS: NACL 0.9% 1000 ML 1,000 ML IV SCH (02:22)
--- NOTE | 2016-10-18 09:12 | Progress Note ---
Assessment and Plan Impression: * Nonoliguric acute kidney injury most likely secondary to Amphotericin B * Cryptococcal meningitis * HIV/AIDS * Neurosyphilis * Hyponatremia - resolved * Anemia * Hypomagnesemia Plan: * cr is slowly improving * Continue po sodium bicarb * Ampho B has been discontinued by ID team, on diflucan * IVF for hydration * ID recommendations noted * Dose medications for renal function * Avoid potential nephrotoxins * Shall recheck a magnesium level * Patient will need outpatient renal follow-up upon discharge Subjective Date of service: 10/18/16 Principal diagnosis: Cryptococcal meningitis, HIV, neurosyphilis Interval history: Patient is comfortable today. Denies any shortness of breath. No nausea or vomiting. Objective - Vital Signs Vital signs: Vital Signs - 12hr 10/18/16 00:00 Temperature 98.6 F Pulse Rate [ 86 Left Radial] Respiratory 20 Rate Blood Pressure 137/85 [Right Arm] O2 Sat by Pulse 100 Oximetry - General Appearance General appearance: well-developed, well-nourished, appears stated age EENT: PERRL, mucous membranes moist Neck: no JVD, no thyromegaly, no carotid bruit, supple Respiratory: Present: Clear to Ascultation Cardiology: regular, normal heart rate, S1S2, no murmurs Gastrointestinal: normal, normoactive bowel sounds Integumentary: no rash, other (no edema) - Lab 10/17/16 06:50 10/17/16 06:50 Most recent lab results Calcium 7.9 mg/dL (8.4-10.2) L 10/17/16 06:50 Phosphorus 3.5 mg/dL (2.5-4.5) 10/11/16 14:00 Magnesium 1.7 mg/dL (1.7-2.3) 10/14/16 06:10 Urine Creatinine 44.7 mg/dL (0.1-20.0) H 10/13/16 06:15 Urine Sodium 135 mEq/L 10/13/16 06:15
[2016-10-18] MEDS: DIFLUCAN PO SCH (10:24)
[2016-10-18] MEDS: SODIUM BICARBONATE PO SCH (10:26)
[2016-10-18] MEDS: LOVENOX SUB-Q SCH (10:26)
--- NOTE | 2016-10-18 10:26 | Discharge Summary ---
Providers - Providers Date of Admission: 09/28/16 18:59 Date of discharge: 10/18/16 Attending physician: JUVENAL SWEET 10/01/16 12:15 Physical Therapy Evaluation and Treat [CONS] Routine Comment: Reason For Exam: Deconditionag/ frequent falls at home. 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 Primary care physician: LOGISTICS SPECIALIST Hospitalization Condition: Fair Disposition: DISCHARGED TO HOME OR SELFCARE - Discharge Diagnoses (1) AIDS Status: Acute (2) Cryptococcal meningitis Status: Acute (3) Syphilis Status: Acute Core Measure Documentation - Palliative Care Palliative Care/ Comfort Measures: Not Applicable - Core Measures Any of the following diagnoses?: none Exam - Constitutional Vitals: Temp Pulse Resp BP Pulse Ox 98 F 83 15 136/90 98 10/18/16 07:40 10/18/16 07:40 10/18/16 07:40 10/18/16 07:40 10/18/16 07:40 Plan Activity: no restrictions Diet: regular Additional Instructions: 1.Follow up with [facility] today to take over management of HIV, Cryptococcal memingitis. Follow up with: PRIMARY CARE, [Primary Care Provider] - 3-5 Days Prescriptions: Azithromycin [Zithromax TAB] 1,200 mg PO QWEEK #4 tablet Fluconazole [Diflucan TAB] 800 mg PO QDAY 14 Days
--- NOTE | 2016-10-18 11:15 | Progress Note ---
Assessment and Plan Current antibiotics: Aqueous penicillin 4 million units IV q4h daily 10/03 --> Fluconazole 800 mg po q day 10/09 --> Previous Antibiotics: Amphotericin B 0.7 mg/kilogram IV daily 09/28-10/12 Flucytosine 25 mg/kilogram po q6h 09/28-10/06 Ceftriaxone 2 g IV daily 09/28-10/03 Vancomycin IV 1 g X 1 09/28 Azithromycin 500 mg IV daily 09/28-09/30/16 ASSESSMENT: Clair Rich is a 25y/o AA male presents through the ED with a one-month history of malaise, worsening generalized headache, decreased appetite, and weight loss. He was brought to the hospital by his sister who stated that had been falling. The patient had marked neck rigidity with non- contrast head CT showing no acute changes. Spinal fluid revealed 600 WBCs with 50% segs and 38% lymphs; 165 RBCs, glucose 3, protein 117 and cryptococcal antigen 1:512 Conclusions: 1. Cryptococcal meningitis and Cryptococcemia -+ antigen 1:512 -Worsening mental status. 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 HIV/AIDS -VL [id number] -CD4 14, 7% 3. RLL infiltrate -Repeat chest xray without infiltrate, doubt pneumonia 4. Neurosyphilis -RPR positive with titer of 1:1024 -Patient without diffuse rash. -CSF VDRL 1:16 5. Marked hyponatremia -R/O SIADH, this might be related to the meningitis -Resolved 6. Thrombocytopenia -Resolved 7. Nausea/vomiting/diarrhea -Seems to have resolved with 5-FC being discontinued 8. RANJIT -Likely secondary to previous amphotericin therapy -Trending down with amphotericin stopped 9. Hypomagnesemia -Secondary to amphotericin PLAN: 1. Continue fluconazole 800mg po daily. Will need to be supplied with this pending [place] [facility] clinic appointment 2. Has finished course of IV penicillin for neurosyphilis 3. Continue weekly azithromycin for MAC prophylaxis and 4. Start Bactrim DS one tablet daily for pneumocystis prophylaxis once creatinine normalizes 5. Okay to discharge [facility] once arrangements for follow-up have been made as well as arrangements for high-dose fluconazole. 6. Discussed with patient and his mother. If there are any issues with getting into [facility] they will let me know. Glynn Warren MD [facility] Office: [phone] Subjective Date of service: 10/18/16 Principal diagnosis: Cryptococcal meningitis, HIV, neurosyphilis Interval history: No complaints except "got eggs instead of cereal for breakfast." Knowing much better and getting stronger. Did not go home yesterday because arrangements for fluconazole could not be made. Objective - Exam Narrative Exam: GENERAL: Well-developed, well nourished male who is alert and very responsive and in NAD. Much better than when I last saw him. HEENT: Pupils are equal reactive to light and accommodation. Conjunctiva clear. Thrush is improved. NECK: Less stiffness to forward flexion. No enlargement of the thyroid gland. Shotty cervical lymphadenopathy. No jugular venous distention at 30. LUNGS: Clear with no adventitious sounds. HEART: Tachycardic. No murmur or gallop. ABDOMEN: Soft and nontender. Liver and spleen are not palpably enlarged or tender. No palpable masses. Bowel sounds are normoactive. EXTREMITIES: Shotty cervical, axillary and inguinal lymph node enlargement. SKIN: No other rash, ulcers or wounds. NEUROLOGIC: No focal findings. Walking in the room. - Constitutional Vitals: Vital Signs Temp Pulse Resp BP Pulse Ox 98 F 83 15 136/90 98 10/18/16 07:40 10/18/16 07:40 10/18/16 07:40 10/18/16 07:40 10/18/16 07:40 Temperature -Last 24 Hours Temperature 98 F Temperature 98.6 F Temperature 98.2 F - Labs CBC & Chem 7: 10/17/16 06:50 10/17/16 06:50 Labs: Micro: 09/28/16 12:45 Cerebral Spinal Fluid CSF Culture - No growth 09/28/16 12:45 Cerebral Spinal Fluid Cryptococcal Antigen - 1:512 09/28/16 12:34 Peripheral/Venous Blood Culture - Preliminary NO GROWTH AFTER 72 HOURS 09/28/16 12:06 Peripheral/Venous Blood Culture - Preliminary NO GROWTH AFTER 72 HOURS 09/28/16 15:23 Serum Cryptococcal Antigen - 1:512 09/28 AFB blood culture is growing Cryptococcus neoformans Imagin/23: MRI of the brain: Likely small recent infarcts with no significant mass effect or hemorrhagic transformation no signs of hydrocephalus. Changes of acute and chronic sinusitis.
[2016-10-18 12:09] VITALS: BP 151/95
== END 2016-10-18 12:55 | disposition home or self-care (01) | DRG 974 ==
LOC: ED 10:47 → 3A 18:59
PROVIDERS: ADMIT Internal Medicine; ATTEND Internal Medicine
PROC: 009U3ZX Drainage of Spinal Canal, Percutaneous Approach, Diagnostic (ICD-10-PCS; 2016-09-28)
PROC: 02HV33Z Insertion of Infusion Device into Superior Vena Cava, Percutaneous Approach (ICD-10-PCS; principal; 2016-10-02)
PROC: B548ZZA Ultrasonography of Superior Vena Cava, Guidance (ICD-10-PCS; 2016-10-02)
DX: B20 Human immunodeficiency virus [HIV] disease (principal); B45.1 Cerebral cryptococcosis; J18.9 Pneumonia, unspecified organism; E43 Unspecified severe protein-calorie malnutrition; E87.1 Hypo-osmolality and hyponatremia; K62.6 Ulcer of anus and rectum; N17.9 Acute kidney failure, unspecified; A52.3 Neurosyphilis, unspecified; D69.6 Thrombocytopenia, unspecified; J32.9 Chronic sinusitis, unspecified; R53.81 Other malaise; F12.90 Cannabis use, unspecified, uncomplicated; D64.9 Anemia, unspecified; K12.1 Other forms of stomatitis; E83.42 Hypomagnesemia; Z68.27 Body mass index [BMI] 27.0-27.9, adult; Z82.49 Family history of ischemic heart disease and other diseases of the circulatory system
CPT/HCPCS: 36415; 70450; 70553; 71010; 71020; 72125; 76770; 80048; 80053; 80061; 80074; 80301; 80320; 81001; 82024; 82140; 82164; 82570; 82947; 82962; 83615; 83735; 83930; 84100; 84160; 84300; 84484; 85007; 85025; 86403; 86592; 86593; 86705; 86706; 86709; 86777; 86778; 86803; 87040; 87045; 87116; 87177; 87536; 87799; 87806; 87901; 89050; 89051; 93005; 93010; 96361; 96365; 96368; 96375; G0479; G0480; J0285; J0456; J0696; J1100; J1200; J1650; J2405; J2540; J3370; J3475; J7030; J7042; J7050; J7070

== ENCOUNTER 2020-06-11 00:27 | Emergency (ER) | payer SELFPAY ==
[2020-06-11] MEDS ORDERED: ACETAMINOPHEN 500 MG TAB PO ONE (03:40)
[2020-06-11] MEDS ORDERED: diphenhydrAMINE 25 MG CAP PO ONE (03:40)
[2020-06-11] MEDS ORDERED: METOCLOPRAMIDE 10 MG TAB PO ONE (03:40)
[2020-06-11] MEDS ORDERED: IBUPROFEN 800 MG TAB ONE (03:42)
[2020-06-11] MEDS ORDERED: METOCLOPRAMIDE 10 MG TAB ONE (03:42)
[2020-06-11] MEDS ORDERED: ACETAMINOPHEN 500 MG TAB ONE (03:42)
[2020-06-11] MEDS ORDERED: IBUPROFEN 800 MG TAB PO ONE (03:43)
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
[2020-06-11 06:49] VITALS: BP 140/95
== END 2020-06-11 06:47 | disposition home or self-care (01) ==
LOC: ED 00:27
DX: R51 Headache (principal); I10 Essential (primary) hypertension; F17.200 Nicotine dependence, unspecified, uncomplicated; F12.90 Cannabis use, unspecified, uncomplicated; Z79.899 Other long term (current) drug therapy; Z98.890 Other specified postprocedural states; V49.49XA Driver injured in collision with other motor vehicles in traffic accident, initial encounter; Y92.410 Unspecified street and highway as the place of occurrence of the external cause; Y99.8 Other external cause status; Y93.89 Activity, other specified
CPT/HCPCS: 99282